=== PATIENT | female | born 1935 | race Caucasian/White ===

== ENCOUNTER 2018-11-02 15:38 | Emergency (ER) | payer OTHER, MEDICARE ==
[2018-11-02 17:19] LABS: Urine Blood 1+ (NEG); Urine Glucose NEGATIVE (NEG); Urine Protein NEGATIVE (NEG); Urine Specific Gravity 1.015 (1.005-1.030); Urine pH 5.5 (5.0-7.0)
[2018-11-02] MEDS ORDERED: FUROSEMIDE 40 MG/4 ML VIAL ONE (18:02)
[2018-11-02 18:14] LABS: Absolute Lymphocytes (CBC) 0.4 K/uL (0.7-4.9); Absolute Monocytes 0.5 K/uL (0.1-1.3); Absolute Neutrophil 5.4 K/uL (1.8-8.0); Basophils % 0.6 % (0-1.3); Eosinophils % 0.9 % (0-4.4); Hematocrit 35.5 % (36.0-45.0); Lymphocytes % 5.7 % (15.3-44.8); MPV 8.6 fL (7.6-11.3); Monocytes % 7.9 % (3.3-12.3); RBC Red Blood Cell Count 3.33 M/uL (3.86-4.86)
[2018-11-02 18:25] LABS: Potassium 4.5 mmol/L (3.5-5.1)
--- NOTE | 2018-11-02 18:39 | RAD REPORT ---
EXAM DESCRIPTION: USExtrem Venous W Compress Bil11/02/2018 6:28 pm CLINICAL HISTORY: Bilateral leg swelling COMPARISON: August 2018 FINDINGS: The common femoral, superficial femoral, popliteal and posterior tibial veins bilaterally are compressible and demonstrate augmentation. Doppler demonstrates good flow. IMPRESSION: No evidence of deep venous thrombosis involving either lower extremity.
--- NOTE | 2018-11-02 18:49 | EDPHYS ---
Physician Documentation [facility] Name: Debby Gaitan Age: 83 yrs Sex: Female : 1935 Arrival Date: 11/02/2018 Time: 15:41 Bed 30 Private MD: Zack Giles ED Physician Chris Bruce HPI: 11/02 22:26 This 83 yrs old Female presents to ER via Wheelchair with complaints of Leg kdr Swelling. 22:26 The patient presents with swelling, tenderness, R > left leg. The complaints affect the kdr lateral aspect of left calf, left lateral ankle, left calf, left Achilles, medial aspect of left calf, left medial ankle, left pretty and anterior aspect of left ankle, lateral aspect of right calf, right ankle, right calf, right Achilles, medial aspect of right calf, right pretty and anterior aspect of right ankle. Context: The problem was sustained at home, resulted from an unknown cause, the patient can fully bear weight, the patient is able to ambulate, without difficulty. Onset: The symptoms/episode began/occurred gradually, 2 week(s) ago. Modifying factors: The symptoms are alleviated by elevating leg, the symptoms are aggravated by movement, weight bearing. Associated signs and symptoms: The patient has no apparent associated signs or symptoms. Treatment prior to arrival includes: prescription medications, Increased lasix from 20 mg to 40 mg/day. Severity of symptoms: At their worst the symptoms were mild, just prior to arrival, in the emergency department the symptoms are unchanged. The patient has experienced similar episodes in the past, a few times. The patient has not recently seen a physician. Historical: - Allergies: 15:51 Aspirin; hb 15:51 blood thinners; hb 15:51 Codeine; hb 15:51 PENICILLINS; hb 15:51 Sulfa (Sulfonamide Antibiotics); hb 15:51 Tape (All Except Paper); hb 15:51 Xarelto; hb - Home Meds: 15:51 Amiodarone Oral [Active]; amlodipine oral [Active]; atorvastatin Oral [Active]; Digoxin hb Oral [Active]; Furosemide Oral [Active]; gabapentin Oral [Active]; levothyroxine 88 mcg tab 1 tab once daily [Active]; Metformin Oral [Active]; Metoprolol Tartrate Oral [Active]; lisinopril Oral [Active]; pantoprazole Oral [Active]; Simvastatin Oral [Active]; Spironolacton-Hydrochlorothiaz Oral [Active]; - PMHx: 15:51 Anemia; High Cholesterol; Atrial Fib; CHF; hb - PSHx: 15:51 Heart Valve Replacement; Mitral Valve Clip; Appendectomy; Cholecystectomy; Carpal hb Tunnel Repair; - Immunization history:: Adult Immunizations up to date. - Social history:: Smoking status: Patient/guardian denies using tobacco. - Ebola Screening: : No symptoms or risks identified at this time. ROS: 22:26 Constitutional: Negative for fever, chills, and weight loss, Eyes: Negative for injury, kdr pain, redness, and discharge, ENT: Negative for injury, pain, and discharge, Neck: Negative for injury, pain, and swelling, Cardiovascular: Negative for chest pain, palpitations, and edema, Respiratory: Negative for shortness of breath, cough, wheezing, and pleuritic chest pain, Abdomen/GI: Negative for abdominal pain, nausea, vomiting, diarrhea, and constipation, Back: Negative for injury and pain, : Negative for injury, bleeding, discharge, and swelling, Skin: Negative for injury, rash, and discoloration, Neuro: Negative for headache, weakness, numbness, tingling, and seizure activity. Psych: Negative for depression, anxiety, suicide ideation, homicidal ideation, and hallucinations, Allergy/Immunology: Negative for hives, rash, and allergies, Endocrine: Negative for neck swelling, polydipsia, polyuria, polyphagia, and marked weight changes, Hematologic/Lymphatic: Negative for swollen nodes, abnormal bleeding, and unusual bruising. 22:26 MS/extremity: Positive for swelling, tenderness, weeping from legs. Exam: 22:26 Constitutional: This is a well developed, well nourished patient who is awake, alert, kdr and in no acute distress. Head/Face: Normocephalic, atraumatic. Eyes: Pupils equal round and reactive to light, extra-ocular motions intact. Lids and lashes normal. Conjunctiva and sclera are non-icteric and not injected. Cornea within normal limits. Periorbital areas with no swelling, redness, or edema. Neck: Trachea midline, no thyromegaly or masses palpated, and no cervical lymphadenopathy. Supple, full range of motion without nuchal rigidity, or vertebral point tenderness. No Meningismus. Chest/axilla: Normal chest wall appearance and motion. Nontender with no deformity. No lesions are appreciated. Cardiovascular: Regular rate and rhythm with a normal S1 and S2. No gallops, murmurs, or rubs. Normal PMI, no JVD. No pulse deficits. Respiratory: Lungs have equal breath sounds bilaterally, clear to auscultation and percussion. No rales, rhonchi or wheezes noted. No increased work of breathing, no retractions or nasal flaring. Abdomen/GI: Soft, non-tender, with normal bowel sounds. No distension or tympany. No guarding or rebound. No evidence of tenderness throughout. Back: No spinal tenderness. No costovertebral tenderness. Full range of motion. Neuro: Awake and alert, GCS 15, oriented to person, place, time, and situation. Cranial nerves II-XII grossly intact. Motor strength 5/5 in all extremities. Sensory grossly intact. Cerebellar exam normal. Normal gait. Psych: Awake, alert, with orientation to person, place and time. Behavior, mood, and affect are within normal limits. 22:26 Skin: Appearance: Moisture: Occasional small areas of weeping in distal extremities, swelling. Vital Signs: 15:49 BP 116 / 56; Pulse 64; Resp 16; Temp 98.2; Pulse Ox 100% on R/A; Pain 0/10; hb 16:30 BP 141 / 57; Pulse 65; Resp 17 S; Pulse Ox 100% on R/A; rv 17:00 BP 124 / 50; Pulse 64; Resp 17 S; Pulse Ox 100% on R/A; rv 17:20 BP 125 / 51; Pulse 65; Resp 17; Pulse Ox 98% ; rv 17:40 BP 134 / 52; Pulse 65; Resp 15 S; Pulse Ox 99% on R/A; rv 18:52 BP 130 / 52; Pulse 67 MON; Resp 16 S; Pulse Ox 100% on R/A; rv MDM: 18:48 Patient medically screened. kdr 22:26 Data reviewed: vital signs, nurses notes. Counseling: I had a detailed discussion with kdr the patient and/or guardian regarding: the historical points, exam findings, and any diagnostic results supporting the discharge/admit diagnosis, lab results, radiology results, the need for outpatient follow up. ED course: The patient had minor improvement. 11/02 17:01 Order name: Urine Dipstick--Ancillary (enter results); Complete Time: 17:52 eb 11/02 17:50 Order name: CBC with Diff kdr 11/02 17:50 Order name: Chem 7; Complete Time: 18:32 kdr 11/02 17:50 Order name: US Extremity Venous W Compression Eugene kdr Administered Medications: 18:05 Drug: Lasix 80 mg Route: IVP; Site: right antecubital; rv 18:47 Follow up: Response: No adverse reaction rv Disposition: 11/02/18 18:48 Discharged to Home. Impression: Peripheral edema. - Condition is Fair. - Discharge Instructions: Edema, [id number], Peripheral Edema. - Prescriptions for Lasix 40 mg Oral Tablet - take 1 tablet by ORAL route every 12 hours for 5 days; 10 tablet. - Medication Reconciliation Form, Thank You Letter form. - Follow up: Sang Lopez DO; When: 2 - 3 days; Reason: If symptoms return, Further diagnostic work-up, Recheck today's complaints, Continuance of care, Re-evaluation by your physician. - Notes: As discussed, take 40 mg of the Lasix twice a day for the next three to five days or until your legs are feeling less tight. Signatures: Dispatcher [employer] EDMS Chris Bruce MD MD [facility] Eri Joseph RN RN César Martinez RN RN rv Corrections: (The following items were deleted from the chart) 19:05 18:48 11/02/2018 18:48 Discharged to Home. Impression: Peripheral edema. Condition is rv Fair. Forms are Medication Reconciliation Form, Thank You Letter, Antibiotic Education, Prescription Opioid Use. Follow up: Sang Lopez; When: 2 - 3 days; Reason: If symptoms return, Further diagnostic work-up, Recheck today's complaints, Continuance of care, Re-evaluation by your physician. kdr
--- NOTE | 2018-11-02 18:49 | ER ---
Nurse's Notes [facility] Name: Debby Gaitan Age: 83 yrs Sex: Female : 1935 Arrival Date: 11/02/2018 Time: 15:41 Bed 30 Private MD: Zack Giles Diagnosis: Peripheral edema Presentation: 11/02 15:48 Presenting complaint: Patient states: Lower leg swelling x 2 weeks, worse over last few hb days. Transition of care: patient was not received from another setting of care. Onset of symptoms is unknown. Risk Assessment: Do you want to hurt yourself or someone else? Patient reports no desire to harm self or others. Care prior to arrival: None. 15:48 Method Of Arrival: Wheelchair hb 15:48 Acuity: ALEJANDRO 3 hb 18:11 Initial Sepsis Screen: Does the patient meet any 2 criteria? No. Patient's initial rv sepsis screen is negative. Does the patient have a suspected source of infection? No. Patient's initial sepsis screen is negative. Historical: - Allergies: 15:51 Aspirin; hb 15:51 blood thinners; hb 15:51 Codeine; hb 15:51 PENICILLINS; hb 15:51 Sulfa (Sulfonamide Antibiotics); hb 15:51 Tape (All Except Paper); hb 15:51 Xarelto; hb - Home Meds: 15:51 Amiodarone Oral [Active]; amlodipine oral [Active]; atorvastatin Oral [Active]; Digoxin hb Oral [Active]; Furosemide Oral [Active]; gabapentin Oral [Active]; levothyroxine 88 mcg tab 1 tab once daily [Active]; Metformin Oral [Active]; Metoprolol Tartrate Oral [Active]; lisinopril Oral [Active]; pantoprazole Oral [Active]; Simvastatin Oral [Active]; Spironolacton-Hydrochlorothiaz Oral [Active]; - PMHx: 15:51 Anemia; High Cholesterol; Atrial Fib; CHF; hb - PSHx: 15:51 Heart Valve Replacement; Mitral Valve Clip; Appendectomy; Cholecystectomy; Carpal hb Tunnel Repair; - Immunization history:: Adult Immunizations up to date. - Social history:: Smoking status: Patient/guardian denies using tobacco. - Ebola Screening: : No symptoms or risks identified at this time. Screenin:44 Abuse screen: Denies threats or abuse. Denies injuries from another. Nutritional rv screening: No deficits noted. Tuberculosis screening: No symptoms or risk factors identified. Fall Risk None identified. Assessment: 16:42 General: Appears in no apparent distress. distressed, Behavior is calm, cooperative. rv Pain: Denies pain. Neuro: Level of Consciousness is awake, alert, obeys commands, Oriented to person, place, time, situation. Cardiovascular: Capillary refill < 3 seconds. Respiratory: Airway is patent. GI: No signs and/or symptoms were reported involving the gastrointestinal system. : No signs and/or symptoms were reported regarding the genitourinary system. EENT: No signs and/or symptoms were reported regarding the EENT system. Derm: Skin with poor turgor. Musculoskeletal: Swelling present in right leg and left leg. Vital Signs: 15:49 BP 116 / 56; Pulse 64; Resp 16; Temp 98.2; Pulse Ox 100% on R/A; Pain 0/10; hb 16:30 BP 141 / 57; Pulse 65; Resp 17 S; Pulse Ox 100% on R/A; rv 17:00 BP 124 / 50; Pulse 64; Resp 17 S; Pulse Ox 100% on R/A; rv 17:20 BP 125 / 51; Pulse 65; Resp 17; Pulse Ox 98% ; rv 17:40 BP 134 / 52; Pulse 65; Resp 15 S; Pulse Ox 99% on R/A; rv 18:52 BP 130 / 52; Pulse 67 MON; Resp 16 S; Pulse Ox 100% on R/A; rv ED Course: 15:41 Patient arrived in ED. as 15:42 Zack Giles MD is Private Physician. as 15:49 Triage completed. hb 15:51 Arm band placed on right wrist. hb 16:30 Chris Bruce MD is Attending Physician. kdr 16:44 Patient has correct armband on for positive identification. Bed in low position. Call rv light in reach. Side rails up X 1. Adult w/ patient. Pulse ox on. NIBP on. 18:00 Radiology exam delayed due to line being placed. cy 18:00 Initial lab(s) drawn, by me, sent to lab. Inserted saline lock: 22 gauge in right rv antecubital area, using aseptic technique. Blood collected. 18:10 US Extremity Venous W Compression Eugene Sent. rv 18:10 CBC with Diff Sent. rv 18:28 US Extremity Venous W Compression Eugene In Process Unspecified. EDMS 18:47 Sang Lopez DO is Referral Physician. kdr 18:47 No provider procedures requiring assistance completed. IV discontinued, bleeding rv controlled, No redness/swelling at site. Pressure dressing applied. Administered Medications: 18:05 Drug: Lasix 80 mg Route: IVP; Site: right antecubital; rv 18:47 Follow up: Response: No adverse reaction rv Outcome: 18:47 Discharged to home ambulatory. rv 18:47 Condition: good 18:48 Discharge ordered by . kdr 19:05 Discharge instructions given to patient, family, Instructed on discharge instructions, rv follow up and referral plans. medication usage, Demonstrated understanding of instructions, follow-up care, medications, Prescriptions given X 1. 19:05 Patient left the ED. rv Signatures: Dispatcher [employer] EDMS Chris Bruce MD MD kdr Martinez, Amelia as Baxter, Heather, DONALD RN Omi Vargas César Martinez, DONALD RN rv
[2018-11-02 19:20] VITALS: TEMP 98.2
[2018-11-02 19:30] VITALS: BP 130/52; O2SAT 100
[2018-11-02 20:14] LABS: Blood Morphology Comment NOT SEEN (NOT SEEN); Platelet Estimate ADEQ; Urine White Blood Cell Casts OK
--- OUTSIDE RECORDS SUMMARY | 2018-11-03 17:36 | XMS REPORT | Clinical Summary ---
:1935 Author Organization [facility] Address [address] [place] [address] Care Team Providers Name Role Phone Zack Giles MD Primary Care Provider Allergies Active Allergy Reactions Severity Noted Date Comments Aspirin 08/16/2016 Codeine 08/16/2016 Hydrocodone-Acetaminophen 08/16/2016 Latex, Natural Rubber 10/24/2016 Nsaids (Non-Steroidal Anti-Inflammatory Drug) 08/16/2016 Penicillins 08/16/2016 Sulfa (Sulfonamide Antibiotics) 10/24/2016 Medications Medication Sig Dispensed Refills Start Date End Date Status levothyroxine Take 0.88 mcg 0 2017 Active (SYNTHROID, LEVOXYL) by mouth 100 mcg tablet daily. liothyronine 0 12/13/2017 Active (CYTOMEL) 5 MCG tablet pantoprazole Take 1 tablet 90 tablet 3 01/24/2018 Active (PROTONIX) 40 MG EC (40 mg total) tablet by mouth daily. furosemide (LASIX) Take 1 tablet 90 tablet 3 01/24/2018 Active 40 mg tablet (40 mg total) by mouth daily. spironolactone TAKE 1 TABLET 180 tablet 1 07/04/2018 Active (ALDACTONE) 50 MG BY MOUTH tablet TWICE A DAY amIODarone TAKE 1 TABLET 90 tablet 1 07/04/2018 Active (PACERONE) 200 MG BY MOUTH tablet DAILY atorvastatin TAKE 1 TABLET 90 tablet 1 07/04/2018 Active (LIPITOR) 20 MG BY MOUTH tablet EVERY DAY levofloxacin Take 250 mg 0 Discontinued (LEVAQUIN) 250 MG by mouth 8 tablet daily. X 4 days. Started on 08-22-2016 atorvastatin Take 1 tablet 90 tablet 3 02/28/2017 Discontinued (LIPITOR) 20 MG (20 mg total) 8 tablet by mouth daily. pantoprazole Take 1 tablet 90 tablet 3 02/28/2017 Discontinued (PROTONIX) 40 MG EC by mouth 8 tablet every day in the morning simvastatin (ZOCOR) Take 20 mg by 0 Discontinued 10 MG tablet mouth 8 nightly. spironolactone TAKE 1 TABLET 180 tablet 1 08/24/2017 Discontinued (ALDACTONE) 50 MG BY MOUTH 8 tablet TWICE A DAY amIODarone TAKE 1 TABLET 90 tablet 1 08/24/2017 Discontinued (PACERONE) 200 MG BY MOUTH 8 tablet DAILY pantoprazole TAKE 1 TABLET 15 tablet 0 01/05/2018 Discontinued (PROTONIX) 40 MG EC BY MOUTH 8 tablet EVERY DAY IN THE MORNING atorvastatin TAKE 1 TABLET 90 tablet 0 01/05/2018 Discontinued (LIPITOR) 20 MG BY MOUTH 8 tablet EVERY DAY furosemide (LASIX) Take 40 mg by 0 Discontinued 40 mg tablet mouth daily. 8 atorvastatin TAKE 1 TABLET 90 tablet 0 03/16/2018 Discontinued (LIPITOR) 20 MG BY MOUTH 8 tablet EVERY DAY spironolactone TAKE 1 TABLET 180 tablet 0 03/16/2018 Discontinued (ALDACTONE) 50 MG BY MOUTH 8 tablet TWICE A DAY amIODarone TAKE 1 TABLET 90 tablet 0 03/16/2018 Discontinued (PACERONE) 200 MG BY MOUTH 8 tablet DAILY spironolactone Take 1 tablet 180 tablet 0 03/17/2018 Discontinued (ALDACTONE) 50 MG (50 mg total) 8 tablet by mouth 2 (two) times a day. amIODarone Take 1 tablet 90 tablet 0 03/17/2018 Discontinued (PACERONE) 200 MG (200 mg 8 tablet total) by mouth daily. atorvastatin Take 1 tablet 90 tablet 0 03/17/2018 Discontinued (LIPITOR) 20 MG (20 mg total) 8 tablet by mouth daily. Default OP ins Active Problems Problem Noted Date Acute on chronic congestive heart failure 06/10/2017 Anemia 02/03/2017 Atrial fibrillation 02/03/2017 Congestive heart failure 02/03/2017 Chronic kidney disease 02/03/2017 S/P mitral valve repair with Mitraclip 02/03/2017 Overview: with a single MitraClip device. Hypotension 08/23/2016 Hematuria 08/16/2016 S/P AVR (aortic valve replacement) 11/14/2013 Overview: 19 mm Trifecta valve Encounters Date Type Specialty Care Team Description 10/19/2018 Orders Only Cardiology Linda Blevins MA S/P TAVR (transcatheter aortic valve replacement) (Primary Dx) 06/30/2018 Refill Cardiology Kevin Matta MD 03/21/2018 Orders Only Cardiology Kyara Duarte S/P TAVR (transcatheter aortic valve replacement) (Primary Dx); RN S/P mitral valve clip implantation 03/17/2018 Refill Cardiology Kevin Matta MD 03/14/2018 Refill Kevin Matta MD 01/19/2018 Multidisciplinary Visit Cardiology Kevin Matta S/P MVR ( mitral valve repair) (Primary Dx); MD Faustino S/P mitral valve repair with Mitraclip; Chronic kidney disease, unspecified CKD stage; Chronic atrial fibrillation; S/P AVR (aortic valve replacement); Congestive heart failure, unspecified congestive heart failure chronicity, unspecified congestive heart failure type 01/19/2018 Orders Only Cardiology Kevin Matta Aortic valve disorder MD Faustino (Primary Dx) 01/19/2018 Orders Only Cardiology Guido, Aortic valve disorder DONALD Harrington (Primary Dx) 01/19/2018 Orders Only Cardiology Kevin Matta Aortic valve disorder MD Faustino (Primary Dx) 01/05/2018 Refill Cardiology Kevin Matta MD 11/17/2017 Refill Cardiology Kevin Matta MD after 11/01/2017 Family History Medical History Relation Name Comments Cardiomyopathy Daughter GERD Daughter Thyroid disease Daughter Diabetes Mother Hypertension Mother Thyroid disease Son Relation Name Status Comments Daughter Mother Son Social History Tobacco Use Types Packs/Day Years Used Date Never Smoker Smokeless Tobacco: Never Used Alcohol Use Drinks/Week oz/Week Comments No Sex Assigned at Date Recorded Not on file Job Start Date Occupation Industry Not on file Not on file Not on file Travel History Travel Start Travel End No recent travel history available. Last Filed Vital Signs Vital Sign Reading Time Taken Blood Pressure 146/65 01/19/2018 3:07 PM HOG WORKER Pulse 60 01/19/2018 3:07 PM HOG WORKER Temperature 36.4 C (97.5 F) 01/19/2018 3:07 PM HOG WORKER Respiratory Rate 18 01/19/2018 3:07 PM HOG WORKER Oxygen Saturation - - Inhaled Oxygen Concentration - - Weight 63.5 kg (140 lb) 01/19/2018 3:07 PM HOG WORKER Height 157.5 cm (5' 2") 01/19/2018 3:07 PM HOG WORKER Body Mass Index 25.61 01/19/2018 3:07 PM HOG WORKER Plan of Treatment Date Type Specialty Care Team Description 01/18/2019 Appointment Procedural Cardiology Kevin Matta MD [address] [facility] [address] [place] [address] [phone] 01/18/2019 Multidisciplinary Visit Cardiology Kevin Matta MD [address] [facility] [address] [place] [address] [phone] Health Maintenance Due Date Last Done Comments SHINGLES VACCINES (1 of 2) 1986 PNEUMOCOCCAL POLYSACCHARIDE VACCINE AGE 65 AND OVER 2001 PNEUMOCOCCAL-13 2001 INFLUENZA VACCINE 06/14/2018 Procedures Procedure Name Priority Date/Time Associated Comments Diagnosis TRANSFUSE RED BLOOD Routine 07/19/2018 5:26 CELLS PM CDT ECG 12-LEAD Routine 01/19/2018 3:04 S/P MVR (mitral Results for this PM HOG WORKER valve repair) procedure are in the results section. ECHOCARDIOGRAM 2D Routine 01/19/2018 1:37 S/P TAVR Results for this COMPLETE W MMODE PM HOG WORKER (transcatheter procedure are in SPECTRAL COLOR DOPPLER aortic valve the results (00081) replacement) section. Aortic valve disorder after 11/01/2017 Results Transfuse RBC (07/19/2018 5:26 PM CDT)ECG 12 lead (01/19/2018 3:04 PM HOG WORKER) Ventricular rate 60 [facility] Atrial rate 60 [facility] MO interval 180 [facility] QRSD interval 104 [facility] QT interval 464 [facility] QTC interval 464 [facility] P axis 1 94 [facility] QRS axis 1 -22 [facility] T wave axis 42 [facility] EKG impression Normal sinus rhythm-Normal ECG-In automated [facility] comparison with ECG of 09-AUG-2017 12:44,-(RBBB and left anterior fascicular block) is no longer present- Performing Organization Address City/State/Zipcode Phone Number [facility] M[facility] [address] [place] [address] Echocardiogram complete w contrast and 3D if needed (01/19/2018 1:37 PM HOG WORKER) Narrative Performed At [facility] Echocardiography Report Pat.Name:DANNY ANDERS Pat.ID:[id number] St.Date: 01/19/2018Refer.MD:KEVIN MATTA MD Exam Time: 1:07:00 PMStudy Type:Routine Echo Height:62inWeight: 140lb BSA: 1.64 m2 DOBAge:1935,82Y Sex: FEMALEBP:139/62 HR:57 bpm Sonogrphr: Oumou Peck, RCS, RCCS, CCT Pat. Stat.:OutpatientRoom:[facility] TapeVol: MDCA, ICD - 9: Z95.2 Study Status:Final Echo Event ID:[id number] Order ID:[id number] Reason for Study:Valvular lvvowrk-mh-lels without evidence, no status change History / Clinical:Aortic Stenosis, Aortic Valve Disorder, Atrial Fibrillation, Cancer, Coronary Artery Disease, Diabetes, Hyperlipidemia, Hypertension, Valvular Heart Disease; Mitral Regurgitaiton, Valvular Heart Disease; Tricuspid Regurgitation Procedures:2D Echo, Colorflow Doppler Race: SUMMARY: RESEARCH STUDY:DoloresVI Trial Echocardiogram. -LV systolic function is hyperdynamic. Estimated EF is >70%. -Moderate to severe mitral regurgitation with a central jet (MITRAL clips noted). FINDINGS: LV: LV size is normal. LV systolic function is hyperdynamic. Overallwall motion is hyperdynamic. Estimated EF is >70%. RV: RV size is normal. RV systolic function is normal. LA: LA volume is severely enlarged. RA: RA volume is severely enlarged. AO: Aortic root diameter is normal. FRANCESCO: No pericardial effusion. AV: Bioprosthetic aortic valve. Aortic Valve is normal. MV: Severe thickening and calcification of mitral leaflets. Moderateto severe mitral regurgitation with a central jet. ModerateLYELEVATEDgradient across the MV (combination of mildto moderate stenosis and significant regurgitation). PV: No structural PV abnormalities noted. TV: No structural TV abnormalities noted. Moderate tricuspid regurgitation Other:Estimated PA systolic pressure is 70 mmHg, assuming a mean RAPof 10 mmHg. MEASUREMENTS: 2D Parasternal Long [place] LVOT 1.9 cmLA Ds6.3 cm LVIDd6.1 cmIndex3.7 cm/m Ao An2.1 cm LVIDs4.4 cmAo Rtd 2.9 cm Index1.8 cm/m LV%fs 27.9 % LV Gtec591.6 g(87-129) IVSd 0.9 cmLVM Zslgx031.6 g/m2 LVPWd0.9 cmRWT0.3 LA Volume LA Vol 242.6 phOfcfw721.9 ml/m DOPPLER AV For Flow/TING AV pkVel 245.4 cm/s (100-170) AV AC/ET 0.2 AV mnVel 159 cm/Agnes TVI54.3 cm AV pkPG 24.1 mmHgAVpkAcRt 84455.2 cm/s2 AV Mean G 12.5 mmHgAV VpMb241.8 cm/s2 AV AC 78 msec (83-118) AV Area1.5 cm2(3-5) AV ET341 msec LVOT For Flow LVOT Area2.8 cm2 LVOTmnPG 3.5 mmHg XJLEjdYuy529.7 cm/sLVOT TVI28.7 cm LVOTpkPG 6.3 mmHgLVOT SV 81.4 ml MV For Flow/Valve Assess MV pkVel 276.5 cm/sMV Mean G6.1 mmHg MV pkPG 30.6 mmHgMV TVI74.4 cm Signed 01/21/2018 01:13 AM Ann Banks M.D. Procedure Note Interface, Radiology Results In - 01/21/2018 1:14 AM HOG WORKER [facility] Echocardiography Report Pat.Name: DANNY ANDERS Pat.ID: [id number] .Date: 01/19/2018 Refer.MD: KEVIN MATTA MD Exam Time: 1:07:00 PM Study Type:Routine Echo Height: 62in Weight: 140lb BSA: 1.64 m2 Age: 9 1935,82Y Sex: FEMALE BP: 139/62 HR: 57 bpm Sonogrphr: Oumou Peck, RCS, RCCS, CCT Pat. Stat.:Outpatient Room: [address] Vol: [facility], ICD - 9: Z95.2 Study Status:Final Echo Event ID:[id number] Order ID: [id number] Reason for Study:Valvular zepoedd-fw-sjna without evidence, no status change History / Clinical:Aortic Stenosis, Aortic Valve Disorder, Atrial Fibrillation, Cancer, Coronary Artery Disease, Diabetes, Hyperlipidemia, Hypertension, Valvular Heart Disease; Mitral Regurgitaiton, Valvular Heart Disease; Tricuspid Regurgitation Procedures:2D Echo, Colorflow Doppler Race: SUMMARY: RESEARCH STUDY: SurTAVI Trial Echocardiogram. -LV systolic function is hyperdynamic. Estimated EF is >70%. -Moderate to severe mitral regurgitation with a central jet (MITRAL clips noted). FINDINGS: LV: LV size is normal. LV systolic function is hyperdynamic. Overall wall motion is hyperdynamic. Estimated EF is >70%. RV: RV size is normal. RV systolic function is normal. LA: LA volume is severely enlarged. RA: RA volume is severely enlarged. AO: Aortic root diameter is normal. FRANCESCO: No pericardial effusion. AV: Bioprosthetic aortic valve. Aortic Valve is normal. MV: Severe thickening and calcification of mitral leaflets. Moderate to severe mitral regurgitation with a central jet. ModerateLY ELEVATED gradient across the MV (combination of mild to moderate stenosis and significant regurgitation). PV: No structural PV abnormalities noted. TV: No structural TV abnormalities noted. Moderate tricuspid regurgitation Other: Estimated PA systolic pressure is 70 mmHg, assuming a mean RAP of 10 mmHg. MEASUREMENTS: 2D Parasternal Long [place] LVOT 1.9 cm LA Ds 6.3 cm LVIDd 6.1 cm Index 3.7 cm/m Ao An 2.1 cm LVIDs 4.4 cm Ao Rtd 2.9 cm Index 1.8 cm/m LV%fs 27.9 % LV Mass 230.6 g (87-129) IVSd 0.9 cm LVM Index 140.6 g/m2 LVPWd 0.9 cm RWT 0.3 LA Volume LA Vol 242.6 ml Index 147.9 ml/m DOPPLER AV For Flow/TING AV pkVel 245.4 cm/s (100-170) AV AC/ET 0.2 AV mnVel 159 cm/s AV TVI 54.3 cm AV pkPG 24.1 mmHg AVpkAcRt 81718.2 cm/s2 AV Mean G 12.5 mmHg AV DeRt 718.8 cm/s2 AV AC 78 msec (83-118) AV Area 1.5 cm2 (3-5) AV ET 341 msec LVOT For Flow LVOT Area 2.8 cm2 LVOTmnPG 3.5 mmHg LVOTpkVel 125.7 cm/s LVOT TVI 28.7 cm LVOTpkPG 6.3 mmHg LVOT SV 81.4 ml MV For Flow/Valve Assess MV pkVel 276.5 cm/s MV Mean G 6.1 mmHg MV pkPG 30.6 mmHg MV TVI 74.4 cm Signed 01/21/2018 01:13 AM Ann Banks M.D. Performing Organization Address City/State/Zipcode Phone Number [facility] [address] [place] [address] after 11/01/2017 Insurance Payer Benefit Plan / Group Subscriber ID Type Phone Address MEDICARE MEDICARE PART A AND B xxxxxxxxxx Medicare [place], [place] AARP AARP SUPPLEMENT xxxxxxxxxxx Commercial Advance Directives Patient has advance care planning documents on file. For more information, please contact:Red Brannon[address] [place] [address]
== END 2018-11-02 19:05 | disposition home or self-care (01) ==
LOC: ER 15:38
DX: R60.9 Edema, unspecified (principal); I48.91 Unspecified atrial fibrillation; E78.00 Pure hypercholesterolemia, unspecified; I50.9 Heart failure, unspecified; Z95.2 Presence of prosthetic heart valve; Z88.0 Allergy status to penicillin; Z88.2 Allergy status to sulfonamides; Z88.5 Allergy status to narcotic agent; Z88.6 Allergy status to analgesic agent; Z88.8 Allergy status to other drugs, medicaments and biological substances
CPT/HCPCS: 36415; 80048; 81003; 85025; 93970; 96374; 99284; J1940

== ENCOUNTER 2018-12-03 12:23 | Observation (INO) | payer OTHER, MEDICARE ==
--- OUTSIDE RECORDS SUMMARY | 2018-12-03 12:26 | XMS REPORT | Clinical Summary ---
:1935 Author Organization [facility] Address [address] [place] [address] Care Team Providers Name Role Phone Zack [...] tablet (40 mg total) by mouth daily. amIODarone TAKE 1 TABLET 90 tablet 1 11/15/2018 Active (PACERONE) 200 MG BY MOUTH tablet DAILY atorvastatin TAKE 1 TABLET 90 tablet 1 11/15/2018 Active (LIPITOR) 20 MG BY MOUTH tablet EVERY DAY spironolactone TAKE 1 TABLET 180 tablet 1 11/15/2018 Active (ALDACTONE) 50 MG BY MOUTH tablet TWICE A DAY levofloxacin Take 250 mg 0 Discontinued [...] tablet by mouth daily. Default OP ins spironolactone TAKE 1 TABLET 180 tablet 1 07/04/2018 Discontinued (ALDACTONE) 50 MG BY MOUTH 9 tablet TWICE A DAY amIODarone TAKE 1 TABLET 90 tablet 1 07/04/2018 Discontinued (PACERONE) 200 MG BY MOUTH 9 tablet DAILY atorvastatin TAKE 1 TABLET 90 tablet 1 07/04/2018 Discontinued (LIPITOR) 20 MG BY MOUTH 9 tablet EVERY DAY Active Problems Problem Noted Date Acute on chronic congestive heart failure 06/10/2017 Anemia 02/03/2017 Atrial fibrillation 02/03/2017 Congestive heart failure 02/03/2017 Chronic kidney disease 02/03/2017 S/P mitral valve repair with Mitraclip 02/03/2017 Overview: with a single MitraClip device. Hypotension 08/23/2016 Hematuria 08/16/2016 S/P AVR (aortic valve replacement) 11/14/2013 Overview: 19 mm Trifecta valve Encounters Date Type Specialty Care Team Description 11/14/2018 Refill Cardiology Kevin Matta MD 10/19/2018 Orders Only Cardiology Linda Blevins MA [...] Dx) 01/05/2018 Refill Cardiology Kevin Matta MD after 12/02/2017 Family History Medical History Relation Name Comments [...] Taken Blood Pressure 146/65 01/19/2018 3:07 PM GLUING MACHINE OPERATOR ELECTRONIC Pulse 60 01/19/2018 3:07 PM GLUING MACHINE OPERATOR ELECTRONIC Temperature 36.4 C (97.5 F) 01/19/2018 3:07 PM GLUING MACHINE OPERATOR ELECTRONIC Respiratory Rate 18 01/19/2018 3:07 PM GLUING MACHINE OPERATOR ELECTRONIC Oxygen Saturation - - Inhaled Oxygen Concentration - - Weight 63.5 kg (140 lb) 01/19/2018 3:07 PM GLUING MACHINE OPERATOR ELECTRONIC Height 157.5 cm (5' 2") 01/19/2018 3:07 PM GLUING MACHINE OPERATOR ELECTRONIC Body Mass Index 25.61 01/19/2018 3:07 PM GLUING MACHINE OPERATOR ELECTRONIC Plan of Treatment Date Type Specialty Care Team Description 01/18/2019 Appointment Procedural Cardiology Kevin Matta MD [address] [facility] [address] [place] [address] [phone] 01/18/2019 Multidisciplinary Visit Cardiology Kevin Matta MD [address] [facility] [address] [place] [address] [phone] Health Maintenance Due Date Last Done Comments SHINGLES VACCINES (1 of 2) 1986 PNEUMOCOCCAL POLYSACCHARIDE VACCINE AGE 65 AND OVER 2001 PNEUMOCOCCAL-13 2001 INFLUENZA VACCINE 06/14/2018 Procedures Procedure Name Priority Date/Time Associated Comments Diagnosis TRANSFUSE RED BLOOD Routine 07/19/2018 5:26 CELLS PM CDT ECG 12-LEAD Routine 01/19/2018 3:04 S/P MVR (mitral Results for this PM GLUING MACHINE OPERATOR ELECTRONIC valve repair) procedure are in the results section. ECHOCARDIOGRAM 2D Routine 01/19/2018 1:37 S/P TAVR Results for this COMPLETE W MMODE PM GLUING MACHINE OPERATOR ELECTRONIC (transcatheter procedure are in SPECTRAL COLOR DOPPLER aortic valve the results (82761) replacement) section. Aortic valve disorder after 12/02/2017 Results Transfuse RBC (07/19/2018 5:26 PM CDT)ECG 12 lead (01/19/2018 3:04 PM GLUING MACHINE OPERATOR ELECTRONIC) Ventricular rate 60 [facility] Atrial rate 60 [facility] MT interval 180 [facility] QRSD interval 104 [facility] QT interval 464 [facility] QTC interval 464 [facility] P axis 1 94 [facility] QRS axis 1 -22 [facility] T wave axis 42 [facility] EKG impression Normal sinus rhythm-Normal ECG-In automated [facility] M[facility] comparison with ECG of 09-AUG-2017 12:44,-(RBBB and left anterior fascicular block) is no longer present- Performing Organization Address City/State/Zipcode Phone Number [facility] [address] [place] [address] Echocardiogram complete w contrast and 3D if needed (01/19/2018 1:37 PM GLUING MACHINE OPERATOR ELECTRONIC) Narrative Performed At [facility] Ech[facility] Report Pat.Name:DANNY ANDERS Pat.ID:[id number] .Date: 01/19/2018Refer.MD:KEVIN MATTA MD Exam Time: 1:07:00 PMStudy Type:Routine Echo Height:62inWeight: 140lb BSA: 1.64 m2 DOBAge:1935,82Y Sex: FEMALEBP:139/62 HR:57 bpm Sonogrphr: Oumou Peck, RCS, RCCS, CCT Pat. Stat.:OutpatientRoom:[facility] TapeVol: MDCA, ICD - 9: Z95.2 Study Status:Final Echo Event ID:[id number] Order ID:[id number] Reason for Study:Valvular thouohj-gd-epiy without evidence, no status change History / Clinical:Aortic Stenosis, Aortic Valve Disorder, Atrial Fibrillation, Cancer, Coronary Artery Disease, Diabetes, Hyperlipidemia, Hypertension, Valvular Heart Disease; Mitral Regurgitaiton, Valvular Heart Disease; Tricuspid Regurgitation Procedures:2D Echo, Colorflow Doppler Race: SUMMARY: RESEARCH STUDY:SurTAVI Trial Echocardiogram. -LV systolic function is hyperdynamic. [...] RAPof 10 mmHg. MEASUREMENTS: 2D Parasternal Long [place] LVOT 1.9 cmLA Ds6.3 cm LVIDd6.1 cmIndex3.7 cm/m Ao An2.1 cm LVIDs4.4 cmAo Rtd 2.9 cm Index1.8 cm/m LV%fs 27.9 % LV Itfj242.6 g(87-129) IVSd 0.9 cmLVM Szcqe108.6 g/m2 LVPWd0.9 cmRWT0.3 LA Volume LA Vol 242.6 ypWldsm798.9 ml/m DOPPLER AV For Flow/TING AV pkVel 245.4 cm/s (100-170) AV AC/ET 0.2 AV mnVel 159 cm/Agnes TVI54.3 cm AV pkPG 24.1 mmHgAVpkAcRt 02636.2 cm/s2 AV Mean G 12.5 mmHgAV QhVg128.8 cm/s2 AV AC 78 msec (83-118) AV Area1.5 cm2(3-5) AV ET341 msec LVOT For Flow LVOT Area2.8 cm2 LVOTmnPG 3.5 mmHg QUFLczPig709.7 cm/sLVOT TVI28.7 cm LVOTpkPG 6.3 mmHgLVOT SV 81.4 ml MV For Flow/Valve Assess MV pkVel 276.5 cm/sMV Mean G6.1 mmHg MV pkPG 30.6 mmHgMV TVI74.4 cm Signed 01/21/2018 01:13 AM Ann Banks M.D. Procedure Note Interface, Radiology Results In - 01/21/2018 1:14 AM GLUING MACHINE OPERATOR ELECTRONIC [facility] Echocardi[facility] Report Pat.Name: DANNY ANDERS Pat.ID: [id number] St.Date: 01/19/2018 Refer.MD: KEVIN MATTA MD Exam Time: 1:07:00 PM Study Type:Routine Echo Height: 62in Weight: 140lb BSA: 1.64 m2 Age: 9 1935,82Y Sex: FEMALE BP: 139/62 HR: 57 bpm Sonogrphr: Oumou Peck, RCS, RCCS, CCT Pat. Stat.:Outpatient Room: [facility] Tape Vol: MDCA, ICD - 9: Z95.2 Study Status:Final Echo Event ID:[id number] Order ID: [id number] Reason for Study:Valvular uchvjfh-fe-kktc without evidence, no status change History / [...] of 10 mmHg. MEASUREMENTS: 2D Parasternal Long [place] LVOT 1.9 cm LA Ds 6.3 cm [...] 54.3 cm AV pkPG 24.1 mmHg AVpkAcRt 67716.2 cm/s2 AV Mean G 12.5 mmHg AV [...] Performing Organization Address City/State/Zipcode Phone Number [facility] [address] [place] [address] after 12/02/2017 Insurance Payer Benefit Plan / Group Subscriber ID Type Phone Address MEDICARE MEDICARE PART A AND B xxxxxxxxxx Medicare [place], [place] AARP AARP SUPPLEMENT xxxxxxxxxxx Commercial Advance Directives Patient has advance care planning documents on file. For more information, please contact:[facility] [address] [place] [address]
[2018-12-03 13:44] LABS: Absolute Lymphocytes (CBC) 0.3 K/uL (0.7-4.9); Absolute Monocytes 0.4 K/uL (0.1-1.3); Absolute Neutrophil 5.3 K/uL (1.8-8.0); Basophils % 0.5 % (0-1.3); Eosinophils % 0.5 % (0-4.4); Hematocrit 34.8 % (36.0-45.0); Lymphocytes % 4.2 % (15.3-44.8); MPV 8.8 fL (7.6-11.3); Monocytes % 6.2 % (3.3-12.3); RBC Red Blood Cell Count 3.33 M/uL (3.86-4.86)
[2018-12-03 13:45] LABS: Protime INR 1.33
[2018-12-03 13:54] LABS: ALT/SGPT 26 U/L (12-78); AST/SGOT 30 U/L (15-37); Albumin 2.9 g/dL (3.4-5.0); Alkaline Phosphatase 154 U/L (45-117); BUN Blood Urea Nitrogen 25 mg/dL (7-18); Bicarbonate 25 mmol/L (21-32); Bilirubin Direct 0.7 mg/dL (0-0.2); Bilirubin Total 1.5 mg/dL (0.2-1.0); Glucose Level 111 mg/dL (74-106); NT PRO-BNP 9704 pg/mL (<450); Potassium 4.1 mmol/L (3.5-5.1); Protein, Total 6.1 g/dL (6.4-8.2); Sodium Level 136 mmol/L (136-145); Troponin (Emerg Dept Use Only) < 0.02 ng/mL (0.0-0.045)
--- NOTE | 2018-12-03 14:41 | RAD REPORT ---
EXAM DESCRIPTION: RAD - Chest Single View - 12/03/2018 2:18 pm CLINICAL HISTORY: Progressive shortness of breath COMPARISON: November 23 TECHNIQUE: AP portable chest image was obtained 1406 hours . FINDINGS: Interstitial prominence noted similar to the comparison. Cardiomegaly is present with prom inent vasculature. Bilateral pleural effusions are present similar to comparison. No acute bony abnor mality seen. No acute aortic findings suspected. IMPRESSION: CHF/volume overload findings appearing fractionally worse than the November 23 study.
[2018-12-03 14:46] LABS: Anisocytosis SLIGHT; Blood Morphology Comment NOTED (NOT SEEN); Elliptocytes 1+; Platelet Estimate ADEQ; Platelets, Giant FEW; Poikilocytosis 1+; Urine White Blood Cell Casts OK
--- NOTE | 2018-12-03 15:12 | ER ---
Nurse's Notes [facility] Name: Debby Gaitan Age: 83 yrs Sex: Female : 1935 Arrival Date: 12/03/2018 Time: 12:25 Bed 16 Private MD: Zack Giles Diagnosis: Unspecified combined systolic (congestive) and diastolic (congestive) heart failure;Orthopnea Presentation: 12/03 12:29 Presenting complaint: Patient states: Reports SOB worse with exertion for 10 days and aj heaviness in right leg for 1 year. Seen by PCP multiple times for t SOB and DX with bronchitis and given IM ABX. Transition of care: patient was not received from another setting of care. Onset of symptoms was November 23, 2018. Risk Assessment: Do you want to hurt yourself or someone else? Patient reports no desire to harm self or others. Initial Sepsis Screen: Does the patient meet any 2 criteria? No. Patient's initial sepsis screen is negative. Does the patient have a suspected source of infection? No. Patient's initial sepsis screen is negative. Care prior to arrival: None. 12:29 Method Of Arrival: Wheelchair aj 12:29 Acuity: ALEJANDRO 3 aj Triage Assessment: 12:32 General: Appears in no apparent distress. comfortable, Behavior is calm, cooperative, aj appropriate for age. Pain: Denies pain. Neuro: Level of Consciousness is awake, alert, obeys commands, Oriented to person, place, time, situation, Appropriate for age. Respiratory: Reports shortness of breath at rest on exertion Airway is patent Respiratory effort is even, unlabored, Respiratory pattern is regular, symmetrical, Onset: The symptoms/episode began/occurred gradually, the patient has mild shortness of breath. Derm: Skin is intact, is healthy with good turgor, Skin is pink, warm \T\ dry. normal. Historical: - Allergies: 12:32 Aspirin; aj 12:32 blood thinners; aj 12:32 Codeine; aj 12:32 PENICILLINS; aj 12:32 Sulfa (Sulfonamide Antibiotics); aj 12:32 Tape (All Except Paper); aj 12:32 Xarelto; aj - Home Meds: 12:32 Amiodarone Oral [Active]; amlodipine oral [Active]; atorvastatin Oral [Active]; Digoxin aj Oral [Active]; Furosemide Oral [Active]; gabapentin Oral [Active]; levothyroxine 88 mcg tab 1 tab once daily [Active]; Metformin Oral [Active]; lisinopril Oral [Active]; Metoprolol Tartrate Oral [Active]; pantoprazole Oral [Active]; Simvastatin Oral [Active]; Spironolacton-Hydrochlorothiaz Oral [Active]; - PMHx: 12:32 Anemia; Atrial Fib; CHF; High Cholesterol; Cancer, Cervical 1990; aj - PSHx: 12:32 Heart Valve Replacement; Mitral Valve Clip; Appendectomy; Cholecystectomy; Carpal aj Tunnel Repair; - Immunization history:: Adult Immunizations up to date. - Social history:: Smoking status: Patient/guardian denies using tobacco. - Ebola Screening: : Patient negative for fever greater than or equal to 101.5 degrees Fahrenheit, and additional compatible Ebola Virus Disease symptoms Patient denies exposure to infectious person Patient denies travel to an Ebola-affected area in the 21 days before illness onset No symptoms or risks identified at this time. Screenin:00 Abuse screen: Denies threats or abuse. Nutritional screening: No deficits noted. em Tuberculosis screening: No symptoms or risk factors identified. Fall Risk None identified. Assessment: 13:00 General: Appears in no apparent distress. comfortable, Behavior is calm, cooperative, em Denies fever. Pain: Denies pain. Neuro: Level of Consciousness is awake, alert, obeys commands, Oriented to person, place, time, situation. Cardiovascular: Reports fatigue, shortness of breath, Denies chest pain, Heart tones S1 S2 present Patient's skin is warm and dry. Rhythm is sinus rhythm. Respiratory: Airway is patent Respiratory effort is even, unlabored, Respiratory pattern is regular, symmetrical, Breath sounds are clear bilaterally. GI: Abdomen is flat, Patient currently denies nausea, vomiting. : No signs and/or symptoms were reported regarding the genitourinary system. Derm: Skin is intact, is fragile, Skin is pink, warm \T\ dry. Musculoskeletal: Range of motion: intact in all extremities. 13:00 Reassessment: I agree with assessment completed by Prince Shabazz LVN . aa5 14:17 Reassessment: Patient appears in no apparent distress at this time. Patient and/or em family updated on plan of care and expected duration. Pain level reassessed. Patient is alert, oriented x 3, equal unlabored respirations, skin warm/dry/pink. 14:53 Reassessment: Patient appears in no apparent distress at this time. Patient and/or em family updated on plan of care and expected duration. Pain level reassessed. Patient is alert, oriented x 3, equal unlabored respirations, skin warm/dry/pink. 15:49 Reassessment: Patient appears in no apparent distress at this time. Patient and/or em family updated on plan of care and expected duration. Pain level reassessed. Patient is alert/active/playful, equal unlabored respirations, skin warm/dry/pink. Patient denies pain at this time. Patient states feeling better. 15:55 Reassessment: report given to DONALD Ku on 2nd floor. em 16:10 Reassessment: pt does not want to be admitted under observation status, provider em notified, will talk to pt and family. 16:45 Reassessment: Patient appears in no apparent distress at this time. pt and family upset em with admission status, provider at bedside discussing options, housekeeping/laundry at bedside discussing admission options with family, registration staff at bedside explaining Medicare admission regulations, family will be admitted under observation status and acknowledge the admission status, will be transported via wheelchair. Vital Signs: 12:32 BP 136 / 64; Pulse 68; Resp 20; Temp 97.2; Pulse Ox 100% on R/A; Weight 68.04 kg; aj Height 5 ft. 2 in. (157.48 cm); 13:16 BP 136 / 64; Pulse 67; Resp 20; Pulse Ox 97% on R/A; Pain 0/10; em 14:00 BP 136 / 69; Pulse 66; Resp 16; Pulse Ox 99% on R/A; em 14:55 BP 125 / 62; Pulse 68; Resp 22; Pulse Ox 100% on R/A; Pain 0/10; em 15:49 BP 135 / 60; Pulse 69; Resp 24; Pulse Ox 100% on R/A; Pain 0/10; em 12:32 Body Mass Index 27.44 (68.04 kg, 157.48 cm) ED Course: 12:25 Patient arrived in ED. rg4 12:25 Zack Giles MD is Private Physician. rg4 12:30 Triage completed. aj 12:32 Arm band placed on left wrist. Patient placed in an exam room. aj 12:37 Andrea Becker PA is PHCP. cp 12:37 Isac Tellez MD is Attending Physician. cp 12:41 Prince Shabazz LVN is Primary Nurse. em 13:00 Patient has correct armband on for positive identification. Placed in gown. Bed in low em position. Call light in reach. Side rails up X2. Adult w/ patient. electrician wiring on. Pulse ox on. NIBP on. 13:30 Inserted saline lock: 22 gauge in left forearm, using aseptic technique. Blood em collected. 14:38 Warm blanket given. Pillow given. jp3 15:10 Jasper Gregg MD is Hospitalizing Provider. cp 15:49 No provider procedures requiring assistance completed. Patient admitted, IV remains in em place. Administered Medications: 15:08 CANCELLED (Physician Discretion): Lasix 20 mg IVP once cp 15:20 Drug: Lasix 40 mg Route: IVP; Site: left forearm; aa5 15:47 Follow up: Response: No adverse reaction em Output: 15:00 Urine: 100ml (Voided); Total: 100ml. em 16:54 Urine: 300ml (Voided); Total: 400ml. em Outcome: 15:11 Decision to Hospitalize by Provider. cp 17:12 Admitted to Med/surg accompanied by tech, family with patient, via wheelchair, room em 214, with chart, Report called to DONALD Ku 17:12 Condition: good 17:12 Instructed on the need for admit, Demonstrated understanding of instructions. 17:27 Patient left the ED. em Signatures: Ashleigh Posada, RN DONALD Prince Shabazz LVN LVN em Selin Luevano RN RN aa5 Andrea Becker PA PA cp Garcia, Rubi rg4 Wil Moore jp3
--- NOTE | 2018-12-03 15:12 | EDPHYS ---
Physician Documentation [facility] Name: Debby Gaitan Age: 83 yrs Sex: Female : 1935 Arrival Date: 12/03/2018 Time: 12:25 Bed 16 Private MD: Zack Giles ED Physician Isac Tellez HPI: 12/03 13:10 This 83 yrs old Female presents to ER via Wheelchair with complaints of cp Shortness Of Breath, Weakness. 13:10 The patient has shortness of breath when lying flat. Onset: The symptoms/episode cp began/occurred gradually, 10 day(s) ago. Duration: The symptoms are continuous, and are steadily getting worse. Historical: - Allergies: 12:32 Aspirin; aj 12:32 blood thinners; aj 12:32 Codeine; aj 12:32 PENICILLINS; aj 12:32 Sulfa (Sulfonamide Antibiotics); aj 12:32 Tape (All Except Paper); aj 12:32 Xarelto; aj - Home Meds: 12:32 Amiodarone Oral [Active]; amlodipine oral [Active]; atorvastatin Oral [Active]; Digoxin aj Oral [Active]; Furosemide Oral [Active]; gabapentin Oral [Active]; levothyroxine 88 mcg tab 1 tab once daily [Active]; Metformin Oral [Active]; lisinopril Oral [Active]; Metoprolol Tartrate Oral [Active]; pantoprazole Oral [Active]; Simvastatin Oral [Active]; Spironolacton-Hydrochlorothiaz Oral [Active]; - PMHx: 12:32 Anemia; Atrial Fib; CHF; High Cholesterol; Cancer, Cervical 1990; aj - PSHx: 12:32 Heart Valve Replacement; Mitral Valve Clip; Appendectomy; Cholecystectomy; Carpal aj Tunnel Repair; - Immunization history:: Adult Immunizations up to date. - Social history:: Smoking status: Patient/guardian denies using tobacco. - Ebola Screening: : Patient negative for fever greater than or equal to 101.5 degrees Fahrenheit, and additional compatible Ebola Virus Disease symptoms Patient denies exposure to infectious person Patient denies travel to an Ebola-affected area in the 21 days before illness onset No symptoms or risks identified at this time. ROS: 13:15 Constitutional: Negative for body aches, chills, fever, poor PO intake. cp 13:15 Eyes: Negative for injury, pain, redness, and discharge. cp 13:15 ENT: Negative for drainage from ear(s), ear pain, sore throat, difficulty swallowing, difficulty handling secretions. 13:15 Cardiovascular: Negative for chest pain, palpitations. 13:15 Respiratory: Positive for shortness of breath, at rest. Negative for cough, wheezing. 13:15 Abdomen/GI: Negative for abdominal pain, nausea, vomiting, and diarrhea, black/tarry stool, rectal bleeding. 13:15 Back: Negative for pain at rest, pain with movement, radiated pain. 13:15 : Negative for urinary symptoms. 13:15 Skin: Negative for cellulitis, rash. 13:15 Neuro: Positive for general weakness, Negative for altered mental status, dizziness, headache. 13:15 All other systems are negative. Exam: 13:30 Constitutional: The patient appears in no acute distress, alert, awake, cp non-diaphoretic, non-toxic, well developed, well nourished. 13:30 Head/Face: Normocephalic, atraumatic. cp 13:30 Eyes: Periorbital structures: appear normal, Pupils: equal, round, and reactive to light and accomodation, Extraocular movements: intact throughout, Conjunctiva: normal, no exudate, no injection, Sclera: no appreciated abnormality, Lids and lashes: appear normal, bilaterally. 13:30 ENT: External ear(s): are unremarkable, Ear canal(s): are normal, clear, TM's: bulging, is not appreciated, bilaterally, dullness, bilaterally, erythema, is not appreciated, bilaterally, Nose: is normal, Mouth: Lips: moist, Oral mucosa: pink and intact, moist, Posterior pharynx: Airway: no evidence of obstruction, patent, Tonsils: are normal in appearance, Uvula: midline, swelling, is not appreciated, erythema, is not appreciated, exudate, is not appreciated, Voice: is normal. 13:30 Neck: ROM/movement: is normal, is supple, without pain, no range of motions limitations, no nuchal rigidity. 13:30 Chest/axilla: Inspection: normal, Palpation: is normal, no crepitus, no tenderness. 13:30 Cardiovascular: Rate: normal, Rhythm: regular, Heart sounds: murmur, systolic, JVD: is not appreciated. 13:30 Respiratory: the patient does not display signs of respiratory distress, Respirations: labored breathing, is not present, intercostal retractions, are absent, shallow respirations, that is mild, Breath sounds: decreased breath sounds, that are mild, throughout, stridor, is not appreciated, wheezing: is not appreciated. 13:30 Abdomen/GI: Inspection: abdomen appears normal, Bowel sounds: active, all quadrants, Palpation: abdomen is soft and non-tender, in all quadrants, rebound tenderness, is not appreciated, voluntary guarding, is not appreciated, involuntary guarding, is not appreciated. 13:30 Back: pain, is absent, ROM is normal. 13:30 Skin: cellulitis, is not appreciated, no rash present. 13:30 Neuro: Orientation: to person, place \T\ time. Mentation: is normal, Cerebellar function: is grossly normal, Motor: moves all fours, strength is normal, Sensation: is normal. 13:53 ECG was reviewed by the Attending Physician. Vital Signs: 12:32 BP 136 / 64; Pulse 68; Resp 20; Temp 97.2; Pulse Ox 100% on R/A; Weight 68.04 kg; aj Height 5 ft. 2 in. (157.48 cm); 13:16 BP 136 / 64; Pulse 67; Resp 20; Pulse Ox 97% on R/A; Pain 0/10; em 14:00 BP 136 / 69; Pulse 66; Resp 16; Pulse Ox 99% on R/A; em 14:55 BP 125 / 62; Pulse 68; Resp 22; Pulse Ox 100% on R/A; Pain 0/10; em 15:49 BP 135 / 60; Pulse 69; Resp 24; Pulse Ox 100% on R/A; Pain 0/10; em 12:32 Body Mass Index 27.44 (68.04 kg, 157.48 cm) aj MDM: 12:37 Patient medically screened. cp 13:00 Differential diagnosis: asthma, Bronchitis CHF exacerbation, Chronic Obstructive cp Pulmonary Disease pneumonia, pulmonary edema, Pulmonary Embolism reactive airway disease, Unstable Angina. 15:00 Data reviewed: vital signs, nurses notes, lab test result(s), EKG, radiologic studies, cp plain films. 15:00 Physician consultation: Jasper Gregg MD was called at 15:00, was contacted at 15:00, cp regarding admission, to the telemetry unit. patient's condition. 12/03 12:56 Order name: Basic Metabolic Panel 12/03 12:56 Order name: CBC with Diff 12/03 12:56 Order name: LFT's 12/03 12:56 Order name: Magnesium 12/03 12:56 Order name: NT PRO-BNP 12/03 12:56 Order name: PT-INR 12/03 12:56 Order name: Troponin (emerg Dept Use Only) 12/03 12:56 Order name: Urine Microscopic Only 12/03 13:50 Order name: CBC with Automated Diff; Complete Time: 15:01 EDMS 12/03 13:50 Order name: Protime (+INR); Complete Time: 14:29 EDMS 12/03 14:29 Interpretation: Abnormal. 12/03 13:55 Order name: Basic Metabolic Panel; Complete Time: 14:29 EDMS 12/03 13:55 Order name: Liver (Hepatic) Function; Complete Time: 14:29 EDMS 12/03 14:30 Interpretation: Normal except: ALK 154; BILIT 1.5; BILID 0.7; TP 6.1; ALB 2.9; A/G 0.9. 12/03 13:55 Order name: Troponin (Emerg Dept Use Only); Complete Time: 14:29 EDMS 12/03 13:55 Order name: NT PRO-BNP; Complete Time: 14:29 EDMS 12/03 14:30 Interpretation: Abnormal: NT PRO-BNP 9704. 12/03 12:56 Order name: XRAY Chest (1 view) 12/03 12:56 Order name: EKG; Complete Time: 12:59 12/03 12:56 Order name: Cardiac monitoring; Complete Time: 13:35 12/03 12:56 Order name: EKG - Nurse/Tech; Complete Time: 13:35 12/03 12:56 Order name: IV Saline Lock; Complete Time: 13:36 12/03 12:56 Order name: Labs collected and sent; Complete Time: 13:36 12/03 12:56 Order name: O2 Per Protocol; Complete Time: 13:36 12/03 12:56 Order name: O2 Sat Monitoring; Complete Time: 13:36 12/03 13:55 Order name: Magnesium; Complete Time: 14:29 EDMS 12/03 14:42 Order name: RAD; Complete Time: 15:01 EDMS 12/03 14:47 Order name: CBC Smear Scan; Complete Time: 15:01 EDMS 12/03 16:17 Order name: Urine Dipstick--Ancillary (enter results) eb 12/03 16:45 Order name: Urine Dipstick-Ancillary EDMS EC:53 Rate is 65 beats/min. Rhythm is regular. RI interval is normal. QRS interval is cp prolonged at 102 msec. T waves are Flattened in lead aVL. Interpreted by me. Reviewed by me. Administered Medications: 15:08 CANCELLED (Physician Discretion): Lasix 20 mg IVP once cp 15:20 Drug: Lasix 40 mg Route: IVP; Site: left forearm; aa5 15:47 Follow up: Response: No adverse reaction em Disposition: 12/03/18 15:11 Hospitalization ordered by Jasper Gregg for Observation. Preliminary diagnosis are Unspecified combined systolic (congestive) and diastolic (congestive) heart failure, Orthopnea. - Bed requested for Telemetry/MedSurg (observation). - Status is Observation. em - Condition is Stable. - Problem is an acute exacerbation. - Symptoms are unchanged. UTI on Admission? No Addendum: 12/05/2018 03:37 Co-signature as Attending Physician, Isac Tellez MD I agree with the assessment and t w4 plan of care. PA/CRM DEVELOPER's history reviewed, patient interviewed, and examined. Signatures: Dispatcher [employer] [facility] Ashleigh Posada RN RN Prince Cabrera, FACILITATOR FACILITATOR em Selin Luevano RN RN aa5 Andrea Becker PA PA Isac Greene MD MD tw4 Coby Dudley Corrections: (The following items were deleted from the chart) 12/03 15:08 15:01 Lasix 20 mg IVP once ordered. cp cp 15:43 15:11 Hospitalization Ordered by Jasper Gregg MD for Observation. Preliminary diagnosis eb is Unspecified combined systolic (congestive) and diastolic (congestive) heart failure; Orthopnea. Bed requested for Telemetry/MedSurg (observation). Status is Observation. Condition is Stable. Problem is an acute exacerbation. Symptoms are unchanged. UTI on Admission? No. cp 17:27 15:43 12/03/2018 15:11 Hospitalization Ordered by Jasper Gregg MD for Observation. em Preliminary diagnosis is Unspecified combined systolic (congestive) and diastolic (congestive) heart failure; Orthopnea. Bed requested for Telemetry/MedSurg (observation). Status is Observation. Condition is Stable. Problem is an acute exacerbation. Symptoms are unchanged. UTI on Admission? No. eb
[2018-12-03] MEDS ORDERED: FUROSEMIDE 20 MG/ 2ML VIAL ONE ×2 (15:14→15:16)
[2018-12-03] MEDS ORDERED: ACETAMINOPHEN 500 MG TAB PO PRN (15:55)
[2018-12-03 16:45] LABS: Urine Blood NEGATIVE (NEG); Urine Glucose NEGATIVE (NEG); Urine Protein NEGATIVE (NEG); Urine Specific Gravity 1.015 (1.005-1.030); Urine pH 6.5 (5.0-7.0)
[2018-12-03 17:37] VITALS: BMI 27.4
[2018-12-03] MEDS ORDERED: ENOXAPARIN 40 MG/0.4 ML SQ SCH (18:00)
[2018-12-04 06:06] LABS: Absolute Lymphocytes (CBC) 0.3 K/uL (0.7-4.9); Absolute Monocytes 0.5 K/uL (0.1-1.3); Absolute Neutrophil 5.5 K/uL (1.8-8.0); Basophils % 0.6 % (0-1.3); Eosinophils % 0.7 % (0-4.4); Hematocrit 33.3 % (36.0-45.0); Lymphocytes % 4.1 % (15.3-44.8); MPV 8.4 fL (7.6-11.3); Monocytes % 7.7 % (3.3-12.3); RBC Red Blood Cell Count 3.21 M/uL (3.86-4.86)
[2018-12-04 06:11] LABS: Albumin 2.7 g/dL (3.4-5.0); Bilirubin Total 1.9 mg/dL (0.2-1.0); Protein, Total 5.9 g/dL (6.4-8.2); Troponin I 0.02 ng/mL (0.0-0.045)
[2018-12-04 06:41] LABS: Blood Morphology Comment NOT SEEN (NOT SEEN); Platelet Estimate ADEQ; Urine White Blood Cell Casts OK
[2018-12-04] MEDS: FUROSEMIDE 40 MG/4 ML VIAL IV SCH (10:33)
--- NOTE | 2018-12-04 11:47 | EKG ---
Test Date: 2018-12-03 Test Time: 13:45:03 White Lead Grinder: DAMEON MEASUREMENT RESULTS: Intervals: Rate: 65 DE: 152 QRSD: 102 QT: 466 QTc: 484 [place]: P: 82 DE: 152 QRS: -54 T: 41 INTERPRETIVE STATEMENTS: Normal sinus rhythm Left axis deviation Incomplete right bundle branch block Nonspecific ST abnormality Abnormal ECG Compared to ECG 11/27/2017 16:13:14 Incomplete right bundle-branch block now present ST (T wave) deviation now present Sinus bradycardia no longer present Left ventricular hypertrophy no longer present Electronically Signed On 12-04-18 11:43:09 ELEMENTARY READING TUTOR by Elias Robertson
--- NOTE | 2018-12-04 18:59 | P.HP ---
Certification for Inpatient Patient admitted to: Observation Practitioner: I am a practitioner with admitting privileges, knowledge of patient current condition, hospital course, and medical plan of care. Services: Services provided to patient in accordance with Admission requirements found in Title 42 Section 412.3 of the Code of Federal Regulations Patient History Date of Service: 12/03/18 Primary Care Provider: Dr. Giles Reason for admission: Shortness of breath History of Present Illness: This is a 82-year-old female with a past medical history of a heart valve replacement-bovine, CHF, mitral valve clip, chronic renal disease, iron deficiency anemia, atrial fibrillation and hypothyroidism who came into the emergency room with complaints of shortness of breath, dyspnea on exertion or orthopnea. Patient reports progressively worsening shortness of breath for the past week, especially with exertion. She also states that She was not able to function, unable to walk, unable to breathe." Per daughter, patient has had laryngeal bronchitis since around [place] time in she has had 3 rounds of antibiotics IV Rocephin shots outpatient. She still complains of intermittent cough. In the ER, she was given IV Lasix 40 mg. Her BNP was elevated, otherwise labs were unremarkable. Chest x-ray did show some evidence of volume overload that worsened from November 23, 2017. At time of my exam, patient was alert oriented x3, in no acute respiratory distress. She just stated that she felt weak overall. Allergies aspirin Allergy (Severe, Verified 09/03/17 20:24) Severe Bleeding codeine Allergy (Verified 09/03/17 20:24) Nausea/Vomiting Penicillins Allergy (Verified 09/03/17 20:24) Hives/Rash Sulfa (Sulfonamide Antibiotics) Allergy (Verified 09/03/17 20:24) Hives/Rash adhesive tape Adverse Reaction (Verified 09/03/17 20:24) skin irritation rivaroxaban [From Xarelto] Adverse Reaction (Verified 09/03/17 20:24) Bleeding blood th Allergy (Uncoded 11/28/17 00:05) Unknown Home Medications: Furosemide [Lasix*] 40 mg PO BID 06/07/16 Spironolactone [Aldactone] 50 mg PO BID 06/07/16 Pantoprazole [Protonix Tab*] 1 tab PO DAILY 08/08/17 Levothyroxine [Synthroid*] 100 mcg PO [id number] 09/03/17 Atorvastatin Calcium [Lipitor*] 10 mg PO BEDTIME #30 tab 09/04/17 Levothyroxine Sodium [Levoxyl] 100 mcg PO DAILY 09/04/17 - Past Medical/Surgical History Has patient received pneumonia vaccine in the past: Yes Diabetic: No -: Cervical cancer - radiation treatment -: HTN -: Aortic valve replacement-bovine -: Mitral valve Clip -: Hypothyroidism -: cervic Cancer in 1989 (Hx of Chemo/Radiation Tx) -: 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 -: Iron def Anemia -: Chronic renal disease -: Cholecystectomy -: Appendectomy Psychosocial/ Personal History: She is . Children-5. - Family History Mother -: Hypertension, Diabetes - Social History Smoking Status: Never smoker Alcohol use: No CD- Drugs: No Caffeine use: Yes Place of Residence: Home Review of Systems 10-point ROS is otherwise unremarkable Physical Examination - Vital Signs Temperature: 97 F Blood Pressure: 149/63 Pulse: 77 Respirations: 20 Pulse Ox (%): 100 - Physical Exam General: Alert, In no apparent distress, Oriented x3 HEENT: Atraumatic, PERRLA, Mucous membr. moist/pink, EOMI, Sclerae nonicteric Neck: Supple, 2+ carotid pulse no bruit, No LAD, Without JVD or thyroid abnormality Respiratory: Crackles/rales, Expiratory wheezes Cardiovascular: No edema, Regular rate/rhythm, Normal S1 S2 Gastrointestinal: Normal bowel sounds, No tenderness Musculoskeletal: No tenderness Integumentary: No rashes Neurological: Normal gait, Normal speech, Normal strength at 5/5 x4 extr, Normal tone, Normal affect Lymphatics: No axilla or inguinal lymphadenopathy Assessment and Plan - Problems (Diagnosis) (1) Acute on chronic combined systolic (congestive) and diastolic (congestive) heart failure Onset Date: 03/04/17 Current Visit: Yes Status: Acute (2) Dyspnea Current Visit: Yes Status: Acute Qualifiers: (3) Anemia Current Visit: Yes Status: Chronic Qualifiers: (4) CHF (congestive heart failure) Current Visit: Yes Status: Chronic Qualifiers: (5) Chronic atrial fibrillation Onset Date: 03/04/17 Current Visit: Yes Status: Chronic (6) Chronic renal disease Current Visit: Yes Status: Chronic Qualifiers: (7) Hypothyroidism Onset Date: 03/04/17 Current Visit: Yes Status: Chronic Qualifiers: (8) S/P mitral valve clip implantation Current Visit: No Status: Chronic - Plan This is an 81-year-old female with: Acute on chronic combined systolic (congestive) and diastolic (congestive) heart failure (Acute 03/04/17) I50.43 Dyspnea (Acute) R06.00 CHF (congestive heart failure) (Chronic) I50.9 Continue gentle diuresis with IV Lasix. Oxygen per protocol. Continue breathing treatments as needed Will restart home medications Anemia (Chronic) D64.9 H&H stable, will continue to monitor Chronic atrial fibrillation (Chronic 03/04/17) I48.2 Rate controlled, continue home medications. Chronic renal disease (Chronic) N18.9 Creatinine seems to be stable Hypothyroidism (Chronic 03/04/17) E03.9 Continue home medications S/P mitral valve clip implantation (Chronic) Z98.890, Z95.818 Stable Generalized weakness Physical therapy consulted DVT prophylaxis: And SCDs, encouraged ambulation. Per patient, she cannot take any blood thinners as it causes her to bleed. risks explained. GI prophylaxis: Protonix Diet: Heart healthy Disposition: Admit to the floor with tele. Physical therapy consult. Will restart home medications once reconciled. Patient would like to take her own home medications as she states it is cheaper for her. Discharge Plan: Home (With home health possibly) - Advance Directives Does patient have a Living Will: No Does patient have a Durable POA for Healthcare: No
--- NOTE | 2018-12-04 19:03 | P.PN ---
Subjective Date of Service: 12/04/18 Primary Care Provider: Dr. Giles Chief Complaint: Shortness of breath Subjective: No new changes, Improving Patient seen and examined at bedside. No family at bedside. Chart reviewed and case discussed with nursing staff. Reports feeling a little bit better, though still complains of generalized weakness. Physical therapy has not seen patient yet. Review of Systems 10-point ROS is otherwise unremarkable Physical Examination - Vital Signs Temperature: 97 F Blood Pressure: 149/63 Pulse: 77 Respirations: 20 Pulse Ox (%): 100 - Physical Exam General: Alert, In no apparent distress, Oriented x3 HEENT: Atraumatic, PERRLA, EOMI Neck: Supple, JVD not distended Respiratory: Clear to auscultation bilaterally, Normal air movement Cardiovascular: Regular rate/rhythm, Normal S1 S2 Gastrointestinal: Normal bowel sounds, No tenderness Musculoskeletal: No tenderness Integumentary: No rashes Neurological: Normal speech, Normal tone, Normal affect Lymphatics: No axilla or inguinal lymphadenopathy Assessment And Plan - Current Problems (Diagnosis) (1) Acute on chronic combined systolic (congestive) and diastolic (congestive) heart failure Onset Date: 03/04/17 Current Visit: Yes Status: Acute (2) Dyspnea Current Visit: Yes Status: Acute Qualifiers: (3) Anemia Current Visit: Yes Status: Chronic Qualifiers: (4) CHF (congestive heart failure) Current Visit: Yes Status: Chronic Qualifiers: (5) Chronic atrial fibrillation Onset Date: 03/04/17 Current Visit: Yes Status: Chronic (6) Chronic renal disease Current Visit: Yes Status: Chronic Qualifiers: (7) Hypothyroidism Onset Date: 03/04/17 Current Visit: Yes Status: Chronic Qualifiers: (8) S/P mitral valve clip implantation Current Visit: No Status: Chronic - Plan This is an 81-year-old female with: Acute on chronic combined systolic (congestive) and diastolic (congestive) heart failure (Acute 03/04/17) I50.43 Dyspnea (Acute) R06.00 CHF (congestive heart failure) (Chronic) I50.9 Continue gentle diuresis with IV Lasix. Breathing much improved Oxygen per protocol. Continue breathing treatments as needed Will restart home medications Anemia (Chronic) D64.9 H&H stable, will continue to monitor Chronic atrial fibrillation (Chronic 03/04/17) I48.2 Rate controlled, continue home medications. Chronic renal disease (Chronic) N18.9 Creatinine seems to be stable Hypothyroidism (Chronic 03/04/17) E03.9 Continue home medications S/P mitral valve clip implantation (Chronic) Z98.890, Z95.818 Stable Generalized weakness, debility Physical therapy consulted DVT prophylaxis: And SCDs, encouraged ambulation. Per patient, she cannot take any blood thinners as it causes her to bleed. risks explained. GI prophylaxis: Protonix Diet: Heart healthy Disposition: Physical therapy consult. Restart home medications once reconciled. Patient would like to take her own home medications as she states it is cheaper for her. Pending physical therapy consult. Social work on board Discharge Plan: Home (With home health possibly) Time Spent Managing PTS Care (In Minutes): 35
[2018-12-04] MEDS ORDERED: HOME MED 1 EA UNK (Spironolactone [Aldactone] 50 MG) PO SCH (21:00)
[2018-12-04] MEDS ORDERED: ATORVASTATIN CALCIUM 10 MG PO SCH (21:00)
[2018-12-05] MEDS ORDERED: LEVOTHYROXINE 100 MCG PO SCH (06:00)
[2018-12-05 06:04] LABS: Albumin 2.6 g/dL (3.4-5.0); Bilirubin Total 1.3 mg/dL (0.2-1.0); Phosphorus 2.5 mg/dL (2.5-4.9); Potassium 4.6 mmol/L (3.5-5.1); Protein, Total 5.6 g/dL (6.4-8.2)
[2018-12-05 06:10] LABS: Absolute Lymphocytes (CBC) 0.2 K/uL (0.7-4.9); Absolute Monocytes 0.5 K/uL (0.1-1.3); Absolute Neutrophil 4.9 K/uL (1.8-8.0); Basophils % 0.5 % (0-1.3); Eosinophils % 1.2 % (0-4.4); Hematocrit 31.7 % (36.0-45.0); Lymphocytes % 4.1 % (15.3-44.8); MPV 8.7 fL (7.6-11.3); Monocytes % 8.9 % (3.3-12.3); RBC Red Blood Cell Count 3.04 M/uL (3.86-4.86)
[2018-12-05 06:42] LABS: Blood Morphology Comment NOT SEEN (NOT SEEN); Platelet Estimate ADEQ; Urine White Blood Cell Casts OK
[2018-12-05] MEDS ORDERED: LEVOTHYROXINE SODIUM 100 MCG PO SCH (09:00)
[2018-12-05] MEDS ORDERED: HOME MED 1 EA UNK (Pantoprazole [Protonix Tab*] 1 TAB) PO SCH (09:00)
[2018-12-05] MEDS: FUROSEMIDE 40 MG/4 ML VIAL IV SCH (09:38)
[2018-12-05 10:59] VITALS: O2SAT 98
[2018-12-05 17:48] VITALS: BP 135/61; TEMP 98.2
--- NOTE | 2018-12-05 22:02 | PN ---
Date of Progress Note: 12/05/2018 Subjective: The patient is seen and examined. Chart reviewed and case discussed with RN. The patie nt does complain of some shortness of breath and seems to be somewhat tearful on history taking, martinez zulma, otherwise doing well. No other complaints. No acute events overnight. Spoke with daughter on the phone. Medications: List reviewed. Code Status: Full. Physical Examination: Vital Signs: Temperature 97.8, heart rate 78, blood pressure 151/68, respirations 17, O2 98% on room air. General: Awake, alert, oriented x3. Some mild distress. Elderly female. CV: S1, S2. Peripheral pulses present. Regular rate and rhythm. Respiratory: Moving air well bilaterally. No wheezing. Gastrointestinal: Abdomen is soft, nontender, nondistended. Positive bowel sounds. Extremities: No clubbing, cyanosis. Trace pedal edema. Neurologic: Nonfocal. Laboratory Data: Sodium 136, potassium 4.6, chloride 102, CO2 29, BUN 26, creatinine 1.62, glucose 1 06, calcium 8.1, phosphorus 2.5, albumin 2.6. WBC 5.7, hemoglobin and hematocrit of 10.4 and 31.7, p latelets 216, neutrophils 85%. Assessment And Plan: An 83-year-old female with: 1.Buser-nh-arzcnul combined systolic and diastolic heart failure. Continue with diuretics. The pat ient is now off oxygen, improving. Cardiology has been consulted. We will obtain echocardiogram fro herminia Brannon. 2.Anemia. We will monitor hemoglobin and hematocrit, transfuse as needed. 3.Chronic atrial fibrillation, rate controlled. 4.Chronic kidney disease stage 3, creatinine is stable. 5.Hypothyroidism, continue levothyroxine. 6.Status post mitral valve clip implantation. 7.Generalized weakness, debility. Home health with PT has been set up. 8.Gastrointestinal, deep venous thrombosis prophylaxis addressed. SCDs. No chemical anticoagulatio n as, per patient, it causes her to bleed. SA/MODL Voice ID: [id number] Report ID: [id number]
--- NOTE | 2018-12-06 06:10 | CON ---
Date of Consultation: 12/05/2018 Reason For Consultation: Congestive heart failure. History Of Present Illness: Ms. Gaitan is an 83-year-old woman. She is known to me from previous office visits and admissions to the hospital. 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 She has chronic anemia, chronic atrial fibrillation, dyslipidemia. She has had a history of cervical can cer that has been cured approximately 30 years ago. She came in with weakness, shortness of breath a nd was found to have congestive heart failure by x-ray and was admitted. By the time I saw her, she has already lost approximately 12 pounds and is already improved. Her oxygenation level was within n ormal limit. She now denied any chest pain, nausea, vomiting, diaphoresis, PND, orthopnea, pedal brianne ma, palpitation, or syncope. Her symptoms were going on for about 2 days prior to admission. She duran s seen Dr. Giles as an outpatient, had double her Lasix and Aldactone and continued to swell. Had a venous Doppler for the right lower extremity, which was negative as well. Allergies: NONE. Review of Systems: Negative. Social History: Negative. Family History: Noncontributory. Medications: At home include Lipitor, losartan, Synthroid, Aldactone, Protonix, and Lasix 40 mg b.i. d. Physical Examination: General: She is very pleasant, in no acute distress. Vital Signs: Stable. She is in atrial fibrillation at a rate of about 80. HEENT: Negative. Neck: Supple without any bruit, lymphadenopathy, JVD, or thyromegaly. Chest: Clear to auscultation and percussion. Cardiac: Revealed atrial fibrillation. No murmurs, gallops, or rubs. Abdomen: Benign. Extremities: Revealed no clubbing, cyanosis, or edema now. Diagnostic Data: Of significance at this point include a creatinine 1.6, her hemoglobin is 10.4. Impression And Plan: 1.Acute exacerbation of chronic diastolic congestive heart failure that has resolved. I will contin ue her present regimen right now. I would watch her creatinine as an outpatient. It was 1.3 when nolberto coe came in, is 1.6 now. I will go back to her old dosages as far as Aldactone and Lasix once she goes home. 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 Her last echocardiogram was in January of 2018. She is not due for 1 now. I did not hear any significant murmurs by examinati on. 3.Anemia. 4.Atrial fibrillation. She is allergic to Xarelto, aspirin, codeine, sulfa, and penicillin and is n ot taking any anticoagulants now. 5.Dyslipidemia, gastroesophageal reflux disease, and hypothyroidism. All of those are stable at thi s point. From my standpoint, Ms. Gaitan can be discharged whenever it is okay with Dr. Vásquez. BINU/SARINA Voice ID: [id number] Report ID: [id number]
--- NOTE | 2018-12-07 03:35 | DS ---
Date of Discharge: 12/06/2018 Hydroelectric Station Operator: Dr. Robertson, Cardiology. Discharge Diagnoses: 1. Sfaje-kx-qjuqewg combined systolic and diastolic heart failure. 2. Dyspnea. 3. Anemia. 4. Chronic atrial fibrillation. 5. Chronic kidney disease stage 3. 6. Hypothyroidism. 7. Status post mitral valve clip implantation. 8. Status post aortic valve replacement with bovine valve. Hospital Course: The patient is an 83-year-old female who was admitted to the hospital for shortness of breath. She was found to have CHF exacerbation. BNP was elevated. Chest x-ray showed volume overload, worse than previous. The patient was started on IV Lasix and CHF guidelines. Overall, her condition remained stable. She improved. She was seen by Cardiology. Her fluid balance remained negative. Her kidney function remained stable. The patient has a stage-3 chronic kidney disease. Echocardiogram report from Dr. Plummer's office was obtained and reviewed. The patient's last echocardiogram was in January. The patient's symptoms improved. She was no longer short of breath. Her edema improved significantly. She was counseled regarding 1500 mL fluid restriction and sodium-restricted diet. The patient was understanding. She does have home health, which was set up by Case Management. The patient was doing well. She was then cleared for discharge from Cardiology standpoint and was sent home in a stable condition. Activity: Fall precautions. Medications: As per medication reconciliation list. Followup: Follow up with primary care physician in 2 to 3 days. Follow up with tree expert, Dr. Plummer, in 2 weeks at [facility]. Return to ER for worsening condition. Diet: Low-sodium, fluid-restricted diet. Physical Examination: For physical examination findings, please see progress note dictated on the day of discharge. /SARINA Voice ID: [id number] Report ID: [id number] RUBEN
== END 2018-12-05 20:16 | disposition home health service (06) ==
LOC: ER 12:23 → ERHOLD 15:18 → 2ND 15:59
PROVIDERS: ADMIT Family Medicine; ATTEND Family Medicine
DX: I13.0 Hypertensive heart and chronic kidney disease with heart failure and stage 1 through stage 4 chronic kidney disease, or unspecified chronic kidney disease (principal); I50.43 Acute on chronic combined systolic (congestive) and diastolic (congestive) heart failure; N18.3 Chronic kidney disease, stage 3 (moderate); I48.2 Chronic atrial fibrillation; D64.9 Anemia, unspecified; E03.9 Hypothyroidism, unspecified; Z95.2 Presence of prosthetic heart valve; Z85.41 Personal history of malignant neoplasm of cervix uteri
CPT/HCPCS: 36415 ×2; 71045; 80048; 80053 ×2; 80076; 81003; 83735; 83880; 84100; 84484 ×3; 85025 ×3; 85610; 93005; 94760 ×4; 97116 ×2; 97163; 97530 ×2; G0378 ×2; J1940 ×4; J1650

== ENCOUNTER 2019-01-09 14:42 | Observation (INO) | payer OTHER, MEDICARE ==
--- OUTSIDE RECORDS SUMMARY | 2019-01-09 14:44 | XMS REPORT | Clinical Summary ---
:1935 Author Organization [employer] [facility] Address [address] [place] [address] Care Team Providers Name Role Phone Zack [...] daily. X 4 days. Started on 08-22-2016 simvastatin (ZOCOR) Take 20 mg by 0 [...] Aortic valve disorder MD Faustino (Primary Dx) after 01/08/2018 Family History Medical History Relation Name Comments [...] Taken Blood Pressure 146/65 01/19/2018 3:07 PM TITLE ASSISTANT Pulse 60 01/19/2018 3:07 PM TITLE ASSISTANT Temperature 36.4 C (97.5 F) 01/19/2018 3:07 PM TITLE ASSISTANT Respiratory Rate 18 01/19/2018 3:07 PM TITLE ASSISTANT Oxygen Saturation - - Inhaled Oxygen Concentration - - Weight 63.5 kg (140 lb) 01/19/2018 3:07 PM TITLE ASSISTANT Height 157.5 cm (5' 2") 01/19/2018 3:07 PM TITLE ASSISTANT Body Mass Index 25.61 01/19/2018 3:07 PM TITLE ASSISTANT Plan of Treatment Date Type Specialty Care Team Description 01/18/2019 Appointment Procedural Cardiology Kevin Matta MD [address] [facility] [address] [place] [address] [phone] 01/18/2019 Multidisciplinary Visit Cardiology Kevin Matta MD [address] [facility] [address] [place] [address] [phone] Health Maintenance Due Date Last Done Comments SHINGLES VACCINES (#1) 1986 65+ PNEUMOCOCCAL VACCINE (1 of 2 - PCV13) 2001 PNEUMOCOCCAL POLYSACCHARIDE VACCINE AGE 65 AND OVER 2001 INFLUENZA VACCINE 06/14/2018 Procedures Procedure Name Priority Date/Time Associated Comments Diagnosis TRANSFUSE RED BLOOD Routine 07/19/2018 5:26 CELLS PM CDT ECG 12-LEAD Routine 01/19/2018 3:04 S/P MVR (mitral Results for this PM TITLE ASSISTANT valve repair) procedure are in the results section. ECHOCARDIOGRAM 2D Routine 01/19/2018 1:37 S/P TAVR Results for this COMPLETE W MMODE PM TITLE ASSISTANT (transcatheter procedure are in SPECTRAL COLOR DOPPLER aortic valve the results (01862) replacement) section. Aortic valve disorder after 01/08/2018 Results Transfuse RBC (07/19/2018 5:26 PM CDT)ECG 12 lead (01/19/2018 3:04 PM TITLE ASSISTANT) Ventricular rate 60 [facility] Atrial rate 60 [facility] MA interval 180 [facility] QRSD interval 104 [facility] QT interval 464 [facility] QTC interval 464 [facility] P axis 1 94 [facility] QRS axis 1 -22 [facility] T wave axis 42 [facility] EKG impression Normal sinus rhythm-Normal ECG-In automated [facility] comparison with ECG of 09-AUG-2017 12:44,-(RBBB and left anterior fascicular block) is no longer present- Performing Organization Address City/State/Zipcode Phone Number [facility] [address] [place] [address] Echocardiogram complete w contrast and 3D if needed (01/19/2018 1:37 PM TITLE ASSISTANT) Narrative Performed At [facility] Echocardiography Report Pat.Name:DANNY ANDERS Pat.ID:[id number] .Date: 01/19/2018Refer.MD:KEVIN MATTA MD Exam Time: 1:07:00 PMStudy Type:Routine Echo Height:62inWeight: 140lb BSA: 1.64 m2 DOBAge:1935,82Y Sex: FEMALEBP:139/62 HR:57 bpm Sonogrphr: Oumou Peck, RCS, RCCS, CCT Pat. Stat.:OutpatientRoom[facility] TapeVol: MDCA, ICD - 9: Z95.2 Study Status:Final Echo Event ID:[id number] Order ID:[id number] Reason for Study:Valvular hpvedro-lu-vavr without evidence, no status change History / [...] RAPof 10 mmHg. MEASUREMENTS: 2D Parasternal [place] LVOT 1.9 cmLA Ds6.3 cm LVIDd6.1 cmIndex3.7 cm/m Ao An2.1 cm LVIDs4.4 cmAo Rtd 2.9 cm Index1.8 cm/m LV%fs 27.9 % LV Hbfb284.6 g(87-129) IVSd 0.9 cmLVM Bukuz255.6 g/m2 LVPWd0.9 cmRWT0.3 LA Volume LA Vol 242.6 aoEatnm942.9 ml/m DOPPLER AV For Flow/TING AV pkVel 245.4 cm/s (100-170) AV AC/ET 0.2 AV mnVel 159 cm/Agnes TVI54.3 cm AV pkPG 24.1 mmHgAVpkAcRt 69936.2 cm/s2 AV Mean G 12.5 mmHgAV XyZd565.8 cm/s2 AV AC 78 msec (83-118) AV Area1.5 cm2(3-5) AV ET341 msec LVOT For Flow LVOT Area2.8 cm2 LVOTmnPG 3.5 mmHg AFKJojPyf900.7 cm/sLVOT TVI28.7 cm LVOTpkPG 6.3 mmHgLVOT SV 81.4 ml MV For Flow/Valve Assess MV pkVel 276.5 cm/sMV Mean G6.1 mmHg MV pkPG 30.6 mmHgMV TVI74.4 cm Signed 01/21/2018 01:13 AM Ann Banks M.D. Procedure Note Interface, Radiology Results In - 01/21/2018 1:14 AM TITLE ASSISTANT [facility] Echocardiography Report Pat.Name: DANNY ANDERS Pat.ID: [id number] .Date: 01/19/2018 Refer.MD: KEVIN MATTA MD Exam Time: 1:07:00 PM Study Type:Routine Echo Height: 62in Weight: 140lb BSA: 1.64 m2 Age: 9 1935,82Y Sex: FEMALE BP: 139/62 HR: 57 bpm Sonogrphr: Oumou Peck, RCS, RCCS, CCT Pat. Stat.:Outpatient Room: [facility] Tape Vol: MDCA, ICD - 9: Z95.2 Study Status:Final Echo Event ID:[id number] Order ID: [id number] Reason for Study:Valvular iesohcb-jx-tcfo without evidence, no status change History / [...] of 10 mmHg. MEASUREMENTS: 2D Parasternal [place] LVOT 1.9 cm LA Ds 6.3 cm [...] 54.3 cm AV pkPG 24.1 mmHg AVpkAcRt 94580.2 cm/s2 AV Mean G 12.5 mmHg AV [...] Performing Organization Address City/State/Zipcode Phone Number [facility] [address] [place] [address] after 01/08/2018 Insurance Payer Benefit Plan / Group Subscriber ID Type Phone Address MEDICARE MEDICARE PART A AND B xxxxxxxxxx Medicare [place], [place] AARP AARP SUPPLEMENT xxxxxxxxxxx Commercial Advance Directives Patient has advance care planning documents on file. For more information, please contact:Red Brannon[address] [place] [address]
[2019-01-09 15:33] LABS: Absolute Lymphocytes (CBC) 0.3 K/uL (0.7-4.9); Absolute Monocytes 0.6 K/uL (0.1-1.3); Absolute Neutrophil 4.4 K/uL (1.8-8.0); Basophils % 0.7 % (0-1.3); Eosinophils % 0.6 % (0-4.4); Hematocrit 30.3 % (36.0-45.0); Lymphocytes % 6.3 % (15.3-44.8); MPV 8.8 fL (7.6-11.3); Monocytes % 10.3 % (3.3-12.3); RBC Red Blood Cell Count 2.94 M/uL (3.86-4.86)
[2019-01-09 15:55] LABS: Magnesium 2.5 mg/dL (1.8-2.4); Troponin (Emerg Dept Use Only) 0.02 ng/mL (0.0-0.045)
[2019-01-09 15:57] LABS: Potassium 5.6 mmol/L (3.5-5.1)
--- NOTE | 2019-01-09 17:01 | RAD REPORT ---
EXAM DESCRIPTION: RAD - Chest Single View - 01/09/2019 4:46 pm CLINICAL HISTORY: Dyspnea COMPARISON: November 2018 TECHNIQUE: AP portable chest image was obtained 1635 hours . FINDINGS: No peripheral mass or consolidation. Interstitial markings are prominent but not grossly d ifferent from the comparison study. Significant cardiomegaly present. Vasculature is mildly prominent . A mild failure or volume overload is not excluded. No measurable pleural effusion and no pneumothor ax. No acute bony abnormality seen. No acute aortic findings suspected. IMPRESSION: No focal lung parenchymal process. Patient has chronic interstitial lung disease. Significant cardiomegaly not substantially different. Mild acute or chronic failure or volume overloa d are not excluded.
--- NOTE | 2019-01-09 17:01 | ER ---
Nurse's Notes [facility] Name: Debby Gaitan Age: 83 yrs Sex: Female : 1935 Arrival Date: 01/09/2019 Time: 14:44 Bed 8 Private MD: Zack Giles Diagnosis: Dehydration;Weakness;Unspecified combined systolic (congestive) and diastolic (congestive) heart failure;Acute kidney failure, unspecified Presentation: 01/09 14:50 Presenting complaint: Pt's family states "she's been weak since Tuesday". Pt reports aa5 "I was nauseated Tuesday and Tuesday but not anymore". Pt denies vomiting. Pt states "I was constipated and I took milk of magnesia so I had a little bit of diarrhea after". 14:50 Transition of care: patient was not received from another setting of care. Onset of aa5 symptoms was December 2018. Risk Assessment: Do you want to hurt yourself or someone else? Patient reports no desire to harm self or others. Care prior to arrival: None. 14:50 Method Of Arrival: Wheelchair aa5 14:50 Acuity: ALEJANDRO 3 aa5 Historical: - Allergies: 14:50 Aspirin; aa5 14:50 blood thinners; aa5 14:50 Codeine; aa5 14:50 PENICILLINS; aa5 14:50 Sulfa (Sulfonamide Antibiotics); aa5 14:50 Tape (All Except Paper); aa5 14:50 Xarelto; aa5 - PMHx: 14:50 Anemia; Atrial Fib; Cancer, Cervical 1990; CHF; High Cholesterol; aa5 - PSHx: 14:50 Heart Valve Replacement; Mitral Valve Clip; Appendectomy; Cholecystectomy; Carpal aa5 Tunnel Repair; - Immunization history:: Adult Immunizations up to date. - Ebola Screening: : No symptoms or risks identified at this time. - Social history:: Smoking status: Patient/guardian denies using tobacco. - Family history:: not pertinent. - Hospitalizations: : No recent hospitalization is reported. Screenin:05 Abuse screen: Denies threats or abuse. Denies injuries from another. Nutritional ss screening: No deficits noted. Tuberculosis screening: No symptoms or risk factors identified. Fall Risk No fall in past 12 months (0 pts). Secondary diagnosis (15 points) impaired mobility, IV access (20 points). Ambulatory Aid- None/Bed Rest/Nurse Assist (0 pts). Gait- Normal/Bed Rest/Wheelchair (0 pts) Mental Status- Oriented to own ability (0 pts). Assessment: 15:05 General: Appears uncomfortable, Behavior is calm, cooperative, Reports fatigue for 1-2 ss days, Denies fever, feeling ill, chills. Pain: Denies pain. Neuro: Level of Consciousness is awake, alert, obeys commands, Oriented to person, place, time, situation, Speech is normal, Facial symmetry appears normal, Pupils are PERRLA. Cardiovascular: Capillary refill < 3 seconds is brisk in bilateral fingers Patient's skin is warm and dry. Cardiovascular: Rhythm is sinus bradycardia Chest pain is denied. Respiratory: Reports shortness of breath this morning. Denies shortness of breath at this time Airway is patent Respiratory effort is even, unlabored, Respiratory pattern is regular, symmetrical, Breath sounds are clear bilaterally. GI: Patient currently denies abdominal pain, diarrhea, nausea, vomiting. : Denies burning with urination, urinary frequency. EENT: Nares are clear Oral mucosa is moist. Throat is clear. Derm: Skin is intact, is healthy with good turgor, Skin is dry, Skin is pink, warm \\T\\ dry. normal. Musculoskeletal: Circulation, motion, and sensation intact. Range of motion: intact in all extremities, Swelling absent. 16:00 Reassessment: PT reports discomfort/ burning at IV insertion site. No redness or rash ss noted. Dr. Flores notified. Will take IV out per patient request. Respiratory: Respiratory effort is even, unlabored, Respiratory pattern is regular, symmetrical. 16:46 Reassessment: Patient appears in no apparent distress at this time. Dr. Flores at bedside discussing plan of care with patient. 17:10 Reassessment: Pt assisted up to the BSC. sv 17:46 Reassessment: Pt assisted up to the BSC. sv 18:05 Reassessment: Patient appears in no apparent distress at this time. Patient and/or ss family updated on plan of care and expected duration. Pain level reassessed. patient and family notified of room assignment that has been given at this time. Attempted to call report, was told that the nurse is unavailable at this time to receive patient and will have to call back later. Patient denies pain at this time. Vital Signs: 15:20 BP 134 / 54; Pulse 56; Resp 18; Temp 97.9(TE); Pulse Ox 100% on R/A; Pain 0/10; ss 16:30 BP 130 / 85; Pulse 57; Resp 19; Pulse Ox 99% ; sv 17:16 BP 136 / 56; Pulse 60; Resp 22; Pulse Ox 100% ; sv 19:35 BP 134 / 49; Pulse 61; Resp 18; Temp 97.9(O); Pulse Ox 100% on R/A; Pain 0/10; ed1 ED Course: 14:44 Patient arrived in ED. dl4 14:45 Zack Giles MD is Private Physician. dl4 14:50 Arm band placed on. aa5 14:53 Thiago Floers MD is Attending Physician. rn 14:57 Triage completed. aa5 15:04 Rosa Lafleur, DONALD is Primary Nurse. ss 15:05 Patient has correct armband on for positive identification. Bed in low position. Call ss light in reach. Side rails up X2. Adult w/ patient. phototypesetting equipment monitor on. Pulse ox on. NIBP on. 15:11 EKG done, by rv technician. reviewed by Thiago Flores MD. sm3 15:15 Inserted saline lock: 22 gauge in right antecubital area, using aseptic technique. ss Blood collected. 15:57 Notified ED physician of a critical lab result(s). potassium-5.6. sv 16:37 XRAY Chest (1 view) In Process Unspecified. EDMS 16:40 IV discontinued, intact, bleeding controlled, No redness/swelling at site. Pressure ss dressing applied, IV dc'd by Dora Ruvalcaba RN per patient request. Pt reports discomfort from IV insertion. Patient maintains SpO2 saturation greater than 95% on room air. 16:50 Inserted saline lock: 20 gauge in right forearm, using aseptic technique. Flushed right sv forearm with 5 ml normal saline. 16:59 Jasper Gregg MD is Hospitalizing Provider. rn 17:47 Warm blanket given. sv 19:36 Primary Nurse role handed off by Rosa Lafleur, DONALD ed1 19:36 Sejal Hodges, DONALD is Primary Nurse. ed1 19:44 No provider procedures requiring assistance completed. Patient admitted, IV remains in ed1 place. intact, No redness/swelling at site. Administered Medications: 17:16 Drug: NS 0.9% 250 ml Route: IV; Rate: 1 bolus; Site: right forearm; ss 17:17 Follow up: IV Status: Infusion continued upon admission ss Output: 17:10 Urine: 100ml (Voided); Total: 100ml. sv 17:47 Urine: 100ml (Voided); Total: 200ml. sv Outcome: 16:59 Decision to Hospitalize by Provider. rn 19:44 Admitted to Med/surg accompanied by tech, via wheelchair, room 217, with chart, Report ed1 called to DONALD Sands 19:44 Condition: stable 19:44 Discharge instructions given to patient, Instructed on the need for admit, Demonstrated understanding of instructions. 19:50 Patient left the ED. ed1 Signatures: Dispatcher [employer] Jessica Valdez RN RN sv Nieto, Roman, MD MD rn Calderon, Audri, RN RN aa5 Rosa Lafleur RN RN ss Riggs, Erika, RN RN ed1 Natasha Laguna sm3 Ashutosh Turcios dl4 Corrections: (The following items were deleted from the chart) 19:36 19:35 Pulse 61bpm; Resp 18bpm; Pulse Ox 100% RA; Pain 0/10; ed1 ed1 19:37 19:35 Pulse 61bpm; Resp 18bpm; Pulse Ox 100% RA; Temp 97.9F Oral; Pain 0/10; ed1 ed1
--- NOTE | 2019-01-09 17:01 | EDPHYS ---
Physician Documentation [facility] Name: Debby Gaitan Age: 83 yrs Sex: Female : 1935 Arrival Date: 01/09/2019 Time: 14:44 Bed 8 Private MD: Zack Giles ED Physician Thiago Flores HPI: 01/09 16:06 This 83 yrs old Female presents to ER via Wheelchair with complaints of High rn Blood Pressure, Breathing Difficulty. 16:06 Reports generalized weakness, feels like is going to pass out, began yesterday, worse rn today, also reports mild SOB when walking. Has CHF and mitral valve problem, takes diuretics, also with mild CKD.. Onset: The symptoms/episode began/occurred yesterday. Severity of symptoms: At their worst the symptoms were moderate in the emergency department the symptoms are unchanged. The patient has experienced similar episodes in the past. The patient has not recently seen a physician. Historical: - Allergies: 14:50 Aspirin; aa5 14:50 blood thinners; aa5 14:50 Codeine; aa5 14:50 PENICILLINS; aa5 14:50 Sulfa (Sulfonamide Antibiotics); aa5 14:50 Tape (All Except Paper); aa5 14:50 Xarelto; aa5 - PMHx: 14:50 Anemia; Atrial Fib; Cancer, Cervical 1990; CHF; High Cholesterol; aa5 - PSHx: 14:50 Heart Valve Replacement; Mitral Valve Clip; Appendectomy; Cholecystectomy; Carpal aa5 Tunnel Repair; - Immunization history:: Adult Immunizations up to date. - Ebola Screening: : No symptoms or risks identified at this time. - Social history:: Smoking status: Patient/guardian denies using tobacco. - Family history:: not pertinent. - Hospitalizations: : No recent hospitalization is reported. ROS: 16:06 Constitutional: Negative for fever, chills, and weight loss, Eyes: Negative for injury, rn pain, redness, and discharge, ENT: Negative for injury, pain, and discharge, Neck: Negative for injury, pain, and swelling, Cardiovascular: Negative for chest pain, palpitations, and edema, Respiratory: + sob, neg for cough Abdomen/GI: Negative for abdominal pain, nausea, vomiting, diarrhea, and constipation, Back: Negative for injury and pain, MS/Extremity: Negative for injury and deformity, Skin: Negative for injury, rash, and discoloration, Neuro: + generalized weakness, no focal neurological problems Exam: 16:06 Constitutional: This is a well developed, well nourished patient who is awake, alert, rn and in no acute distress. Head/Face: Normocephalic, atraumatic. Eyes: Pupils equal round and reactive to light, extra-ocular motions intact. Lids and lashes normal. Conjunctiva and sclera are non-icteric and not injected. Cornea within normal limits. Periorbital areas with no swelling, redness, or edema. ENT: dry MM Cardiovascular: Irregular rhythm, + click Respiratory: mild tachypnea, no retractions, diminshed at bases Abdomen/GI: soft, non-tender MS/ Extremity: Pulses equal, no cyanosis. Neurovascular intact. Equal circumference. Neuro: Awake and alert, GCS 15, oriented to person, place, time, and situation. Cranial nerves II-XII grossly intact. Motor strength 4/5 in all extremities. Sensory grossly intact. Vital Signs: 15:20 BP 134 / 54; Pulse 56; Resp 18; Temp 97.9(TE); Pulse Ox 100% on R/A; Pain 0/10; ss 16:30 BP 130 / 85; Pulse 57; Resp 19; Pulse Ox 99% ; sv 17:16 BP 136 / 56; Pulse 60; Resp 22; Pulse Ox 100% ; sv 19:35 BP 134 / 49; Pulse 61; Resp 18; Temp 97.9(O); Pulse Ox 100% on R/A; Pain 0/10; ed1 MDM: 14:53 Patient medically screened. rn 16:57 Differential Diagnosis Overdiuresis, hypertension, dehydration, CKD. Data reviewed: rn vital signs, nurses notes, lab test result(s), EKG, radiologic studies, plain films, and as a result, I will admit patient. Counseling: I had a detailed discussion with the patient and/or guardian regarding: the historical points, exam findings, and any diagnostic results supporting the discharge/admit diagnosis, lab results, radiology results, the need for further work-up and treatment in the hospital. Response to treatment: the patient's symptoms have mildly improved after treatment, and as a result, I will admit patient. Admission orders: after a detailed discussion of the patient's condition and case, the admit orders are written by me. ED course: Admitted to Dr. Gregg for dehydration, worsened kidney function, weakness. . 01/09 15:06 Order name: CBC with Diff; Complete Time: 15:52 rn 01/09 15:06 Order name: Basic Metabolic Panel; Complete Time: 16:02 rn 01/09 15:06 Order name: BNP; Complete Time: 16:02 rn 01/09 15:06 Order name: Troponin (emerg Dept Use Only); Complete Time: 16:02 rn 01/09 15:06 Order name: Magnesium; Complete Time: 16:02 rn 01/09 16:17 Order name: Urine Dipstick--Ancillary (enter results) bd 01/09 15:06 Order name: IV Start; Complete Time: 15:19 rn 01/09 15:06 Order name: EKG; Complete Time: 15:07 rn 01/09 15:06 Order name: EKG - Nurse/Tech; Complete Time: 15:19 rn 01/09 15:06 Order name: XRAY Chest (1 view); Complete Time: 17:15 rn 01/09 15:06 Order name: Urine Dipstick-Ancillary (obtain specimen); Complete Time: 16:40 rn Administered Medications: 17:16 Drug: NS 0.9% 250 ml Route: IV; Rate: 1 bolus; Site: right forearm; ss 17:17 Follow up: IV Status: Infusion continued upon admission ss Disposition: 01/09/19 16:59 Hospitalization ordered by Jasper Gregg for Observation. Preliminary diagnosis are Dehydration, Weakness, Unspecified combined systolic (congestive) and diastolic (congestive) heart failure, Acute kidney failure, unspecified. - Bed requested for Telemetry/MedSurg (observation). - Status is Observation. ed1 - Condition is Stable. - Problem is new. - Symptoms have improved. UTI on Admission? No Signatures: Dispatcher [employer] EDMS Machelle Neff Roman, MD MD rn Calderon, Audri RN DONALD aa5 Rosa Lafleur RN RN ss Sejal Hodges RN RN ed1 Corrections: (The following items were deleted from the chart) 18:00 16:59 Hospitalization Ordered by Jasper Gregg MD for Observation. Preliminary diagnosis bd is Dehydration; Weakness; Unspecified combined systolic (congestive) and diastolic (congestive) heart failure; Acute kidney failure, unspecified. Bed requested for Telemetry/MedSurg (observation). Status is Observation. Condition is Stable. Problem is new. Symptoms have improved. UTI on Admission? No. rn 19:50 18:00 01/09/2019 16:59 Hospitalization Ordered by Jasper Gregg MD for Observation. ed1 Preliminary diagnosis is Dehydration; Weakness; Unspecified combined systolic (congestive) and diastolic (congestive) heart failure; Acute kidney failure, unspecified. Bed requested for Telemetry/MedSurg (observation). Status is Observation. Condition is Stable. Problem is new. Symptoms have improved. UTI on Admission? No. bd
[2019-01-09] MEDS ORDERED: NA CHLORIDE 0.9% 250 ML ONE (17:22)
[2019-01-09 18:20] LABS: Urine Blood NEGATIVE (NEG); Urine Glucose NEGATIVE (NEG); Urine Protein NEGATIVE (NEG); Urine pH 6.5 (5.0-7.0)
[2019-01-10] MEDS ORDERED: SOD POLYSTYREN SUL 15 GM/60 ML UCUP PO ONE
[2019-01-10 06:30] LABS: Albumin 3.1 g/dL (3.4-5.0); Bilirubin Total 1.5 mg/dL (0.2-1.0); Protein, Total 6.2 g/dL (6.4-8.2)
--- NOTE | 2019-01-10 06:58 | EKG ---
Test Date: 2019-01-09 Test Time: 15:05:24 Email Production Specialist: [facility] MEASUREMENT RESULTS: Intervals: Rate: 56 OH: 200 QRSD: 174 QT: 500 QTc: 482 Higbee: P: OH: 200 QRS: -61 T: 22 INTERPRETIVE STATEMENTS: Sinus bradycardia Right bundle branch block Left anterior fascicular block Bifascicular block Abnormal ECG Compared to ECG 12/03/2018 13:45:03 Right bundle-branch block now present Left anterior fascicular block now present Bifascicular block now present Sinus rhythm no longer present Left-axis deviation no longer present Incomplete right bundle-branch block no longer present ST (T wave) deviation no longer present Electronically Signed On 01-10-19 06:56:16 WAITER/WAITRESS CAFETERIA by Elias Robertson
[2019-01-10] MEDS: PANTOPRAZOLE 40MG TABLET PO SCH (09:00)
--- NOTE | 2019-01-10 09:31 | P.HP ---
Certification for Inpatient Patient admitted to: Inpatient With expected LOS: >2 Midnights Patient will require the following post-hospital care: None Practitioner: I am a practitioner with admitting privileges, knowledge of patient current condition, hospital course, and medical plan of care. Services: Services provided to patient in accordance with Admission requirements found in Title 42 Section 412.3 of the Code of Federal Regulations Patient History Date of Service: 01/09/19 Reason for admission: Acute kidney injury; hyperkalemia History of Present Illness: Patient is an 83yo who admitted to the acute kidney injury. Patient also had hyperkalemia. Patient is on diuretics-Furosemide and Aldactone. Patient has not been eating or drinking well. She feels weak and cachectic. She was admitted to the hospital for further evaluation. Patient also has a macrocytic anemia. Will need to check B12 a Folate level in the morning. Allergies aspirin Allergy (Severe, Verified 01/09/19 22:04) Severe Bleeding codeine Allergy (Verified 01/09/19 22:04) Nausea/Vomiting Penicillins Allergy (Verified 01/09/19 22:04) Hives/Rash Sulfa (Sulfonamide Antibiotics) Allergy (Verified 01/09/19 22:04) Hives/Rash adhesive tape Adverse Reaction (Verified 01/09/19 22:04) skin irritation rivaroxaban [From Xarelto] Adverse Reaction (Verified 01/09/19 22:04) Bleeding Home Medications: Furosemide [Lasix*] 40 mg PO DAILY 06/07/16 Spironolactone [Aldactone] 50 mg PO BID 06/07/16 Pantoprazole [Protonix Tab*] 1 tab PO DAILY 08/08/17 Levothyroxine [Synthroid*] 100 mcg PO [id number] 09/03/17 Atorvastatin Calcium [Lipitor*] 10 mg PO BEDTIME #30 tab 09/04/17 Levothyroxine Sodium [Levoxyl] 100 mcg PO DAILY 09/04/17 - Past Medical/Surgical History Has patient received pneumonia vaccine in the past: Yes Diabetic: No -: Cervical cancer - radiation treatment -: HTN -: Aortic valve replacement-bovine -: Mitral valve Clip -: Hypothyroidism -: cervic Cancer in 1989 (Hx of Chemo/Radiation Tx) -: 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 -: Iron def Anemia -: Chronic renal disease -: Cholecystectomy -: Appendectomy Psychosocial/ Personal History: She is . Children-5. - Family History Mother Medical History: Hypertension, Diabetes - Social History Smoking Status: Never smoker Alcohol use: No CD- Drugs: No Caffeine use: Yes Place of Residence: Home Review of Systems 10-point ROS is otherwise unremarkable Physical Examination - Vital Signs Temperature: 97.4 F Blood Pressure: 158/69 Pulse: 59 Respirations: 16 Pulse Ox (%): 95 - Physical Exam General: Alert, In no apparent distress, Oriented x3 HEENT: Atraumatic, PERRLA, Mucous membr. moist/pink, EOMI, Sclerae nonicteric Neck: Supple, 2+ carotid pulse no bruit, No LAD, Without JVD or thyroid abnormality Respiratory: Clear to auscultation bilaterally, Normal air movement Cardiovascular: Regular rate/rhythm, Normal S1 S2, No murmurs Gastrointestinal: Normal bowel sounds, Soft and benign, Non-distended, No tenderness Musculoskeletal: No clubbing, No swelling, No tenderness Integumentary: No rashes Neurological: Normal speech, Normal tone, Sensation intact, Cranial nerves 3-12 intact, Normal affect, Abnormal gait, Abnormal strength Lymphatics: No axilla or inguinal lymphadenopathy - Studies Laboratory Data (last 24 hrs) 01/09/19 15:15: Sodium 135 L, Potassium 5.6 H*, BUN 48 H, Creatinine 2.14 H, Glucose 121 H, Magnesium 2.5 H D 01/09/19 15:15: WBC 5.4, Hgb 9.9 L, Hct 30.3 L, Plt Count 229 Assessment & Plan - Problems (Diagnosis) (1) Acute renal insufficiency Current Visit: Yes Status: Acute (2) Status post aortic valve repair Current Visit: Yes Status: Acute (3) Hyperkalemia Current Visit: Yes Status: Acute (4) Acute prerenal azotemia Current Visit: Yes Status: Acute (5) Acute on chronic combined systolic (congestive) and diastolic (congestive) heart failure Onset Date: 03/04/17 Current Visit: No Status: Acute (6) Dyspnea Current Visit: No Status: Acute Qualifiers: (7) Angiodysplasia Current Visit: No Status: Chronic (8) Chronic atrial fibrillation Onset Date: 03/04/17 Current Visit: No Status: Chronic (9) Hypothyroidism Onset Date: 03/04/17 Current Visit: No Status: Chronic Qualifiers: (10) S/P mitral valve clip implantation Current Visit: No Status: Chronic - Plan Plan: 1. IV hydration gently 2. Hold Aldactone 3. Physical therapy evaluation 4. Monitor H&H closely 5. B12 & folate level 6. GI and DVT prophylaxis Discharge Plan: Home Plan to discharge in: Greater than 2 days - Advance Directives Does patient have a Living Will: No Does patient have a Durable POA for Healthcare: No - Code Status/Comfort Care Code Status Assessed: Yes Code Status: Full Code Critical Care: No Time Spent Managing PTS Care (In Minutes): 50
[2019-01-10 12:05] LABS: Folic Acid, (Folate) 16.9 ng/mL (3.1-17.5)
[2019-01-10] MEDS: FUROSEMIDE 40 MG TABLET PO SCH (16:31)
--- NOTE | 2019-01-10 17:06 | P.PN ---
Subjective Date of Service: 01/10/19 Chief Complaint: Acute kidney injury; hyperkalemia Patient seen and examined at bedside. No family at bedside. Chart reviewed and case discussed with nursing staff. Review of Systems 10-point ROS is otherwise unremarkable Physical Examination - Vital Signs Temperature: 97.3 F Blood Pressure: 139/63 Pulse: 62 Respirations: 16 Pulse Ox (%): 100 - Physical Exam General: Alert, In no apparent distress, Oriented x3 HEENT: Atraumatic, PERRLA, EOMI Neck: Supple, JVD not distended Respiratory: Clear to auscultation bilaterally, Normal air movement Cardiovascular: Regular rate/rhythm, Normal S1 S2 Gastrointestinal: Normal bowel sounds, No tenderness Musculoskeletal: No tenderness Integumentary: No rashes Neurological: Normal speech, Normal tone, Normal affect Lymphatics: No axilla or inguinal lymphadenopathy Assessment And Plan - Plan Acute renal insufficiency Acute prerenal azotemia. IV hydration gently Hold Aldactone Status post aortic valve repair Hyperkalemia Resolved Acute on chronic combined systolic (congestive) and diastolic (congestive) heart failure Dyspnea Angiodysplasia Chronic atrial fibrillation Hypothyroidism S/P mitral valve clip implantation DVT prophylaxis: Lovenox GI prophylaxis: None Diet: Renal Disposition: Pending symptomatic improvement. Physical therapy consulted.
--- NOTE | 2019-01-10 18:52 | CON ---
Date of Consultation: 01/10/2019 History Of Present Illness: Ms. Gaitan is an 83-year-old female, with past medical history signifi cant for chronic combined systolic and diastolic heart failure, who presented to [facility] Emergency Room complaining of weakness and lethargy associated with dizziness. She was found to have xoprg-di-ryvgish renal insufficiency and hyperkalemia. Her spironolactone has been held and she sta corey that she feels better today and she is able to keep some food down as well. Past Medical History: Significant for history of cervical cancer status post radiation treatment, hy pertension, aortic valve replacement, history of mitral valve clip, hypothyroidism, weakened bladder status post radiation treatment, iron-deficiency anemia, chronic renal insufficiency with cardiorenal syndrome, cholecystectomy and appendectomy. Social History: She is a , lives with her family. No history of smoking or alcohol use reporte d. Family History: Noncontributory. Review of Systems: Positive for weakness and lethargy associated with dizziness. Denies any chest pain. Denies any marion rtness of breath. Denies any abdominal pain, dysuria, headache, or visual changes. All other review of systems are negative. Laboratory Data: At this time is showing sodium of 138, potassium of 5, chloride of 103, BUN of 44 a nd creatinine of 2.05, which is improving from previous creatinine of 2.1. The patient's baseline cr eatinine is possibly around 1.5 to 2. Potassium was elevated to 5.6 and has improved down to 5. Eugene irubin was slightly high at 1.5 and alkaline phosphatase is also slightly elevated. ProBNP was 4557. CBC showing chronic anemia with a hemoglobin of 9.9 and hematocrit of 30.3. Current Medications: Include Lasix 40 mg a day, levothyroxine, Kayexalate x1 time dose and atorvasta tin once a day. Impression: 1.Bqobe-td-lrhtnqq renal insufficiency, currently secondary to over-diuresis with some mild decrease in kidney function, but overall improving at this time. 2.Hyperkalemia secondary to spironolactone, improving. 3.Hyperlipidemia. 4.Chronic congestive heart failure. Plan: The patient's renal function is improving at this time and potassium is also up since spironol actone is being held. I will increase the Lasix to 40 mg b.i.d. and monitor her volume status closel y. The patient is aware of fluid restriction and is aware of monitoring of daily weights and will ke ep us posted and will follow up with Dr. Lopez as outpatient to monitor her renal function closely. Continue all other medications and plan of care. Thank you very much for this consultation. Please do not hesitate to call us with any questions or c oncerns. GOKUL/CRISTOPHERL Voice ID: [id number] Report ID: [id number]
[2019-01-10] MEDS: ATORVASTATIN 10 MG TAB PO SCH (21:00)
[2019-01-11 00:02] LABS: Urine Appearance CLEAR; Urine Bilirubin NEGATIVE (NEG); Urine Blood NEGATIVE (NEG); Urine Color YELLOW; Urine Glucose NEGATIVE (NEG); Urine Protein TRACE (NEG)
[2019-01-11 00:17] LABS: Urine Microscopic Reflex NO UMIC
[2019-01-11] MEDS: LEVOTHYROXINE SOD 0.1 MG TAB PO SCH (06:00)
[2019-01-11] MEDS: PANTOPRAZOLE 40MG TABLET PO SCH (09:00)
[2019-01-11] MEDS ORDERED: FUROSEMIDE 40 MG TABLET PO SCH (09:00)
[2019-01-11] MEDS: FUROSEMIDE 40 MG TABLET PO SCH ×2 (09:00→16:55)
[2019-01-11 09:26] LABS: Absolute Lymphocytes (CBC) 0.5 K/uL (0.7-4.9); Absolute Monocytes 0.6 K/uL (0.1-1.3); Basophils % 0.6 % (0-1.3); Eosinophils % 1.3 % (0-4.4); Hematocrit 29.8 % (36.0-45.0); Lymphocytes % 7.5 % (15.3-44.8); MPV 8.2 fL (7.6-11.3); Monocytes % 10.4 % (3.3-12.3); RBC Red Blood Cell Count 2.89 M/uL (3.86-4.86)
[2019-01-11 09:39] LABS: Potassium 4.2 mmol/L (3.5-5.1)
--- NOTE | 2019-01-11 10:43 | RAD REPORT ---
EXAM DESCRIPTION: Dina Okeefe (2 Views)01/11/2019 10:20 am CLINICAL HISTORY: Chest pain COMPARISON: January 09, 2019 FINDINGS: The lungs appear clear of acute infiltrate. The heart is mildly to moderately enlarged. Postsurgical changes involve the chest. IMPRESSION: No acute abnormalities displayed
--- NOTE | 2019-01-11 11:40 | P.PN ---
Subjective Date of Service: 01/11/19 Chief Complaint: Acute kidney injury; hyperkalemia Patient seen and examined at bedside. Daughter at bedside. Chart reviewed and case discussed with nursing staff. Patient complaining of worsening shortness of breath after 2 rounds of walking around the hallway. Also complaining of bilateral lower extremity swelling, mild Review of Systems 10-point ROS is otherwise unremarkable Physical Examination - Vital Signs Temperature: 97.4 F Blood Pressure: 142/63 Pulse: 67 Respirations: 18 Pulse Ox (%): 100 - Physical Exam General: Alert, In no apparent distress, Oriented x3 HEENT: Atraumatic, PERRLA, EOMI Neck: Supple, JVD not distended Respiratory: Clear to auscultation bilaterally, Normal air movement Cardiovascular: Regular rate/rhythm, Normal S1 S2, Edema (1+ bilaterally) Gastrointestinal: Normal bowel sounds, No tenderness Musculoskeletal: No tenderness Integumentary: No rashes Neurological: Normal speech, Normal tone, Normal affect Lymphatics: No axilla or inguinal lymphadenopathy Assessment And Plan - Plan Acute renal insufficiency Acute prerenal azotemia. Creatinine improved Continue IV hydration Hold Aldactone Nephrology consulted, recommendations appreciated. Status post aortic valve repair Hyperkalemia Resolved Acute on chronic combined systolic (congestive) and diastolic (congestive) heart failure Dyspnea Lasix increased to 40 b.i.d. Chest x-ray ordered, no acute abnormalities. Chronic atrial fibrillation Hypothyroidism S/P mitral valve clip implantation DVT prophylaxis: Lovenox GI prophylaxis: None Diet: Renal Disposition: Pending symptomatic improvement. Likely discharge home in the next 24-48 hr
[2019-01-11 15:46] VITALS: BMI 26.6
[2019-01-11] MEDS: ATORVASTATIN 10 MG TAB PO SCH (21:00)
--- NOTE | 2019-01-11 22:55 | P.PN ---
Date of Service: 01/11/19 Vital Signs Temp Pulse Resp BP Pulse Ox 97.7 F 69 20 127/69 98 01/11/19 20:00 01/11/19 20:00 01/11/19 20:00 01/11/19 20:00 01/11/19 20:00 Medications Atorvastatin Calcium (Lipitor) 10 mg PO BEDTIME KIETH Stop: 02/09/19 21:01 Last Admin: 01/11/19 21:00 Dose: Not Given Furosemide (Lasix) 40 mg PO BIDL KEITH Stop: 02/09/19 17:01 Last Admin: 01/11/19 16:55 Dose: Not Given Levothyroxine Sodium (Synthroid) 0.1 mg PO [id number] [facility] Stop: 02/10/19 06:01 Last Admin: 01/11/19 06:00 Dose: Not Given Pantoprazole Sodium (Protonix Tab) 40 mg PO DAILY KEITH Stop: 02/09/19 09:01 Last Admin: 01/11/19 09:00 Dose: Not Given Sodium Chloride (Normal Saline Flush) 10 ml IV BID KEITH Stop: 02/08/19 21:01 Last Admin: 01/11/19 21:50 Dose: 10 ml Assessment/ Plan: Nephrology. Feeling better today with improved edema. CPS improved with CP or SOB. +VILLALOBOS No acute events overnight. Vitals, medications, blood work and imaging reviewed in the chart. NAD. NCAT. MMM. Neck supple. CTA. RRR. Soft Abd. No C/C. LE Edema 1+. No rash. AAO. Normal speech. A/ ANA likely CRS. ATN. Hyperkalemia. CKD. Diastolic CHF, A/C. HTN with CKD/ CHF. DM II with CKD. P/ Continue current POC and Medications. Agree with diuresis. Hold spironolactone due to hyperkalemia. Low sodium diet. OOB as tolerated. No NSAIDs. AM labs. Daily weight.
[2019-01-12] MEDS: LEVOTHYROXINE SOD 0.1 MG TAB PO SCH (05:31)
[2019-01-12 05:36] LABS: Absolute Lymphocytes (CBC) 0.4 K/uL (0.7-4.9); Absolute Monocytes 0.5 K/uL (0.1-1.3); Absolute Neutrophil 4.4 K/uL (1.8-8.0); Basophils % 0.9 % (0-1.3); Eosinophils % 1.8 % (0-4.4); Hematocrit 29.7 % (36.0-45.0); Lymphocytes % 7.8 % (15.3-44.8); MPV 8.4 fL (7.6-11.3); RBC Red Blood Cell Count 2.91 M/uL (3.86-4.86)
[2019-01-12 05:42] LABS: Urine Appearance CLEAR; Urine Bilirubin NEGATIVE (NEG); Urine Blood NEGATIVE (NEG); Urine Color YELLOW; Urine Glucose NEGATIVE (NEG); Urine Protein 2+ (NEG); Urine Specific Gravity 1.015 (1.005-1.030); Urine pH 6.5 (5.0-7.0)
[2019-01-12 06:00] LABS: Albumin 3.3 g/dL (3.4-5.0); Bilirubin Total 1.6 mg/dL (0.2-1.0); Phosphorus 3.9 mg/dL (2.5-4.9); Potassium 4.3 mmol/L (3.5-5.1); Protein, Total 6.5 g/dL (6.4-8.2); Uric Acid 7.4 mg/dL (2.6-6.0)
[2019-01-12 06:05] LABS: Urine Bacteria <20 /HPF (<20); Urine Culture Reflex Order NOT NEEDED; Urine RBC NONE SEEN /HPF (NONE SEEN)
[2019-01-12] MEDS: PANTOPRAZOLE 40MG TABLET PO SCH (08:25)
[2019-01-12] MEDS: FUROSEMIDE 40 MG TABLET PO SCH ×2 (08:25→16:33)
[2019-01-12 12:11] VITALS: BP 129/60; TEMP 97.2
[2019-01-12 13:29] VITALS: O2SAT 100
--- NOTE | 2019-01-12 15:04 | P.SSS ---
Patient History Date of Service: 01/12/19 Reason for admission: Acute kidney injury; hyperkalemia History of Present Illness: Patient is an 83yo who admitted to the acute kidney injury. Patient also had hyperkalemia. Patient is on diuretics-Furosemide and Aldactone. Patient has not been eating or drinking well. She feels weak and cachectic. She was admitted to the hospital for further evaluation. Patient also has a macrocytic anemia. Allergies aspirin Allergy (Severe, Verified 01/09/19 22:04) Severe Bleeding codeine Allergy (Verified 01/09/19 22:04) Nausea/Vomiting Penicillins Allergy (Verified 01/09/19 22:04) Hives/Rash Sulfa (Sulfonamide Antibiotics) Allergy (Verified 01/09/19 22:04) Hives/Rash adhesive tape Adverse Reaction (Verified 01/09/19 22:04) skin irritation rivaroxaban [From Xarelto] Adverse Reaction (Verified 01/09/19 22:04) Bleeding Home Medications: Pantoprazole [Protonix Tab*] 1 tab PO DAILY 08/08/17 Levothyroxine [Synthroid*] 100 mcg PO [id number] 09/03/17 Atorvastatin Calcium [Lipitor*] 10 mg PO BEDTIME #30 tab 09/04/17 Levothyroxine Sodium [Levoxyl] 100 mcg PO DAILY 09/04/17 Furosemide [Lasix*] 40 mg PO BID #30 tab 01/12/19 - Past Medical/Surgical History Has patient received pneumonia vaccine in the past: Yes Diabetic: No -: Cervical cancer - radiation treatment -: HTN -: Aortic valve replacement-bovine -: Mitral valve Clip -: Hypothyroidism -: cervic Cancer in 1989 (Hx of Chemo/Radiation Tx) -: 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 -: Iron def Anemia -: Chronic renal disease -: Cholecystectomy -: Appendectomy Psychosocial/ Personal History: She is . Children-5. - Family History Mother -: Hypertension, Diabetes - Social History Smoking Status: Never smoker Alcohol use: No CD- Drugs: No Caffeine use: Yes Place of Residence: Home Review of Systems 10-point ROS is otherwise unremarkable Physical Examination - Vital Signs Temperature: 97.2 F Blood Pressure: 129/60 Pulse: 69 Respirations: 17 Pulse Ox (%): 100 - Physical Exam General: Alert, In no apparent distress, Oriented x3 HEENT: Atraumatic, PERRLA, Mucous membr. moist/pink, EOMI, Sclerae nonicteric Neck: Supple, 2+ carotid pulse no bruit, No LAD, Without JVD or thyroid abnormality Respiratory: Clear to auscultation bilaterally, Normal air movement Cardiovascular: Regular rate/rhythm, Normal S1 S2 Gastrointestinal: Normal bowel sounds, No tenderness Musculoskeletal: No tenderness Integumentary: No rashes Neurological: Normal gait, Normal speech, Normal strength at 5/5 x4 extr, Normal tone, Normal affect Lymphatics: No axilla or inguinal lymphadenopathy Treatment Summary: Patient was admitted for Generalized weakness. She was found to have ANA on CKD. She may have been overdiuresed at home. IVF were stated. Nephrology was consulted. Her Aldactone was held. Her lasix was increased to 40 mg BID. Creatinine was improved Her stay was complicated by bilateral lower extremity swelling, which improved after increasing lasix and elevating feet. She was counseled on fluid intake/ output. Her chest x-ray remained without any acute abnormalities. Physical therapy was also consulted and she did well with physical therapy. Patient already has home health with PT. Order was placed to continue PT after discharge. She otherwise remained stable throughout the stay. - Disposition Discharge Date: 01/12/19 Disposition: ROUTINE DISCHARGE Condition: GOOD Consultations: Nephrology, Dr. Lopez Patient Discharge Instructions: Please follow up with your transport driver in 1 week as scheduled. Please follow up with nephrology, Dr. Lopez in 2 weeks. Stop aldactone and increase lasix to 40 mg twice a day. A new prescription sent to the pharmacy for you. Please return to the Emergency room for worsening symptoms. Diet: Renal Activity: Ad chana Time Spent Managing Pts Care (In Minutes): 55
--- NOTE | 2019-01-12 20:57 | P.PN ---
Date of Service: 01/12/19 Vital Signs Temp Pulse Resp BP Pulse Ox 97.2 F 69 17 129/60 100 01/12/19 15:05 01/12/19 15:05 01/12/19 15:05 01/12/19 15:05 01/12/19 15:05 Assessment/ Plan: Nephrology. Feeling better today. Edema improving. CPS improved with CP or SOB. +VILLALOBOS No acute events overnight. Vitals, medications, blood work and imaging reviewed in the chart. NAD. NCAT. MMM. Neck supple. CTA. RRR. Soft Abd. No C/C. LE Edema 1+. No rash. AAO. Normal speech. A/ ANA likely CRS. ATN. Hyperkalemia. CKD. Diastolic CHF, A/C. HTN with CKD/ CHF. DM II with CKD. P/ Continue current POC and Medications. Recommend furosemide 40mg BID. Hold spironolactone due to hyperkalemia. Low sodium diet. OOB as tolerated. Aggressive PT. No NSAIDs. AM labs. Daily weight. Case discussed at length with the patient and daughter. Case discussed with Dr. Gregg. Will arrange a follow up in two weeks with blood work.
== END 2019-01-12 17:00 | disposition home health service (06) ==
LOC: ER 14:42 → INTOOBSV 17:16 → ERHOLD 17:16 → 2ND 19:46
PROVIDERS: ADMIT Family Medicine; ATTEND Family Medicine
DX: I13.0 Hypertensive heart and chronic kidney disease with heart failure and stage 1 through stage 4 chronic kidney disease, or unspecified chronic kidney disease (principal); N18.9 Chronic kidney disease, unspecified; I50.43 Acute on chronic combined systolic (congestive) and diastolic (congestive) heart failure; N17.9 Acute kidney failure, unspecified; E87.5 Hyperkalemia; E03.9 Hypothyroidism, unspecified; I48.2 Chronic atrial fibrillation; R79.89 Other specified abnormal findings of blood chemistry; Z88.6 Allergy status to analgesic agent; Z88.0 Allergy status to penicillin; Z88.2 Allergy status to sulfonamides; Z85.41 Personal history of malignant neoplasm of cervix uteri; Z95.2 Presence of prosthetic heart valve
CPT/HCPCS: 93005; 85025 ×3; 81001; 80048 ×2; 36415 ×3; 83735 ×2; 84100; 84300; 84550; 81003 ×2; 82570; 84484; 82746; 82607; 80053 ×2; 83880 ×2; 71045; 71046; 97116 ×2; 97162; 97530 ×2; 94760 ×6; 96374; 99285; G0378 ×2

== ENCOUNTER 2019-01-20 09:38 | Observation (INO) | payer OTHER, MEDICARE ==
--- OUTSIDE RECORDS SUMMARY | 2019-01-20 09:40 | XMS REPORT | Clinical Summary ---
:1935 Author Organization [facility] Address [address] [place] [address] Care Team Providers Name Role Phone Zack [...] Encounters Date Type Specialty Care Team Description 01/17/2019 Orders Only Cardiology Lynne Aortic valve disorder (Primary Dx); ERMELINDA Oleary S/P TAVR (transcatheter aortic valve replacement) 11/14/2018 Refill Cardiology Kevin Matta MD 10/19/2018 [...] valve disorder MD Faustino (Primary Dx) after 01/19/2018 Family History Medical History Relation Name Comments [...] Taken Blood Pressure 146/65 01/19/2018 3:07 PM [employer] EXCHANGE ADMINISTRATOR Pulse 60 01/19/2018 3:07 PM [employer] EXCHANGE ADMINISTRATOR Temperature 36.4 C (97.5 F) 01/19/2018 3:07 PM [employer]OSOFT EXCHANGE ADMINISTRATOR Respiratory Rate 18 01/19/2018 3:07 PM [employer] EXCHANGE ADMINISTRATOR Oxygen Saturation - - Inhaled Oxygen Concentration - - Weight 63.5 kg (140 lb) 01/19/2018 3:07 PM [employer] EXCHANGE ADMINISTRATOR Height 157.5 cm (5' 2") 01/19/2018 3:07 PM [employer] EXCHANGE ADMINISTRATOR Body Mass Index 25.61 01/19/2018 3:07 PM [employer]OS[employer] EXCHANGE ADMINISTRATOR Plan of Treatment Date Type Specialty Care Team Description 02/01/2019 Appointment Procedural Cardiology Kevin Matta MD [address] [facility] [address] [place] [address] [id number] 02/01/2019 Multidisciplinary Visit Cardiology Kevin Matta MD [address] [facility] [address] [place] [address] [id number] Health Maintenance Due Date Last Done Comments SHINGLES VACCINES (#1) 1986 65+ PNEUMOCOCCAL VACCINE (1 of 2 - PCV13) 2001 PNEUMOCOCCAL POLYSACCHARIDE VACCINE AGE 65 AND OVER 2001 INFLUENZA VACCINE 06/14/2018 Procedures Procedure Name Priority Date/Time Associated Comments Diagnosis TRANSFUSE RED BLOOD Routine 07/19/2018 5:26 CELLS PM CDT ECG 12-LEAD Routine 01/19/2018 3:04 S/P MVR (mitral Results for this PM [employer] EXCHANGE ADMINISTRATOR valve repair) procedure are in the results section. ECHOCARDIOGRAM 2D Routine 01/19/2018 1:37 S/P TAVR Results for this COMPLETE W MMODE PM [employer] EXCHANGE ADMINISTRATOR (transcatheter procedure are in SPECTRAL COLOR DOPPLER aortic valve the results (00077) replacement) section. Aortic valve disorder after 01/19/2018 Results Transfuse RBC (07/19/2018 5:26 PM CDT)ECG 12 lead (01/19/2018 3:04 PM [employer] EXCHANGE ADMINISTRATOR) Ventricular rate 60 [facility] Atrial rate 60 [facility] ME interval 180 [facility] QRSD interval 104 [facility] QT interval 464 [facility] QTC interval 464 [facility] P axis 1 94 [facility] QRS axis 1 -22 [facility] T wave axis 42 [facility] EKG impression Normal sinus rhythm-Normal ECG-In automated [facility] comparison with ECG of 09-AUG-2017 12:44,-(RBBB and left anterior fascicular block) is no longer present- Performing Organization Address City/State/Zipcode Phone Number [facility] [address] [place] [address] Echocardiogram complete w contrast and 3D if needed (01/19/2018 1:37 PM [employer]OS[employer] EXCHANGE ADMINISTRATOR) Narrative Performed At [facility] Echocardiography Report Pat.Name:DANNY ANDERS Pat.ID:[id number] .Date: 01/19/2018Refer.MD:KEVIN MATTA MD Exam Time: 1:07:00 PMStudy Type:Routine Echo Height:62inWeight: 140lb BSA: 1.64 m2 DOBAge:1935,82Y Sex: FEMALEBP:139/62 HR:57 bpm Sonogrphr: Oumou Peck, RCS, RCCS, CCT Pat. Stat.:OutpatientRoom:[facility] TapeVol: [facility], ICD - 9: Z95.2 Study Status:Final Echo Event ID:[id number] Order ID:[id number] Reason for Study:Valvular wdhchze-mg-hgqc without evidence, no status change History / [...] RAPof 10 mmHg. MEASUREMENTS: 2D Parasternal [place] LVOT 1.9 cmLA Ds6.3 cm LVIDd6.1 cmIndex3.7 cm/m Ao An2.1 cm LVIDs4.4 cmAo Rtd 2.9 cm Index1.8 cm/m LV%fs 27.9 % LV Vjoo475.6 g(87-129) IVSd 0.9 cmLVM Akvlt281.6 g/m2 LVPWd0.9 cmRWT0.3 LA Volume LA Vol 242.6 edEppob727.9 ml/m DOPPLER AV For Flow/TING AV pkVel 245.4 cm/s (100-170) AV AC/ET 0.2 AV mnVel 159 cm/Agnes TVI54.3 cm AV pkPG 24.1 mmHgAVpkAcRt 49972.2 cm/s2 AV Mean G 12.5 mmHgAV QmNe295.8 cm/s2 AV AC 78 msec (83-118) AV Area1.5 cm2(3-5) AV ET341 msec LVOT For Flow LVOT Area2.8 cm2 LVOTmnPG 3.5 mmHg CXGHbhNmk421.7 cm/sLVOT TVI28.7 cm LVOTpkPG 6.3 mmHgLVOT SV 81.4 ml MV For Flow/Valve Assess MV pkVel 276.5 cm/sMV Mean G6.1 mmHg MV pkPG 30.6 mmHgMV TVI74.4 cm Signed 01/21/2018 01:13 AM Ann Banks M.D. Procedure Note Interface, Radiology Results In - 01/21/2018 1:14 AM [employer] EXCHANGE ADMINISTRATOR [facility] Echocardiography Report Pat.Name: DANNY ANDERS Pat.ID: [id number] St.Date: 01/19/2018 Refer.MD: KEVIN MATTA MD Exam Time: 1:07:00 PM Study Type:Routine Echo Height: 62in Weight: 140lb BSA: 1.64 m2 Age: 9 1935,82Y Sex: FEMALE BP: 139/62 HR: 57 bpm Sonogrphr: Oumou Peck, RCS, RCCS, CCT Pat. Stat.:Outpatient Room: [address] Vol: [facility], ICD - 9: Z95.2 Study Status:Final Echo Event ID:[id number] Order ID: [id number] Reason for Study:Valvular mkoqpng-tr-qqak without evidence, no status change History / Clinical:Aortic Stenosis, Aortic Valve Disorder, Atrial Fibrillation, Cancer, Coronary Artery Disease, Diabetes, Hyperlipidemia, Hypertension, Valvular Heart Disease; Mitral Regurgitaiton, Valvular Heart Disease; Tricuspid Regurgitation Procedures:2D Echo, Colorflow Doppler Race: SUMMARY: RESEARCH STUDY: Otoniel Trial Echocardiogram. -LV systolic function is hyperdynamic. [...] of 10 mmHg. MEASUREMENTS: 2D Parasternal [place] LVOT 1.9 cm LA Ds 6.3 cm [...] 54.3 cm AV pkPG 24.1 mmHg AVpkAcRt 69293.2 cm/s2 AV Mean G 12.5 mmHg AV [...] Organization Address City/State/Zipcode Phone Number [facility] [address] [place] [address] after 01/19/2018 Insurance Payer Benefit Plan / Group Subscriber ID Type Phone Address MEDICARE MEDICARE PART A AND B xxxxxxxxxx Medicare [place], [place] AARP AARP SUPPLEMENT xxxxxxxxxxx Commercial Advance Directives Patient has advance care planning documents on file. For more information, please contact:Red Brannon[address] [place] [address]
[2019-01-20 10:23] LABS: Protime INR 1.26
[2019-01-20 10:29] LABS: Absolute Lymphocytes (CBC) 0.4 K/uL (0.7-4.9); Absolute Monocytes 0.5 K/uL (0.1-1.3); Absolute Neutrophil 4.3 K/uL (1.8-8.0); Basophils % 0.9 % (0-1.3); Eosinophils % 1.3 % (0-4.4); Hematocrit 28.4 % (36.0-45.0); Lymphocytes % 7.2 % (15.3-44.8); MPV 8.4 fL (7.6-11.3); Monocytes % 9.7 % (3.3-12.3); RBC Red Blood Cell Count 2.78 M/uL (3.86-4.86)
[2019-01-20 10:38] LABS: Albumin 3.4 g/dL (3.4-5.0); Bilirubin Direct 0.6 mg/dL (0-0.2); Bilirubin Total 1.5 mg/dL (0.2-1.0); Magnesium 2.1 mg/dL (1.8-2.4); Potassium 3.9 mmol/L (3.5-5.1); Protein, Total 6.4 g/dL (6.4-8.2); Troponin (Emerg Dept Use Only) 0.02 ng/mL (0.0-0.045)
--- NOTE | 2019-01-20 11:04 | EDPHYS ---
Physician Documentation [facility] Name: Debby Gaitan Age: 83 yrs Sex: Female : 1935 Arrival Date: 01/20/2019 Time: 09:41 Bed 14 Private MD: ED Physician Andrea Cornelius HPI: 01/20 10:58 This 83 yrs old Female presents to ER via Wheelchair with complaints of kb Swelling. 10:58 The patient has shortness of breath at rest, and the patient has a history of CHF. kb Onset: The symptoms/episode began/occurred ongoing problem. Duration: The symptoms are continuous. The patient's shortness of breath is aggravated by exertion, is alleviated by rest. Associated signs and symptoms: Pertinent positives: edema. Severity of symptoms: At their worst the symptoms were moderate in the emergency department the symptoms are unchanged. The patient has experienced similar episodes in the past. The patient has been recently been admitted at [facility], was discharged last week. Pt has history of CHF, was discharged on 01/12/19 from this facility after a CHF exacerbation and hyperkalemia. Pt taken off of spirinolactone due to hyperkalemia and told to take lasix 40mg PO BID. Pt returns today for weight gain of 11 pounds since discharge on 01/12/19. Reports shortness of breath that is worse with exertion. . Historical: - Allergies: 09:43 Aspirin; rb1 09:43 blood thinners; rb1 09:43 Codeine; rb1 09:43 PENICILLINS; rb1 09:43 Sulfa (Sulfonamide Antibiotics); rb1 09:43 Tape (All Except Paper); rb1 09:43 Xarelto; rb1 - Home Meds: 09:43 Amiodarone Oral [Active]; amlodipine oral [Active]; atorvastatin Oral [Active]; Digoxin rb1 Oral [Active]; Furosemide Oral [Active]; gabapentin Oral [Active]; levothyroxine 88 mcg tab 1 tab once daily [Active]; lisinopril Oral [Active]; Metformin Oral [Active]; Metoprolol Tartrate Oral [Active]; pantoprazole Oral [Active]; Simvastatin Oral [Active]; - PMHx: 09:43 Anemia; Atrial Fib; Cancer, Cervical 1990; CHF; High Cholesterol; rb1 09:43 Diabetes - NIDDM; rb1 - PSHx: 09:43 Heart Valve Replacement; Mitral Valve Clip; Appendectomy; Cholecystectomy; Carpal rb1 Tunnel Repair; - Immunization history:: Adult Immunizations up to date. - Social history:: Smoking status: Patient/guardian denies using tobacco. - Ebola Screening: : Patient negative for fever greater than or equal to 101.5 degrees Fahrenheit, and additional compatible Ebola Virus Disease symptoms. ROS: 10:55 Constitutional: Negative for fever, chills, and weight loss, ENT: Negative for injury, kb pain, and discharge, Abdomen/GI: Negative for abdominal pain, nausea, vomiting, diarrhea, and constipation, Back: Negative for injury and pain, MS/Extremity: Negative for injury and deformity, Skin: Negative for injury, rash, and discoloration, Neuro: Negative for headache, weakness, numbness, tingling, and seizure. 10:55 Cardiovascular: Positive for edema, Negative for chest pain, orthopnea, palpitations, paroxysmal nocturnal dyspnea. 10:55 Respiratory: Positive for dyspnea on exertion, shortness of breath. Exam: 10:56 Constitutional: This is a well developed, well nourished patient who is awake, alert, kb and in no acute distress. Head/Face: Normocephalic, atraumatic. Chest/axilla: Normal chest wall appearance and motion. Nontender with no deformity. No lesions are appreciated. Cardiovascular: Regular rate and rhythm with a normal S1 and S2. No gallops, murmurs, or rubs. Normal PMI, no JVD. No pulse deficits. Respiratory: Lungs have equal breath sounds bilaterally, clear to auscultation and percussion. No rales, rhonchi or wheezes noted. No increased work of breathing, no retractions or nasal flaring. Abdomen/GI: Soft, non-tender, with normal bowel sounds. No distension or tympany. No guarding or rebound. No evidence of tenderness throughout. Skin: Warm, dry with normal turgor. Normal color with no rashes, no lesions, and no evidence of cellulitis. MS/ Extremity: Pulses equal, no cyanosis. Neurovascular intact. Full, normal range of motion. Neuro: Awake and alert, GCS 15, oriented to person, place, time, and situation. Cranial nerves II-XII grossly intact. Motor strength 5/5 in all extremities. Sensory grossly intact. Cerebellar exam normal. Normal gait. 10:56 Cardiovascular: Edema: 3+ edema to level of left leg and right leg. Vital Signs: 09:43 BP 131 / 57; Pulse 70; Resp 18; Temp 97.9(TE); Pulse Ox 98% on R/A; Weight 73.44 kg rb1 (R); Height 5 ft. 2 in. (157.48 cm) (R); Pain 4/10; 11:00 BP 122 / 46; Pulse 65; Resp 17; Pulse Ox 99% on R/A; rb1 12:51 BP 129 / 52; Pulse 68; Resp 16; Pulse Ox 100% on R/A; Pain 4/10; rb1 13:00 BP 173 / 105; Pulse 91; Resp 17; Pulse Ox 96% ; Pain 4/10; rb1 09:43 Body Mass Index 29.61 (73.44 kg, 157.48 cm) rb1 MDM: 09:44 Patient medically screened. lance 10:46 Data reviewed: vital signs, nurses notes. Data interpreted: Pulse oximetry: on room air kb is 98 %. Interpretation: normal. ED course: Per nurse, pt and daughter are upset that they are not seeing a [facility] doctor. Dr Cornelius notified that they would like to be seen by a MD. . 10:55 Counseling: I had a detailed discussion with the patient and/or guardian regarding: the kb historical points, exam findings, and any diagnostic results supporting the discharge/admit diagnosis, lab results, radiology results, the need for further work-up and treatment in the hospital. Physician consultation: Hayes Childers DO was contacted at 10:55, regarding admission, to the telemetry unit. in the emergency department to see patient at 10:55. 10:57 ED course: After discussing plan of care and diagnostic results with pt and daughter, kb they seem happy with care. No complaints or questions verbalized to me. . 01/20 09:47 Order name: Basic Metabolic Panel kb 01/20 09:47 Order name: CBC with Diff; Complete Time: 10:34 kb 01/20 09:47 Order name: LFT's; Complete Time: 10:39 kb 01/20 09:47 Order name: Magnesium; Complete Time: 10:39 kb 01/20 09:47 Order name: NT PRO-BNP; Complete Time: 10:39 kb 01/20 09:47 Order name: PT-INR; Complete Time: 10:34 kb 01/20 09:47 Order name: Troponin (emerg Dept Use Only); Complete Time: 10:39 kb 01/20 09:47 Order name: XRAY Chest (1 view); Complete Time: 11:18 kb 01/20 09:47 Order name: EKG; Complete Time: 09:48 kb 01/20 09:48 Order name: Basic Metabolic Panel; Complete Time: 10:39 EDMS 01/20 11:03 Order name: US Extremity Venous W Compression [place] kb 01/20 12:26 Order name: Diet 2 Gm Sodium; Complete Time: 12:27 rb1 01/20 09:47 Order name: Cardiac monitoring; Complete Time: 10:12 kb 01/20 09:47 Order name: EKG - Nurse/Tech; Complete Time: 10:12 kb 01/20 09:47 Order name: IV Saline Lock; Complete Time: 10:12 kb 01/20 09:47 Order name: Labs collected and sent; Complete Time: 10:12 kb 01/20 09:47 Order name: O2 Per Protocol; Complete Time: 10:12 kb 01/20 09:47 Order name: O2 Sat Monitoring; Complete Time: 10:12 kb Administered Medications: 10:55 CANCELLED (Duplicate Order): Lasix 40 mg IVP once kb Disposition: 01/20/19 11:02 Hospitalization ordered by Hayes Childers for Observation. Preliminary diagnosis is Acute on chronic diastolic (congestive) heart failure. - Bed requested for Telemetry/MedSurg (observation). - Status is Observation. ms - Condition is Stable. - Problem is an acute exacerbation. - Symptoms are unchanged. UTI on Admission? No Addendum: 01/22/2019 09:20 Co-signature as Attending Physician, Andrea Cornelius MD I agree with the assessment and c duran plan of care. Signatures: Dispatcher [employer] Vicky Garduno, RICE FARMWORKER-C RICE FARMWORKER-Andrea Sow MD MD cha Solis, Maria ms Smirch, Shelby, RN RN ss Alicia Pacheco, RN RN rb1 Corrections: (The following items were deleted from the chart) 01/20 10:55 10:55 Lasix 40 mg IVP once ordered. kb kb 10:58 10:46 ED course: Pt and daughter are upset that they are not seeing a medial doctor. Dr inessa Cornelius notified that they would like to be seen by a MD. . kb 11:45 11:02 Hospitalization Ordered by Hayes Childers DO for Observation. Preliminary ss diagnosis is Acute on chronic diastolic (congestive) heart failure. Bed requested for Telemetry/MedSurg (observation). Status is Observation. Condition is Stable. Problem is an acute exacerbation. Symptoms are unchanged. UTI on Admission? No. kb 13:57 11:45 01/20/2019 11:02 Hospitalization Ordered by Hayes Childers DO for Observation. ms Preliminary diagnosis is Acute on chronic diastolic (congestive) heart failure. Bed requested for Telemetry/MedSurg (observation). Status is Observation. Condition is Stable. Problem is an acute exacerbation. Symptoms are unchanged. UTI on Admission? No. ss
--- NOTE | 2019-01-20 11:04 | ER ---
Nurse's Notes [facility] Emergency Department Name: Debby Gaitan Age: 83 yrs Sex: Female : 1935 Arrival Date: 01/20/2019 Time: 09:41 Bed 14 Private MD: Diagnosis: Acute on chronic diastolic (congestive) heart failure Presentation: 01/20 09:43 Presenting complaint: Patient states: Pt. reports SOB on exertion and a 11pound weight rb1 gain since last week when she was here. Fluid retention in bilateral legs, right has more swelling with pain 4/10. Transition of care: patient was not received from another setting of care. Onset of symptoms is unknown. Risk Assessment: Do you want to hurt yourself or someone else? Patient reports no desire to harm self or others. Initial Sepsis Screen: Does the patient meet any 2 criteria? No. Patient's initial sepsis screen is negative. Does the patient have a suspected source of infection? No. Patient's initial sepsis screen is negative. Care prior to arrival: None. 09:43 Method Of Arrival: Wheelchair rb1 09:43 Acuity: ALEJANDRO 3 rb1 Triage Assessment: 09:43 General: Appears in no apparent distress. comfortable, Behavior is calm, cooperative, rb1 Denies fever. Pain: Complains of pain in right leg Pain currently is 4 out of 10 on a pain scale. Neuro: Level of Consciousness is awake, alert, obeys commands, Oriented to person, place, time, situation. Cardiovascular: Capillary refill < 3 seconds is brisk in bilateral fingers. Respiratory: Reports shortness of breath on exertion Airway is patent Respiratory effort is even, unlabored, Respiratory pattern is regular, symmetrical. GI: No signs and/or symptoms were reported involving the gastrointestinal system. : No signs and/or symptoms were reported regarding the genitourinary system. Derm: Skin is pink, warm \T\ dry. Musculoskeletal: Swelling present in right leg and left leg Reports pain in right leg. Historical: - Allergies: 09:43 Aspirin; rb1 09:43 blood thinners; rb1 09:43 Codeine; rb1 09:43 PENICILLINS; rb1 09:43 Sulfa (Sulfonamide Antibiotics); rb1 09:43 Tape (All Except Paper); rb1 09:43 Xarelto; rb1 - Home Meds: 09:43 Amiodarone Oral [Active]; amlodipine oral [Active]; atorvastatin Oral [Active]; Digoxin rb1 Oral [Active]; Furosemide Oral [Active]; gabapentin Oral [Active]; levothyroxine 88 mcg tab 1 tab once daily [Active]; lisinopril Oral [Active]; Metformin Oral [Active]; Metoprolol Tartrate Oral [Active]; pantoprazole Oral [Active]; Simvastatin Oral [Active]; - PMHx: 09:43 Anemia; Atrial Fib; Cancer, Cervical 1990; CHF; High Cholesterol; rb1 09:43 Diabetes - NIDDM; rb1 - PSHx: 09:43 Heart Valve Replacement; Mitral Valve Clip; Appendectomy; Cholecystectomy; Carpal rb1 Tunnel Repair; - Immunization history:: Adult Immunizations up to date. - Social history:: Smoking status: Patient/guardian denies using tobacco. - Ebola Screening: : Patient negative for fever greater than or equal to 101.5 degrees Fahrenheit, and additional compatible Ebola Virus Disease symptoms. Screenin:43 Abuse screen: Denies threats or abuse. Nutritional screening: No deficits noted. rb1 Tuberculosis screening: No symptoms or risk factors identified. Fall Risk None identified. Assessment: 10:52 Reassessment: Vicky Sorenson NP at bedside discussing results and update patient and ss family on plan of care. 10:56 Reassessment: Dr. Childers at bedside discussing plan of care. ss 11:50 Reassessment: Patient appears in no apparent distress at this time. Patient and/or rb1 family updated on plan of care and expected duration. Pain level reassessed. Patient is alert, oriented x 3, equal unlabored respirations, skin warm/dry/pink. Family at bedside. 12:45 Reassessment: Gave report to DONALD Stewart. Information from the SBAR was given. All rb1 questions asked and answered. Informed DONALD Stewart that the Lasix 60 mg IVP would be administered before the pt. was brought to the floor. 12:50 Reassessment: Patient appears in no apparent distress at this time. No changes from rb1 previously documented assessment. Vital Signs: 09:43 BP 131 / 57; Pulse 70; Resp 18; Temp 97.9(TE); Pulse Ox 98% on R/A; Weight 73.44 kg rb1 (R); Height 5 ft. 2 in. (157.48 cm) (R); Pain 4/10; 11:00 BP 122 / 46; Pulse 65; Resp 17; Pulse Ox 99% on R/A; rb1 12:51 BP 129 / 52; Pulse 68; Resp 16; Pulse Ox 100% on R/A; Pain 4/10; rb1 13:00 BP 173 / 105; Pulse 91; Resp 17; Pulse Ox 96% ; Pain 4/10; rb1 09:43 Body Mass Index 29.61 (73.44 kg, 157.48 cm) rb1 ED Course: 09:41 Patient arrived in ED. as 09:43 Arm band placed on right wrist. rb1 09:43 Patient has correct armband on for positive identification. Bed in low position. Call rb1 light in reach. Side rails up X 1. telemetry monitor on. Pulse ox on. NIBP on. Warm blanket given. Pillow given. 09:44 Vicky Sorenson FNP-C is [facility]. kb 09:44 Andrea Cornelius MD is Attending Physician. kb 09:47 Alicia Pacheco, DONALD is Primary Nurse. rb1 10:04 Triage completed. rb1 10:07 Initial lab(s) drawn, by mo, sent to lab. Inserted saline lock: 22 gauge in right dh3 forearm, using aseptic technique. Blood collected. 10:16 X-ray completed. Portable x-ray completed in exam room. Patient tolerated procedure sg4 well. 10:17 XRAY Chest (1 view) In Process Unspecified. EDMS 10:23 EKG done, by ED staff, reviewed by Vicky KENNEDY. dh3 11:02 Hayes Childers DO is Hospitalizing Provider. kb 12:16 Ultrasound completed. Patient tolerated well. sg3 13:11 No provider procedures requiring assistance completed. Patient admitted, IV remains in rb1 place. Administered Medications: 10:55 CANCELLED (Duplicate Order): Lasix 40 mg IVP once kb Outcome: 11:02 Decision to Hospitalize by Provider. kb 13:11 Patient left the ED. rb1 13:11 Admitted to Med/surg accompanied by tech, family with patient, via wheelchair, room rb1 221, with chart, Report called to DONALD Stewart 13:11 Condition: stable 13:11 Instructed on the need for admit. Signatures: Dispatcher [employer] EDMS Vicky Sorenson FNP-C FNP-Kanika Jacobsen Maria ms Smirch, Rosa, RN RN ss Alicia Pacheco RN RN rb1 Maryse Sanders 3 Kimberly Dinh3 Maira Reynolds sg4 Corrections: (The following items were deleted from the chart) 20:08 13:57 Patient left the ED. ms rb1
--- NOTE | 2019-01-20 11:17 | RAD REPORT ---
EXAM DESCRIPTION: RAD - Chest Single View - 01/20/2019 10:17 am CLINICAL HISTORY: Shortness of breath, chest pain COMPARISON: January 11 TECHNIQUE: AP portable chest image was obtained 1011 hours . FINDINGS: No peripheral mass or consolidation. Granulomas are present. Lung markings are not substan tially different from comparison. Cardiomegaly is present with prominent vasculature. Costophrenic an gle blunting is present suspected to be portable technique artifact rather than pleural effusion. No acute bony abnormality seen. No acute aortic findings suspected. IMPRESSION: No focal mass or consolidation. Heart, vasculature and central lung markings are prominent. Pattern is not substantially different from comparison ; however, mild failure or volume overload wou ld still be possible.
[2019-01-20] MEDS ORDERED: FUROSEMIDE 100 MG/10 ML VIAL IV ONE (12:50)
--- NOTE | 2019-01-20 13:42 | P.HP ---
Certification for Inpatient Patient admitted to: Observation With expected LOS: <2 Midnights Patient will require the following post-hospital care: None Practitioner: I am a practitioner with admitting privileges, knowledge of patient current condition, hospital course, and medical plan of care. Services: Services provided to patient in accordance with Admission requirements found in Title 42 Section 412.3 of the Code of Federal Regulations Patient History Date of Service: 01/20/19 Primary Care Provider: Dr. Giles; Nephrology-Dr. Lopez; Cardiology-Dr. Robertson Reason for admission: Increasing edema, shortness of breath History of Present Illness: 83-year-old female presented to the emergency room with shortness of breath and edema to the lower extremity. Patient recently hospitalized for acute renal injury. Patient with history of chronic renal disease. On her last visit Aldactone was discontinued. Patient remains on Lasix. She is not on a fluid restriction at home. Today patient reported increasing weight gain, edema to the lower extremity and shortness of breath. She came to the ER for further evaluation. Patient denies any significant chest pain. No evidence of nausea, vomiting. In the ER patient evaluated. White count 5.4, hemoglobin 9.3. Sodium 137, potassium 3.9, BUN of 47, creatinine 1.9 with a GF 24. Glucose 117. Troponin 0.02. BNP elevated at 5030. Chest x-ray showed possible pulmonary edema. Patient admitted for further evaluation and treatment. When I saw the patient the ER, she appeared comfortable. She is off oxygen. Allergies aspirin Allergy (Severe, Verified 01/09/19 22:04) Severe Bleeding codeine Allergy (Verified 01/09/19 22:04) Nausea/Vomiting Penicillins Allergy (Verified 01/09/19 22:04) Hives/Rash Sulfa (Sulfonamide Antibiotics) Allergy (Verified 01/09/19 22:04) Hives/Rash adhesive tape Adverse Reaction (Verified 01/09/19 22:04) skin irritation rivaroxaban [From Xarelto] Adverse Reaction (Verified 01/09/19 22:04) Bleeding Home medications list reviewed: Yes Home Medications: Pantoprazole [Protonix Tab*] 1 tab PO DAILY 08/08/17 Levothyroxine [Synthroid*] 100 mcg PO [id number] 09/03/17 Atorvastatin Calcium [Lipitor*] 10 mg PO BEDTIME #30 tab 09/04/17 Levothyroxine Sodium [Levoxyl] 100 mcg PO DAILY 09/04/17 Furosemide [Lasix*] 40 mg PO BID #30 tab 01/12/19 - Past Medical/Surgical History Diabetic: No -: Cervical cancer - radiation treatment -: HTN -: Aortic valve replacement-bovine -: Mitral valve Clip -: Hypothyroidism -: cervic Cancer in 1989 (Hx of Chemo/Radiation Tx) -: 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 -: Iron def Anemia -: Chronic renal disease, stage IV -: Chronic diastolic CHF -: Cholecystectomy -: Appendectomy Psychosocial/ Personal History: She is . Children-5. - Family History Mother -: Hypertension, Diabetes - Social History Smoking Status: Never smoker Alcohol use: No CD- Drugs: No Caffeine use: Yes Place of Residence: Home Review of Systems General: Weakness Eyes: Unremarkable ENT: Unremarkable Respiratory: Shortness of Breath Cardiovascular: Edema, As per HPI Genitourinary: Unremarkable Musculoskeletal: Pedal edema, As per HPI Integumentary: Unremarkable Neurological: Unremarkable Lymphatics: Unremarkable Physical Examination - Physical Exam General: Alert, In no apparent distress, Oriented x3, Cooperative HEENT: Atraumatic, Normocephalic, Mucous membr. moist/pink Neck: Supple Respiratory: Crackles/rales (Mild crackles to the bases bilateral) Cardiovascular: Normal pulses, Regular rate/rhythm Gastrointestinal: Normal bowel sounds, Soft and benign, Non-distended, No tenderness, No masses, No rebound, No guarding Musculoskeletal: No tenderness, No warmth Integumentary: Tenderness/swelling (1+ edema to the lower extremities bilateral) Neurological: Normal speech, Normal strength at 5/5 x4 extr, Normal tone, Normal affect - Studies Laboratory Data (last 24 hrs) 01/20/19 10:06: PT 14.7 H, INR 1.26 01/20/19 10:06: WBC 5.4, Hgb 9.3 L, Hct 28.4 L, Plt Count 211 01/20/19 10:06: Sodium 137, Potassium 3.9, BUN 47 H, Creatinine 1.97 H, Glucose 117 H, Magnesium 2.1, Total Bilirubin 1.5 H, AST 29, ALT 24, Alkaline Phosphatase 132 H Assessment and Plan - Plan Impression: Edema to the lower extremities which shortness of breath likely acute on chronic diastolic CHF Chronic renal disease, stage IV Hypothyroidism Chronic atrial fib not on chronic anti coagulation therapy Hyperlipidemia GERD Plan: Edema to the lower extremities which shortness of breath likely acute on chronic diastolic CHF: Patient will be admitted for observation. Will diurese patient. Will continue with Lasix 40 mg IV twice daily. Will educate on 1500 cc per day fluid restriction. Aldactone recently discontinued due to hyperkalemia. Will discuss with nephrology. Anticipate discharge in the next 24 hr. Will maintain sats above 90%. Will monitor closely. Reassess tomorrow. Chronic renal disease, stage IV: Renal function stable. This is likely her new baseline. Will discuss with nephrology. Hypothyroidism: Continue home medication. Chronic atrial fib not on chronic anti coagulation therapy: Continue home medication. Hyperlipidemia: Continue home medication. GERD: Continue home medication Discharge Plan: Home Plan to discharge in: 24 Hours - Advance Directives Does patient have a Living Will: No Does patient have a Durable POA for Healthcare: No - Code Status/Comfort Care Code Status Assessed: Yes (Patient full code.) Time Spent Managing Pts Care (In Minutes): 55
[2019-01-20] MEDS ORDERED: ACETAMINOPHEN 500 MG TAB PO PRN (13:48)
--- NOTE | 2019-01-20 15:14 | RAD REPORT ---
EXAM DESCRIPTION: US - Extrem Venous W Compress [place] - 01/20/2019 2:58 pm CLINICAL HISTORY: Leg pain and swelling COMPARISON: None. TECHNIQUE: Real-time sonographic evaluation of the bilateral lower extremity common femoral, superfi cial femoral, popliteal and posterior tibial veins was performed. FINDINGS: Normal compressibility, flow augmentation, phasic flow and spontaneous flow are identified in the left and right lower extremity common femoral, superficial femoral, popliteal and posterior t ibial veins. No intraluminal filling defects seen. IMPRESSION: No DVT in either lower extremity.
[2019-01-20] MEDS: TRAMADOL HCL 50 MG TAB PO PRN ×2 (16:16→22:25)
[2019-01-20] MEDS: FUROSEMIDE 40 MG/4 ML VIAL IV SCH (16:16)
[2019-01-20] MEDS: LACTOBACILLUS/ACIDOPHILUS TAB PO SCH (20:11)
[2019-01-20] MEDS ORDERED: ATORVASTATIN 20 MG TAB PO SCH (21:00)
[2019-01-20] MEDS ORDERED: ENOXAPARIN 30 MG/0.3 ML SQ SCH (21:00)
--- NOTE | 2019-01-20 21:12 | EKG ---
Test Date: 2019-01-20 Test Time: 10:18:26 Saas Architect: KIARRA MEASUREMENT RESULTS: Intervals: Rate: 66 NJ: 152 QRSD: 182 QT: 510 QTc: 534 Stuart: P: 91 NJ: 152 QRS: -51 T: 74 INTERPRETIVE STATEMENTS: Normal sinus rhythm Right bundle branch block Left axis Abnormal ECG Compared to ECG 01/09/2019 15:05:24 Sinus bradycardia no longer present Electronically Signed On 01-20-19 21:11:17 HEARING CARE PRACTITIONER by Delbert Bolanos
[2019-01-21 05:10] LABS: Absolute Lymphocytes (CBC) 0.4 K/uL (0.7-4.9); Absolute Monocytes 0.5 K/uL (0.1-1.3); Basophils % 0.5 % (0-1.3); Eosinophils % 0.8 % (0-4.4); Hematocrit 27.9 % (36.0-45.0); Lymphocytes % 5.9 % (15.3-44.8); MPV 8.1 fL (7.6-11.3); RBC Red Blood Cell Count 2.77 M/uL (3.86-4.86)
[2019-01-21 05:15] VITALS: BMI 28.5
[2019-01-21 05:27] LABS: Magnesium 2.1 mg/dL (1.8-2.4); Potassium 3.6 mmol/L (3.5-5.1)
[2019-01-21] MEDS: ONDANSETRON 4 MG/2 ML VIAL IV PRN ×2 (05:41→12:32)
[2019-01-21] MEDS ORDERED: POTASSIUM CL SA 10 MEQ TAB PO ONE (06:00)
[2019-01-21] MEDS ORDERED: PANTOPRAZOLE 40MG TABLET PO SCH (06:30)
[2019-01-21] MEDS ORDERED: LIOTHYRONINE SOD 5 MCG TAB PO SCH (06:30)
[2019-01-21] MEDS ORDERED: LEVOTHYROXINE SOD 0.088 MG TAB PO SCH (06:30)
[2019-01-21] MEDS: FUROSEMIDE 40 MG/4 ML VIAL IV SCH (07:57)
[2019-01-21] MEDS: LACTOBACILLUS/ACIDOPHILUS TAB PO SCH (07:59)
[2019-01-21] MEDS ORDERED: AMIODARONE HCL 200 MG TAB PO SCH (09:00)
--- NOTE | 2019-01-21 09:42 | P.DS ---
Admission Date: 01/20/19 Discharge Date: 01/21/19 Primary Care Provider: Dr. Giles; Nephrology-Dr. Lopez; Cardiology-Dr. Robertson Disposition: DC HOME/HOME HEALTH CARE Discharge Condition: GOOD Reason for Admission: Increasing edema, shortness of breath Consultations: Nephrology-Dr. Lopez Procedures: Medical problem list: Edema to the lower extremities with shortness of breath secondary to acute on chronic diastolic CHF Chronic renal disease, stage IV Hypothyroidism History of aortic valve replacement Chronic atrial fibrillation not on chronic anti coagulation therapy Hyperlipidemia GERD Anemia of chronic disease with iron and B12 deficiency Brief History of Present Illness: 83-year-old female presented to the emergency room with shortness of breath and edema to the lower extremity. Patient recently hospitalized for acute renal injury. Patient with history of chronic renal disease. On her last visit Aldactone was discontinued. Patient remains on Lasix. She is not on a fluid restriction at home. Today patient reported increasing weight gain, edema to the lower extremity and shortness of breath. She came to the ER for further evaluation. Patient denies any significant chest pain. No evidence of nausea, vomiting. In the ER patient evaluated. White count 5.4, hemoglobin 9.3. Sodium 137, potassium 3.9, BUN of 47, creatinine 1.9 with a GF 24. Glucose 117. Troponin 0.02. BNP elevated at 5030. Chest x-ray showed possible pulmonary edema. Patient admitted for further evaluation and treatment. When I saw the patient the ER, she appeared comfortable. She is off oxygen. Hospital Course: Patient presented with edema to the lower extremities and shortness of breath. This was related to acute on chronic diastolic CHF. Patient recently hospitalized for hyperkalemia. At that time Aldactone was discontinued. Patient continued with Lasix without a strict fluid restriction. Patient was evaluated in the emergency room. She was admitted and started on IV diuretic therapy. Patient did well overnight. Edema to the lower extremities much improved. Venous Doppler negative. Patient without respiratory distress. Patient does not require oxygen at discharge. At discharge will recommend to increase Lasix to 80 mg 1 pill twice daily along with potassium supplementation Klor-Con 20 mEq daily. Patient educated on a 1500 cc per day fluid restriction and low-salt diet. She is to monitor her weight daily. If her weight increases by more than 5 lb she is to contact her PCP or nephrology to further address her medications. Further adjustment in medication can be done if with improved symptoms. Patient has an appointment to see Cardiology tomorrow. Recommend to follow up with nephrology within 1 week. Recommend to recheck lab- BMP in 1 week to monitor her progress and potassium. Patient will continue with home health and physical therapy at discharge. Home health to continue with CHF education and monitoring. Fall precaution in place. Patient with chronic renal disease, stage IV. This remained stable. Patient seen and evaluated by nephrology. Recommend no further use of nonsteroidal anti -inflammatories. Future medications will need to be renally dose. Recommend to recheck lab-BMP in 1 week. Recommend to follow up with nephrology within 1 week to further monitor. Patient with hypothyroidism. Patient will continue with her medication- levothyroxine 88 mcg daily and Cytomel 5 mcg daily. Patient with prior heart valve repair and chronic atrial fibrillation not on chronic anti coagulation therapy. Patient will continue with her medication- amiodarone 200 mg daily. Patient has follow up with Cardiology tomorrow. Patient with hyperlipidemia. Patient will continue with medication-Lipitor 10 mg daily. Patient with GERD. Patient continue with her medication-Protonix 40 mg daily. Patient with anemia of chronic disease along with iron and B12 deficiency. Patient may continue with multi vitamin and B12 supplement daily. Vital Signs/Physical Exam: Temp Pulse Resp BP Pulse Ox 96.8 F 68 16 145/64 H 98 01/21/19 04:00 01/21/19 07:57 01/21/19 04:00 01/21/19 07:57 01/21/19 04:00 General: Alert, In no apparent distress, Oriented x3, Cooperative HEENT: Atraumatic Neck: Supple Respiratory: Clear to auscultation bilaterally, Normal air movement Cardiovascular: Normal pulses, Regular rate/rhythm Gastrointestinal: Normal bowel sounds, Soft and benign, Non-distended, No tenderness, No masses, No rebound, No guarding Musculoskeletal: No erythema, No tenderness, No warmth Integumentary: Tenderness/swelling (Swelling to the lower extremity significantly improved. Especially to the right lower extremity) Neurological: Normal speech, Normal strength at 5/5 x4 extr, Normal tone, Normal affect Laboratory Data at Discharge: WBC 6.0 K/uL (4.3-10.9) 01/21/19 04:12 Hgb 9.2 g/dL (12.0-15.0) L 01/21/19 04:12 Hct 27.9 % (36.0-45.0) L 01/21/19 04:12 Plt Count 236 K/uL (152-406) 01/21/19 04:12 PT 14.7 SECONDS (9.5-12.5) H 01/20/19 10:06 INR 1.26 01/20/19 10:06 Sodium 135 mmol/L (136-145) L 01/21/19 04:12 Potassium 3.6 mmol/L (3.5-5.1) 01/21/19 04:12 BUN 50 mg/dL (7-18) H 01/21/19 04:12 Creatinine 1.99 mg/dL (0.55-1.3) H 01/21/19 04:12 Glucose 176 mg/dL (74-106) H 01/21/19 04:12 Magnesium 2.1 mg/dL (1.8-2.4) 01/21/19 04:12 Total Bilirubin 1.5 mg/dL (0.2-1.0) H 01/20/19 10:06 AST 29 U/L (15-37) 01/20/19 10:06 ALT 24 U/L (12-78) 01/20/19 10:06 Alkaline Phosphatase 132 U/L (45-117) H 01/20/19 10:06 Home Medications: Atorvastatin Calcium 10 mg PO BEDTIME 01/20/19 Levothyroxine Sodium 88 mcg PO [id number] 01/20/19 Liothyronine Sodium [Cytomel] 5 mcg PO DAILY 01/20/19 Pantoprazole [Protonix Tab*] 40 mg PO DAILY 01/20/19 Cyanocobalamin (Vitamin B-12) [Vitamin B-12] 1,000 mcg PO DAILY #90 tablet 01/21 Furosemide [Lasix*] 80 mg PO BID #120 tab 01/21/19 Multivit with Iron,Minerals [Spectravite Senior] 1 each PO DAILY #90 tablet 09/01 Potassium Oral Tab [Klor-Con 10 mEq Tab] 20 meq PO DAILY #30 tab 01/21/19 New Medications: Cyanocobalamin (Vitamin B-12) [Vitamin B-12] 1,000 mcg PO DAILY #90 tablet Furosemide [Lasix*] 80 mg PO BID #120 tab Multivit with Iron,Minerals [Spectravite Senior] 1 each PO DAILY #90 tablet Potassium Oral Tab [Klor-Con 10 mEq Tab] 20 meq PO DAILY #30 tab Patient Discharge Instructions: 1. Patient will follow up with her PCP within 1 week. 2. Patient presented with edema to the lower extremities and shortness of breath. This was related to acute on chronic diastolic CHF. Patient recently hospitalized for hyperkalemia. At that time Aldactone was discontinued. Patient continued with Lasix without a strict fluid restriction. Patient was evaluated in the emergency room. She was admitted and started on IV diuretic therapy. Patient did well overnight. Edema to the lower extremities much improved. Venous Doppler negative. Patient without respiratory distress. Patient does not require oxygen at discharge. At discharge will recommend to increase Lasix to 80 mg 1 pill twice daily along with potassium supplementation Klor-Con 20 mEq daily. Patient educated on a 1500 cc per day fluid restriction and low-salt diet. She is to monitor her weight daily. If her weight increases by more than 5 lb she is to contact her PCP or nephrology to further address her medications. Further adjustment in medication can be done if with improved symptoms. Patient has an appointment to see Cardiology tomorrow. Recommend to follow up with nephrology within 1 week. Recommend to recheck lab-BMP in 1 week to monitor her progress and potassium. Patient will continue with home health and physical therapy at discharge. Home health to continue with CHF monitoring and education. 3. Patient with chronic renal disease, stage IV. This remained stable. Patient seen and evaluated by nephrology. Recommend no further use of nonsteroidal anti -inflammatories. Future medications will need to be renally dose. Recommend to recheck lab-BMP in 1 week. Recommend to follow up with nephrology within 1 week to further monitor. 4. Patient with hypothyroidism. Patient will continue with her medication-levothyroxine 88 mcg daily and Cytomel 5 mcg daily. 5. Patient with prior heart valve repair and chronic atrial fibrillation not on chronic anti coagulation therapy. Patient will continue with her medication-amiodarone 200 mg daily. Patient has follow up with Cardiology tomorrow. 6. Patient with hyperlipidemia. Patient will continue with medication-Lipitor 10 mg daily. 7. Patient with GERD. Patient continue with her medication-Protonix 40 mg daily. 8. Patient with anemia of chronic disease along with iron and B12 deficiency. Patient may continue with multi vitamin and B12 supplement daily. Diet: AHA Activity: Fall precautions Time spent managing pt's care (in minutes): 55
[2019-01-21 10:27] VITALS: TEMP 97.8
--- NOTE | 2019-01-21 11:34 | RAD REPORT ---
EXAM DESCRIPTION: RAD - Chest Pa And Lat (2 Views) - 01/21/2019 6:03 am CLINICAL HISTORY: follow up CHF Chest pain. COMPARISON: Chest Single View dated 01/20/2019; Chest Pa And Lat (2 Views) dated 01/11/2019; Chest Sing le View dated 01/09/2019; Chest Single View dated 12/03/2018 FINDINGS: The lungs demonstrate mild interstitial pulmonary edema. A calcified granuloma, benign, is present in the right lung base unchanged. The heart is mildly enlarged in size with sternotomy wires present. Trace pleural fluid is present bilaterally. IMPRESSION: Mild CHF versus volume overload pattern.
[2019-01-21 15:22] VITALS: BP 154/67
[2019-01-21] MEDS ORDERED: FUROSEMIDE 40 MG/4 ML VIAL IV ONE (16:00)
[2019-01-21] MEDS ORDERED: SPIRONOLACTONE 25 MG TABLET PO ONE (16:00)
[2019-01-21 16:07] VITALS: O2SAT 98
--- NOTE | 2019-01-21 20:50 | P.CNS ---
Date of Consult: 01/21/19 Reason for Consult: ANA/ CKD Requesting Physician: Hayes Childers Primary Care Provider: Dr. Giles; Nephrology-Dr. Lopez; Cardiology-Dr. Robertson Chief Complaint: Increasing edema, shortness of breath History of Present Illness: 83-year-old female presented to the emergency room with shortness of breath and edema to the lower extremity. Patient recently hospitalized for acute renal injury. Patient with history of chronic renal disease. On her last visit Aldactone was discontinued. Patient remains on Lasix. She is not on a fluid restriction at home. Today patient reported increasing weight gain, edema to the lower extremity and shortness of breath. She came to the ER for further evaluation. Patient denies any significant chest pain. No evidence of nausea, vomiting. 10:58 This 83 yrs old Female presents to ER via Wheelchair with complaints of kb Swelling. 10:58 The patient has shortness of breath at rest, and the patient has a history of CHF. kb Onset: The symptoms/episode began/occurred ongoing problem. Duration: The symptoms are continuous. The patient's shortness of breath is aggravated by exertion, is alleviated by rest. Associated signs and symptoms: Pertinent positives: edema. Severity of symptoms: At their worst the symptoms were moderate in the emergency department the symptoms are unchanged. The patient has experienced similar episodes in the past. The patient has been recently been admitted at [facility], was discharged last week. Pt has history of CHF, was discharged on 01/12/19 from this facility after a CHF exacerbation and hyperkalemia. Pt taken off of spirinolactone due to hyperkalemia and told to take lasix 40mg PO BID. Pt returns today for weight gain of 11 pounds since discharge on 01/12/19. Reports shortness of breath that is worse with exertion. Allergies aspirin Allergy (Severe, Verified 01/09/19 22:04) Severe Bleeding codeine Allergy (Verified 01/09/19 22:04) Nausea/Vomiting Penicillins Allergy (Verified 01/09/19 22:04) Hives/Rash Sulfa (Sulfonamide Antibiotics) Allergy (Verified 01/09/19 22:04) Hives/Rash adhesive tape Adverse Reaction (Verified 01/09/19 22:04) skin irritation rivaroxaban [From Xarelto] Adverse Reaction (Verified 01/09/19 22:04) Bleeding Home medications list reviewed: Yes Home Medications: Atorvastatin Calcium 10 mg PO BEDTIME 01/20/19 Levothyroxine Sodium 88 mcg PO [id number] 01/20/19 Liothyronine Sodium [Cytomel] 5 mcg PO DAILY 01/20/19 Pantoprazole [Protonix Tab*] 40 mg PO DAILY 01/20/19 Cyanocobalamin (Vitamin B-12) [Vitamin B-12] 1,000 mcg PO DAILY #90 tablet 01/21 Furosemide [Lasix] 40 mg PO BIDL #60 tab 01/21/19 Multivit with Iron,Minerals [Spectravite Senior] 1 each PO DAILY #90 tablet 09/01 Spironolactone [Aldactone] 25 mg PO DAILY #30 tab 01/21/19 - Past Medical/Surgical History Diabetic: No -: Cervical cancer - radiation treatment -: HTN -: Aortic valve replacement-bovine -: Mitral valve Clip -: Hypothyroidism -: cervic Cancer in 1989 (Hx of Chemo/Radiation Tx) -: 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 -: Iron def Anemia -: Chronic renal disease, stage IV -: Chronic diastolic CHF -: Cholecystectomy -: Appendectomy Psychosocial/ Personal History: She is . Children-5. - Family History Mother Medical History: Hypertension, Diabetes - Social History Smoking Status: Former smoker Alcohol use: No CD- Drugs: No Caffeine use: No Place of Residence: Home Review of Systems 10-point ROS is otherwise unremarkable General: Weakness, Malaise Respiratory: SOB with Excertion Cardiovascular: Edema Gastrointestinal: Nausea Neurological: Weakness Physical Examination Temp Pulse Resp BP Pulse Ox 97.8 F 64 18 154/67 H 98 01/21/19 12:00 01/21/19 16:36 01/21/19 12:00 01/21/19 16:36 01/21/19 12:00 General: In no apparent distress, Oriented x3, Cooperative HEENT: Atraumatic Neck: Supple, JVD distended Respiratory: Clear to auscultation bilaterally, Diminished Cardiovascular: Regular rate/rhythm, Edema Gastrointestinal: Soft and benign, Non-distended Musculoskeletal: No clubbing, No contractures Integumentary: No rashes, No cyanosis Neurological: Normal speech Blood work reviewed in the chart. Cr 1.96 Imagings Data: EXAM DESCRIPTION: RAD - Chest Single View - 01/20/2019 10:17 am CLINICAL HISTORY: Shortness of breath, chest pain COMPARISON: January 11 TECHNIQUE: AP portable chest image was obtained 1011 hours . FINDINGS: No peripheral mass or consolidation. Granulomas are present. Lung markings are not substantially different from comparison. Cardiomegaly is present with prominent vasculature. Costophrenic angle blunting is present suspected to be portable technique artifact rather than pleural effusion. No acute bony abnormality seen. No acute aortic findings suspected. IMPRESSION: No focal mass or consolidation. Heart, vasculature and central lung markings are prominent. Pattern is not substantially different from comparison ; however, mild failure or volume overload would still be possible. Conclusions/Impression: A/ ANA/ CKD III likely CRS. Diastolic CHF, A/C. HTN with CKD/ CHF. Hyponatremia. Hypocalcemia. Anemia in chronic illness. DM II with CKD. P/ Continue current POC and Medications. Counseled the patient regarding salt and fluid intake. Continue Lasix 40mg BID. Restart low dose spironolactone. Will titrate diuretic as needed. No NSAIDs. AM labs. Daily weight. Thank you kindly for the consultation. Case discussed with Dr. Childers.
== END 2019-01-21 17:45 | disposition home health service (06) ==
LOC: ER 09:38 → ERHOLD 11:12 → 2ND 12:56
PROVIDERS: ADMIT Family Medicine; ATTEND Family Medicine
DX: I13.0 Hypertensive heart and chronic kidney disease with heart failure and stage 1 through stage 4 chronic kidney disease, or unspecified chronic kidney disease (principal); I50.33 Acute on chronic diastolic (congestive) heart failure; N18.4 Chronic kidney disease, stage 4 (severe); E11.22 Type 2 diabetes mellitus with diabetic chronic kidney disease; E03.9 Hypothyroidism, unspecified; Z95.2 Presence of prosthetic heart valve; I48.2 Chronic atrial fibrillation; E78.5 Hyperlipidemia, unspecified; K21.9 Gastro-esophageal reflux disease without esophagitis; D63.1 Anemia in chronic kidney disease; D51.9 Vitamin B12 deficiency anemia, unspecified; Z88.0 Allergy status to penicillin; Z88.2 Allergy status to sulfonamides
CPT/HCPCS: 93005; 85025 ×2; 80048 ×2; 36415; 83735 ×2; 85610; 80076; 84484; 83880 ×2; 71045; 71046; 93970; 97162; 99285; J1940 ×3; J2405 ×2; G0378 ×2

== ENCOUNTER 2019-01-26 20:36 | Inpatient (IN) | payer OTHER, MEDICARE ==
--- OUTSIDE RECORDS SUMMARY | 2019-01-26 20:38 | XMS REPORT | Clinical Summary ---
:1935 Author Organization [facility] [employer] Address [address] [place] [address] Care Team Providers Name Role Phone Zack [...] 200 MG BY MOUTH 8 tablet DAILY atorvastatin TAKE 1 TABLET 90 tablet 0 01/05/2018 Discontinued (LIPITOR) 20 MG BY MOUTH 8 tablet EVERY DAY atorvastatin TAKE 1 TABLET 90 tablet 0 [...] Care Team Description 01/17/2019 Orders Only Cardiology Mamta Batista MA Aortic valve disorder (Primary Dx); S/P TAVR (transcatheter aortic valve replacement) 11/14/2018 Refill Cardiology Kevin Plummer MD Med Refill 10/19/2018 Orders Only Cardiology Linda Blevins MA S/P TAVR (transcatheter aortic valve replacement) (Primary Dx) 06/30/2018 Refill Cardiology Kevin Plummer MD Med Refill 03/21/2018 Orders Only Cardiology Kyara Duarte RN S/P TAVR ( transcatheter aortic valve replacement) (Primary Dx); S/P mitral valve clip implantation 03/17/2018 Refill Cardiology Kevin Plummer MD Med Refill 03/14/2018 Refill Kevin Plummer MD after 01/25/2018 Family History Medical History Relation Name Comments [...] travel history available. Last Filed Vital Signs Not on file Plan of Treatment Date Type Specialty Care Team Description 02/01/2019 Appointment Procedural Cardiology Kevin Plummer MD [address] [facility] [address] [place] [id number] [phone] 02/01/2019 Multidisciplinary Visit Cardiology Kevin Plummer MD [address] [facility] [address] [place] [id number] Health Maintenance Due Date Last Done Comments SHINGLES VACCINES (#1) 1986 65+ PNEUMOCOCCAL VACCINE (1 of 2 - PCV13) 2001 PNEUMOCOCCAL POLYSACCHARIDE VACCINE AGE 65 AND OVER 2001 INFLUENZA VACCINE 06/14/2018 Procedures Procedure Name Priority Date/Time Associated Diagnosis Comments TRANSFUSE RED BLOOD Routine 07/19/2018 5:26 PM CDT CELLS after 01/25/2018 Results Transfuse RBC (07/19/2018 5:26 PM CDT)after 01/25/2018 Insurance Payer Benefit Plan / Group Subscriber ID Type Phone Address MEDICARE MEDICARE PART A AND B xxxxxxxxxx Medicare [place], [place] AARP AARP SUPPLEMENT xxxxxxxxxxx Commercial Advance Directives Patient has advance care planning documents on file. For more information, please contact:[address] [place] [address]
[2019-01-26 21:53] LABS: Absolute Lymphocytes (CBC) 0.3 K/uL (0.7-4.9); Absolute Monocytes 0.5 K/uL (0.1-1.3); Absolute Neutrophil 5.2 K/uL (1.8-8.0); Basophils % 0.5 % (0-1.3); Eosinophils % 0.7 % (0-4.4); Hematocrit 29.2 % (36.0-45.0); Lymphocytes % 5.4 % (15.3-44.8); MPV 8.1 fL (7.6-11.3); RBC Red Blood Cell Count 2.89 M/uL (3.86-4.86)
[2019-01-26 22:08] LABS: Potassium 4.4 mmol/L (3.5-5.1); Protime INR 1.32
[2019-01-26 22:11] LABS: Albumin 3.2 g/dL (3.4-5.0); Bilirubin Direct 0.7 mg/dL (0-0.2); Bilirubin Total 1.4 mg/dL (0.2-1.0); Magnesium 2.5 mg/dL (1.8-2.4); Protein, Total 6.2 g/dL (6.4-8.2); Troponin (Emerg Dept Use Only) 0.02 ng/mL (0.0-0.045)
[2019-01-26] MEDS ORDERED: NA CHLORIDE 0.9% 1,000 ML ONE (22:22)
[2019-01-26 22:39] LABS: Blood Morphology Comment NOT SEEN (NOT SEEN); Platelet Estimate ADEQ; Urine White Blood Cell Casts OK
[2019-01-26] MEDS ORDERED: ONDANSETRON 4 MG/2 ML VIAL ONE (23:02)
--- NOTE | 2019-01-26 23:48 | EDPHYS ---
Physician Documentation [facility] Name: Debby Gaitan Age: 83 yrs Sex: Female : 1935 Arrival Date: 01/26/2019 Time: 20:40 Bed 5 Private MD: ED Physician Chris Bruce HPI: 01/26 23:47 This 83 yrs old Female presents to ER via EMS with complaints of Urinary kb Retention. 23:47 The patient presents with abdominal pain right lower quadrant. Onset: The kb symptoms/episode began/occurred 5 day(s) ago. The symptoms do not radiate. Associated signs and symptoms: Pertinent positives: constipation, nausea, weakness, decreased urination. The symptoms are described as constant. Modifying factors: The symptoms are alleviated by nothing, the symptoms are aggravated by nothing. Severity of pain: At its worst the pain was moderate in the emergency department the pain is unchanged. The patient has not experienced similar symptoms in the past. The patient has been recently seen by a physician: The patient has been recently seen at the [facility] Emergency Department, The patient has been recently been admitted at [facility]. Family reports that pt was discharged 5 days ago and hasn't urinated much since then. Decreased appetite and fluid intake. Constipation and weakness. shortness of breath and VILLALOBOS. Reports pt normally gets around well with walker, but has been unable to due to weakness. Pt has also had RLQ pain. Was seen by Dr Lopez yesterday and had KUB done to r/o obstruction. . Historical: - Allergies: 20:48 Aspirin; ak1 20:48 blood thinners; ak1 20:48 Codeine; ak1 20:48 PENICILLINS; ak1 20:48 Sulfa (Sulfonamide Antibiotics); ak1 20:48 Tape (All Except Paper); ak1 20:48 Xarelto; ak1 - Home Meds: 20:48 Amiodarone Oral [Active]; amlodipine oral [Active]; atorvastatin 10 mg oral tab ak1 [Active]; furosemide 40 mg oral tab [Active]; levothyroxine 88 mcg tab 1 tab once daily [Active]; pantoprazole 40 mg oral TbEC [Active]; spironolactone 25 mg Oral tab 1 tab once daily [Active]; Digoxin Oral [Active]; gabapentin Oral [Active]; lisinopril Oral [Active]; Metformin Oral [Active]; Simvastatin Oral [Active]; Metoprolol Tartrate Oral [Active]; - PMHx: 20:48 Anemia; Atrial Fib; Cancer, Cervical 1990; High Cholesterol; Diabetes - NIDDM; CHF; ak1 - PSHx: 20:48 Carpal Tunnel Repair; Cholecystectomy; Appendectomy; Mitral Valve Clip; Heart Valve ak1 Replacement; - Immunization history:: Adult Immunizations unknown. - Social history:: Smoking status: unknown. - Ebola Screening: : No symptoms or risks identified at this time. ROS: 23:44 Constitutional: Negative for fever, chills, and weight loss, ENT: Negative for injury, kb pain, and discharge, Neck: Negative for injury, pain, and swelling, Cardiovascular: Negative for chest pain, palpitations, and edema, Back: Negative for injury and pain, MS/Extremity: Negative for injury and deformity, Skin: Negative for injury, rash, and discoloration. 23:44 Respiratory: Positive for dyspnea on exertion, shortness of breath, Negative for cough, hemoptysis, orthopnea, pleurisy, sputum production, wheezing. 23:44 Abdomen/GI: Positive for abdominal pain, nausea, constipation. 23:44 : Positive for difficulty urinating. 23:44 Neuro: Positive for weakness. Exam: 23:45 Constitutional: This is a well developed, well nourished patient who is awake, alert, kb and in no acute distress. Head/Face: Normocephalic, atraumatic. ENT: Nares patent. No nasal discharge, no septal abnormalities noted. Tympanic membranes are normal and external auditory canals are clear. Oropharynx with no redness, swelling, or masses, exudates, or evidence of obstruction, uvula midline. Mucous membranes moist. Neck: Trachea midline, no thyromegaly or masses palpated, and no cervical lymphadenopathy. Supple, full range of motion without nuchal rigidity, or vertebral point tenderness. No Meningismus. Chest/axilla: Normal chest wall appearance and motion. Nontender with no deformity. No lesions are appreciated. Cardiovascular: Regular rate and rhythm with a normal S1 and S2. No gallops, murmurs, or rubs. Normal PMI, no JVD. No pulse deficits. Respiratory: Lungs have equal breath sounds bilaterally, clear to auscultation and percussion. No rales, rhonchi or wheezes noted. No increased work of breathing, no retractions or nasal flaring. Skin: Warm, dry with normal turgor. Normal color with no rashes, no lesions, and no evidence of cellulitis. MS/ Extremity: Pulses equal, no cyanosis. Neurovascular intact. Full, normal range of motion. Neuro: Awake and alert, GCS 15, oriented to person, place, time, and situation. Cranial nerves II-XII grossly intact. Motor strength 5/5 in all extremities. Sensory grossly intact. Cerebellar exam normal. Normal gait. 23:45 Abdomen/GI: Inspection: abdomen appears normal, Bowel sounds: normal, in all quadrants, Palpation: soft, in all quadrants, moderate abdominal tenderness, in the right lower quadrant. Vital Signs: 20:41 BP 130 / 56; Pulse 61; Resp 18; Temp 97.6(O); Pulse Ox 94% on R/A; Weight 72.57 kg (R); ak1 Height 5 ft. 2 in. (157.48 cm) (R); Pain 2/10; 21:36 BP 122 / 52; Pulse 60; Resp 16 S; Pulse Ox 97% on R/A; jd3 22:55 BP 112 / 48; Pulse 58; Resp 20 S; Pulse Ox 96% on R/A; jd3 23:45 BP 118 / 50; Pulse 57; Resp 20 S; Pulse Ox 97% on R/A; jd3 20:41 Body Mass Index 29.26 (72.57 kg, 157.48 cm) ak1 MDM: 20:43 Patient medically screened. kb 23:44 Data reviewed: vital signs, nurses notes. Data interpreted: Pulse oximetry: on room air kb is 96 %. Interpretation: normal. Counseling: I had a detailed discussion with the patient and/or guardian regarding: the historical points, exam findings, and any diagnostic results supporting the discharge/admit diagnosis, lab results, radiology results, the need for further work-up and treatment in the hospital. Physician consultation: Carolynn Souza MD was contacted at 23:44, regarding admission, to the telemetry unit. patient's condition, in the emergency department to see patient at 23:44. 01/26 20:53 Order name: CBC with Diff; Complete Time: 22:40 kb 01/26 20:53 Order name: Basic Metabolic Panel; Complete Time: 22:16 kb 01/26 21:02 Order name: LFT's; Complete Time: 22:16 kb 01/26 21:02 Order name: Magnesium; Complete Time: 22:16 kb 01/26 21:02 Order name: NT PRO-BNP; Complete Time: 22:16 kb 01/26 21:02 Order name: PT-INR; Complete Time: 22:16 kb 01/26 20:53 Order name: Bladder Scanner; Complete Time: 21:04 kb 01/26 21:02 Order name: Troponin (emerg Dept Use Only); Complete Time: 22:16 kb 01/26 21:02 Order name: XRAY Chest (1 view) kb 01/26 21:02 Order name: EKG; Complete Time: 21:02 kb 01/26 22:17 Order name: CT Abd/Pelvis - Without Cont kb 01/26 22:37 Order name: Chest Wo Con CT kb 01/26 22:39 Order name: CBC Smear Scan; Complete Time: 22:40 EDMS 01/26 20:53 Order name: IV Start; Complete Time: 21:35 kb 01/26 21:02 Order name: Cardiac monitoring; Complete Time: 21:37 kb 01/26 21:02 Order name: EKG - Nurse/Tech; Complete Time: 21:37 kb 01/26 21:02 Order name: Labs collected and sent; Complete Time: 21:35 kb 01/26 21:02 Order name: O2 Per Protocol; Complete Time: 21:04 kb 01/26 21:02 Order name: O2 Sat Monitoring; Complete Time: 21:04 kb Administered Medications: 22:13 Drug: NS 0.9% 500 ml Route: IV; Rate: bolus; Site: left wrist; ak1 01/27 00:13 Follow up: Response: No adverse reaction; IV Status: Completed infusion jd3 Disposition: 01/26/19 23:47 Hospitalization ordered by Carolynn Souza for Inpatient Admission. Preliminary diagnosis are Weakness, Dyspnea, Pleural effusion, not elsewhere classified, Acute kidney failure - acute on chronic. - Bed requested for Telemetry/MedSurg (Inpatient). - Status is Inpatient Admission. jd3 - Condition is Stable. - Problem is new. - Symptoms are unchanged. UTI on Admission? No Addendum: 01/29/2019 07:02 Co-signature as Attending Physician, Chris Bruce MD I agree with the assessment and k dr plan of care. Signatures: Dispatcher [employer] Vicky Garduno, MARCIA CHAIR TRIMMER-Quynh Grijalva RN RN Chris Giron MD MD [facility] Jess Patricio, RN RN ak1 Bishop Roman RN RN jd3 Corrections: (The following items were deleted from the chart) 01/27 00:10 01/26 23:47 Hospitalization Ordered by Carolynn Souza MD for Inpatient Admission. Preliminary diagnosis is Weakness; Dyspnea; Pleural effusion, not elsewhere classified; Acute kidney failure - acute on chronic. Bed requested for Telemetry/MedSurg (Inpatient). Status is Inpatient Admission. Condition is Stable. Problem is new. Symptoms are unchanged. UTI on Admission? No. kb 01/27 00:46 00:10 01/26/2019 23:47 Hospitalization Ordered by Carolynn Souza MD for Inpatient jd3 Admission. Preliminary diagnosis is Weakness; Dyspnea; Pleural effusion, not elsewhere classified; Acute kidney failure - acute on chronic. Bed requested for Telemetry/MedSurg (Inpatient). Status is Inpatient Admission. Condition is Stable. Problem is new. Symptoms are unchanged. UTI on Admission? No. mw
--- NOTE | 2019-01-26 23:48 | ER ---
Nurse's Notes [facility] Name: Debby Gaitan Age: 83 yrs Sex: Female : 1935 Arrival Date: 01/26/2019 Time: 20:40 Bed 5 Private MD: Diagnosis: Weakness;Dyspnea;Pleural effusion, not elsewhere classified;Acute kidney failure-acute on chronic Presentation: 01/26 20:42 Presenting complaint: EMS states: pt with decreased urine output, decreased fluid ak1 intake. pt c/o nausea. pt was seen, admitted to hospital and discharged on 01/21/19. pt sees Dr. Robertson and Dr. Lopez. Transition of care: patient was not received from another setting of care. Onset of symptoms was January 21, 2019. Care prior to arrival: None. 20:42 Acuity: ALEJANDRO 3 ak1 20:42 Method Of Arrival: EMS: [facility] ak1 20:46 Note pt reports taking 40 mg Lasix and X mg amiodarone. jd3 20:50 Risk Assessment: Do you want to hurt yourself or someone else? Patient reports no jd3 desire to harm self or others. Initial Sepsis Screen: Does the patient meet any 2 criteria? No. Patient's initial sepsis screen is negative. Does the patient have a suspected source of infection? No. Patient's initial sepsis screen is negative. Historical: - Allergies: 20:48 Aspirin; ak1 20:48 blood thinners; ak1 20:48 Codeine; ak1 20:48 PENICILLINS; ak1 20:48 Sulfa (Sulfonamide Antibiotics); ak1 20:48 Tape (All Except Paper); ak1 20:48 Xarelto; ak1 - Home Meds: 20:48 Amiodarone Oral [Active]; amlodipine oral [Active]; atorvastatin 10 mg oral tab ak1 [Active]; furosemide 40 mg oral tab [Active]; levothyroxine 88 mcg tab 1 tab once daily [Active]; pantoprazole 40 mg oral TbEC [Active]; spironolactone 25 mg Oral tab 1 tab once daily [Active]; Digoxin Oral [Active]; gabapentin Oral [Active]; lisinopril Oral [Active]; Metformin Oral [Active]; Simvastatin Oral [Active]; Metoprolol Tartrate Oral [Active]; - PMHx: 20:48 Anemia; Atrial Fib; Cancer, Cervical 1990; High Cholesterol; Diabetes - NIDDM; CHF; ak1 - PSHx: 20:48 Carpal Tunnel Repair; Cholecystectomy; Appendectomy; Mitral Valve Clip; Heart Valve ak1 Replacement; - Immunization history:: Adult Immunizations unknown. - Social history:: Smoking status: unknown. - Ebola Screening: : No symptoms or risks identified at this time. Screenin:49 Abuse screen: Denies threats or abuse. Nutritional screening: No deficits noted. jd3 Tuberculosis screening: No symptoms or risk factors identified. Fall Risk Ambulatory Aid- None/Bed Rest/Nurse Assist (0 pts). Gait- Weak (10 pts.). Mental Status- Oriented to own ability (0 pts). Total Coles Fall Scale indicates No Risk (0-24 pts). Assessment: 20:47 General: Appears in no apparent distress. uncomfortable, Behavior is calm, cooperative, jd3 appropriate for age. Pain: Denies pain. Neuro: Level of Consciousness is awake, alert, obeys commands, Oriented to person, place, time, situation, Appropriate for age. Cardiovascular: Heart tones S1 S2 present Capillary refill < 3 seconds Patient's skin is warm and dry. Respiratory: Airway is patent Respiratory effort is even, unlabored, Respiratory pattern is regular, symmetrical, Breath sounds are clear bilaterally. GI: Abdomen is round Bowel sounds present X 4 quads. Abd is soft and non tender X 4 quads. Reports diarrhea. : No signs and/or symptoms were reported regarding the genitourinary system. EENT: No signs and/or symptoms were reported regarding the EENT system. Derm: Skin is intact, Skin is dry, Skin is normal, Skin temperature is warm. Musculoskeletal: Circulation, motion, and sensation intact. Range of motion: intact in all extremities. 21:36 Reassessment: Patient appears in no apparent distress at this time. Patient and/or jd3 family updated on plan of care and expected duration. Pain level reassessed. Patient is alert, oriented x 3, equal unlabored respirations, skin warm/dry/pink. 22:55 Reassessment: Patient appears in no apparent distress at this time. Patient and/or jd3 family updated on plan of care and expected duration. Pain level reassessed. Patient is alert, oriented x 3, equal unlabored respirations, skin warm/dry/pink. 23:44 Reassessment: Patient appears in no apparent distress at this time. Patient and/or jd3 family updated on plan of care and expected duration. Pain level reassessed. Patient is alert, oriented x 3, equal unlabored respirations, skin warm/dry/pink. awaiting results of CT scan. Vital Signs: 20:41 BP 130 / 56; Pulse 61; Resp 18; Temp 97.6(O); Pulse Ox 94% on R/A; Weight 72.57 kg (R); ak1 Height 5 ft. 2 in. (157.48 cm) (R); Pain 2/10; 21:36 BP 122 / 52; Pulse 60; Resp 16 S; Pulse Ox 97% on R/A; jd3 22:55 BP 112 / 48; Pulse 58; Resp 20 S; Pulse Ox 96% on R/A; jd3 23:45 BP 118 / 50; Pulse 57; Resp 20 S; Pulse Ox 97% on R/A; jd3 20:41 Body Mass Index 29.26 (72.57 kg, 157.48 cm) ak1 ED Course: 20:40 Patient arrived in ED. ak1 20:41 Arm band placed on Patient placed in an exam room, on a stretcher, on pulse oximetry, ak1 Patient notified of wait time. 20:43 Vicky Sorenson FNP-C is [facility]. kb 20:43 Chris Bruce MD is Attending Physician. kb 20:44 Bishop Roman RN is Primary Nurse. jd3 20:45 Triage completed. ak1 20:50 Patient has correct armband on for positive identification. Bed in low position. Call jd3 light in reach. Side rails up X2. Adult w/ patient. 21:12 X-ray completed. Portable x-ray completed in exam room. Patient tolerated procedure ml well. 21:13 XRAY Chest (1 view) In Process Unspecified. EDMS 21:27 Missed attempt(s): 22 gauge in right forearm. Bleeding controlled, band aid applied, jd3 catheter tip intact. 21:30 Inserted saline lock: 22 gauge in left forearm, using aseptic technique. Blood jd3 collected. 21:47 EKG done, by animal husbandry technician. reviewed by Vicky KENNEDY. jd3 22:[address] via stretcher. jg6 22:27 CT completed. Patient tolerated procedure well. Patient moved back from CT. em2 22:49 CT Abd/Pelvis - Without Cont In Process Unspecified. EDMS 22:[address] In Process Unspecified. EDMS 23:47 Carolynn Souza MD is Hospitalizing Provider. kb 01/27 00:45 No provider procedures requiring assistance completed. Patient admitted, IV remains in jd3 place. Administered Medications: 01/26 22:13 Drug: NS 0.9% 500 ml Route: IV; Rate: bolus; Site: left wrist; ak1 01/27 00:13 Follow up: Response: No adverse reaction; IV Status: Completed infusion jd3 Outcome: 01/26 23:47 Decision to Hospitalize by Provider. kb 01/27 00:45 Admitted to Tele accompanied by nurse, via wheelchair, room 413, with chart, Report jd3 called to Gilberto BENNETT Condition: stable Instructed on the need for admit, Demonstrated understanding of instructions. 00:46 Patient left the ED. jd3 Signatures: Dispatcher [employer] EDMS Vicky Sorenson, STUDENT OUTREACH COORDINATOR-C STUDENT OUTREACH COORDINATOR-Karol Arredondo Enrique em2 Jess Patricio, RN RN ak1 Bishop Roman, RN RN Claudia Ivey
[2019-01-27] MEDS ORDERED: MORPHINE 2 MG/ML SYR IV PRN (00:04)
[2019-01-27] MEDS ORDERED: ONDANSETRON 4 MG/2 ML VIAL IV PRN (00:04)
[2019-01-27] MEDS ORDERED: ACETAMINOPHEN 500 MG TAB PO PRN (00:04)
[2019-01-27] MEDS ORDERED: ALBUTEROL 2.5 MG/3 ML NEB SOL NEB SCH (01:00)
[2019-01-27] MEDS ORDERED: NA CHLORIDE 0.9% 1,000 ML IV SCH (01:00)
[2019-01-27] MEDS: IPRATROPIUM BROM 0.5MG/2.5ML NEB SCH ×4 (01:48→19:36)
--- NOTE | 2019-01-27 09:22 | EKG ---
Test Date: 2019-01-26 Test Time: 21:39:59 Spouter: ERICH MEASUREMENT RESULTS: Intervals: Rate: 60 WY: 142 QRSD: 188 QT: 548 QTc: 548 [place]: P: 103 WY: 142 QRS: -61 T: 66 INTERPRETIVE STATEMENTS: Normal sinus rhythm Right bundle branch block Left anterior fascicular block Bifascicular block Abnormal ECG Compared to ECG 01/20/2019 10:18:26 Left anterior fascicular block now present Bifascicular block now present Electronically Signed On 01-27-19 09:21:12 CDT by Elias Robertson
--- NOTE | 2019-01-27 11:29 | RAD REPORT ---
EXAM DESCRIPTION: RAD - Chest Single View - 01/26/2019 9:20 pm CLINICAL HISTORY: DYSPNEA Chest pain. COMPARISON: Chest Pa And Lat (2 Views) dated 01/21/2019; Chest Single View dated 01/20/2019; Chest Pa A nd Lat (2 Views) dated 01/11/2019; Chest Single View dated 01/09/2019; Thorax Wo Con dated 01/26/2019 FINDINGS: Portable technique limits examination quality. Mild interstitial pulmonary edema seen. Small left and a moderate right pleural effusion is present. Heart is moderately enlarged in size with sternotomy wires present. No displaced fractures.
[2019-01-27] MEDS: PANTOPRAZOLE 40MG TABLET PO SCH ×2 (11:30→16:30)
--- NOTE | 2019-01-27 12:15 | RAD REPORT ---
EXAM DESCRIPTION: CT Chest Without Intravenous Contrast CLINICAL HISTORY: The patient is 83 years old and is Female; dyspnea TECHNIQUE: Axial computed tomography images of the chest without intravenous contrast. Sagittal an d coronal reformatted images were created and reviewed. This CT exam was performed using one or mor e of the following dose reduction techniques: automated exposure control, adjustment of the mA and/ or kV according to patient size, and/or use of iterative reconstruction technique. COMPARISON: No relevant prior studies available. FINDINGS: Lungs: A 4 mm right upper lobe pulmonary nodule is present. Dependent atelectasis within the lung bases is noted. Several calcified granuloma within the right lower lobe are present. Pleural space: Moderate right and small left pleural effusion are present. No pneumothorax. Heart: Heart is enlarged. Calcification of the mitral annulus is present. Bones/joints: Median sternotomy wires are present. Mild multilevel degenerative change of the spine is present. Soft tissues: The soft tissues are normal. Vasculature: Atherosclerosis of the vasculature is present. No thoracic aortic aneurysm. Lymph nodes: Unremarkable. No enlarged lymph nodes. IMPRESSION: 1. Moderate right and small left pleural effusion with associated areas of atelectasis . 2. Incidental right upper lobe pulmonary nodule. If patient is low risk for malignancy, no routine follow-up imaging is recommended; if patient is hig h risk for malignancy, a non-contrast Chest CT at 12 months is optional. If performed and the nodule is stable at 12 months, no further follow-up is recommended. These guidelines do not apply to patients younger than 35 years, immunocompromised patients, and lupe ents with cancer. Follow up in patients with significant comorbidities as clinically warranted. For l yadira cancer screening, adhere to Lung-RADS guidelines. Reference: Radiology. 2017; 284(1):228-43. Electronically signed by: Lyndsey Bhagat MD 01/26/2019 11:00 PM CDT Due to temporary technical issues with the PACS/Fluency reporting system, reports are being signed by the in house radiologist as a courtesy to ensure prompt reporting. The interpreting radiologist is f ully responsible for the content of the report.
--- NOTE | 2019-01-27 12:17 | RAD REPORT ---
EXAM DESCRIPTION: CT ABDOMEN PELVIS WITHOUT IV CONTRAST Exam date: 01/26/2019 10:17 PM CDT COMPARISON: None CLINICAL HISTORY: Abdominal pain, decreased urine output, decreased fluid intake, nausea TECHNIQUE: Multiple helical axial images were obtained through the abdomen and pelvis without intrav enous contrast. Sagittal and coronal reformatted images are reviewed as well. All CT scans at this facility use dose modulation, iterative reconstruction, and/or weight-based dosi ng when appropriate to reduce radiation dose to as low as reasonably achievable. FINDINGS: Lung bases: Mitral annulus calcifications are present. Coronary artery atherosclerosis is noted. Heart appears enlarged. Small left pleural effusion is present with mild adjacent atelectasis. There is a moderate-sized right pleural effusion with compressive atelectasis on the right lower lob e. Calcified granulomas within the atelectatic right lower lobe noted. Liver: Homogenous attenuation is demonstrated. Gallbladder/biliary: Cholecystectomy changes are present. Questionable mild intrahepatic biliary duct al dilatation. Pancreas: Unremarkable. Spleen: Unremarkable. Adrenals: Unremarkable. Kidneys and ureters: Mild prominence of the renal collecting systems is noted bilaterally without waldo dence of ureteral obstruction. No obvious renal or ureteral stones. Bladder: Unremarkable. Pelvic organs: Unremarkable. Bowel: Colonic diverticula are present. Mild rectal wall thickening is demonstrated. No evidence of b owel obstruction. Appendix is not well seen. Peritoneum: No free air. There is a small amount of ascites. Lymph nodes: Unremarkable. Vasculature: Aortoiliac atherosclerosis is present. Soft tissues: Body wall edema is present. Bones: Degenerative changes of the lumbar spine noted. There is mild anterior subluxation of L4 relat lizbet to L5. IMPRESSION: 1. Mild rectal wall thickening which may relate to proctitis versus contraction. 2. Small amount of ascites. 3. Moderate size right and small left pleural effusions. 4. Body wall edema. Electronically signed by: Valerio Chen MD 01/26/2019 11:13 PM CDT Due to temporary technical issues with the PACS/Fluency reporting system, reports are being signed by the in house radiologist as a courtesy to ensure prompt reporting. The interpreting radiologist is f ully responsible for the content of the report.
--- NOTE | 2019-01-27 15:36 | CON ---
Date of Consultation: 01/27/2019 Reason For Consultation: Acute on chronic renal insufficiency. History Of Present Illness: Ms. Gaitan is an 83-year-old female with past medical history signific ant for history of chronic congestive heart failure, who has had recent admissions to the hospital [facility], once in December and the another one was in January for volume overload. The patient alton ginally had hyperkalemia related to spironolactone and was discharged off the spironolactone, however , she developed shortness of breath and was readmitted for congestive heart failure and she was resta rted back on lower dose spironolactone and discharged home. However, since the last 1 week, she said that she has had poor appetite with abdominal distention and bloating. She was considered to have s ome constipation and was treated, however, not improved. KUB was done, which also did not show any e vidence of any constipation. However, yesterday the patient came to the hospital because she was jus t feeling bad. She could not eat or drink anything. Also reported poor urination and overall feelin g of not well. The patient has been admitted to the hospital and has been started on IV fluids at th e time and she states that she feels slightly better, although she is still complaining of decreased appetite and weight gain. 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 She has chronic atrial fibrillation, hyp erlipidemia, history of cervical cancer, which has been in remission. Past Surgical History: Significant for history of appendectomy and cholecystectomy as well as valve replacements. Social History: She is a , lives with her family. No history of smoking or alcohol use reporte d. Family History: Noncontributory. Review of Systems: Positive for weakness, lethargy, abdominal bloating and distention, lower extremity edema, decreased urination with urge to urinate. She is also complaining of shortness of breath on exertion. Denies any fevers or chills. She has had nausea, but has not vomited with decreased appetite. All other re view of systems are negative. Physical Examination: Vital Signs: Temperature of 97.4, pulse rate of 57, respiratory rate of 18, and blood pressure 161/6 8. General: She appears in no acute distress. HEENT: Atraumatic head. No JVD was noted. Lungs: Clear to auscultation. Abdomen: Soft with slight distention, nontender. No hepatosplenomegaly was noted. Extremities: 2+ edema was noted with chronic venous congestive changes. Laboratory Data: Sodium of 137, potassium of 4.4, chloride of 100, BUN of 62, and creatinine of 2.7, which is significantly worse from her baseline of around 2. Her bilirubin was slightly elevated to 1.4. LFTs are within normal limits. An alkaline phosphatase was 124. ProBNP was 5140. Albumin was low at 3.2. CBC showed stable chronic anemia with stable platelet count. Medications: Current medications have been reviewed. The patient is not receiving any spironolacton e at this time. Imaging Data: She has had a CT scan of her abdomen and pelvis as well as chest yesterday at the time of admission. CT scan of abdomen and pelvis is showing evidence of rectal wall thickening, which mi ght be related to proctitis; small amount of ascites with moderate right and small left pleural effus ion; and body wall edema was noted. CT scan of her chest showed chronic granulomas, a calcified gran ulomas, but otherwise no pulmonary edema. Impression: 1.Acute renal insufficiency on top of chronic kidney disease, likely related to volume overload. At this point, CT scan of her abdomen is pointing towards body wall edema with some anasarca, which cou ld be contributing to her abdominal bloating and distention. We will discontinue the IV fluids and s tart her on some IV diuretics and monitor her renal function closely. I have requested the patient t o get Rowley catheter placed, however, she is adamantly refusing at this time. 2.Chronic diastolic heart failure. The patient I think is volume overloaded at this time. Even tho ugh she does not have any pulmonary edema, the plan is for diuresis as discussed above. 3.Chronic anemia related to chronic disease, currently stable. Monitor. 4.Constipation. The patient is complaining of constipation, however, CT scan is not showing much. However, we will go ahead and order lactulose for her and monitor her bowel movements closely. 5.Hypertension, currently stable. Avoid hypotension and nephrotoxins. 6.Hypothyroidism, on levothyroxine as well as liothyronine. Plan: The patient is doing okay. Atrial fibrillation is rate controlled. The patient is volume ove rloaded in my opinion. We will go ahead and start her on Lasix and monitor renal function closely. Plan was discussed with the patient in detail with her family. VV/MODL Voice ID: [id number] Report ID: [id number]
--- NOTE | 2019-01-27 15:49 | P.HP ---
Certification for Inpatient Patient admitted to: Observation With expected LOS: <2 Midnights Patient will require the following post-hospital care: None Practitioner: I am a practitioner with admitting privileges, knowledge of patient current condition, hospital course, and medical plan of care. Services: Services provided to patient in accordance with Admission requirements found in Title 42 Section 412.3 of the Code of Federal Regulations Patient History Date of Service: 01/27/19 Reason for admission: weakness with dehydration; ANA History of Present Illness: PATIENT IS AN 83-YEAR-OLD FEMALE WHO CAME INTO THE HOSPITAL WITH GENERALIZED WEAKNESS. PATIENT HAS BEEN FEELING WEAK AND NOT BEEN MAKING A LOT OF URINE. SHE CAME INTO THE HOSPITAL FOR FURTHER EVALUATION. IN THE EMERGENCY ROOM SHE WAS FOUND TO HAVE ACUTE KIDNEY FAILURE. SHE WAS DEHYDRATED AND WILL NEED TO BE GENTLY REHYDRATED. WE WILL ADMIT HER TO THE HOSPITAL AND MONITOR HER CLOSELY. MONITOR HER RENAL FUNCTION WELL. WE WILL ADJUST HER DIURETICS DURING HER HOSPITALIZATION WELL. Allergies aspirin Allergy (Severe, Verified 01/09/19 22:04) Severe Bleeding codeine Allergy (Severe, Verified 01/27/19 03:09) Nausea/Vomiting Penicillins Allergy (Severe, Verified 01/27/19 03:09) Hives/Rash Sulfa (Sulfonamide Antibiotics) Allergy (Severe, Verified 01/27/19 03:09) Hives/Rash adhesive tape Adverse Reaction (Severe, Verified 01/27/19 03:09) skin irritation rivaroxaban [From Xarelto] Adverse Reaction (Severe, Verified 01/27/19 03:09) Bleeding Home Medications: Amiodarone HCl [Cordarone Tab] 200 mg PO DAILY 01/27/19 Atorvastatin Calcium [Lipitor] 10 mg PO BEDTIME 01/27/19 Furosemide [Lasix] 40 mg PO BIDL 01/27/19 Levothyroxine [Synthroid] 88 mcg PO [id number] 01/27/19 Liothyronine Sodium [Cytomel] 5 mcg PO DAILY 01/27/19 Ondansetron [Zofran (Odt)*] 1 tab PO Q6HR MDD 4 01/27/19 Pantoprazole [Protonix Tab*] 1 tab PO AC 01/27/19 Spironolactone [Aldactone*] 25 mg PO DAILY 01/27/19 - Past Medical/Surgical History Has patient received pneumonia vaccine in the past: Yes Diabetic: No -: Cervical cancer - radiation treatment -: HTN -: Aortic valve replacement-bovine -: Mitral valve Clip -: Hypothyroidism -: cervic Cancer in 1989 (Hx of Chemo/Radiation Tx) -: 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 -: Iron def Anemia -: Chronic renal disease, stage IV -: Chronic diastolic CHF -: Cholecystectomy -: Appendectomy Psychosocial/ Personal History: She is . Children-5. - Family History Mother Medical History: Hypertension, Diabetes - Social History Smoking Status: Former smoker Alcohol use: No CD- Drugs: No Caffeine use: No Place of Residence: Home Review of Systems 10-point ROS is otherwise unremarkable Physical Examination - Vital Signs Temperature: 97.4 F Blood Pressure: 161/68 Pulse: 57 Respirations: 18 Pulse Ox (%): 99 - Physical Exam General: Alert, In no apparent distress, Oriented x3, Cooperative HEENT: Atraumatic, PERRLA, Mucous membr. moist/pink, EOMI, Sclerae nonicteric Neck: Supple, 2+ carotid pulse no bruit, No LAD, Without JVD or thyroid abnormality Respiratory: Clear to auscultation bilaterally, Normal air movement Cardiovascular: Regular rate/rhythm, Normal S1 S2, Systolic murmur Gastrointestinal: Normal bowel sounds, Soft and benign, Non-distended, No tenderness Musculoskeletal: No clubbing, No swelling, No tenderness Integumentary: No rashes Neurological: Normal speech, Normal tone, Sensation intact, Cranial nerves 3-12 intact, Normal affect Lymphatics: No axilla or inguinal lymphadenopathy - Studies Laboratory Data (last 24 hrs) 01/26/19 21:30: PT 15.4 H, INR 1.32 01/26/19 21:30: Magnesium 2.5 H, Total Bilirubin 1.4 H, AST 25, ALT 20, Alkaline Phosphatase 124 H 01/26/19 21:30: Sodium 137, Potassium 4.4, BUN 62 H, Creatinine 2.70 H, Glucose 119 H 01/26/19 21:30: WBC 6.1, Hgb 9.7 L, Hct 29.2 L, Plt Count 247 Assessment & Plan - Problems (Diagnosis) (1) Acute on chronic combined systolic (congestive) and diastolic (congestive) heart failure Onset Date: 03/04/17 Current Visit: No Status: Acute (2) Acute prerenal azotemia Current Visit: No Status: Acute (3) Acute renal insufficiency Current Visit: No Status: Acute (4) Dyspnea Current Visit: No Status: Acute Qualifiers: (5) Status post aortic valve repair Current Visit: No Status: Acute (6) Chronic atrial fibrillation Onset Date: 03/04/17 Current Visit: No Status: Chronic (7) Chronic renal disease Current Visit: No Status: Chronic Qualifiers: (8) Hypothyroidism Onset Date: 03/04/17 Current Visit: No Status: Chronic Qualifiers: (9) S/P mitral valve clip implantation Current Visit: No Status: Chronic - Plan PLAN: 1. GENTLE HYDRATION 2. MONITOR RENAL FUNCTION 3. PHYSICAL THERAPY EVALUATION 4. OOB AND AMBULATE 5. MONITOR H&H 6. CONTINUE WITH CARDIAC MEDS 7. GI AND DVT PROPHYLAXIS Discharge Plan: Home Plan to discharge in: Greater than 2 days - Advance Directives Does patient have a Living Will: No Does patient have a Durable POA for Healthcare: No - Code Status/Comfort Care Code Status Assessed: Yes Code Status: Full Code Critical Care: No Time Spent Managing PTS Care (In Minutes): 45
[2019-01-27] MEDS: FUROSEMIDE 40 MG/4 ML VIAL IV SCH (16:47)
[2019-01-27] MEDS: LACTULOSE 20 GM/30 ML UCUP PO PRN (18:04)
[2019-01-27 20:04] LABS: Urine Appearance CLEAR; Urine Bilirubin NEGATIVE (NEG); Urine Blood NEGATIVE (NEG); Urine Color YELLOW; Urine Glucose NEGATIVE (NEG); Urine Protein TRACE (NEG); Urine Urobilinogen 0.2 mg/dL (0.2-1.0); Urine pH 6.5 (5.0-7.0)
[2019-01-27 20:11] LABS: Urine Microscopic Reflex ORDER UMIC
[2019-01-27 20:27] LABS: Urine Bacteria 20-50 /HPF (<20); Urine Culture Reflex Order REFLEXED; Urine RBC NONE SEEN /HPF (NONE SEEN)
[2019-01-27] MEDS ORDERED: ATORVASTATIN 10 MG TAB PO SCH (21:00)
[2019-01-27] MEDS: ATORVASTATIN 20 MG TABLET PO SCH (21:00)
--- NOTE | 2019-01-27 21:59 | RAD REPORT ---
EXAM DESCRIPTION: US - Extremity Venous Uni Ltd - 01/27/2019 9:17 pm CLINICAL HISTORY: Hematoma Arm swelling and edema. COMPARISON: Extrem Venous W Compress [place] dated 01/20/2019 FINDINGS: Left upper extremity venous system was interrogated with Doppler technique. Normal flow, c ompressibility and augmentation was noted. There is no DVT present. IMPRESSION: No evidence of left upper extremity deep venous thrombosis.
[2019-01-28] MEDS: TRAMADOL HCL 50 MG TAB PO PRN ×2 (00:12→16:05)
[2019-01-28] MEDS: IPRATROPIUM BROM 0.5MG/2.5ML NEB SCH ×4 (01:22→19:45)
[2019-01-28 05:53] LABS: Absolute Lymphocytes (CBC) 0.4 K/uL (0.7-4.9); Absolute Monocytes 0.7 K/uL (0.1-1.3); Absolute Neutrophil 5.7 K/uL (1.8-8.0); Basophils % 0.5 % (0-1.3); Eosinophils % 1.4 % (0-4.4); Hematocrit 30.7 % (36.0-45.0); Lymphocytes % 5.2 % (15.3-44.8); MPV 8.3 fL (7.6-11.3); Monocytes % 9.6 % (3.3-12.3); RBC Red Blood Cell Count 3.04 M/uL (3.86-4.86)
[2019-01-28] MEDS ORDERED: LEVOTHYROXINE SOD 0.088 MG TAB PO SCH (06:00)
[2019-01-28] MEDS: LEVOTHYROXINE SOD 0.088 MG TAB PO SCH (06:00)
[2019-01-28] MEDS: LIOTHYRONINE 5 MCG TABLET PO SCH (06:12)
[2019-01-28 06:16] LABS: Albumin 3.1 g/dL (3.4-5.0); Bilirubin Total 1.5 mg/dL (0.2-1.0); Potassium 4.2 mmol/L (3.5-5.1); Protein, Total 5.9 g/dL (6.4-8.2)
[2019-01-28] MEDS ORDERED: LIOTHYRONINE SOD 5 MCG TAB PO SCH (06:30)
[2019-01-28] MEDS ORDERED: AMIODARONE HCL 200 MG TAB PO SCH (09:00)
[2019-01-28] MEDS: FUROSEMIDE 40 MG/4 ML VIAL IV SCH ×2 (09:21→16:04)
[2019-01-28] MEDS: PANTOPRAZOLE 40MG TABLET PO SCH (09:22)
[2019-01-28] MEDS: AMIODARONE HCL 200 MG TAB PO SCH (09:22)
[2019-01-28] MEDS: LACTULOSE 20 GM/30 ML UCUP PO PRN (09:28)
--- NOTE | 2019-01-28 13:35 | PN ---
Date of Progress Note: 01/28/2019 Subjective: Interval History: The patient states that she feels better today. Swelling is slowly i mproving. Weight, however, still is up compared to her baseline weight. She states that her nausea and bloating have slightly improved and her appetite is also better. Overnight, she has remained hem odynamically stable. No acute events were noted. Objective: Vital Signs: Showing temperature of 97.3, pulse rate of 61, respiratory rate of 16, and blood pressure of 124/57. General: She appears in no acute distress. Lungs: Clear to auscultation with diminished breath sounds at bases. Abdomen: Soft, slightly distended. Extremities: Showed 1+ edema in bilateral lower extremities with some dependent edema. Laboratory Data: Showing sodium of 134, potassium of 4.2, chloride of 101, BUN of 57, and creatinine improving to 2.1. Total bilirubin was 1.5 and LFTs are within normal limits. Albumin was 3.1. CBC showing stable hemoglobin, hematocrit, and platelet count. Current Medications: Have been reviewed in detail. Impression: 1.Acute on chronic renal failure secondary to cardiorenal syndrome, currently with overall improving renal function at this time with diuresis. We will plan to increase the dose of Lasix to 40 mg ever y 8 hours and monitor her closely. 2.Volume overload with anasarca. The patient is on Lasix, which we will increase the dosage. We wi ll not give any metolazone because of mild hyponatremia noted on labs today. 3.History of atrial fibrillation, currently remains on amiodarone. 4.Hyperlipidemia, remains on atorvastatin. 5.Severe debility and weakness secondary to multiple hospitalizations. The patient will possibly ne ed SNF placement at the time of discharge for physical therapy and occupational therapy and to monito r her weights and volume status closely. Plan: Overall, the patient is slightly better today. Creatinine is trending down. We will follow u p on her labs and increase her dosage of Lasix and we will consider spironolactone if renal function continues to improve. Continue all other medications and plan of care. We will follow up on labs to maura and will need Physical Therapy and Occupational Therapy consult. Plan was discussed with the patient at bedside and also discussed with Dr. Gregg. GOKUL/SARINA Voice ID: [id number] Report ID: [id number]
[2019-01-28] MEDS ORDERED: MAGIC MOUTHWASH 180 ML BTL PO PRN (17:45)
--- NOTE | 2019-01-28 21:38 | P.PN ---
Subjective Date of Service: 01/28/19 Chief Complaint: weakness with dehydration; ANA Subjective: Improving Patient seen and examined at bedside. Daughter at bedside. Chart reviewed and case discussed with nursing staff and Dr. Razo Patient seen to be up and walking around room with a walker. Swelling has improved. States she is not urinating as much. Breathing improved. Review of Systems 10-point ROS is otherwise unremarkable Physical Examination - Vital Signs Temperature: 97.4 F Blood Pressure: 126/56 Pulse: 60 Respirations: 16 Pulse Ox (%): 99 - Physical Exam General: Alert, In no apparent distress, Oriented x3 HEENT: Atraumatic, PERRLA, EOMI Neck: Supple, JVD not distended Respiratory: Normal air movement, Expiratory wheezes Cardiovascular: Regular rate/rhythm, Normal S1 S2 Gastrointestinal: Normal bowel sounds, No tenderness Musculoskeletal: No tenderness Integumentary: No rashes Neurological: Normal speech, Normal tone, Normal affect Lymphatics: No axilla or inguinal lymphadenopathy Assessment And Plan - Plan (1) Acute on chronic combined systolic (congestive) and diastolic (congestive) heart failure Onset Date: 03/04/17 Current Visit: No Status: Acute (2) Acute prerenal azotemia Current Visit: No Status: Acute (3) Acute renal insufficiency Current Visit: No Status: Acute (4) Dyspnea Current Visit: No Status: Acute Qualifiers: (5) Status post aortic valve repair Current Visit: No Status: Acute (6) Chronic atrial fibrillation Onset Date: 03/04/17 Current Visit: No Status: Chronic (7) Chronic renal disease Current Visit: No Status: Chronic Qualifiers: (8) Hypothyroidism Onset Date: 03/04/17 Current Visit: No Status: Chronic Qualifiers: (9) S/P mitral valve clip implantation Current Visit: No Status: Chronic Continue Diuresis, Nepho consulted. Recommendations appreciated. Strict I&Os Daily weights Kidney function improving. Will get PT Continue home medications.
[2019-01-28] MEDS: ATORVASTATIN 20 MG TABLET PO SCH (22:19)
[2019-01-29] MEDS: FUROSEMIDE 40 MG/4 ML VIAL IV SCH ×3 (01:20→17:00)
[2019-01-29] MEDS: IPRATROPIUM BROM 0.5MG/2.5ML NEB SCH ×4 (01:50→20:00)
[2019-01-29] MEDS: LIOTHYRONINE 5 MCG TABLET PO SCH (06:07)
[2019-01-29] MEDS: LEVOTHYROXINE SOD 0.088 MG TAB PO SCH (06:07)
[2019-01-29] MEDS: PANTOPRAZOLE 40MG TABLET PO SCH (09:00)
[2019-01-29] MEDS: AMIODARONE HCL 200 MG TAB PO SCH (10:14)
[2019-01-29 11:38] LABS: Absolute Lymphocytes (CBC) 0.3 K/uL (0.7-4.9); Absolute Monocytes 0.5 K/uL (0.1-1.3); Basophils % 0.6 % (0-1.3); Eosinophils % 1.5 % (0-4.4); Hematocrit 30.6 % (36.0-45.0); Lymphocytes % 5.4 % (15.3-44.8); MPV 8.1 fL (7.6-11.3); RBC Red Blood Cell Count 3.04 M/uL (3.86-4.86)
[2019-01-29 12:06] LABS: Albumin 3.1 g/dL (3.4-5.0); Bilirubin Total 1.7 mg/dL (0.2-1.0); Potassium 4.6 mmol/L (3.5-5.1); Protein, Total 5.9 g/dL (6.4-8.2)
[2019-01-29 12:08] LABS: C-Reactive Protein 12.7 mg/L (<3.00); Uric Acid 10.1 mg/dL (2.6-6.0)
[2019-01-29] MEDS: CHLORHEXIDINE 0.12% 473ML BOT MM SCH ×2 (13:25→21:17)
[2019-01-29] MEDS ORDERED: Levofloxacin500mg IV 500 MG/100 ML BAG IV ONE (14:00)
[2019-01-29] MEDS: TRAMADOL HCL 50 MG TAB PO PRN (17:38)
--- NOTE | 2019-01-29 17:39 | P.PN ---
Subjective Date of Service: 01/29/19 Chief Complaint: weakness with dehydration; ANA Subjective: No new changes Patient seen and examined at bedside. Daughter at bedside. Chart reviewed and case discussed with nursing staff and Dr. Razo States she does not feel as good as she did yesterday. States she has not had a bowel movement since Tuesday. States she is not urinating as much. Breathing improved. Bladder scan yesterday revealed 112 mL Review of Systems 10-point ROS is otherwise unremarkable Physical Examination - Vital Signs Temperature: 97.5 F Blood Pressure: 102/40 Pulse: 61 Respirations: 22 Pulse Ox (%): 98 - Physical Exam General: Alert, In no apparent distress, Oriented x3 HEENT: Atraumatic, PERRLA, EOMI Neck: Supple, JVD not distended Respiratory: Clear to auscultation bilaterally, Normal air movement Cardiovascular: Regular rate/rhythm, Normal S1 S2, Edema Gastrointestinal: Normal bowel sounds, No tenderness Musculoskeletal: No tenderness Integumentary: No rashes Neurological: Normal speech, Normal tone, Normal affect Lymphatics: No axilla or inguinal lymphadenopathy Assessment And Plan - Plan (1) Acute on chronic combined systolic (congestive) and diastolic (congestive) heart failure Onset Date: 03/04/17 Current Visit: No Status: Acute (2) Acute prerenal azotemia Current Visit: No Status: Acute (3) Acute renal insufficiency Current Visit: No Status: Acute (4) Dyspnea Current Visit: No Status: Acute Qualifiers: (5) Status post aortic valve repair Current Visit: No Status: Acute (6) Chronic atrial fibrillation Onset Date: 03/04/17 Current Visit: No Status: Chronic (7) Chronic renal disease Current Visit: No Status: Chronic Qualifiers: (8) Hypothyroidism Onset Date: 03/04/17 Current Visit: No Status: Chronic Qualifiers: (9) S/P mitral valve clip implantation Current Visit: No Status: Chronic Continue Diuresis, Nepho consulted. Recommendations appreciated. Strict I&Os Daily weights Kidney function improving. Will get PT Continue home medications.
[2019-01-29] MEDS: LACTULOSE 20 GM/30 ML UCUP PO PRN (17:40)
[2019-01-29] MEDS: ATORVASTATIN 20 MG TABLET PO SCH (21:17)
--- NOTE | 2019-01-29 22:48 | P.PN ---
Date of Service: 01/29/19 Vital Signs Temp Pulse Resp BP Pulse Ox 97.5 F 61 22 H 102/40 L 98 01/29/19 17:38 01/29/19 17:38 01/29/19 17:38 01/29/19 17:38 01/29/19 17:38 Medications Acetaminophen (Tylenol -Extra Strength) 500 mg PO Q6H PRN PRN Reason: pain/fever Stop: 02/26/19 00:05 Albuterol Sulfate (Proventil 0.083% Neb Soln) 2.5 mg NEB Q6HP KEITH Stop: 02/26/19 01:01 Chlorhexidine Gluconate (Periogard) 15 ml MM BID KEITH Stop: 02/28/19 21:01 Last Admin: 01/29/19 21:17 Dose: 15 ml Diphenhydr/Magaldrate/Simeth/Lidoca (Magic Mouthwash) 15 ml PO QID PRN PRN Reason: SORE THROAT Stop: 02/27/19 17:46 Last Admin: 01/28/19 18:34 Dose: 15 ml Furosemide (Lasix) 40 mg IV Q8HR KEITH Stop: 02/27/19 17:01 Last Admin: 01/29/19 17:00 Dose: Not Given Home Med (Home Med) 0 ea PO DAILY KEITH Stop: 02/27/19 09:01 Last Admin: 01/29/19 10:14 Dose: 1 ea Home Med (Home Med) 0 ea PO DAILYAC KEITH Stop: 02/27/19 06:31 Last Admin: 01/29/19 06:07 Dose: 1 ea Home Med (Home Med) 0 ea PO BEDTIME KEITH Stop: 02/26/19 21:01 Last Admin: 01/29/19 21:17 Dose: 1 ea Home Med (Home Med) 0 ea PO [id number] KEITH Stop: 02/27/19 06:01 Last Admin: 01/29/19 06:07 Dose: 1 ea Home Med (Home Med) 0 ea PO DAILY KEITH Stop: 02/27/19 09:01 Last Admin: 01/29/19 09:00 Dose: Not Given Levofloxacin/Dextrose (Levaquin 250mg/50 Ml Ivpb) 250 mg in 50 mls @ 50 mls/hr IV Q24H KEITH Stop: 04/18/19 14:01 Ipratropium [place] (Atrovent Neb) 0.5 mg NEB [id number] KEITH Stop: 02/26/19 02:01 Last Admin: 01/29/19 20:00 Dose: 0.5 mg Lactulose (Cephulac) 10 gm PO BIDP PRN PRN Reason: CONSTIPATION Stop: 02/26/19 13:17 Last Admin: 01/29/19 17:40 Dose: 10 gm Morphine Sulfate (Morphine Sulfate) 2 mg IV Q4H PRN PRN Reason: Pain scale 5-7 (Moderate) Stop: 02/26/19 00:05 Ondansetron HCl (Zofran) 4 mg IV Q6H PRN PRN Reason: NAUSEA / VOMITING Stop: 02/26/19 00:05 Last Admin: 01/29/19 10:06 Dose: 4 mg Sodium Chloride (Normal Saline Flush) 10 ml IV BID KEITH Stop: 02/26/19 09:01 Last Admin: 01/29/19 21:15 Dose: 10 ml Tramadol HCl (Ultram) 50 mg PO Q6H PRN PRN Reason: Pain scale 5-7 (Moderate) Stop: 02/26/19 23:58 Last Admin: 01/29/19 17:38 Dose: 50 mg Assessment/ Plan: Nephrology. Persistent malaise with associated nausea and anorexia. CPS stable without CP or SOB. No acute events overnight. Requesting peridex oral rinse. Vitals, medications, blood work and imaging reviewed in the chart. NAD. NCAT. MMM. Neck supple. CTA. RRR. Tender Abd. No C/C. Hip Edema 1+ / LE Edema trace. AAO. Normal speech. No rash. A/ ANA likely CRS. CKD III. Hyponatremia. Hypocalcemia. Anemia in chronic illness. Diastolic CHF, A/C. Valvular disease sp repair. Paroxysmal Afib. Pulmonary HTN? N/V & Anorexia of unclear etiology? DDx: Mesenteric anasarca, Chronic mesenteric ischemia. P/ Continue current POC and Medications. Continue furosemide. Check echocardiogram. Review CT scan with radiology for mesenteric disease. Start Peridex oral rinse. No NSAIDs. AM labs. Daily weight. Case discussed with Dr. Gregg.
[2019-01-30] MEDS: FUROSEMIDE 40 MG/4 ML VIAL IV SCH ×3 (01:00→16:50)
[2019-01-30] MEDS: IPRATROPIUM BROM 0.5MG/2.5ML NEB SCH ×4 (02:00→19:25)
[2019-01-30] MEDS: LIOTHYRONINE 5 MCG TABLET PO SCH ×2 (05:36→05:37)
[2019-01-30] MEDS: LEVOTHYROXINE SOD 0.088 MG TAB PO SCH (05:37)
[2019-01-30] MEDS: LACTULOSE 20 GM/30 ML UCUP PO PRN (05:56)
[2019-01-30 06:47] VITALS: BMI 30.4
[2019-01-30 07:00] LABS: Absolute Lymphocytes (CBC) 0.4 K/uL (0.7-4.9); Absolute Monocytes 0.6 K/uL (0.1-1.3); Absolute Neutrophil 4.8 K/uL (1.8-8.0); Basophils % 0.5 % (0-1.3); Eosinophils % 2.1 % (0-4.4); Hematocrit 29.1 % (36.0-45.0); Lymphocytes % 6.1 % (15.3-44.8); MPV 8.2 fL (7.6-11.3); Monocytes % 10.8 % (3.3-12.3); RBC Red Blood Cell Count 2.91 M/uL (3.86-4.86)
[2019-01-30 07:02] LABS: Albumin 2.8 g/dL (3.4-5.0); Bilirubin Total 1.4 mg/dL (0.2-1.0); Magnesium 2.4 mg/dL (1.8-2.4); Potassium 4.8 mmol/L (3.5-5.1); Protein, Total 5.6 g/dL (6.4-8.2); Uric Acid 9.5 mg/dL (2.6-6.0)
[2019-01-30] MEDS: CHLORHEXIDINE 0.12% 473ML BOT MM SCH ×2 (09:21→21:00)
[2019-01-30] MEDS: AMIODARONE HCL 200 MG TAB PO SCH (09:22)
[2019-01-30] MEDS: PANTOPRAZOLE 40MG TABLET PO SCH (09:22)
[2019-01-30] MEDS ORDERED: POLYETHYL GLY 3350 17 GM/DOSE PO PRN (10:28)
[2019-01-30] MEDS ORDERED: BISACODYL E.C. 5 MG TAB PO PRN (10:28)
[2019-01-30] MEDS: Levofloxacin 250mg IV 250 MG/50 ML BAG IV SCH (13:58)
--- NOTE | 2019-01-30 15:59 | ECHO ---
HEIGHT: 5 ft 2 in WEIGHT: 166 lb 11.2 oz DATE OF STUDY: 01/30/[address]: Sang Lopez DO 2-DIMENSIONAL: YES M.MODE: YES DOPPLER: YES COLOR FLOW: YES TDS: NO PORTABLE: NO DEFINITY: NO BUBBLE STUDY: NO DIAGNOSIS: CONGESTIVE HEART FAILURE/PULMONARY HYPERTENSION. CARDIAC HISTORY: CATHERIZATION: YES SURGERY: YES PROSTHETIC VALVE: MITRACLIP & AORTIC VALVE REPLACEMENT- TAVR PACEMAKER: NO MEASUREMENTS (cm) DIASTOLIC (NORMALS) SYSTOLIC (NORMALS) IVSd 1.0 (0.6-1.2) LA Diam (1.9-4.0) LVEF 79% LVIDd 4.7 (3.5-5.7) LVIDs 2.4 (2.0-3.5) %FS 48% LVPWd 1.5 (0.6-1.2) Ao Diam 2.1 (2.0-3.7) 2 DIMENSIONAL ASSESSMENT: RIGHT ATRIUM: NORMAL LEFT ATRIUM: NORMAL RIGHT VENTRICLE: NORMAL LEFT VENTRICLE: LEFT VENTRICULAR HYPERTROPHY TRICUSPID VALVE: NORMAL MITRAL VALVE: STATUS POST MITRACLIP PULMONIC VALVE: NORAML AORTIC VALVE: STATUS POST AORTIC VALVE REPLACEMENT - TAVR PERICARDIAL EFFUSION: NONE AORTIC ROOT: NORMAL LEFT VENTRICULAR WALL MOTION: DIASTOLIC DYSFUNCTION. DOPPLER/COLOR FLOW: MODERATE TO SEVERE MITRAL REGURGITATION. MILD MITRAL STENOSIS 2.1 CENTIMETERS SQUARED. MODERATE AORTIC STENOSIS 1.2 CENTIMETERS SQUARED. MODERATE TRICUSPID REGURGITATION SEVERE PULMONARY HYPERTENSION. COMMENTS: MODERATE AORTIC STENOSIS. MILD MITRAL STENOSIS. MODERATE TO SEVERE MITRAL REGURGITATION. LEFT VENTRICULAR HYPERTROPHY. MODERATE TRICUSPID REGURGITATION- SEVERE PULMONARY HYPERTENSION. RIGHT VENTRICULAR SYSTOLIC PRESSURE 67mmHg. DIASTOLIC DYSFUNCTION. TECHNOLOGIST: TAYLER OLEARY
[2019-01-30] MEDS: ATORVASTATIN 20 MG TABLET PO SCH (21:01)
--- NOTE | 2019-01-30 21:47 | PN ---
Date of Progress Note: 01/30/2019 History: The patient seen and examined. Chart reviewed and case discussed with RN and Counter Clerk [employer]. Family at the bedside. The patient reporting constipation. Also reports that her breathing has wo rsened. Apparently, she has gained 2 pounds today on the scale. The patient continues to have a poo r appetite. Code Status: Full. Medications: List reviewed. Physical Examination: Vital Signs: Temperature 97, heart rate 61, blood pressure 114/56, respirations 18, O2 97% on room a ir. General: Awake, alert, oriented x3. Elderly female. Obese. BMI 30. Ill-appearing. CV: S1, S2. Regular rate and rhythm. The patient has a systolic murmur. Peripheral pulses present . Respiratory: Diminished breath sounds. Some crackles heard. No wheezing or stridor. Gastrointestinal: Abdomen is soft, nontender, nondistended. Positive bowel sounds. Extremities: No clubbing or cyanosis. The patient has diffuse edema of the lower extremities. Neuro: Cranial nerves 2-12 intact grossly. Nonfocal. Speech is normal. Laboratory Data: Sodium 136, potassium 4.8, chloride 102, CO2 27, BUN 48, creatinine 2.01, glucose 1 11, uric acid 9.5, calcium 8. BNP 2930. WBC 5.9, H and H 9.3 and 29.1, platelets 259. Urine cultur e growing out Proteus, resistant to nitrofurantoin. Assessment And Plan: An 83-year-old female with: 1.Acute on chronic combined systolic and diastolic heart failure. Reviewed echocardiogram from 2018. She has an EF of 79%. She has left ventricular hypertrophy, moderate aortic stenosis, tri cuspid regurgitation, severe pulmonary hypertension. The patient has required her diuretics to be ad justed multiple times. Her Aldactone dose was decreased due to hyperkalemia. The patient will need Cardiology consultation, possible repeat echocardiogram. She is not making progress, currently gaini ng weight instead of having a negative fluid balance. She is still short of breath, has significant dyspnea upon exertion. 2.Status post aortic valve repair. 3.Acute prerenal azotemia with acute kidney injury. Kidney function is about the same as yesterday. Has improved overall. Appreciate Nephrology input. 4.Chronic kidney disease, stage 3. 5.Dyspnea upon exertion secondary to congestive heart failure. 6.Chronic atrial fibrillation, currently in sinus rhythm, not on any anticoagulation due to allergy and comorbid conditions. 7.Hypothyroidism. Continue Synthroid. 8.Status post mitral valve clip implantation. 9.Deep vein thrombosis prophylaxis addressed. The patient will need to continue diuretics. We will need to monitor her electrolytes and kidney function closely to avoid hyperkalemia. Continue antibi otics for urinary tract infection. 10.Urinary tract infection, acute cystitis without hematuria secondary to Proteus. Continue Levaqui n. We will add Aldactone. We will consult Cardiology and discharge once more stable. PT evaluation . /SARINA Voice ID: [id number] Report ID: [id number]
[2019-01-30] MEDS: TRAMADOL HCL 50 MG TAB PO PRN (23:43)
[2019-01-31] MEDS: FUROSEMIDE 40 MG/4 ML VIAL IV SCH ×4 (01:15→18:47)
[2019-01-31] MEDS: IPRATROPIUM BROM 0.5MG/2.5ML NEB SCH ×4 (01:34→19:16)
[2019-01-31] MEDS: LEVOTHYROXINE SOD 0.088 MG TAB PO SCH (05:19)
[2019-01-31] MEDS: LIOTHYRONINE 5 MCG TABLET PO SCH (05:31)
[2019-01-31] MEDS: SPIRONOLACTONE 25 MG TABLET PO SCH (08:45)
[2019-01-31] MEDS: AMIODARONE HCL 200 MG TAB PO SCH (08:46)
[2019-01-31] MEDS: PANTOPRAZOLE 40MG TABLET PO SCH (08:46)
[2019-01-31] MEDS: CHLORHEXIDINE 0.12% 473ML BOT MM SCH ×2 (08:47→21:00)
[2019-01-31] MEDS ORDERED: FLEET ENEMA ADULT PR ONE (09:43)
--- NOTE | 2019-01-31 13:04 | CON ---
History Of Present Illness: Mrs. Gaitan was admitted at the hospital on January 27. This is January 13. She was admitted to the hospital with generalized weakness, short of breath, not making a lot o f urine, noticing her weight had gone up, she told me at once as much as 48 pounds. The patient has a history of severe valvular heart disease. She has had a transcutaneous aortic valve replacement an d later a MitraClip. She has severe pulmonary hypertension, moderate to severe mitral regurgitation, mild mitral stenosis, moderate aortic stenosis, severe pulmonary hypertension, estimated right ventr icular systolic pressure over 60 mmHg. She is maintained in sinus rhythm. [facility] she was very volume overloaded. She had quite a bit of diuresis. Daily weights suggest her weight is going up. She is getting Lasix 40 mg every 8 hours and I wonder if the weights are actuall y accurate. In addition to weight gain, she has marked anemia, hemoglobin as low as 9.7, but it is n ot falling and her renal function is poor. Her creatinine clearance is in the low 20s, but she has a t least stage 3 kidney disease, probably stage 4. Her outpatient medications have been amiodarone, s pironolactone, levothyroxine, atorvastatin, furosemide, Protonix, Zofran, and liothyronine. I believ e, she had atrial fib following her TAVR and MitraClip, but she is not in AFib now. She may have a s ignificant amount of pulmonary toxicity, pulmonary function tests with DLCO might tell us, as we look at serial x-rays of her chest, since she has been here in the hospital, we do think she has had impr ovement in pulmonary edema over the 4-day hospital course. The patient is not in distress right now. Physical Examination: Lungs: Do not reveal crackles. Heart: Exam reveals a systolic murmur. It is probably a combination of mitral regurg and moderate a ortic stenosis causing a systolic murmur. I do not appreciate a diastolic murmur. Extremities: Just a trace amount of edema. Impression: The patient has improving congestive heart failure. I am not sure she would be a good c andidate for a repeat valve surgery. I am not sure a third MitraClip would be able to both reduce th e amount of mitral regurgitation and improve or not harm the amount of mitral stenosis. So, probably the next mitral valve surgery would be an open-heart mitral valve repair. I think the mitral regurg itation is the main thing that is making her get congestive heart failure. She has preserved ejectio n fraction, so between diuresis and considering a very complicated heart surgery for her, those are t he only options we have. SIERRA Voice ID: [id number] Report ID: [id number]
[2019-01-31] MEDS: Levofloxacin 250mg IV 250 MG/50 ML BAG IV SCH (14:54)
--- NOTE | 2019-01-31 19:35 | PN ---
Date of Progress Note: 01/31/2019 Subjective: The patient is seen and examined. Chart reviewed and case discussed with RN and the ken clifford's family at the bedside. Daughter is requesting transfer to [facility] for continuity o f care. The patient's primary roll forger, Dr. Kevin Plummer is at [facility]. Medications: List reviewed. Objective: Vital Signs: Temperature 97, heart rate 62, blood pressure 116/56, respirations 18, O2 9 9% on room air. General: Awake, alert and oriented x3. Elderly female, ill-appearing, obese, BMI 30.9. CV: S1, S2. Peripheral pulses present. Regular rate and rhythm. RESPIRATORY: Diminished breath sounds. Some crackles heard. Gastrointestinal: Abdomen is soft, nontender, nondistended. Positive bowel sounds. Extremities: No clubbing, cyanosis. The patient has peripheral edema. Neuro: Cranial nerves 2-12 intact grossly. No focal neurological deficit. Speech is normal. Laboratory Data: Labs are pending. Urine culture growing Proteus. Assessment And Plan: An 83-year-old female with: 1.Acute on chronic combined systolic and diastolic heart failure. The patient has EF of 79%, howeve r, has left ventricular hypertrophy, moderate aortic stenosis, tricuspid regurg, severe pulmonary hyp ertension. The patient was seen by Dr. Falk. I appreciate his input. Aldactone was added yeste rday. We will continue diuretics. Her weight apparently has been going up; however, scales did not seem to be accurate as clinically she has improved either that or she is noncompliant with her sodium and fluid restriction. 2.Status post transcutaneous aortic valve repair. 3.Acute prerenal azotemia with acute kidney injury. Appreciate Nephrology input. Her creatinine fu nction is pending at this time. We will continue to monitor. 4.Chronic kidney disease stage 3. 5.Dyspnea upon exertion secondary to congestive heart failure. 6.Chronic atrial fibrillation, currently in sinus rhythm, not on anticoagulation due to allergy and bleeding. 7.Hypothyroidism. Continue Synthroid. 8.Status post mitral valve clip implantation. 9.Deep venous thrombosis prophylaxis, addressed. 10.Acute cystitis without hematuria secondary to Proteus. Continue antibiotics. Plan: Continue diuretics. Appreciate Cardiology and Nephrology input. The patient's daughter is re questing lateral transfer to [facility] due to continuity of care. The patient's primary car diologist, Dr. Kevin Plummer is int [facility]. We will attempt transfer. The family understands that due to seasonal variability hospitals throughout the [facility] are full. The patient may not h ave a bed available. The patient will also need to be accepted by hospitalist and have Cardiology co nsulting as well as have administrative approval. Once those approvals occur, then the patient will be able to be transferred. She understands that this is a lateral transfer, not a transfer for servi yoselin that cannot be provided at this facility and therefore may take some time and may not be entirely possible. /SARINA Voice ID: [id number] Report ID: [id number]
[2019-01-31] MEDS: ATORVASTATIN 20 MG TABLET PO SCH (21:00)
--- NOTE | 2019-01-31 21:54 | P.PN ---
Date of Service: 01/30/19 Vital Signs Temp Pulse Resp BP Pulse Ox 97.4 F 67 20 129/60 99 01/31/19 20:00 01/31/19 20:00 01/31/19 20:00 01/31/19 20:00 01/31/19 20:00 Medications Acetaminophen (Tylenol -Extra Strength) 500 mg PO Q6H PRN PRN Reason: pain/fever Stop: 02/26/19 00:05 Albuterol Sulfate (Proventil 0.083% Neb Soln) 2.5 mg NEB Q6HP KEITH Stop: 02/26/19 01:01 Last Admin: 01/31/19 07:51 Dose: 2.5 mg Bisacodyl (Dulcolax) 10 mg PO DAILY PRN PRN Reason: CONSTIPATION Stop: 03/01/19 10:29 Last Admin: 01/30/19 21:40 Dose: 10 mg Chlorhexidine Gluconate (Periogard) 15 ml MM BID KEITH Stop: 02/28/19 21:01 Last Admin: 01/31/19 21:00 Dose: 15 ml Diphenhydr/Magaldrate/Simeth/Lidoca (Magic Mouthwash) 15 ml PO QID PRN PRN Reason: SORE THROAT Stop: 02/27/19 17:46 Last Admin: 01/28/19 18:34 Dose: 15 ml Furosemide (Lasix) 40 mg IV Q8HR KEITH Stop: 02/27/19 17:01 Last Admin: 01/31/19 18:47 Dose: 40 mg Home Med (Home Med) 0 ea PO DAILY KEITH Stop: 02/27/19 09:01 Last Admin: 01/31/19 08:46 Dose: 1 ea Home Med (Home Med) 0 ea PO DAILYAC KEITH Stop: 02/27/19 06:31 Last Admin: 01/31/19 05:31 Dose: 1 ea Home Med (Home Med) 0 ea PO BEDTIME KEITH Stop: 02/26/19 21:01 Last Admin: 01/31/19 21:00 Dose: 20 ea Home Med (Home Med) 0 ea PO [id number] KEITH Stop: 02/27/19 06:01 Last Admin: 01/31/19 05:19 Dose: 1 ea Home Med (Home Med) 0 ea PO DAILY KEITH Stop: 02/27/19 09:01 Last Admin: 01/31/19 08:46 Dose: 1 ea Levofloxacin/Dextrose (Levaquin 250mg/50 Ml Ivpb) 250 mg in 50 mls @ 50 mls/hr IV Q24H KEITH Stop: 03/01/19 14:01 Last Admin: 01/31/19 14:54 Dose: 50 mls Ipratropium [place] (Atrovent Neb) 0.5 mg NEB [id number] KEITH Stop: 02/26/19 02:01 Last Admin: 01/31/19 19:16 Dose: 0.5 mg Lactulose (Cephulac) 10 gm PO BIDP PRN PRN Reason: CONSTIPATION Stop: 02/26/19 13:17 Last Admin: 01/30/19 05:56 Dose: 10 gm Ondansetron HCl (Zofran) 4 mg IV Q6H PRN PRN Reason: NAUSEA / VOMITING Stop: 02/26/19 00:05 Last Admin: 01/29/19 10:06 Dose: 4 mg Polyethylene Glycol (Glycolax) 17 gm PO DAILY PRN PRN Reason: CONSTIPATION Stop: 03/01/19 10:29 Last Admin: 01/30/19 11:10 Dose: 17 gm Sodium Chloride (Normal Saline Flush) 10 ml IV BID KEITH Stop: 02/26/19 09:01 Last Admin: 01/31/19 21:07 Dose: 10 ml Spironolactone (Aldactone) 25 mg PO DAILY KEITH Stop: 03/02/19 09:01 Last Admin: 01/31/19 08:45 Dose: 25 mg Tramadol HCl (Ultram) 50 mg PO Q6H PRN PRN Reason: Pain scale 5-7 (Moderate) Stop: 02/26/19 23:58 Last Admin: 01/30/19 23:43 Dose: 50 mg Microbiology Results 01/27/19 19:30 Clean Catch Urine [place] Count - Final >100,000 CFU/ML. 01/27/19 19:30 Clean Catch Urine - Final Proteus Mirabilis Assessment/ Plan: Nephrology. Persistent malaise with associated nausea and anorexia. CPS stable without CP or SOB. No acute events overnight. Vitals, medications, blood work and imaging reviewed in the chart. NAD. NCAT. MMM. Neck supple. CTA. RRR. Tender Abd. No C/C. Hip Edema 1+ / LE Edema trace. AAO. Normal speech. No rash. A/ ANA likely CRS. CKD III. Hyponatremia. Hypocalcemia. Anemia in chronic illness. Diastolic CHF, A/C. Valvular disease sp repair. Paroxysmal Afib. Pulmonary HTN? N/V & Anorexia of unclear etiology? DDx: Mesenteric anasarca, Chronic mesenteric ischemia. P/ Continue current POC and Medications. Continue furosemide. Echocardiogram reviewed with the patient. No NSAIDs. AM labs. Daily weight. Persistent symptoms may be due to poor cardiac function.
--- NOTE | 2019-01-31 22:36 | P.PN ---
Date of Service: 01/31/19 Vital Signs Temp Pulse Resp BP Pulse Ox 97.4 F 67 20 129/60 99 01/31/19 20:00 01/31/19 20:00 01/31/19 20:00 01/31/19 20:00 01/31/19 20:00 Medications Acetaminophen (Tylenol -Extra Strength) 500 mg PO Q6H PRN PRN Reason: pain/fever Stop: 02/26/19 00:05 Albuterol Sulfate (Proventil 0.083% Neb Soln) 2.5 mg NEB Q6HP KEITH Stop: 02/26/19 01:01 Last Admin: 01/31/19 07:51 Dose: 2.5 mg Bisacodyl (Dulcolax) 10 mg PO DAILY PRN PRN Reason: CONSTIPATION Stop: 03/01/19 10:29 Last Admin: 01/30/19 21:40 Dose: 10 mg Chlorhexidine Gluconate (Periogard) 15 ml MM BID KEITH Stop: 02/28/19 21:01 Last Admin: 01/31/19 21:00 Dose: 15 ml Diphenhydr/Magaldrate/Simeth/Lidoca (Magic Mouthwash) 15 ml PO QID PRN PRN Reason: SORE THROAT Stop: 02/27/19 17:46 Last Admin: 01/28/19 18:34 Dose: 15 ml Furosemide (Lasix) 40 mg IV Q8HR KEITH Stop: 02/27/19 17:01 Last Admin: 01/31/19 18:47 Dose: 40 mg Home Med (Home Med) 0 ea PO DAILY KEITH Stop: 02/27/19 09:01 Last Admin: 01/31/19 08:46 Dose: 1 ea Home Med (Home Med) 0 ea PO DAILYAC KEITH Stop: 02/27/19 06:31 Last Admin: 01/31/19 05:31 Dose: 1 ea Home Med (Home Med) 0 ea PO BEDTIME KEITH Stop: 02/26/19 21:01 Last Admin: 01/31/19 21:00 Dose: 20 ea Home Med (Home Med) 0 ea PO [id number] KEITH Stop: 02/27/19 06:01 Last Admin: 01/31/19 05:19 Dose: 1 ea Home Med (Home Med) 0 ea PO DAILY KEITH Stop: 02/27/19 09:01 Last Admin: 01/31/19 08:46 Dose: 1 ea Levofloxacin/Dextrose (Levaquin 250mg/50 Ml Ivpb) 250 mg in 50 mls @ 50 mls/hr IV Q24H KEITH Stop: 03/01/19 14:01 Last Admin: 01/31/19 14:54 Dose: 50 mls Ipratropium [place] (Atrovent Neb) 0.5 mg NEB [id number] KEITH Stop: 02/26/19 02:01 Last Admin: 01/31/19 19:16 Dose: 0.5 mg Lactulose (Cephulac) 10 gm PO BIDP PRN PRN Reason: CONSTIPATION Stop: 02/26/19 13:17 Last Admin: 01/30/19 05:56 Dose: 10 gm Ondansetron HCl (Zofran) 4 mg IV Q6H PRN PRN Reason: NAUSEA / VOMITING Stop: 02/26/19 00:05 Last Admin: 01/29/19 10:06 Dose: 4 mg Polyethylene Glycol (Glycolax) 17 gm PO DAILY PRN PRN Reason: CONSTIPATION Stop: 03/01/19 10:29 Last Admin: 01/30/19 11:10 Dose: 17 gm Sodium Chloride (Normal Saline Flush) 10 ml IV BID KEITH Stop: 02/26/19 09:01 Last Admin: 01/31/19 21:07 Dose: 10 ml Spironolactone (Aldactone) 25 mg PO DAILY KEITH Stop: 03/02/19 09:01 Last Admin: 01/31/19 08:45 Dose: 25 mg Tramadol HCl (Ultram) 50 mg PO Q6H PRN PRN Reason: Pain scale 5-7 (Moderate) Stop: 02/26/19 23:58 Last Admin: 01/30/19 23:43 Dose: 50 mg Microbiology Results 01/27/19 19:30 Clean Catch Urine [place] Count - Final >100,000 CFU/ML. 01/27/19 19:30 Clean Catch Urine - Final Proteus Mirabilis Assessment/ Plan: Nephrology. Persistent malaise with associated nausea and anorexia. CPS stable without CP or SOB. No acute events overnight. Vitals, medications, blood work and imaging reviewed in the chart. NAD. NCAT. MMM. Neck supple. CTA. RRR. Tender Abd. No C/C. Hip Edema 1+ / LE Edema trace. AAO. Normal speech. No rash. A/ ANA likely CRS. CKD III. Hyponatremia. Hypocalcemia. Anemia in chronic illness. Diastolic CHF, A/C. Valvular disease sp repair. Paroxysmal Afib. Pulmonary HTN? N/V & Anorexia of unclear etiology? DDx: Mesenteric anasarca, Chronic mesenteric ischemia. P/ Continue current POC and Medications. Continue furosemide. Echocardiogram reviewed with the patient and her family. No NSAIDs. AM labs. Daily weight. Persistent symptoms may be due to poor cardiac function. Case discussed with Dr. Vásquez. Possible transfer to her cardiac team at [facility].
[2019-02-01] MEDS: TRAMADOL HCL 50 MG TAB PO PRN ×2 (00:11→22:47)
[2019-02-01] MEDS: FUROSEMIDE 40 MG/4 ML VIAL IV SCH ×2 (00:12→08:56)
[2019-02-01] MEDS: IPRATROPIUM BROM 0.5MG/2.5ML NEB SCH ×4 (01:45→20:00)
[2019-02-01 04:49] LABS: Absolute Lymphocytes (CBC) 0.3 K/uL (0.7-4.9); Absolute Monocytes 0.7 K/uL (0.1-1.3); Absolute Neutrophil 5.7 K/uL (1.8-8.0); Basophils % 0.8 % (0-1.3); Eosinophils % 1.7 % (0-4.4); Hematocrit 28.4 % (36.0-45.0); Lymphocytes % 4.7 % (15.3-44.8); MPV 8.2 fL (7.6-11.3); Monocytes % 9.8 % (3.3-12.3); RBC Red Blood Cell Count 2.84 M/uL (3.86-4.86)
[2019-02-01 05:07] LABS: Albumin 2.7 g/dL (3.4-5.0); Bilirubin Total 1.4 mg/dL (0.2-1.0); Potassium 4.6 mmol/L (3.5-5.1); Protein, Total 5.5 g/dL (6.4-8.2)
[2019-02-01] MEDS: LEVOTHYROXINE SOD 0.088 MG TAB PO SCH (06:00)
[2019-02-01 06:01] LABS: Urine Appearance CLEAR; Urine Bilirubin NEGATIVE (NEG); Urine Blood NEGATIVE (NEG); Urine Color YELLOW; Urine Glucose NEGATIVE (NEG); Urine Protein NEGATIVE (NEG); Urine Urobilinogen 0.2 mg/dL (0.2-1.0); Urine pH 5.5 (5.0-7.0)
[2019-02-01 06:26] LABS: Urine Bacteria <20 /HPF (<20); Urine Culture Reflex Order NOT NEEDED; Urine RBC <5 /HPF (NONE SEEN)
[2019-02-01] MEDS: LIOTHYRONINE 5 MCG TABLET PO SCH (06:39)
[2019-02-01] MEDS: SPIRONOLACTONE 25 MG TABLET PO SCH (08:56)
[2019-02-01] MEDS: AMIODARONE HCL 200 MG TAB PO SCH (08:57)
[2019-02-01] MEDS: PANTOPRAZOLE 40MG TABLET PO SCH (08:57)
[2019-02-01] MEDS: CHLORHEXIDINE 0.12% 473ML BOT MM SCH ×2 (08:58→20:47)
[2019-02-01] MEDS: ALBUMIN HUMAN 25% 12.5 GM, FUROSEMIDE 100 MG in NA CHLORIDE 0.9% 40 ML IV SCH ×3 (13:11→22:47)
[2019-02-01] MEDS: Levofloxacin 250mg IV 250 MG/50 ML BAG IV SCH (13:12)
--- NOTE | 2019-02-01 15:12 | PN ---
Date of Progress Note: 02/01/2019 Subjective: Ms. Gaitan is very known to Dr. Bolanos and myself from previous hospital visits. She was admitted on 01/30 and seen on 01/[address] Bolanos for worsening congestive heart failure. She duran s had a history of TAVR, status post mitral valve clipping. Continues to have mitral regurgitation, atrial fibrillation. She had normal ejection fraction, has diuresed significantly, but her weight duran s not changed. She still have at least 2 to 3+ edema below the knee. I suggest we get more aggressi ve with her diuresis, otherwise continue present regimen. She usually follows up with Dr. Plummer in [place] from a cardiac standpoint. BINU/SARINA Voice ID: [id number] Report ID: [id number]
--- NOTE | 2019-02-01 20:30 | PN ---
Date of Progress Note: 02/01/2019 Subjective: The patient is seen and examined. Chart reviewed and case discussed with RN, Dr. Myke maxwell and Dr. Robertson. The patient's daughter at the bedside. I explained to them that the patient may be awaiting several days before a bed is available at [facility] and our goal will be to maximize her diuretics and diurese her. She does not seem to grasp the concept that her heart failure is caused b y valve abnormalities and her low ejection fraction and unfortunately short of a very major open hear t surgery with multiple valve replacements including her transaortic valve replacement repair and the mitral valve repair. She will continue to have symptoms and her new baseline may not be what she is used to. The patient still reports shortness of breath and edema. States that she has worsened yes terday. Medications: List reviewed. Physical Examination: Vital Signs: Temperature 98.5, heart rate 65, blood pressure 119/58, respirations 16, O2 98% on room air. General: Awake, alert and oriented x3. Elderly female, obese, BMI of 30. CV: S1, S2. Murmur is present, a mechanical murmur. Regular rate and rhythm. Respiratory: Diminished breath sounds. Crackles heard throughout. No wheezing. No stridor. No us e of accessory muscles. Gastrointestinal: Abdomen is soft, nontender, nondistended. Positive bowel sounds. No guarding or rigidity. Extremities: No clubbing or cyanosis. The patient has 2+ edema, bilateral lower extremities. Neurologic: Nonfocal. Laboratory Data: Sodium 137, potassium 4.6, chloride 101, CO2 29, BUN 42, creatinine 2, glucose 132, calcium 8. WBC 6.9, H and H 9.2 and 28.4, platelets 234. Urine culture showing Proteus. Assessment And Plan: An 83-year-old female with. 1.Acute on chronic combined systolic and diastolic heart failure, ejection fraction of 79%. However , the patient has multiple valvular abnormalities, severe pulmonary hypertension. We will adjust Las ix. We will start on drip with albumin. The patient's daily weight has stayed about the same. She is not able to participate in strict I's and O's as she is incontinent. 2.Status post transcutaneous aortic valve repair. 3.Acute prerenal azotemia with acute kidney injury. Appreciate Dr. Lopez's input. Kidney functio ns improving. We will continue to monitor chronic kidney disease stage 3. 4.Dyspnea upon exertion secondary to congestive heart failure. 5.Intermittent atrial fibrillation, currently in sinus rhythm, not on anticoagulation due to intoler ance and GI bleeding. 6.Hypothyroidism, continue Synthroid. 7.Status post mitral valve clip implantation. The patient now requires surgery. 8.Acute cystitis without hematuria secondary to Proteus. Continue antibiotics. 9.Deep venous thrombosis prophylaxis addressed. Plan: Adjust Lasix, we will start on drip and start on albumin infusion as well. Monitor I's and O' s, strict fluid restriction and sodium restriction. The patient is still awaiting transfer to [facility]. I have not been contacted by the transfer center, Dr. Plummer. Apparently, no beds are availabl e and we were updated earlier today by [facility]. Appreciate Nephrology and the Card iology input. SARAH Voice ID: [id number] Report ID: [id number]
[2019-02-01] MEDS: ATORVASTATIN 20 MG TABLET PO SCH (20:47)
[2019-02-01] MEDS ORDERED: EPOETIN ALFA 10,000 UNIT/ML SQ ONE (21:49)
--- NOTE | 2019-02-01 21:52 | P.PN ---
Date of Service: 02/01/19 Vital Signs Temp Pulse Resp BP Pulse Ox 98.9 F 67 16 116/58 L 97 02/01/19 16:00 02/01/19 18:51 02/01/19 16:00 02/01/19 18:51 02/01/19 16:00 Medications Acetaminophen (Tylenol -Extra Strength) 500 mg PO Q6H PRN PRN Reason: pain/fever Stop: 02/26/19 00:05 Albuterol Sulfate (Proventil 0.083% Neb Soln) 2.5 mg NEB Q6HP KEITH Stop: 02/26/19 01:01 Last Admin: 01/31/19 07:51 Dose: 2.5 mg Bisacodyl (Dulcolax) 10 mg PO DAILY PRN PRN Reason: CONSTIPATION Stop: 03/01/19 10:29 Last Admin: 01/30/19 21:40 Dose: 10 mg Chlorhexidine Gluconate (Periogard) 15 ml MM BID KEITH Stop: 02/28/19 21:01 Last Admin: 02/01/19 20:47 Dose: 15 ml Cholecalciferol (Vitamin D 5,000 Iu Cap) 5,000 unit PO DAILY KEITH Stop: 03/04/19 09:01 Diphenhydr/Magaldrate/Simeth/Lidoca (Magic Mouthwash) 15 ml PO QID PRN PRN Reason: SORE THROAT Stop: 02/27/19 17:46 Last Admin: 01/28/19 18:34 Dose: 15 ml Epoetin Thanh (Epogen) 10,000 unit SQ 1X ONE Stop: 02/01/19 21:50 Home Med (Home Med) 0 ea PO DAILY KEITH Stop: 02/27/19 09:01 Last Admin: 02/01/19 08:57 Dose: 1 ea Home Med (Home Med) 0 ea PO DAILYAC KEITH Stop: 02/27/19 06:31 Last Admin: 02/01/19 06:39 Dose: 1 ea Home Med (Home Med) 0 ea PO BEDTIME KEITH Stop: 02/26/19 21:01 Last Admin: 02/01/19 20:47 Dose: 1 ea Home Med (Home Med) 0 ea PO [id number] KEITH Stop: 02/27/19 06:01 Last Admin: 02/01/19 06:00 Dose: 1 ea Home Med (Home Med) 0 ea PO DAILY [facility] Stop: 02/27/19 09:01 Last Admin: 02/01/19 08:57 Dose: 1 ea Albumin Human 12.5 gm/Furosemide 100 mg/ Sodium Chloride 100 mls @ 20 mls/hr IV Q5H [facility] Stop: 03/03/19 13:01 Last Admin: 02/01/19 18:51 Dose: 100 mls Ipratropium [place] (Atrovent Neb) 0.5 mg NEB [id number] [facility] Stop: 02/26/19 02:01 Last Admin: 02/01/19 13:45 Dose: 0.5 mg Lactulose (Cephulac) 10 gm PO BIDP PRN PRN Reason: CONSTIPATION Stop: 02/26/19 13:17 Last Admin: 01/30/19 05:56 Dose: 10 gm Levofloxacin (Levaquin) 250 mg PO Q48H [facility]; Protocol Stop: 03/05/19 09:01 Ondansetron HCl (Zofran) 4 mg IV Q6H PRN PRN Reason: NAUSEA / VOMITING Stop: 02/26/19 00:05 Last Admin: 01/29/19 10:06 Dose: 4 mg Polyethylene Glycol (Glycolax) 17 gm PO DAILY PRN PRN Reason: CONSTIPATION Stop: 03/01/19 10:29 Last Admin: 01/30/19 11:10 Dose: 17 gm Sodium Chloride (Normal Saline Flush) 10 ml IV BID [facility] Stop: 02/26/19 09:01 Last Admin: 02/01/19 20:47 Dose: 10 ml Spironolactone (Aldactone) 25 mg PO DAILY [facility] Stop: 03/02/19 09:01 Last Admin: 02/01/19 08:56 Dose: 25 mg Tramadol HCl (Ultram) 50 mg PO Q6H PRN PRN Reason: Pain scale 5-7 (Moderate) Stop: 02/26/19 23:58 Last Admin: 02/01/19 00:11 Dose: 50 mg Microbiology Results 01/27/19 19:30 Clean Catch Urine [place] Count - Final >100,000 CFU/ML. 01/27/19 19:30 Clean Catch Urine - Final Proteus Mirabilis Assessment/ Plan: Nephrology. Persistent malaise with associated nausea and anorexia. Concerned about weight gain. CPS stable without CP or SOB. No acute events overnight. Vitals, medications, blood work and imaging reviewed in the chart. NAD. NCAT. MMM. Neck supple. CTA. RRR. Tender Abd. No C/C. LE Edema 2-3+ . AAO. Normal speech. No rash. A/ ANA likely CRS. CKD III. Hyponatremia. Hypocalcemia. Anemia in chronic illness. Diastolic CHF, A/C. Valvular disease sp repair. Paroxysmal Afib. Pulmonary HTN? N/V & Anorexia may be mesenteric anasarca due to P.HTN. P/ Continue current POC and Medications. Lasix gtt started today. No NSAIDs. AM labs. Daily weight. Persistent symptoms may be due to poor cardiac function. Case discussed with Dr. Vásquez. Possible transfer to her cardiac team at [facility].
[2019-02-02] MEDS: IPRATROPIUM BROM 0.5MG/2.5ML NEB SCH ×3 (02:00→13:59)
[2019-02-02] MEDS: ALBUMIN HUMAN 25% 12.5 GM, FUROSEMIDE 100 MG in NA CHLORIDE 0.9% 40 ML IV SCH ×2 (05:30→10:37)
[2019-02-02] MEDS: LIOTHYRONINE 5 MCG TABLET PO SCH (05:32)
[2019-02-02] MEDS: LEVOTHYROXINE SOD 0.088 MG TAB PO SCH (05:32)
[2019-02-02 06:40] LABS: Absolute Lymphocytes (CBC) 0.4 K/uL (0.7-4.9); Absolute Monocytes 0.9 K/uL (0.1-1.3); Absolute Neutrophil 6.8 K/uL (1.8-8.0); Basophils % 0.3 % (0-1.3); Eosinophils % 0.9 % (0-4.4); Hematocrit 29.2 % (36.0-45.0); Lymphocytes % 4.7 % (15.3-44.8); MPV 7.8 fL (7.6-11.3); RBC Red Blood Cell Count 2.95 M/uL (3.86-4.86)
[2019-02-02 06:54] LABS: Albumin 3.7 g/dL (3.4-5.0); Bilirubin Total 1.6 mg/dL (0.2-1.0); Protein, Total 6.6 g/dL (6.4-8.2)
[2019-02-02 08:46] VITALS: O2SAT 98
[2019-02-02] MEDS: CHLORHEXIDINE 0.12% 473ML BOT MM SCH (09:00)
[2019-02-02] MEDS: PANTOPRAZOLE 40MG TABLET PO SCH (09:00)
[2019-02-02] MEDS: SPIRONOLACTONE 25 MG TABLET PO SCH (09:00)
[2019-02-02] MEDS: AMIODARONE HCL 200 MG TAB PO SCH (09:00)
[2019-02-02] MEDS ORDERED: VITAMIN D 5,000 UNIT CAP PO SCH (09:00)
[2019-02-02 12:24] VITALS: BP 140/60; TEMP 96.9
--- NOTE | 2019-02-02 20:51 | P.PN ---
Date of Service: 02/02/19 Vital Signs Temp Pulse Resp BP Pulse Ox 96.9 F 64 18 140/60 97 02/02/19 12:00 02/02/19 12:00 02/02/19 12:00 02/02/19 12:00 02/02/19 12:00 Microbiology Results 01/27/19 19:30 Clean Catch Urine Pinson Count - Final >100,000 CFU/ML. 01/27/19 19:30 Clean Catch Urine - Final Proteus Mirabilis Assessment/ Plan: Nephrology. Persistent malaise with associated nausea and anorexia. Concerned about weight gain. CPS stable without CP or SOB. No acute events overnight. Vitals, medications, blood work and imaging reviewed in the chart. NAD. NCAT. MMM. Neck supple. CTA. RRR. Tender Abd. No C/C. LE Edema 2-3+ . AAO. Normal speech. No rash. A/ ANA likely CRS. CKD III. Hyponatremia. Hypocalcemia. Anemia in chronic illness. Diastolic CHF, A/C. Valvular disease sp repair. Paroxysmal Afib. Pulmonary HTN? N/V & Anorexia may be mesenteric anasarca due to P.HTN. P/ Continue current POC and Medications. Continue Lasix gtt. No NSAIDs. AM labs. Daily weight. Persistent symptoms may be due to poor cardiac function. Case discussed with Dr. Vásquez. Patient wants transfer to [facility].
[2019-02-02] MEDS ORDERED: SPIRONOLACTONE 25 MG TABLET PO SCH (21:00)
--- NOTE | 2019-02-03 01:16 | DS ---
Date of Discharge: 02/02/2019 Consultants: Dr. Quigleys, Cardiology; Dr. Lopez with Nephrology. Admitting Diagnoses: 1.Acute on chronic combined systolic and diastolic heart failure. 2.Severe aortic stenosis. 3.Mitral valve regurg. 4.Acute prerenal azotemia. 5.Renal insufficiency. 6.Dyspnea. 7.Chronic atrial fibrillation. 8.Chronic kidney disease stage 3. 9.Hypothyroidism. Discharge Diagnoses: 1.Acute on chronic combined systolic and diastolic heart failure, EF 79%. 2.Severe pulmonary hypertension. 3.Aortic valve stenosis. 4.Status post transcutaneous aortic valve repair. 5.Acute prerenal azotemia on chronic kidney disease stage 3. 6.Dyspnea upon exertion. 7.Intermittent atrial fibrillation, currently in sinus rhythm, intolerant to anticoagulants. 8.Hypothyroidism. 9.Status post mitral valve clip implantation, now with regurgitation. 10.Acute cystitis without hematuria secondary to Proteus, on Levaquin. Hospital Course: The patient is an 83-year-old female, admitted to the hospital with generalized wea kness, acute kidney injury. She was found to have severe fluid overload. Her kidney function was ab ove her baseline. This was thought to be secondary to her CHF. The patient does have severe aortic stenosis and mitral valve disease. She has had a previous transcutaneous aortic valve replacement, h owever, now needs total aortic valve replacement as well as mitral valve replacement. The patient's echocardiogram showed severe pulmonary hypertension. Her EF is 79%. The patient was seen by Cardiol ogy and Nephrology. The patient was continued on diuresis. She had some improvement; however, due t o her significant symptoms and disease heard, her baseline has now worsened. She was not requiring a ny oxygen. The patient was found to have incidental UTI secondary to Proteus, which was treated with Levaquin. 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 Plummer being at [facility]. The patient was accepted and was discharged in a fair condition. Physical Examination: General: Awake, alert, oriented x3. Obese female. CV: S1, S2. Peripheral pulses present. Respiratory: Diminished breath sounds. Crackles heard. Gastrointestinal: Abdomen is soft, nontender, nondistended. Positive bowel sounds. Extremities: No clubbing, cyanosis. Diffuse peripheral edema. Neurologic: Nonfocal. Total time spent transferring the patient was 45 minutes. /SARINA Voice ID: [id number] Report ID: [id number]
[2019-02-03] MEDS ORDERED: levoFLOXacin 250 MG TAB PO SCH (09:00)
== END 2019-02-02 14:53 | disposition short-term general hospital (02) | DRG 291 ==
LOC: ER 20:36 → ERHOLD 01-27 00:08 → 4TH 01-27 00:37 → OBSVTOIN 01-30 18:53
PROVIDERS: ADMIT Hospitalist; ATTEND Family Medicine
DX: I13.0 Hypertensive heart and chronic kidney disease with heart failure and stage 1 through stage 4 chronic kidney disease, or unspecified chronic kidney disease (principal); I50.43 Acute on chronic combined systolic (congestive) and diastolic (congestive) heart failure; N17.9 Acute kidney failure, unspecified; E87.1 Hypo-osmolality and hyponatremia; N30.00 Acute cystitis without hematuria; Z88.6 Allergy status to analgesic agent; Z88.5 Allergy status to narcotic agent; Z88.0 Allergy status to penicillin; Z88.2 Allergy status to sulfonamides; E86.0 Dehydration; Z85.41 Personal history of malignant neoplasm of cervix uteri; E03.9 Hypothyroidism, unspecified; Z87.891 Personal history of nicotine dependence; I48.2 Chronic atrial fibrillation; E87.70 Fluid overload, unspecified; R60.1 Generalized edema; E83.51 Hypocalcemia; N18.3 Chronic kidney disease, stage 3 (moderate); B96.4 Proteus (mirabilis) (morganii) as the cause of diseases classified elsewhere; Z16.39 Resistance to other specified antimicrobial drug; E87.5 Hyperkalemia; Z95.2 Presence of prosthetic heart valve; D63.8 Anemia in other chronic diseases classified elsewhere; I34.0 Nonrheumatic mitral (valve) insufficiency; R06.09 Other forms of dyspnea; I35.0 Nonrheumatic aortic (valve) stenosis
CPT/HCPCS: 36415; 71045; 71250; 74176; 80048; 80053; 80076; 81001; 81003; 81015; 82570; 83605; 83690; 83735; 83880; 84100; 84300; 84484; 84550; 85025; 85610; 85652; 86140; 87077; 87086; 87088; 87186; 93005; 93306; 93971; 94640; 96360; 96361; 97116; 97163; 99285; G0378; J0885; J1940; J2405; J7030; P9047

== ENCOUNTER 2019-08-22 16:05 | Inpatient (IN) | payer OTHER, MEDICARE ==
[2019-08-22] MEDS ORDERED: TRAMADOL HCL 50 MG TAB ONE (17:24)
[2019-08-22] MEDS ORDERED: VANCOMYCIN 1 GM/VIAL ONE (17:25)
[2019-08-22] MEDS ORDERED: NA CHLORIDE 0.9% 250 ML ONE (17:25)
[2019-08-22] MEDS ORDERED: CEFEPIME 1 GM/100 ML BAG IV ONE (17:25)
--- NOTE | 2019-08-22 17:29 | ER ---
Nurse's Notes [facility] Name: Debby Gaitan Age: 84 yrs Sex: Female : 1935 Arrival Date: 08/22/2019 Time: 16:09 Bed 30 Private MD: Diagnosis: Cellulitis and acute lymphangitis of other parts of limb-bilateral lower extremity;End stage renal disease;Type 2 diabetes mellitus;Atrial fibrillation and flutter Presentation: 08/22 16:09 Presenting complaint: Patient states: patient came from dialysis today. HD was done 4 rv hours and no complication. complaining of right leg pain for two days now. not on any blood thinner. Transition of care: patient was not received from another setting of care. Onset of symptoms was August 21, 2019 at 08:00. Risk Assessment: Do you want to hurt yourself or someone else? Patient reports no desire to harm self or others. Initial Sepsis Screen: Does the patient meet any 2 criteria? No. Patient's initial sepsis screen is negative. Does the patient have a suspected source of infection? No. Patient's initial sepsis screen is negative. Care prior to arrival: None. 16:09 Method Of Arrival: EMS: [facility] rv 16:09 Acuity: ALEJANDRO 3 rv Historical: - Allergies: 16:19 Aspirin; rv 16:19 blood thinners; rv 16:19 Codeine; rv 16:19 Hydrocodone-Acetaminophen; rv 16:19 PENICILLINS; rv 16:19 Sulfa (Sulfonamide Antibiotics); rv 16:19 Tape (All Except Paper); rv 16:19 Xarelto; rv - Home Meds: 16:19 amiodarone 200 mg oral tab 1 tab once daily [Active]; atorvastatin 20 mg oral tab 1 tab rv once daily [Active]; levothyroxine 88 mcg oral tab 1 tab once daily [Active]; tramadol 50 mg Oral tab 1 tab 8 hrs prn [Active]; Protonix 20 mg Oral TbEC 1 tab once daily [Active]; liothyronine 5 mcg oral tab 1 tab once daily [Active]; Colace 50 mg oral cap 1 cap as needed [Active]; Miralax 17 gram/dose Oral powd as needed [Active]; - PMHx: 16:19 Anemia; Atrial Fib; Cancer, Cervical 1990; CHF; Diabetes - NIDDM; High Cholesterol; rv - PSHx: 16:19 aortic valve replacement; Appendectomy; Cholecystectomy; CABG; mitral valve replacement;rv - Immunization history:: Adult Immunizations up to date. - Social history:: Smoking status: Patient/guardian denies using tobacco, never smoked. - Ebola Screening: : No symptoms or risks identified at this time. Screenin:21 Abuse screen: Denies threats or abuse. Denies injuries from another. Nutritional rv screening: No deficits noted. Tuberculosis screening: No symptoms or risk factors identified. Fall Risk None identified. Assessment: 16:19 General: Appears in no apparent distress. uncomfortable, Behavior is calm, cooperative. rv Pain: Complains of pain in right leg. Neuro: Level of Consciousness is awake, alert, obeys commands, Oriented to person, place, time, situation. Cardiovascular: Patient's skin is warm and dry. Respiratory: Airway is patent. GI: No signs and/or symptoms were reported involving the gastrointestinal system. : No signs and/or symptoms were reported regarding the genitourinary system. EENT: No signs and/or symptoms were reported regarding the EENT system. Derm: Skin with poor turgor. Musculoskeletal: Swelling present in right pretty and anterior aspect of right ankle Reports pain in right leg. Vital Signs: 16:11 BP 91 / 52; Pulse 91; Resp 16; Temp 98; Pulse Ox 97% on R/A; rv 17:45 BP 97 / 52; Pulse 91; Resp 16; Pulse Ox 98% on R/A; rv 18:30 BP 96 / 54; Pulse 94; Resp 16; Pulse Ox 98% on R/A; rv 19:15 BP 93 / 56; Pulse 90; Resp 16; Pulse Ox 98% on R/A; rv ED Course: 16:09 Patient arrived in ED. rv 16:11 Triage completed. rv 16:21 Patient has correct armband on for positive identification. Bed in low position. Call rv light in reach. Side rails up X 1. Pulse ox on. NIBP on. 16:21 Arm band placed on left wrist. Patient placed in the treatment room, on a stretcher, on rv pulse oximetry, Patient notified of wait time. 16:24 Andrea Cornelius MD is Attending Physician. [facility] 16:55 César Martinez RN is Primary Nurse. rv 16:55 Inserted saline lock: 22 gauge in right forearm, using aseptic technique. Blood rv collected. 17:27 Jasper Gregg MD is Hospitalizing Provider. lance 17:31 EKG done, by nuclear technologist. reviewed by Andrea Cornelius MD. sm3 18:14 US Extremity Venous W Compression [place] In Process Unspecified. EDMS 18:52 Chest Single View XRAY In Process Unspecified. EDMS 20:04 No provider procedures requiring assistance completed. Patient admitted, IV remains in rv place. 20:06 Primary Nurse role handed off by César Martinez, DONALD rv 20:22 César Martinez, DONALD is Primary Nurse. rv Administered Medications: 17:30 Drug: traMADol 50 mg Route: PO; rv 18:53 Follow up: Response: No adverse reaction rv 18:33 Drug: Cefepime 1 grams Route: IVPB; Rate: 200 ml/hr; Infused Over: 30 mins; Site: right rv forearm; 19:07 Follow up: IV Status: Completed infusion rv 19:07 Drug: vancoMYCIN 1 grams Route: IVPB; Infused Over: 2 hrs; Site: right forearm; rv 20:22 Follow up: IV Status: Infusion continued upon admission rv Outcome: 17:28 Decision to Hospitalize by Provider. lance 20:05 Admitted to Med/surg accompanied by tech, via stretcher, room 208, with chart, Report rv called to MOUNA BENNETT 20:05 Condition: good 20:05 Instructed on the need for admit. 20:05 Patient left the ED. rv 20:22 Patient left the ED. rv Signatures: Dispatcher [employer] Andrea Mar MD MD cha Montes, Shakira 3 César Martinez, RN RN rv
--- NOTE | 2019-08-22 17:29 | EDPHYS ---
Physician Documentation [facility] Name: Debby Gaitan Age: 84 yrs Sex: Female : 1935 Arrival Date: 08/22/2019 Time: 16:09 Bed 30 Private MD: ED Physician Andrea Cornelius HPI: 08/22 17:23 This 84 yrs old Female presents to ER via EMS with complaints of bilateral lance lower extremity pain and redness. 17:23 This 84 yrs old Female presents to ER via EMS with complaints of bilateral lance lower ext pain, redness. Historical: - Allergies: 16:19 Aspirin; rv 16:19 blood thinners; rv 16:19 Codeine; rv 16:19 Hydrocodone-Acetaminophen; rv 16:19 PENICILLINS; rv 16:19 Sulfa (Sulfonamide Antibiotics); rv 16:19 Tape (All Except Paper); rv 16:19 Xarelto; rv - Home Meds: 16:19 amiodarone 200 mg oral tab 1 tab once daily [Active]; atorvastatin 20 mg oral tab 1 tab rv once daily [Active]; levothyroxine 88 mcg oral tab 1 tab once daily [Active]; tramadol 50 mg Oral tab 1 tab 8 hrs prn [Active]; Protonix 20 mg Oral TbEC 1 tab once daily [Active]; liothyronine 5 mcg oral tab 1 tab once daily [Active]; Colace 50 mg oral cap 1 cap as needed [Active]; Miralax 17 gram/dose Oral powd as needed [Active]; - PMHx: 16:19 Anemia; Atrial Fib; Cancer, Cervical 1990; CHF; Diabetes - NIDDM; High Cholesterol; rv - PSHx: 16:19 aortic valve replacement; Appendectomy; Cholecystectomy; CABG; mitral valve replacement;rv - Immunization history:: Adult Immunizations up to date. - Social history:: Smoking status: Patient/guardian denies using tobacco, never smoked. - Ebola Screening: : No symptoms or risks identified at this time. ROS: 17:25 Constitutional: Negative for fever, chills, and weight loss, Eyes: Negative for injury, lance pain, redness, and discharge, ENT: Negative for injury, pain, and discharge, Neck: Negative for injury, pain, and swelling, Cardiovascular: Negative for chest pain, palpitations, and edema, Respiratory: Negative for shortness of breath, cough, wheezing, and pleuritic chest pain, Abdomen/GI: Negative for abdominal pain, nausea, vomiting, diarrhea, and constipation, Back: Negative for injury and pain, : Negative for injury, bleeding, discharge, and swelling, Neuro: Negative for headache, weakness, numbness, tingling, and seizure, Psych: Negative for depression, anxiety, suicide ideation, homicidal ideation, and hallucinations, Allergy/Immunology: Negative for hives, rash, and allergies, Endocrine: Negative for neck swelling, polydipsia, polyuria, polyphagia, and marked weight changes, Hematologic/Lymphatic: Negative for swollen nodes, abnormal bleeding, and unusual bruising. 17:25 MS/extremity: Positive for decreased range of motion, pain, swelling, tenderness, warmth, of the right leg and left leg. Exam: 17:25 Constitutional: This is a well developed, well nourished patient who is awake, alert, lance and in no acute distress. Head/Face: Normocephalic, atraumatic. Eyes: Pupils equal round and reactive to light, extra-ocular motions intact. Lids and lashes normal. Conjunctiva and sclera are non-icteric and not injected. Cornea within normal limits. Periorbital areas with no swelling, redness, or edema. ENT: Nares patent. No nasal discharge, no septal abnormalities noted. Tympanic membranes are normal and external auditory canals are clear. Oropharynx with no redness, swelling, or masses, exudates, or evidence of obstruction, uvula midline. Mucous membranes moist. Neck: Trachea midline, no thyromegaly or masses palpated, and no cervical lymphadenopathy. Supple, full range of motion without nuchal rigidity, or vertebral point tenderness. No Meningismus. Chest/axilla: Normal chest wall appearance and motion. Nontender with no deformity. No lesions are appreciated. Cardiovascular: Regular rate and rhythm with a normal S1 and S2. No gallops, murmurs, or rubs. Normal PMI, no JVD. No pulse deficits. Respiratory: Lungs have equal breath sounds bilaterally, clear to auscultation and percussion. No rales, rhonchi or wheezes noted. No increased work of breathing, no retractions or nasal flaring. Abdomen/GI: Soft, non-tender, with normal bowel sounds. No distension or tympany. No guarding or rebound. No evidence of tenderness throughout. Back: No spinal tenderness. No costovertebral tenderness. Full range of motion. Female : Normal external genitalia. Neuro: Awake and alert, GCS 15, oriented to person, place, time, and situation. Cranial nerves II-XII grossly intact. Motor strength 5/5 in all extremities. Sensory grossly intact. Cerebellar exam normal. Normal gait. Psych: Awake, alert, with orientation to person, place and time. Behavior, mood, and affect are within normal limits. 17:25 Skin: Appearance: Temperature: hot, Moisture: normal moisture, petechiae, not noted, ecchymosis, not noted, diaphoresis is not appreciated, swelling, that are mild, abscess, not appreciated, cellulitis, that is moderate. Vital Signs: 16:11 BP 91 / 52; Pulse 91; Resp 16; Temp 98; Pulse Ox 97% on R/A; rv 17:45 BP 97 / 52; Pulse 91; Resp 16; Pulse Ox 98% on R/A; rv 18:30 BP 96 / 54; Pulse 94; Resp 16; Pulse Ox 98% on R/A; rv 19:15 BP 93 / 56; Pulse 90; Resp 16; Pulse Ox 98% on R/A; rv MDM: 16:24 Patient medically screened. [facility] 17:26 Data reviewed: vital signs, nurses notes, lab test result(s), EKG, radiologic studies, lance doppler, plain films. 08/22 17:12 Order name: Basic Metabolic Panel; Complete Time: 18:31 08/22 17:12 Order name: CBC with Diff 08/22 17:12 Order name: LFT's; Complete Time: 18:31 rv 08/22 17:12 Order name: Magnesium; Complete Time: 18:31 rv 08/22 17:12 Order name: NT PRO-BNP; Complete Time: 18:31 08/22 17:12 Order name: PT-INR; Complete Time: 18:31 08/22 17:12 Order name: Troponin (emerg Dept Use Only); Complete Time: 18:31 08/22 17:12 Order name: Blood Culture Adult (2) 08/22 17:12 Order name: Lactate; Complete Time: 18:31 08/22 17:22 Order name: Procalcitonin [facility] 08/22 17:22 Order name: US Extremity Venous W Compression [place]; Complete Time: 19:08 [facility] 08/22 17:23 Order name: Urine Culture [facility] 08/22 18:33 Order name: Chest Single View XRAY [facility] 08/22 19:27 Order name: CBC Smear Scan [facility] 08/22 17:12 Order name: EKG; Complete Time: 17:13 08/22 17:12 Order name: Cardiac monitoring; Complete Time: 17:12 08/22 17:12 Order name: IV Saline Lock; Complete Time: 17:12 08/22 17:12 Order name: Labs collected and sent; Complete Time: 17:12 08/22 17:12 Order name: O2 Per Protocol; Complete Time: 17:13 08/22 17:12 Order name: O2 Sat Monitoring; Complete Time: 17:13 08/22 18:34 Order name: PO challenge: oj please; Complete Time: 18:49 [facility] Administered Medications: 17:30 Drug: traMADol 50 mg Route: PO; rv 18:53 Follow up: Response: No adverse reaction rv 18:33 Drug: Cefepime 1 grams Route: IVPB; Rate: 200 ml/hr; Infused Over: 30 mins; Site: right rv forearm; 19:07 Follow up: IV Status: Completed infusion rv 19:07 Drug: vancoMYCIN 1 grams Route: IVPB; Infused Over: 2 hrs; Site: right forearm; rv 20:22 Follow up: IV Status: Infusion continued upon admission rv Disposition: 08/22/19 17:28 Hospitalization ordered by Jasper Gregg for Inpatient Admission. Preliminary diagnosis are Cellulitis and acute lymphangitis of other parts of limb - bilateral lower extremity, End stage renal disease, Type 2 diabetes mellitus, Atrial fibrillation and flutter. - Bed requested for Telemetry/MedSurg (Inpatient). - Status is Inpatient Admission. rv - Condition is Fair. - Problem is new. - Symptoms have improved. UTI on Admission? No Signatures: Dispatcher [employer] [facility] Quynh Acosta RN RN mw Anderson, Corey, MD MD cha Vicente, Ronaldo, RN RN rv Corrections: (The following items were deleted from the chart) 17:30 17:28 Hospitalization Ordered by Jasper Gregg MD for Inpatient Admission. Preliminary [facility] diagnosis is Cellulitis and acute lymphangitis of other parts of limb - bilateral lower extremity; End stage renal disease; Type 2 diabetes mellitus. Bed requested for Telemetry/MedSurg (Inpatient). Status is Inpatient Admission. Condition is Fair. Problem is new. Symptoms have improved. UTI on Admission? No. lance 19:33 17:30 08/22/2019 17:28 Hospitalization Ordered by Jasper Gregg MD for Inpatient mw Admission. Preliminary diagnosis is Cellulitis and acute lymphangitis of other parts of limb - bilateral lower extremity; End stage renal disease; Type 2 diabetes mellitus; Atrial fibrillation and flutter. Bed requested for Telemetry/MedSurg (Inpatient). Status is Inpatient Admission. Condition is Fair. Problem is new. Symptoms have improved. UTI on Admission? No. lance 20:05 19:33 08/22/2019 17:28 Hospitalization Ordered by Jasper Gregg MD for Inpatient rv Admission. Preliminary diagnosis is Cellulitis and acute lymphangitis of other parts of limb - bilateral lower extremity; End stage renal disease; Type 2 diabetes mellitus; Atrial fibrillation and flutter. Bed requested for Telemetry/MedSurg (Inpatient). Status is Inpatient Admission. Condition is Fair. Problem is new. Symptoms have improved. UTI on Admission? No. mw 20:22 20:05 08/22/2019 17:28 Hospitalization Ordered by Jasper Gregg MD for Inpatient rv Admission. Preliminary diagnosis is Cellulitis and acute lymphangitis of other parts of limb - bilateral lower extremity; End stage renal disease; Type 2 diabetes mellitus; Atrial fibrillation and flutter. Bed requested for Telemetry/MedSurg (Inpatient). Status is Inpatient Admission. Condition is Fair. Problem is new. Symptoms have improved. UTI on Admission? No. rv
[2019-08-22 17:32] LABS: Absolute Lymphocytes (CBC) 0.2 K/uL (0.7-4.9); Basophils % 0.3 % (0-1.3); Hematocrit 33.1 % (36.0-45.0); MPV 8.2 fL (7.6-11.3); RBC Red Blood Cell Count 2.91 M/uL (3.86-4.86)
[2019-08-22 17:49] LABS: Protime INR 1.19
[2019-08-22 18:04] LABS: ALT/SGPT 23 U/L (12-78); AST/SGOT 32 U/L (15-37); Albumin 2.6 g/dL (3.4-5.0); Alkaline Phosphatase 132 U/L (45-117); BUN Blood Urea Nitrogen 5 mg/dL (7-18); Bicarbonate 27 mmol/L (21-32); Bilirubin Direct 0.4 mg/dL (0-0.2); Glucose Level 80 mg/dL (74-106); Magnesium 1.9 mg/dL (1.8-2.4); NT PRO-BNP 36183 pg/mL (<450); Potassium 3.1 mmol/L (3.5-5.1); Protein, Total 5.9 g/dL (6.4-8.2); Sodium Level 137 mmol/L (136-145); Troponin (Emerg Dept Use Only) < 0.02 ng/mL (0.0-0.045)
--- NOTE | 2019-08-22 18:24 | EKG ---
Test Date: 2019-08-22 Test Time: 17:23:56 Helicopter Dispatcher: KANCHAN MEASUREMENT RESULTS: Intervals: Rate: 91 MA: QRSD: 188 QT: 470 QTc: 578 [place]: P: MA: QRS: -61 T: 54 INTERPRETIVE STATEMENTS: Atrial fibrillation Right bundle branch block Left anterior fascicular block Bifascicular block Abnormal ECG Compared to ECG 01/26/2019 21:39:59 Sinus rhythm no longer present Bifascicular block still present Electronically Signed On 08-22-19 18:23:39 CDT by Delbert Bolanos
--- NOTE | 2019-08-22 18:41 | RAD REPORT ---
EXAM DESCRIPTION: USExtrem Venous W Compress Bil08/22/2019 6:13 pm CLINICAL HISTORY: Bilateral leg pain COMPARISON: none FINDINGS: The common femoral, superficial femoral, popliteal and posterior tibial veins bilaterally are compressible and demonstrate augmentation. Doppler demonstrates good flow. IMPRESSION: No evidence of deep venous thrombosis involving either lower extremity.
--- NOTE | 2019-08-22 18:50 | P.HP ---
Certification for Inpatient Patient admitted to: Observation With expected LOS: <2 Midnights Practitioner: I am a practitioner with admitting privileges, knowledge of patient current condition, hospital course, and medical plan of care. Services: Services provided to patient in accordance with Admission requirements found in Title 42 Section 412.3 of the Code of Federal Regulations Patient History Date of Service: 08/22/19 Primary Care Provider: Dr. Giles Reason for admission: Right ankle pain and swelling History of Present Illness: This is a year-old female with multiple medical comorbidities including ESRD on hemodialysis, atrial fibrillation and congestive heart failure, diastolic dysfunction presented to the emergency room with complaints of right ankle swelling and redness and pain. Per patient, she went to an extra dialysis session today, after which she started with sharp shooting pains that serve the right ankle and went up to her right knee. She also noted redness and swelling of the right lower extremity. She attempted to go to her primary care physician , but could not walk therefore called the EMS and was brought to the emergency room. She denies any fevers, chills, chest pain, headache, vision changes, speech changes, GI or complaints. She does endorse some shortness of breath for the past few days that has been progressive as well. In the ER, blood pressure was 91/52, heart rate of 91, respirations of 16, afebrile at 98 and satting 97% on room air. Labs were remarkable for a hemoglobin of 11.5, WBC with left shift, potassium decreased at 3.1, creatinine at 1.39 and BNP elevated at 36,183. Her lactic acid was normal and pro calcitonin was pending. Troponin was negative x1. Venous study was done, which was negative for DVT bilaterally. In the ER, she received vancomycin and cefepime. At the time of my exam, she was alert oriented x3, in mild distress secondary to ankle pain. Blood pressure continued to be on the lower side. Allergies aspirin Allergy (Severe, Verified 01/09/19 22:04) Severe Bleeding codeine Allergy (Severe, Verified 01/27/19 03:09) Nausea/Vomiting Penicillins Allergy (Severe, Verified 01/27/19 03:09) Hives/Rash Sulfa (Sulfonamide Antibiotics) Allergy (Severe, Verified 01/27/19 03:09) Hives/Rash adhesive tape Adverse Reaction (Severe, Verified 01/27/19 03:09) skin irritation rivaroxaban [From Xarelto] Adverse Reaction (Severe, Verified 01/27/19 03:09) Bleeding Home medications list reviewed: Yes Home Medications: Amiodarone HCl [Cordarone Tab] 200 mg PO DAILY 01/27/19 Atorvastatin Calcium [Lipitor] 10 mg PO BEDTIME 01/27/19 Furosemide [Lasix] 40 mg PO BIDL 01/27/19 Levothyroxine [Synthroid] 88 mcg PO [id number] 01/27/19 Liothyronine Sodium [Cytomel] 5 mcg PO DAILY 01/27/19 Ondansetron [Zofran (Odt)*] 1 tab PO Q6HR MDD 4 01/27/19 Pantoprazole [Protonix Tab*] 1 tab PO AC 01/27/19 Spironolactone [Aldactone*] 25 mg PO DAILY 01/27/19 - Past Medical/Surgical History Diabetic: No -: Cervical cancer - radiation treatment -: HTN -: Aortic valve replacement-bovine -: Mitral valve Clip -: Hypothyroidism -: cervic Cancer in 1989 (Hx of Chemo/Radiation Tx) -: 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 -: Iron def Anemia -: Chronic renal disease, stage IV -: Chronic diastolic CHF -: Cholecystectomy -: Appendectomy Psychosocial/ Personal History: She is . Children-5. - Family History Mother -: Hypertension, Diabetes - Social History Alcohol use: No CD- Drugs: No Caffeine use: No Review of Systems 10-point ROS is otherwise unremarkable Physical Examination - Physical Exam General: Alert, Oriented x3, Mild distress, Other (Elderly, frail) HEENT: Atraumatic, PERRLA, Mucous membr. moist/pink, EOMI, Sclerae nonicteric Neck: Supple, 2+ carotid pulse no bruit, No LAD, Without JVD or thyroid abnormality Respiratory: Clear to auscultation bilaterally, Normal air movement Cardiovascular: Regular rate/rhythm, Normal S1 S2 Gastrointestinal: Normal bowel sounds, No tenderness Musculoskeletal: Other (Patient with 1 to 2+ bilateral pitting edema in the lower extremity) Integumentary: Erythema, Warmth (Right lower extremity) Neurological: Normal speech, Normal strength at 5/5 x4 extr, Normal tone, Normal affect - Studies Laboratory Data (last 24 hrs) 10/09/19 17:36: PT 13.9 H, INR 1.19 08/22/19 17:00: WBC 9.3, Hgb 11.5 L, Hct 33.1 L, Plt Count 214 08/22/19 17:00: Sodium 137, Potassium 3.1 L, BUN 5 L, Creatinine 1.39 H, Glucose 80, Magnesium 1.9 D, Total Bilirubin 1.0, AST 32, ALT 23, Alkaline Phosphatase 132 H Assessment and Plan - Problems (Diagnosis) (1) Cellulitis Current Visit: Yes Status: Acute Plan: Patient with right lower extremity cellulitis and swelling -ultrasound negative for DVT bilaterally -continue IV antibiotics with vancomycin, pharmacy to dose -demarcated area, continue to monitor -no evidence of sepsis at this time. Will continue to monitor Qualifiers: Site of cellulitis: extremity Site of cellulitis of extremity: lower extremity Laterality: right Qualified Code(s): L03.115 - Cellulitis of right lower limb (2) Hypokalemia Current Visit: Yes Status: Acute Plan: Replace per protocol (3) Acute on chronic combined systolic (congestive) and diastolic (congestive) heart failure Onset Date: 03/04/17 Current Visit: No Status: Acute Plan: Echo from January 2019 reviewed, ejection fraction 79%, diastolic heart failure -will continue diuresis as tolerated due to her low blood pressures. -Will restart home medication -the need for a repeat echo at this time. If worsening volume overload, will repeat an echo -fluid restriction -daily weights (4) Anemia Current Visit: No Status: Chronic Plan: Patient with anemia , likely of chronic disease. Will monitor H&H. 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 -patient underwent extra dialysis session today due to fluid overload -will consult nephrology, Dr. Lopez Qualifiers: Chronic kidney disease stage: on chronic dialysis Qualified Code(s): N18.6 - End stage renal disease; Z99.2 - Dependence on renal dialysis (7) Hypothyroidism Onset Date: 03/04/17 Current Visit: No Status: Chronic Plan: Stable, continue home medications Qualifiers: Hypothyroidism type: unspecified - Plan DVT prophylaxis: Lovenox GI prophylaxis: None Diet: Renal Disposition: Admit to floor with tele. Pending symptomatic improvement. - Advance Directives Does patient have a Living Will: Yes Does patient have a Durable POA for Healthcare: No Time Spent Managing Pts Care (In Minutes): 55
[2019-08-22 19:26] LABS: Anisocytosis SLIGHT; Blood Morphology Comment NOTED (NOT SEEN); Macrocytosis 2+; Platelet Estimate ADEQ; Polychromasia SLIGHT; Urine White Blood Cell Casts OK
--- NOTE | 2019-08-22 19:51 | RAD REPORT ---
EXAM DESCRIPTION: [facility] Single View08/22/2019 6:53 pm CLINICAL HISTORY: Chest pain COMPARISON: January 2019 FINDINGS: Small bilateral pleural effusions The lungs appear clear of acute infiltrate. The heart is moderately enlarged. Postsurgical changes involve the chest. Central venous catheter has its tip in the superior vena cava IMPRESSION: Small bilateral pleural effusions
[2019-08-22 20:50] VITALS: BMI 25.9
[2019-08-22] MEDS ORDERED: VANCOMYCIN 1.25 GM in NA CHLORIDE 0.9% 250 ML IVPB SCH (21:00)
[2019-08-22] MEDS ORDERED: HYDROMORPHONE HCL 0.5 MG/0.5 ML INJ IV PRN (21:14)
[2019-08-22] MEDS: FENTANYL CITR 100 MCG/2 ML IV PRN (22:17)
[2019-08-23] MEDS: ONDANSETRON 4 MG/2 ML VIAL IV PRN ×2 (00:09→23:32)
[2019-08-23] MEDS ORDERED: POLYETHYL GLY 3350 17 GM/DOSE PO PRN ×2 (00:43→01:06)
[2019-08-23] MEDS ORDERED: AMIODARONE HCL 200 MG TAB PO ONE (04:00)
[2019-08-23] MEDS: PANTOPRAZOLE 40MG TABLET PO SCH (05:28)
[2019-08-23] MEDS: LEVOTHYROXINE SOD 0.088 MG TAB PO SCH (05:28)
[2019-08-23 06:11] LABS: Absolute Lymphocytes (CBC) 0.3 K/uL (0.7-4.9); Basophils % 0.6 % (0-1.3); Hematocrit 31.7 % (36.0-45.0); Lymphocytes % 3.2 % (15.3-44.8); MPV 8.2 fL (7.6-11.3); RBC Red Blood Cell Count 2.75 M/uL (3.86-4.86)
[2019-08-23 06:15] LABS: Albumin 2.3 g/dL (3.4-5.0); Phosphorus 2.9 mg/dL (2.5-4.9); Potassium 3.7 mmol/L (3.5-5.1); Protein, Total 5.4 g/dL (6.4-8.2)
[2019-08-23] MEDS: TRAMADOL HCL 50 MG TAB PO PRN ×2 (06:23→15:47)
[2019-08-23] MEDS: LIOTHYRONINE SOD 5 MCG TAB PO SCH (08:35)
[2019-08-23] MEDS: MIDODRINE HCL 5 MG TABLET PO SCH (08:35)
[2019-08-23] MEDS: AMIODARONE HCL 200 MG TAB PO SCH (15:48)
--- NOTE | 2019-08-23 18:46 | P.PN ---
Subjective Date of Service: 08/23/19 Primary Care Provider: Dr. Giles Chief Complaint: Right ankle pain and swelling Subjective: Improving Patient seen and examined at bedside. No family at bedside. Chart reviewed and case discussed with nursing staff. No acute events noted overnight Reports improved ankle pain and swelling Review of Systems 10-point ROS is otherwise unremarkable Physical Examination - Vital Signs Temperature: 97.7 F Blood Pressure: 107/60 Pulse: 94 Respirations: 20 Pulse Ox (%): 97 - Physical Exam General: Alert, In no apparent distress HEENT: Atraumatic, PERRLA, EOMI Neck: Supple, JVD not distended Respiratory: Clear to auscultation bilaterally, Normal air movement Cardiovascular: Regular rate/rhythm, Normal S1 S2 Gastrointestinal: Normal bowel sounds, No tenderness Musculoskeletal: No tenderness Integumentary: No rashes Neurological: Normal speech, Normal tone, Normal affect Lymphatics: No axilla or inguinal lymphadenopathy - Studies Laboratory Data (last 24 hrs) 08/23/19 05:20: Sodium 136, Potassium 3.7, BUN 10, Creatinine 2.19 H, Glucose 100, Phosphorus 2.9, Total Bilirubin 1.0, AST 26, ALT 20, Alkaline Phosphatase 103 08/23/19 05:20: WBC 8.5, Hgb 11.0 L, Hct 31.7 L, Plt Count 201 08/22/19 17:00: WBC 9.3, Hgb 11.5 L, Hct 33.1 L, Plt Count 214 Microbiology Data (last 24 hrs): 08/22/19 17:00 Blood - Blood Anaerobic Blood Culture - Final Assessment And Plan - Current Problems (Diagnosis) (1) Cellulitis Current Visit: Yes Status: Acute Plan: Patient with right lower extremity cellulitis and swelling -ultrasound negative for DVT bilaterally -continue IV antibiotics with vancomycin, pharmacy to dose -demarcated area, continue to monitor -no evidence of sepsis at this time. Will continue to monitor Qualifiers: Site of cellulitis: extremity Site of cellulitis of extremity: lower extremity Laterality: right Qualified Code(s): L03.115 - Cellulitis of right lower limb (2) Hypokalemia Current Visit: Yes Status: Acute Plan: Replace per protocol (3) Acute on chronic combined systolic (congestive) and diastolic (congestive) heart failure Onset Date: 03/04/17 Current Visit: No Status: Acute Plan: Echo from January 2019 reviewed, ejection fraction 79%, diastolic heart failure -will continue diuresis as tolerated due to her low blood pressures. -Will restart home medication -no need for a repeat echo at this time. If worsening volume overload, will repeat an echo -fluid restriction -daily weights (4) Anemia Current Visit: No Status: Chronic Plan: Patient with anemia , likely of chronic disease. Will monitor H&H. 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 -patient underwent extra dialysis session today due to fluid overload -will consult nephrology, Dr. Lopez Qualifiers: Chronic kidney disease stage: on chronic dialysis Qualified Code(s): N18.6 - End stage renal disease; Z99.2 - Dependence on renal dialysis (7) Hypothyroidism Onset Date: 03/04/17 Current Visit: No Status: Chronic Plan: Stable, continue home medications Qualifiers: Hypothyroidism type: unspecified Qualified Code(s): E03.9 - Hypothyroidism , unspecified - Plan DVT prophylaxis: Lovenox GI prophylaxis: None Diet: Renal Disposition: Pending symptomatic improvement.
--- NOTE | 2019-08-23 19:33 | P.CNS ---
Date of Consult: 08/23/19 Reason for Consult: ESRD Requesting Physician: Jasper Gregg Primary Care Provider: Dr. Giles Chief Complaint: Right ankle pain and swelling History of Present Illness: This is a year-old female with multiple medical comorbidities including ESRD on hemodialysis, atrial fibrillation and congestive heart failure, diastolic dysfunction presented to the emergency room with complaints of right ankle swelling and redness and pain. Per patient, she went to an extra dialysis session today, after which she started with sharp shooting pains that serve the right ankle and went up to her right knee. She also noted redness and swelling of the right lower extremity. She attempted to go to her primary care physician , but could not walk therefore called the EMS and was brought to the emergency room. She denies any fevers, chills, chest pain, headache, vision changes, speech changes, GI or complaints. She does endorse some shortness of breath for the past few days that has been progressive as well. In the ER, blood pressure was 91/52, heart rate of 91, respirations of 16, afebrile at 98 and satting 97% on room air. Labs were remarkable for a hemoglobin of 11.5, WBC with left shift, potassium decreased at 3.1, creatinine at 1.39 and BNP elevated at 36,183. Her lactic acid was normal and pro calcitonin was pending. Troponin was negative x1. Venous study was done, which was negative for DVT bilaterally. In the ER, she received vancomycin and cefepime. At the time of my exam, she was alert oriented x3, in mild distress secondary to ankle pain. Blood pressure continued to be on the lower side. 17:23 This 84 yrs old Female presents to ER via EMS with complaints of bilateral lance lower extremity pain and redness. 17:23 This 84 yrs old Female presents to ER via EMS with complaints of bilateral lance lower ext pain, redness. 16:09 Presenting complaint: Patient states: patient came from dialysis today. HD was done 4 rv hours and no complication. complaining of right leg pain for two days now. not on any blood thinner. Transition of care: patient was not received from another setting of care. Onset of symptoms was August 21, 2019 at 08:00. Risk Assessment: Do you want to hurt yourself or someone else? Patient reports no desire to harm self or others. Initial Sepsis Screen: Does the patient meet any 2 criteria? No. Patient' s initial sepsis screen is negative. Does the patient have a suspected source of infection? No. Patient's initial sepsis screen is negative. Care prior to arrival: None. 16:09 Method Of Arrival: EMS: [facility] Allergies aspirin Allergy (Severe, Verified 01/09/19 22:04) Severe Bleeding codeine Allergy (Severe, Verified 01/27/19 03:09) Nausea/Vomiting Penicillins Allergy (Severe, Verified 01/27/19 03:09) Hives/Rash Sulfa (Sulfonamide Antibiotics) Allergy (Severe, Verified 01/27/19 03:09) Hives/Rash adhesive tape Adverse Reaction (Severe, Verified 01/27/19 03:09) skin irritation rivaroxaban [From Xarelto] Adverse Reaction (Severe, Verified 01/27/19 03:09) Bleeding Home medications list reviewed: Yes Home Medications: Amiodarone HCl [Cordarone*] 200 mg PO 1600 08/22/19 Levothyroxine Sodium 1 tab PO 0900 08/22/19 Liothyronine Sodium [Cytomel] 5 mcg PO DAILY 08/22/19 Midodrine HCl [Proamatine*] 1 tab PO DAILY 08/22/19 Pantoprazole Sodium [Protonix] 1 tab PO 1600 08/22/19 Polyethylene Glycol 3350 [Miralax] 1 gm PO DAILY PRN 08/22/19 traMADol HCL [Ultram*] 50 mg PO Q8H PRN 08/22/19 - Past Medical/Surgical History Diabetic: No -: Cervical cancer - radiation treatment -: HTN -: Aortic valve replacement-bovine -: Mitral valve Clip -: Hypothyroidism -: cervic Cancer in 1989 (Hx of Chemo/Radiation Tx) -: 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 -: Iron def Anemia -: Chronic renal disease, stage IV -: Chronic diastolic CHF -: Cholecystectomy -: Appendectomy Psychosocial/ Personal History: She is . Children-5. - Family History Mother Medical History: Hypertension, Diabetes - Social History Smoking Status: Never smoker Alcohol use: No CD- Drugs: No Caffeine use: No Place of Residence: Home Review of Systems 10-point ROS is otherwise unremarkable General: Weakness, Malaise Respiratory: SOB with Excertion Cardiovascular: Edema Neurological: Weakness Physical Examination Temp Pulse Resp BP Pulse Ox 97.7 F 94 H 20 107/60 97 08/23/19 18:46 08/23/19 18:46 08/23/19 18:46 08/23/19 18:46 08/23/19 18:46 General: In no apparent distress, Oriented x3, Cooperative HEENT: Mucous membr. moist/pink Neck: Supple Respiratory: Clear to auscultation bilaterally Cardiovascular: Regular rate/rhythm, No rubs, Edema Gastrointestinal: Soft and benign, Non-distended, No guarding Musculoskeletal: No clubbing, No contractures Integumentary: No cyanosis, Rash(es), Erythema Neurological: Normal speech Laboratory Data (last 24 hrs) 08/23/19 05:20: Sodium 136, Potassium 3.7, BUN 10, Creatinine 2.19 H, Glucose 100, Phosphorus 2.9, Total Bilirubin 1.0, AST 26, ALT 20, Alkaline Phosphatase 103 08/23/19 05:20: WBC 8.5, Hgb 11.0 L, Hct 31.7 L, Plt Count 201 Imagings Data: [facility] CLINICAL HISTORY: Chest pain COMPARISON: January 2019 FINDINGS: Small bilateral pleural effusions The lungs appear clear of acute infiltrate. The heart is moderately enlarged. Postsurgical changes involve the chest. Central venous catheter has its tip in the superior vena cava IMPRESSION: Small bilateral pleural effusions Conclusions/Impression: A/ ESRD on HD. The main reason for dialysis is difficult to control CHF. Diastolic CHF, chronic. HTN with CKD/ CHF. Anemia in CKD. Iron deficiency. Slow transit constipation. Right foot cellulitis. P/ Continue current POC and Medications. Skip HD today due to hypotension and order for tomorrow. Give IV Albumin. Low sodium diet. Continue abx. No NSAIDs. AM labs. Daily weight. Thank you for the consultation.
[2019-08-23] MEDS ORDERED: NA CHLORIDE 0.9% 1,000 ML IV PRN (19:41)
[2019-08-23] MEDS ORDERED: MANNITOL 25% 12.5 GM/50 ML VIAL IV PRN (19:41)
[2019-08-23] MEDS: DOCUSATE NA 100 MG CAP PO SCH (20:55)
[2019-08-24] MEDS: LEVOTHYROXINE SOD 0.088 MG TAB PO SCH (05:54)
[2019-08-24] MEDS: PANTOPRAZOLE 40MG TABLET PO SCH (05:54)
[2019-08-24 06:12] LABS: Absolute Lymphocytes (CBC) 0.2 K/uL (0.7-4.9); Basophils % 0.3 % (0-1.3); Hematocrit 32.8 % (36.0-45.0); Lymphocytes % 2.6 % (15.3-44.8); MPV 8.2 fL (7.6-11.3); RBC Red Blood Cell Count 2.85 M/uL (3.86-4.86)
[2019-08-24 06:34] LABS: Albumin 2.3 g/dL (3.4-5.0); Potassium 3.9 mmol/L (3.5-5.1); Protein, Total 5.3 g/dL (6.4-8.2)
[2019-08-24] MEDS: DOCUSATE NA 100 MG CAP PO SCH ×3 (08:58→16:42)
[2019-08-24] MEDS: LIOTHYRONINE SOD 5 MCG TAB PO SCH (08:58)
[2019-08-24] MEDS: MIDODRINE HCL 5 MG TABLET PO SCH ×2 (09:00→15:08)
[2019-08-24] MEDS ORDERED: POTASSIUM CL SA 10 MEQ TAB PO ONE (09:00)
[2019-08-24] MEDS ORDERED: VANCOMYCIN 1.25 GM in NA CHLORIDE 0.9% 250 ML IVPB SCH (09:00)
[2019-08-24] MEDS ORDERED: LACTULOSE 20 GM/30 ML UCUP PO ONE (09:30)
[2019-08-24] MEDS: ONDANSETRON 4 MG/2 ML VIAL IV PRN ×3 (10:36→21:28)
[2019-08-24] MEDS: TRAMADOL HCL 50 MG TAB PO PRN (15:08)
[2019-08-24] MEDS: AMIODARONE HCL 200 MG TAB PO SCH (16:00)
[2019-08-24] MEDS: ALBUMIN HUMAN 25% 50 ML IV SCH (17:30)
--- NOTE | 2019-08-24 21:39 | P.PN ---
Date of Service: 08/24/19 Vital Signs Temp Pulse Resp BP Pulse Ox 96.7 F L 80 16 101/59 L 96 08/24/19 16:00 08/24/19 16:00 08/24/19 16:08 08/24/19 16:00 08/24/19 16:08 Medications Amiodarone HCl (Cordarone Tab) 200 mg PO 1600 [facility] Stop: 09/22/19 16:01 Last Admin: 08/24/19 16:00 Dose: Not Given Docusate Sodium (Colace Cap) 100 mg PO TIDWM KEITH Stop: 09/23/19 12:01 Last Admin: 08/24/19 16:42 Dose: Not Given Fentanyl Citrate (Sublimaze) 25 mcg IV Q4H PRN PRN Reason: Pain scale 8-10 (Severe) Stop: 09/21/19 21:27 Last Admin: 08/22/19 22:17 Dose: 25 mcg Heparin Sodium (Porcine) (Heparin 1,000 Units/Ml) 6,000 unit IV EVERY HD PRN PRN Reason: FLUSH AFTER EACH USE Stop: 09/22/19 19:42 Last Admin: 08/24/19 17:33 Dose: 6,000 unit Albumin Human (Albumin 25%) 50 mls @ 100 mls/hr IV EVERY HD KEITH Stop: 09/22/19 20:01 Last Admin: 08/24/19 17:30 Dose: 50 mls Vancomycin HCl 500 mg/ Sodium (Chloride) 100 mls @ 100 mls/hr IVPB AFTER EACH DIALYSIS [facility] Stop: 09/23/19 14:16 Levothyroxine Sodium (Synthroid) 0.088 mg PO DAILYAC KEITH Stop: 09/22/19 06:31 Last Admin: 08/24/19 05:54 Dose: 0.088 mg Liothyronine Sodium (Cytomel) 5 mcg PO DAILY [facility] Stop: 09/22/19 09:01 Last Admin: 08/24/19 08:58 Dose: 5 mcg Mannitol (Mannitol 12.5 Gm/50 Ml Vial) 12.5 gm IV EVERY HD PRN PRN Reason: Titrate to SBP (MUST DEFINE) Stop: 09/22/19 19:42 Midodrine (Proamatine) 5 mg PO DAILY KE[facility] Stop: 09/22/19 09:01 Last Admin: 08/24/19 15:08 Dose: 5 mg Ondansetron HCl (Zofran) 4 mg IV Q4H PRN PRN Reason: NAUSEA / VOMITING Stop: 09/23/19 13:51 Last Admin: 08/24/19 21:28 Dose: 4 mg Pantoprazole Sodium (Protonix Tab) 40 mg PO DAILYAC [facility] Stop: 09/22/19 06:31 Last Admin: 08/24/19 05:54 Dose: 40 mg Sodium Chloride (Normal Saline Flush) 10 ml IV BID [facility] Stop: 09/21/19 21:01 Last Admin: 08/24/19 21:28 Dose: 10 ml Tramadol HCl (Ultram) 50 mg PO Q8H PRN PRN Reason: Pain scale 2-4 (Mild) Stop: 09/22/19 00:44 Last Admin: 08/24/19 15:08 Dose: 50 mg Microbiology Results 08/22/19 17:36 Blood - Blood Aerobic Blood Culture - Preliminary No growth in 24 hours. 08/22/19 17:36 Blood - Blood Anaerobic Blood Culture - Preliminary No growth in 24 hours. 08/22/19 17:00 Blood - Blood Aerobic Blood Culture - Preliminary No growth in 24 hours. 08/22/19 17:00 Blood - Blood Anaerobic Blood Culture - Final Assessment/ Plan: Nephrology. Persistent right foot pain. CPS stable without CP or SOB. +VILLALOBOS Anorexia with nausea. +Constipation No acute events overnight. Vitals, medications, blood work and imaging reviewed in the chart. General: In no apparent distress, Oriented x3, Cooperative HEENT: Mucous membr. moist/pink Neck: Supple Respiratory: Clear to auscultation bilaterally Cardiovascular: Regular rate/rhythm, No rubs, Edema Gastrointestinal: Soft and benign, Non-distended, No guarding Musculoskeletal: No clubbing, No contractures Integumentary: No cyanosis, Rash(es), Erythema Neurological: Normal speech Laboratory Data (last 24 hrs) 08/23/19 05:20: Sodium 136, Potassium 3.7, BUN 10, Creatinine 2.19 H, Glucose 100, Phosphorus 2.9, Total Bilirubin 1.0, AST 26, ALT 20, Alkaline Phosphatase 103 08/23/19 05:20: WBC 8.5, Hgb 11.0 L, Hct 31.7 L, Plt Count 201 Imagings Data: EXAM DESCRIPTION: RADChest Single View08/22/2019 6:53 pm CLINICAL HISTORY: Chest pain COMPARISON: January 2019 FINDINGS: Small bilateral pleural effusions The lungs appear clear of acute infiltrate. The heart is moderately enlarged. Postsurgical changes involve the chest. Central venous catheter has its tip in the superior vena cava IMPRESSION: Small bilateral pleural effusions Conclusions/Impression: A/ ESRD on HD. The main reason for dialysis is difficult to control CHF. Diastolic CHF, chronic. HTN with CKD/ CHF. Anemia in CKD. Iron deficiency. Slow transit constipation. Right foot cellulitis. P/ Continue current POC and Medications. Next HD tomorrow. Give IV Albumin with HD. Low sodium diet. Continue abx. Pharmacy to renal dose. No NSAIDs. AM labs. Daily weight.
[2019-08-24] MEDS: VANCOMYCIN 500 MG in NA CHLORIDE 0.9% 100 ML IVPB SCH (23:18)
[2019-08-24] MEDS ORDERED: NA CHLORIDE 0.9% 100 ML ONE (23:19)
[2019-08-24] MEDS ORDERED: VANCOMYCIN 500 MG/VIAL ONE (23:39)
[2019-08-25] MEDS: LEVOTHYROXINE SOD 0.088 MG TAB PO SCH (05:33)
[2019-08-25] MEDS: PANTOPRAZOLE 40MG TABLET PO SCH (05:33)
[2019-08-25 06:10] LABS: Absolute Lymphocytes (CBC) 0.3 K/uL (0.7-4.9); Basophils % 0.8 % (0-1.3); Hematocrit 35.5 % (36.0-45.0); Lymphocytes % 3.2 % (15.3-44.8); MPV 7.9 fL (7.6-11.3); RBC Red Blood Cell Count 3.04 M/uL (3.86-4.86)
[2019-08-25 06:25] LABS: Albumin 2.8 g/dL (3.4-5.0); Bilirubin Total 1.1 mg/dL (0.2-1.0); Magnesium 2.1 mg/dL (1.8-2.4); Potassium 4.1 mmol/L (3.5-5.1); Protein, Total 5.7 g/dL (6.4-8.2)
[2019-08-25 08:31] LABS: Blood Morphology Comment NOTED (NOT SEEN); Platelet Estimate ADEQ
[2019-08-25 08:32] LABS: Anisocytosis 2+; Macrocytosis 3+; Ovalocytes 1+; Polychromasia 1+
[2019-08-25] MEDS: MIDODRINE HCL 5 MG TABLET PO SCH (08:46)
[2019-08-25] MEDS: DOCUSATE NA 100 MG CAP PO SCH ×3 (08:46→16:06)
[2019-08-25] MEDS: LIOTHYRONINE SOD 5 MCG TAB PO SCH (08:46)
[2019-08-25] MEDS: ALBUMIN HUMAN 25% 50 ML IV SCH ×4 (11:50→12:48)
--- NOTE | 2019-08-25 13:01 | P.PN ---
Subjective Date of Service: 08/25/19 Primary Care Provider: Dr. Giles Chief Complaint: Right ankle pain and swelling Patient seen and examined at bedside. No family at bedside. Chart reviewed and case discussed with nursing staff. No acute events noted overnight Reports improved ankle pain and swelling Currently in dialysis. Still reports that she is unable to eat. No witnessed vomiting at this time. Review of Systems 10-point ROS is otherwise unremarkable Physical Examination - Vital Signs Temperature: 97 F Blood Pressure: 104/59 Pulse: 92 Respirations: 20 Pulse Ox (%): 96 - Physical Exam General: Alert, In no apparent distress, Oriented x3 HEENT: Atraumatic, PERRLA, EOMI Neck: Supple, JVD not distended Respiratory: Clear to auscultation bilaterally, Normal air movement Cardiovascular: Regular rate/rhythm, Normal S1 S2 Gastrointestinal: Normal bowel sounds, No tenderness Musculoskeletal: No tenderness Integumentary: No rashes Neurological: Normal speech, Normal tone, Normal affect Lymphatics: No axilla or inguinal lymphadenopathy Assessment And Plan - Current Problems (Diagnosis) (1) Cellulitis Current Visit: Yes Status: Acute Plan: Patient with right lower extremity cellulitis and swelling -ultrasound negative for DVT bilaterally -continue IV antibiotics with vancomycin, pharmacy to dose -demarcated area, continue to monitor -no evidence of sepsis at this time. Will continue to monitor Qualifiers: Site of cellulitis: extremity Site of cellulitis of extremity: lower extremity Laterality: right Qualified Code(s): L03.115 - Cellulitis of right lower limb (2) Hypokalemia Current Visit: Yes Status: Acute Plan: Replace per protocol (3) Acute on chronic combined systolic (congestive) and diastolic (congestive) heart failure Onset Date: 03/04/17 Current Visit: No Status: Acute Plan: Echo from January 2019 reviewed, ejection fraction 79%, diastolic heart failure -will continue diuresis as tolerated due to her low blood pressures. -Will restart home medication -no need for a repeat echo at this time. If worsening volume overload, will repeat an echo -fluid restriction -daily weights (4) Anemia Current Visit: No Status: Chronic Plan: Patient with anemia , likely of chronic disease. Will monitor H&H. 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 -patient underwent extra dialysis session today due to fluid overload -will consult nephrology, Dr. Lopez Qualifiers: Chronic kidney disease stage: on chronic dialysis Qualified Code(s): N18.6 - End stage renal disease; Z99.2 - Dependence on renal dialysis (7) Hypothyroidism Onset Date: 03/04/17 Current Visit: No Status: Chronic Plan: Stable, continue home medications Qualifiers: Hypothyroidism type: unspecified Qualified Code(s): E03.9 - Hypothyroidism , unspecified - Plan DVT prophylaxis: Lovenox GI prophylaxis: None Diet: Renal Disposition: Pending symptomatic improvement.
[2019-08-25] MEDS: AMIODARONE HCL 200 MG TAB PO SCH (16:06)
[2019-08-26] MEDS: LEVOTHYROXINE SOD 0.088 MG TAB PO SCH (05:54)
[2019-08-26] MEDS: PANTOPRAZOLE 40MG TABLET PO SCH (05:54)
[2019-08-26] MEDS: LIOTHYRONINE SOD 5 MCG TAB PO SCH (05:54)
[2019-08-26 06:17] LABS: Magnesium 2.2 mg/dL (1.8-2.4); Phosphorus 2.4 mg/dL (2.5-4.9); Potassium 3.9 mmol/L (3.5-5.1)
[2019-08-26] MEDS: POTASSIUM CL SA 10 MEQ TAB PO ONE ×2 (09:00)
[2019-08-26] MEDS: POTASS/SODIUM PHOSPHATE 1 PKT POWD.PACK PO SCH ×4 (09:00→10:53)
[2019-08-26] MEDS: MIDODRINE HCL 5 MG TABLET PO SCH (09:13)
[2019-08-26] MEDS: TRAMADOL HCL 50 MG TAB PO PRN ×2 (09:14→21:41)
[2019-08-26] MEDS: DOCUSATE NA 100 MG CAP PO SCH ×3 (09:17→16:21)
--- NOTE | 2019-08-26 13:03 | RAD REPORT ---
EXAM DESCRIPTION: RAD - Ankle Right 2 View - 08/26/2019 12:57 pm CLINICAL HISTORY: Nontraumatic right ankle pain COMPARISON: None. FINDINGS: No fracture, dislocation or periosteal reaction. No joint effusion seen. Minimal tibiotala r joint space narrowing. Small plantar spur is present. Bones are osteopenic. Soft tissues are mildly prominent with the baseline the patient unknown. IMPRESSION: Mild soft tissue swelling. Osteopenic and degenerative bony changes. No fracture.
[2019-08-26] MEDS: AMIODARONE HCL 200 MG TAB PO SCH (16:21)
[2019-08-27 05:55] LABS: Phosphorus 3.3 mg/dL (2.5-4.9); Potassium 4.5 mmol/L (3.5-5.1)
[2019-08-27] MEDS: LEVOTHYROXINE SOD 0.088 MG TAB PO SCH (06:22)
[2019-08-27] MEDS: PANTOPRAZOLE 40MG TABLET PO SCH (06:22)
[2019-08-27] MEDS: LIOTHYRONINE SOD 5 MCG TAB PO SCH (06:22)
[2019-08-27] MEDS: MIDODRINE HCL 5 MG TABLET PO SCH (08:39)
[2019-08-27] MEDS: DOCUSATE NA 100 MG CAP PO SCH ×3 (08:39→16:47)
--- NOTE | 2019-08-27 11:08 | P.PN ---
Subjective Date of Service: 08/27/19 Primary Care Provider: Dr. Giles Chief Complaint: Right ankle pain and swelling Patient seen and examined at bedside. No family at bedside. Chart reviewed and case discussed with nursing staff. No acute events noted overnight Reports improved ankle pain and swelling Currently in dialysis. Still reports that she is unable to eat. No witnessed vomiting at this time. Complains of food getting stuck in her throat and mouth sores Review of Systems 10-point ROS is otherwise unremarkable Physical Examination - Vital Signs Temperature: 97 F Blood Pressure: 111/61 Pulse: 94 Respirations: 20 Pulse Ox (%): 97 - Physical Exam General: Alert, In no apparent distress, Other (weak) HEENT: Atraumatic, PERRLA, EOMI Neck: Supple, JVD not distended Respiratory: Clear to auscultation bilaterally, Normal air movement Cardiovascular: Regular rate/rhythm, Normal S1 S2 Gastrointestinal: Normal bowel sounds, No tenderness Musculoskeletal: No tenderness Integumentary: No rashes Neurological: Normal speech, Normal tone, Normal affect Lymphatics: No axilla or inguinal lymphadenopathy Assessment And Plan - Current Problems (Diagnosis) (1) Cellulitis Current Visit: Yes Status: Acute Plan: Patient with right lower extremity cellulitis and swelling -ultrasound negative for DVT bilaterally -continue IV antibiotics with vancomycin with dialysis, pharmacy to dose -demarcated area, continue to monitor. Erythema improved -no evidence of sepsis at this time. Will continue to monitor Qualifiers: Site of cellulitis: extremity Site of cellulitis of extremity: lower extremity Laterality: right Qualified Code(s): L03.115 - Cellulitis of right lower limb (2) Acute on chronic combined systolic (congestive) and diastolic (congestive) heart failure Onset Date: 03/04/17 Current Visit: No Status: Acute Plan: Echo from January 2019 reviewed, ejection fraction 79%, diastolic heart failure -will continue diuresis as tolerated due to her low blood pressures. -Will restart home medication -no need for a repeat echo at this time. If worsening volume overload, will repeat an echo -fluid restriction -daily weights (3) Anemia Current Visit: No Status: Chronic Plan: Patient with anemia , likely of chronic disease. Will monitor H&H. Transfuse to keep above 7 Qualifiers: Anemia type: due to chronic kidney disease Chronic kidney disease stage: on chronic dialysis Qualified Code(s): N18.6 - End stage renal disease; D63.1 - Anemia in chronic kidney disease; Z99.2 - Dependence on renal dialysis (4) Chronic atrial fibrillation Onset Date: 03/04/17 Current Visit: No Status: Chronic Plan: Stable, we will restart home medications (5) Chronic renal disease Current Visit: No Status: Chronic Plan: Patient with chronic renal disease, on dialysis Tuesday, and Tuesday. -Dialysis per nephrology, Dr. Lopez Qualifiers: Chronic kidney disease stage: on chronic dialysis Qualified Code(s): N18.6 - End stage renal disease; Z99.2 - Dependence on renal dialysis (6) Hypothyroidism Onset Date: 03/04/17 Current Visit: No Status: Chronic Plan: Stable, continue home medications Qualifiers: Hypothyroidism type: unspecified Qualified Code(s): E03.9 - Hypothyroidism , unspecified (7) Hypokalemia Current Visit: Yes Status: Resolved Plan: Resolved (8) Dysphagia Current Visit: Yes Status: Acute Plan: Patient complaining of food getting stuck in her throat, will go ahead and get MBS Qualifiers: Dysphagia type: unspecified Qualified Code(s): R13.10 - Dysphagia, unspecified (9) Debility Current Visit: Yes Status: Acute Plan: Patient will benefit from placement in SNF for further PT and rehabilitation - Plan DVT prophylaxis: Lovenox GI prophylaxis: None Diet: Renal Disposition: Pending symptomatic improvement. SW consulted for SNF placement
--- NOTE | 2019-08-27 11:54 | RAD REPORT ---
EXAM DESCRIPTION: RAD - Barium Swallow Modified - 08/27/2019 11:44 am CLINICAL HISTORY: Dysphagia COMPARISON: Abdomen Pelvis Wo Contrast dated 01/26/2019 TECHNIQUE: The patient was given liquid, semi-solid and solid forms of barium. Lateral view fluorosc opic imaging was performed in conjunction with speech pathology service. FINDINGS: PHARYNGEAL RESIDUE: VALLECULAR - MODERATE TO SEVERE WITH HONEY, MILD WITH ALL OTHER CONSIS TENCIES, PYRIFORM - MODERATE WITH HONEY, MILD WITH ALL OTHER CONSISTENCIES MILD REFLUX SEVERE CRICOPHARYNGEAL PROMINENCE OR OSTEOPHYTE AT C6- C7 Total fluoroscopy time: 4 minutes and 16 seconds
[2019-08-27] MEDS: ALBUMIN HUMAN 25% 50 ML IV SCH ×2 (12:13→13:00)
[2019-08-27] MEDS: AMIODARONE HCL 200 MG TAB PO SCH (16:47)
--- NOTE | 2019-08-27 16:51 | P.PN ---
Date of Service: 08/27/19 Vital Signs Temp Pulse Resp BP Pulse Ox 97 F 94 H 20 111/61 97 08/27/19 11:08 08/27/19 11:08 08/27/19 11:08 08/27/19 11:08 08/27/19 11:08 Medications Amiodarone HCl (Cordarone Tab) 200 mg PO 1600 [facility] Stop: 09/22/19 16:01 Last Admin: 08/27/19 16:47 Dose: 200 mg Diphenhydr/Magaldrate/Simeth/Lidoca (Magic Mouthwash) 15 ml PO QID PRN PRN Reason: SORE THROAT Stop: 09/26/19 10:04 Docusate Sodium (Colace Cap) 100 mg PO TIDWM [facility] Stop: 09/23/19 12:01 Last Admin: 08/27/19 16:47 Dose: 100 mg Fentanyl Citrate (Sublimaze) 25 mcg IV Q4H PRN PRN Reason: Pain scale 8-10 (Severe) Stop: 09/21/19 21:27 Last Admin: 08/22/19 22:17 Dose: 25 mcg Heparin Sodium (Porcine) (Heparin 1,000 Units/Ml) 6,000 unit IV EVERY HD PRN PRN Reason: FLUSH AFTER EACH USE Stop: 09/22/19 19:42 Last Admin: 08/27/19 12:14 Dose: 6,000 unit Albumin Human (Albumin 25%) 50 mls @ 100 mls/hr IV EVERY HD [facility] Stop: 09/22/19 20:01 Last Admin: 08/27/19 13:00 Dose: 50 mls Vancomycin HCl 500 mg/ Sodium (Chloride) 100 mls @ 100 mls/hr IVPB AFTER EACH DIALYSIS [facility] Stop: 09/23/19 14:16 Last Admin: 08/24/19 23:18 Dose: 100 mls Levothyroxine Sodium (Synthroid) 0.088 mg PO DAILYAC [facility] Stop: 09/22/19 06:31 Last Admin: 08/27/19 06:22 Dose: 0.088 mg Liothyronine Sodium (Cytomel) 5 mcg PO DAILYAC [facility] Stop: 09/25/19 06:31 Last Admin: 08/27/19 06:22 Dose: 5 mcg Mannitol (Mannitol 12.5 Gm/50 Ml Vial) 12.5 gm IV EVERY HD PRN PRN Reason: Titrate to SBP (MUST DEFINE) Stop: 09/22/19 19:42 Midodrine (Proamatine) 5 mg PO DAILY [facility] Stop: 09/22/19 09:01 Last Admin: 08/27/19 08:39 Dose: 5 mg Ondansetron HCl (Zofran) 4 mg IV Q4H PRN PRN Reason: NAUSEA / VOMITING Stop: 09/23/19 13:51 Last Admin: 08/24/19 21:28 Dose: 4 mg Pantoprazole Sodium (Protonix Tab) 40 mg PO DAILYAC [facility] Stop: 09/22/19 06:31 Last Admin: 08/27/19 06:22 Dose: 40 mg Sodium Chloride (Normal Saline Flush) 10 ml IV BID [facility] Stop: 09/21/19 21:01 Last Admin: 08/27/19 08:39 Dose: 10 ml Tramadol HCl (Ultram) 50 mg PO Q8H PRN PRN Reason: Pain scale 2-4 (Mild) Stop: 09/22/19 00:44 Last Admin: 08/26/19 21:41 Dose: 50 mg Microbiology Results 08/22/19 17:36 Blood - Blood Aerobic Blood Culture - Preliminary No growth in 24 hours. 08/22/19 17:36 Blood - Blood Anaerobic Blood Culture - Preliminary No growth in 24 hours. 08/22/19 17:00 Blood - Blood Aerobic Blood Culture - Preliminary No growth in 24 hours. 08/22/19 17:00 Blood - Blood Anaerobic Blood Culture - Final Assessment/ Plan: Nephrology. Persistent right foot pain. Tearful and upset she is unable to ambulate. CPS stable without CP or SOB. +VILLALOBOS Weakness and fatigue. No acute events overnight. Vitals, medications, blood work and imaging reviewed in the chart. General: In no apparent distress, Oriented x3, Cooperative HEENT: Mucous membr. moist/pink Neck: Supple Respiratory: Clear to auscultation bilaterally Cardiovascular: Regular rate/rhythm, No rubs, Edema Gastrointestinal: Soft and benign, Non-distended, No guarding Musculoskeletal: No clubbing, No contractures Integumentary: No cyanosis, Rash(es), Erythema Neurological: Normal speech Laboratory Data (last 24 hrs) 08/23/19 05:20: Sodium 136, Potassium 3.7, BUN 10, Creatinine 2.19 H, Glucose 100, Phosphorus 2.9, Total Bilirubin 1.0, AST 26, ALT 20, Alkaline Phosphatase 103 08/23/19 05:20: WBC 8.5, Hgb 11.0 L, Hct 31.7 L, Plt Count 201 Imagings Data: EXAM DESCRIPTION: [facility] Single View08/22/2019 6:53 pm CLINICAL HISTORY: Chest pain COMPARISON: January 2019 FINDINGS: Small bilateral pleural effusions The lungs appear clear of acute infiltrate. The heart is moderately enlarged. Postsurgical changes involve the chest. Central venous catheter has its tip in the superior vena cava IMPRESSION: Small bilateral pleural effusions Conclusions/Impression: A/ ESRD on HD. Diastolic CHF, chronic. HTN with CKD/ CHF. Anemia in CKD. Iron deficiency. Slow transit constipation. Right foot cellulitis. P/ Continue current POC and Medications. Next HD tomorrow. Low sodium diet. Continue abx. Pharmacy to renal dose. No NSAIDs. AM labs. Daily weight. Case discussed at length with the patient, her two daughters and the nurse. Greater than 35min patient care.
[2019-08-27] MEDS: TRAMADOL HCL 50 MG TAB PO PRN (23:18)
[2019-08-28] MEDS: MAGIC MOUTHWASH 180 ML BTL PO PRN ×3 (03:36→12:16)
[2019-08-28] MEDS: LIOTHYRONINE SOD 5 MCG TAB PO SCH (06:22)
[2019-08-28] MEDS: PANTOPRAZOLE 40MG TABLET PO SCH (06:22)
[2019-08-28] MEDS: LEVOTHYROXINE SOD 0.088 MG TAB PO SCH (06:22)
[2019-08-28] MEDS: MIDODRINE HCL 5 MG TABLET PO SCH (08:58)
[2019-08-28] MEDS: DOCUSATE NA 100 MG CAP PO SCH ×3 (08:58→17:00)
--- NOTE | 2019-08-28 12:14 | RAD REPORT ---
EXAM DESCRIPTION: RAD - Esophagram Only - 08/28/2019 12:07 pm CLINICAL HISTORY: Evaluate for esophageal motility and strictures COMPARISON: Barium Swallow Modified dated 08/27/2019 FINDINGS: An esophagram was performed and shows normal bolus formation and normal initiation of swal lowing. Some limitation in esophageal assessment due the patient's clinical status is present. Primar y peristalsis is normal with no intrinsic or extrinsic esophageal abnormalities. Total fluoroscopy time: 15 seconds Number of images acquired: 6 IMPRESSION: Unremarkable limited barium esophagram.
--- NOTE | 2019-08-28 12:35 | P.PN ---
Subjective Date of Service: 08/28/19 Primary Care Provider: Dr. Giles Chief Complaint: Right ankle pain and swelling Subjective: Other (Patient seen and evaluated with family present. Patient still reports some fatigue. Poor oral intake noted.) Physical Examination - Vital Signs Temperature: 97.6 F Blood Pressure: 112/55 Pulse: 88 Respirations: 17 Pulse Ox (%): 95 - Physical Exam General: Alert, In no apparent distress, Cooperative HEENT: Atraumatic Neck: Supple Respiratory: Clear to auscultation bilaterally, Normal air movement Cardiovascular: Normal pulses, Regular rate/rhythm Gastrointestinal: Normal bowel sounds, Soft and benign, Non-distended, No tenderness, No masses, No rebound, No guarding Musculoskeletal: Other (Erythema to the right lower extremity almost resolved. No significant edema to the lower extremity.) Neurological: Normal speech, Normal strength at 5/5 x4 extr, Normal tone, Normal affect - Studies Microbiology Data (last 24 hrs): 08/22/19 17:36 Blood - Blood Aerobic Blood Culture - Final No growth in 5 days. 08/22/19 17:36 Blood - Blood Anaerobic Blood Culture - Final No growth in 5 days. 08/22/19 17:00 Blood - Blood Aerobic Blood Culture - Final No growth in 5 days. 08/22/19 17:00 Blood - Blood Anaerobic Blood Culture - Final Medications List Reviewed: Yes Assessment & Plan Discharge Plan: Other (snf facility) Plan to discharge in: 24 Hours Physician Review Additional Text: Impression: Right lower extremity cellulitis Acute on chronic combined systolic/diastolic CHF Anemia of chronic disease Chronic atrial fibrillation not on chronic anti coagulation therapy End-stage renal disease on hemodialysis Hypothyroidism Dysphagia Debility Plan: Right lower extremity cellulitis: This continues to improve. Patient on IV antibiotic therapy at this time. Anticipate transition to oral medication likely tomorrow. Continue physical therapy and occupational therapy. Patient being assessed for skilled placement. Patient to have dysphagia evaluated. Advanced directives address in detail. Patient and medical power of real estate attorney have her do not intubate. Anticipate skilled placement in the next 1-2 days. Acute on chronic combined systolic/diastolic CHF: Currently stable this time. January 2019 echo shows ejection fraction 79%. Continue with current medication. Continue 1500 cc per day fluid restriction. Anemia of chronic disease: Overall stable. Will monitor closely. Chronic atrial fibrillation not on chronic anti coagulation therapy: Continue with home medication. Patient on DVT prophylaxis-heparin End-stage renal disease on hemodialysis: Continue with dialysis. Nephrology currently on the case. Patient gets dialysis every Tuesday, and Tuesday Hypothyroidism: Continue home medication. Dysphagia: Initial evaluation done yesterday. 2nd evaluation to be done today. Await recommendation. Debility: Continue physical therapy. Will monitor closely. Patient being evaluated for skilled placement. Time Spent Managing Pts Care (In Minutes): 55
[2019-08-28] MEDS: ALBUMIN HUMAN 25% 50 ML IV SCH (12:42)
[2019-08-28] MEDS: VANCOMYCIN 500 MG in NA CHLORIDE 0.9% 100 ML IVPB SCH (14:41)
[2019-08-28] MEDS: AMIODARONE HCL 200 MG TAB PO SCH (16:00)
--- NOTE | 2019-08-28 20:13 | P.PN ---
Date of Service: 08/28/19 Vital Signs Temp Pulse Resp BP Pulse Ox 97.6 F 90 18 88/49 L 96 08/28/19 16:00 08/28/19 16:00 08/28/19 16:00 08/28/19 16:00 08/28/19 16:00 Medications Amiodarone HCl (Cordarone Tab) 200 mg PO 1600 [facility] Stop: 09/22/19 16:01 Last Admin: 08/28/19 16:00 Dose: Not Given Diphenhydr/Magaldrate/Simeth/Lidoca (Magic Mouthwash) 15 ml PO QID PRN PRN Reason: SORE THROAT Stop: 09/26/19 10:04 Last Admin: 08/28/19 12:16 Dose: 15 ml Docusate Sodium (Colace Cap) 100 mg PO TIDWM [facility] Stop: 09/23/19 12:01 Last Admin: 08/28/19 17:00 Dose: Not Given Fentanyl Citrate (Sublimaze) 25 mcg IV Q4H PRN PRN Reason: Pain scale 8-10 (Severe) Stop: 09/21/19 21:27 Last Admin: 08/22/19 22:17 Dose: 25 mcg Heparin Sodium (Porcine) (Heparin 1,000 Units/Ml) 6,000 unit IV EVERY HD PRN PRN Reason: FLUSH AFTER EACH USE Stop: 09/22/19 19:42 Last Admin: 08/27/19 12:14 Dose: 6,000 unit Heparin Sodium (Porcine) (Heparin 1,000 Units/Ml) 2,000 unit IV EVERY HD [facility] Stop: 09/06/19 12:01 Last Admin: 08/28/19 12:40 Dose: 2,000 unit Albumin Human (Albumin 25%) 50 mls @ 100 mls/hr IV EVERY HD [facility] Stop: 09/22/19 20:01 Last Admin: 08/28/19 12:42 Dose: 50 mls Vancomycin HCl 500 mg/ Sodium (Chloride) 100 mls @ 100 mls/hr IVPB AFTER EACH DIALYSIS [facility] Stop: 09/23/19 14:16 Last Admin: 08/28/19 14:41 Dose: 100 mls Levothyroxine Sodium (Synthroid) 0.088 mg PO DAILYAC [facility] Stop: 09/22/19 06:31 Last Admin: 08/28/19 06:22 Dose: 0.088 mg Liothyronine Sodium (Cytomel) 5 mcg PO DAILYAC [facility] Stop: 09/25/19 06:31 Last Admin: 08/28/19 06:22 Dose: 5 mcg Mannitol (Mannitol 12.5 Gm/50 Ml Vial) 12.5 gm IV EVERY HD PRN PRN Reason: Titrate to SBP (MUST DEFINE) Stop: 09/22/19 19:42 Midodrine (Proamatine) 5 mg PO DAILY [facility] Stop: 09/22/19 09:01 Last Admin: 08/28/19 08:58 Dose: 5 mg Nutritional Formula (Promod Liquid Protein) 30 ml PO BID [facility] Stop: 09/27/19 21:01 Ondansetron HCl (Zofran) 4 mg IV Q4H PRN PRN Reason: NAUSEA / VOMITING Stop: 09/23/19 13:51 Last Admin: 08/24/19 21:28 Dose: 4 mg Pantoprazole Sodium (Protonix Tab) 40 mg PO DAILYAC [facility] Stop: 09/22/19 06:31 Last Admin: 08/28/19 06:22 Dose: 40 mg Sodium Chloride (Normal Saline Flush) 10 ml IV BID [facility] Stop: 09/21/19 21:01 Last Admin: 08/28/19 08:57 Dose: 10 ml Tramadol HCl (Ultram) 50 mg PO Q8H PRN PRN Reason: Pain scale 2-4 (Mild) Stop: 09/22/19 00:44 Last Admin: 08/27/19 23:18 Dose: 50 mg Microbiology Results 08/22/19 17:36 Blood - Blood Aerobic Blood Culture - Final No growth in 5 days. 08/22/19 17:36 Blood - Blood Anaerobic Blood Culture - Final No growth in 5 days. 08/22/19 17:00 Blood - Blood Aerobic Blood Culture - Final No growth in 5 days. 08/22/19 17:00 Blood - Blood Anaerobic Blood Culture - Final Assessment/ Plan: Nephrology. Improving right foot pain. CPS stable without CP or SOB. +VILLALOBOS Weakness and fatigue. Appetite improving. No acute events overnight. Hypotension with HD today. Vitals, medications, blood work and imaging reviewed in the chart. General: In no apparent distress, Oriented x3, Cooperative HEENT: Mucous membr. moist/pink Neck: Supple Respiratory: Clear to auscultation bilaterally Cardiovascular: Regular rate/rhythm, No rubs, Edema Gastrointestinal: Soft and benign, Non-distended, No guarding Musculoskeletal: No clubbing, No contractures Integumentary: No cyanosis, Rash(es), Erythema Neurological: Normal speech Laboratory Data (last 24 hrs) 08/23/19 05:20: Sodium 136, Potassium 3.7, BUN 10, Creatinine 2.19 H, Glucose 100, Phosphorus 2.9, Total Bilirubin 1.0, AST 26, ALT 20, Alkaline Phosphatase 103 08/23/19 05:20: WBC 8.5, Hgb 11.0 L, Hct 31.7 L, Plt Count 201 Imagings Data: [facility] pm CLINICAL HISTORY: Chest pain COMPARISON: January 2019 FINDINGS: Small bilateral pleural effusions The lungs appear clear of acute infiltrate. The heart is moderately enlarged. Postsurgical changes involve the chest. Central venous catheter has its tip in the superior vena cava IMPRESSION: Small bilateral pleural effusions Conclusions/Impression: A/ ESRD on HD. Systolic Diastolic CHF, chronic. HTN with CKD/ CHF. Anemia in CKD. Iron deficiency. Slow transit constipation. Right foot cellulitis. P/ Continue current POC and Medications. Next HD . Low sodium diet. Continue abx. No NSAIDs. AM labs. Daily weight.
[2019-08-28] MEDS: PROMOD 30 ML DOSE PO SCH (21:00)
[2019-08-29] MEDS: FENTANYL CITR 100 MCG/2 ML IV PRN (03:54)
[2019-08-29] MEDS: PANTOPRAZOLE 40MG TABLET PO SCH (06:45)
[2019-08-29] MEDS: TRAMADOL HCL 50 MG TAB PO PRN (06:45)
[2019-08-29] MEDS: LEVOTHYROXINE SOD 0.088 MG TAB PO SCH (06:45)
[2019-08-29] MEDS: LIOTHYRONINE SOD 5 MCG TAB PO SCH (06:45)
[2019-08-29] MEDS: DOCUSATE NA 100 MG CAP PO SCH ×2 (08:00→11:28)
[2019-08-29 08:56] VITALS: O2SAT 97
[2019-08-29] MEDS: PROMOD 30 ML DOSE PO SCH (09:00)
[2019-08-29] MEDS: MIDODRINE HCL 5 MG TABLET PO SCH (09:34)
--- NOTE | 2019-08-29 11:36 | P.DS ---
Admission Date: 08/23/19 Discharge Date: 08/29/19 Primary Care Provider: Dr. Giles Disposition: TRANSFER TO SNF - MEDICAL Discharge Condition: GOOD Reason for Admission: Right ankle pain and swelling Consultations: Nephrology-Dr. Lopez Procedures: CXR: FINDINGS: Small bilateral pleural effusions The lungs appear clear of acute infiltrate. The heart is moderately enlarged. Postsurgical changes involve the chest. Central venous catheter has its tip in the superior vena cava IMPRESSION: Small bilateral pleural effusions Venous doppler: FINDINGS: The common femoral, superficial femoral, popliteal and posterior tibial veins bilaterally are compressible and demonstrate augmentation. Doppler demonstrates good flow. IMPRESSION: No evidence of deep venous thrombosis involving either lower extremity. Speech recommendation: Modified Barium Swallow Study Moderate-severe oral dysphagia characterized by abnormal oral hold (9 sec with thin by tsp, 2 sec with thin by cup, 1 sec with thin by straw, 10 sec with nectar by cup, 10 sec with honey, 60+ sec with pudding, and 14 sec with chewable solid), delayed oral transit time (9 sec with thin by tsp, 3 sec with thin by cup, 1 sec with thin by straw, 6 sec with nectar, 10 sec with honey, 10 sec with pudding, and 8 sec with chewable solid). Mild pharyngeal dysphagia characterized by 1 sec swallow delay, mild residue in the valleculae and pyriform sinuses, and reduced hyolaryngeal protraction and elevation. Severe osteophyte/prominent cricopharyngeus muscle decreasing pharyngeal space. Mild esophageal dysphagia characterized by severe prominence of cricopharyngeus or severe osteophyte at c6-c7. Diet Recommendations: Mechanical soft solids, thin liquids, crushed medications NO PENETRATION OR ASPIRATION OCCURRED DURING THE STUDY. Swallow Strategies: Sit upright, small bites, small sips, alternate bites/sips, multiple swallows. Recommended Consults/Referrals: outpatient ENT/GI consult [facility] will see patient 2-3x/wk for dysphagia tx. Results/recommendations were given to patient, patient's daughter, and nurse; all verbalized comprehension. Medical problem list: Right lower extremity cellulitis Acute on chronic combined systolic/diastolic CHF Anemia of chronic disease Chronic atrial fibrillation not on chronic anti coagulation therapy End-stage renal disease on hemodialysis Hypothyroidism Dysphagia Debility Brief History of Present Illness: 84 yo CF presented to the ER with cellulitis to the right lower ext. She was admitted for treatment. She has multiple chronic diseases including: ESRD on dialysis, atrial fibrillation and CHF. Hospital Course: Patient presented with right lower extremity cellulitis. Patient was placed on IV antibiotic therapy. This improved. At discharge patient will continue with doxycycline 100 mg 1 pill twice daily for 7 days. Patient will be transferred to skilled facility to continue rehabilitation. Patient with underlying acute on chronic combined systolic/diastolic CHF. Chest x-ray showed small bilateral pleural effusions. This is likely chronic. Patient will continue with 1500 cc per day fluid restriction. Patient will continue with oxygen to maintain sats above 93%. Nephrology is to monitor fluid intake and output. Patient has end-stage renal disease on hemodialysis. Nephrology was consulted during her stay to continue dialysis. At discharge patient will continue with dialysis every Tuesday, and Tuesday. Patient with hypothyroidism. At discharge she will continue with medication. Patient was noted to have some dysphagia. Patient seen and evaluated by speech therapy. No aspiration identified. Patient will continue with current recommendations by speech. This includes mechanical soft solids, thin liquids and crushed medications. Swallow strategies include sit upright, small bites, small sips, alternate bites/sips, and multiple swallows. Recommendation is to follow up with ENT or GI as an outpatient to further monitor. Speech recommends to continue with dysphagia treatment and follow up with speech therapy. Vital Signs/Physical Exam: Temp Pulse Resp BP Pulse Ox 97.0 F 101 H 15 102/56 L 97 08/29/19 08:00 08/29/19 08:00 08/29/19 08:00 08/29/19 08:00 08/29/19 08:00 General: Alert, In no apparent distress, Oriented x3, Cooperative HEENT: Atraumatic Neck: Supple Respiratory: Clear to auscultation bilaterally, Normal air movement Cardiovascular: Irregular heart rate/rhythm (atrial fibrillation rate controlled. ) Gastrointestinal: Normal bowel sounds, Soft and benign, Non-distended Musculoskeletal: No erythema, No tenderness, No warmth Integumentary: No tenderness/swelling, No erythema, No warmth, No cyanosis Neurological: Normal speech, Normal strength at 5/5 x4 extr, Normal tone, Normal affect Laboratory Data at Discharge: WBC 8.3 K/uL (4.3-10.9) 08/25/19 05:50 Hgb 11.7 g/dL (12.0-15.0) L 08/25/19 05:50 Hct 35.5 % (36.0-45.0) L 08/25/19 05:50 Plt Count 237 K/uL (152-406) 08/25/19 05:50 PT 13.9 SECONDS (9.5-12.5) H 08/22/19 17:36 INR 1.19 08/22/19 17:36 Sodium 135 mmol/L (136-145) L 08/27/19 05:12 Potassium 4.5 mmol/L (3.5-5.1) 08/27/19 05:12 BUN 20 mg/dL (7-18) H 08/27/19 05:12 Creatinine 3.55 mg/dL (0.55-1.3) H D 08/27/19 05:12 Glucose 112 mg/dL (74-106) H 08/27/19 05:12 Phosphorus 3.3 mg/dL (2.5-4.9) 08/27/19 05:12 Magnesium 2.2 mg/dL (1.8-2.4) 08/26/19 05:35 Total Bilirubin 1.1 mg/dL (0.2-1.0) H 08/25/19 05:50 AST 20 U/L (15-37) 08/25/19 05:50 ALT 17 U/L (12-78) 08/25/19 05:50 Alkaline Phosphatase 99 U/L (45-117) 08/25/19 05:50 Home Medications: Amiodarone HCl [Cordarone*] 200 mg PO 1600 08/22/19 Levothyroxine Sodium 1 tab PO 0900 08/22/19 Liothyronine Sodium [Cytomel] 5 mcg PO DAILY 08/22/19 Midodrine HCl [Proamatine*] 1 tab PO DAILY 08/22/19 Pantoprazole Sodium [Protonix] 1 tab PO 1600 08/22/19 Polyethylene Glycol 3350 [Miralax] 1 gm PO DAILY PRN 08/22/19 traMADol HCL [Ultram*] 50 mg PO Q8H PRN 08/22/19 Docusate [Colace Cap*] 100 mg PO BID PRN #30 cap 08/29/19 New Medications: Docusate [Colace Cap*] 100 mg PO BID PRN #30 cap PRN Reason: Constipation Patient Discharge Instructions: 1. Transfer to SNF. 2. Patient presented with right lower extremity cellulitis. Patient was placed on IV antibiotic therapy. This improved. At discharge patient will continue with doxycycline 100 mg 1 pill twice daily for 7 days. Patient will be transferred to skilled facility to continue rehabilitation. 3. Patient with underlying acute on chronic combined systolic/diastolic CHF. Chest x-ray showed small bilateral pleural effusions. This is likely chronic. Patient will continue with 1500 cc per day fluid restriction. Patient will continue with oxygen to maintain sats above 93%. Nephrology is to monitor fluid intake and output. 4. Patient has end-stage renal disease on hemodialysis. Nephrology was consulted during her stay to continue dialysis. At discharge patient will continue with dialysis every Tuesday, and Tuesday. 5. Patient with hypothyroidism. At discharge she will continue with medication. 6. Patient was noted to have some dysphagia. Patient seen and evaluated by speech therapy. No aspiration identified. Patient will continue with current recommendations by speech. This includes mechanical soft solids, thin liquids and crushed medications. Swallow strategies include sit upright, small bites, small sips, alternate bites/sips, and multiple swallows. Recommendation is to follow up with ENT or GI as an outpatient to further monitor. Speech recommends to continue with dysphagia treatment and follow up with speech therapy. Diet: Renal Activity: Fall precautions Time spent managing pt's care (in minutes): 55
[2019-08-29 13:30] VITALS: BP 99/56; TEMP 97.2
[2019-08-29 20:41] LABS: HBsAG Nonreactive (Nonreactive)
[2019-08-29] MEDS ORDERED: DOXYCYCLINE 100 MG CAP PO SCH (21:00)
== END 2019-08-29 15:10 | DRG 602 ==
LOC: ER 16:05 → ERHOLD 18:50 → 2ND 20:05 → OBSVTOIN 08-23 08:35
PROVIDERS: ADMIT Family Medicine; ATTEND Family Medicine
DX: L03.115 Cellulitis of right lower limb (principal); I50.43 Acute on chronic combined systolic (congestive) and diastolic (congestive) heart failure; N18.6 End stage renal disease; I13.2 Hypertensive heart and chronic kidney disease with heart failure and with stage 5 chronic kidney disease, or end stage renal disease; I48.20 Chronic atrial fibrillation, unspecified; E87.6 Hypokalemia; D63.1 Anemia in chronic kidney disease; E03.9 Hypothyroidism, unspecified; K59.01 Slow transit constipation; R13.11 Dysphagia, oral phase; R53.81 Other malaise; Z99.2 Dependence on renal dialysis
CPT/HCPCS: 36415; 71045; 74220; 74230; 80048; 80053; 80076; 80202; 82962; 83605; 83735; 83880; 84100; 84145; 84484; 85025; 85610; 86317; 86704; 86706; 87040; 87340; 90935; 92611; 93005; 93970; 94760; 96365; 96367; 97116; 97161; 97530; 99285; G0378; J0692; J1644; J2405; J3010; J7030; P9047

== ENCOUNTER 2019-09-06 03:57 | Inpatient (IN) | payer OTHER, MEDICARE ==
[2019-09-06] MEDS ORDERED: NA CHLORIDE 0.9% 500 ML ONE (04:24)
[2019-09-06] MEDS ORDERED: IPRATROPIUM BROM 0.5MG/2.5ML NEB PRN (05:36)
[2019-09-06] MEDS ORDERED: ALBUTEROL 2.5 MG/3 ML NEB SOL NEB PRN ×2 (05:36→15:00)
[2019-09-06] MEDS ORDERED: ACETAMINOPHEN 500 MG TAB PO PRN (05:36)
[2019-09-06] MEDS ORDERED: ONDANSETRON 4 MG/2 ML VIAL IV PRN (05:36)
--- NOTE | 2019-09-06 05:36 | EDPHYS ---
Physician Documentation [facility] Name: Debby Gaitan Age: 84 yrs Sex: Female : 1935 Arrival Date: 09/06/2019 Time: 03:58 Bed 3 Private MD: ED Physician Armand Colby HPI: 09/06 05:28 This 84 yrs old Female presents to ER via EMS with complaints of Breathing gs Difficulty. 05:28 The patient has shortness of breath at rest. Onset: The symptoms/episode began/occurred gs yesterday. Duration: The symptoms are continuous. The patient's shortness of breath has no apparent modifying factors. Unable to obtain HPI due to baseline dementia. Historical: - Allergies: 04:00 Aspirin; cc3 04:00 blood thinners; cc3 04:00 Codeine; cc3 04:00 Hydrocodone-Acetaminophen; cc3 04:00 PENICILLINS; cc3 04:00 Sulfa (Sulfonamide Antibiotics); cc3 04:00 Tape (All Except Paper); cc3 04:00 Xarelto; cc3 - Home Meds: 04:00 amiodarone 200 mg Oral tab 1 tab once daily [Active]; atorvastatin 20 mg Oral tab 1 tab cc3 once daily [Active]; Colace 50 mg Oral cap 1 cap as needed [Active]; levothyroxine 88 mcg tab 1 tab once daily [Active]; liothyronine 5 mcg Oral tab 1 tab once daily [Active]; Miralax 17 gram/dose Oral powd as needed [Active]; Protonix 20 mg Oral TbEC 1 tab once daily [Active]; tramadol 50 mg Oral tab 1 tab 8 hrs prn [Active]; - PMHx: 04:00 Anemia; Atrial Fib; Cancer, Cervical 1990; CHF; Diabetes - NIDDM; High Cholesterol; cc3 - Immunization history:: Adult Immunizations up to date. - Social history:: Smoking status: Patient/guardian denies using tobacco, the patient reports quitting approximately 30 years ago. - Ebola Screening: : No symptoms or risks identified at this time. - Code Status:: DNAR. ROS: 05:28 Unable to obtain ROS due to baseline dementia. gs Exam: 05:28 Head/Face: Normocephalic, atraumatic. Eyes: Pupils equal round and reactive to light, gs extra-ocular motions intact. Lids and lashes normal. Conjunctiva and sclera are non-icteric and not injected. Cornea within normal limits. Periorbital areas with no swelling, redness, or edema. ENT: Nares patent. No nasal discharge, no septal abnormalities noted. Tympanic membranes are normal and external auditory canals are clear. Oropharynx with no redness, swelling, or masses, exudates, or evidence of obstruction, uvula midline. Mucous membranes moist. Neck: Trachea midline, no thyromegaly or masses palpated, and no cervical lymphadenopathy. Supple, full range of motion without nuchal rigidity, or vertebral point tenderness. No Meningismus. Chest/axilla: Normal chest wall appearance and motion. Nontender with no deformity. No lesions are appreciated. Abdomen/GI: Soft, non-tender, with normal bowel sounds. No distension or tympany. No guarding or rebound. No evidence of tenderness throughout. Back: No spinal tenderness. No costovertebral tenderness. Full range of motion. Skin: Warm, dry with normal turgor. Normal color with no rashes, no lesions, and no evidence of cellulitis. MS/ Extremity: Pulses equal, no cyanosis. Neurovascular intact. Full, normal range of motion. 05:28 Constitutional: The patient appears awake. 05:28 Cardiovascular: Rate: tachycardic, Rhythm: regular, Pulses: no pulse deficits are appreciated. 05:28 ECG was reviewed by the Attending Physician. 05:28 Neuro: Mentation: responsive to voice slow to respond, Motor: moves all fours. Vital Signs: 04:00 BP 125 / 69; Pulse 105; Resp 26 S; Temp 96.7(TE); Pulse Ox 92% on 3 lpm NC; Weight 63.5 cc3 kg (R); Height 5 ft. 2 in. (157.48 cm) (R); 05:15 BP 113 / 63; Pulse 90; Resp 17 S; Pulse Ox 83% on Non-rebreather mask; cc3 05:30 BP 107 / 64; Pulse 99; Resp 16 S; Pulse Ox 99% on 75% BiPAP; cc3 06:02 BP 101 / 69; Pulse 97; Resp 16 S; Pulse Ox 97% on 75% BiPAP; cc3 06:30 BP 100 / 60; Pulse 98; Resp 19 S; Pulse Ox 100% on 75% BiPAP; cc3 07:13 BP 97 / 61; Pulse 97; Resp 20; Temp 97.0; Pulse Ox 100% on 75% BiPAP; sg 07:59 BP 88 / 60; Pulse 95; Resp 19; Pulse Ox 100% on 75% BiPAP; sg 08:19 BP 108 / 59; Pulse 99; Resp 16; Pulse Ox 96% on 100% Non-rebreather mask; ph 08:50 BP 97 / 50; Pulse 94; Resp 14; Temp 97.0(TE); Pulse Ox 100% on 100% Non-rebreather mask;ph 04:00 Body Mass Index 25.61 (63.50 kg, 157.48 cm) cc3 06:30 on BiPAp 27/05 cc3 MDM: 04:17 Patient medically screened. gs 05:28 Differential diagnosis: CHF exacerbation, Chronic Obstructive Pulmonary Disease gs Myocardial Infarction pneumonia, pulmonary edema. Data reviewed: vital signs, nurses notes, old medical records. Counseling: I had a detailed discussion with the patient and/or guardian regarding: the historical points, exam findings, and any diagnostic results supporting the discharge/admit diagnosis, lab results, radiology results, the need for further work-up and treatment in the hospital. 09/06 04:18 Order name: Basic Metabolic Panel 09/06 04:18 Order name: Blood Culture Adult (2) 09/06 04:18 Order name: CBC with Diff; Complete Time: : gs 09/06 04:18 Order name: CPK; Complete Time: 09: gs 09/06 04:18 Order name: Lactate; Complete Time: 09: 09/06 04:18 Order name: LFT's; Complete Time: 09: 09/06 04:18 Order name: Lipase; Complete Time: 09: gs 09/06 04:18 Order name: Procalcitonin; Complete Time: 09: gs 09/06 04:18 Order name: Protime (+inr); Complete Time: 09: 09/06 04:18 Order name: Troponin (emerg Dept Use Only); Complete Time: 09:17 gs 09/06 04:18 Order name: Urine Microscopic Only 09/06 04:20 Order name: Basic Metabolic Panel; Complete Time: 09:17 EDMS 09/06 04:41 Order name: Glucose, Ancillary Testing; Complete Time: 05:37 EDMS 09/06 06:45 Order name: Manual Differential; Complete Time: 09:17 EDMS 09/06 04:18 Order name: Chest Single View XRAY; Complete Time: 09:17 09/06 04:18 Order name: Accucheck; Complete Time: 04:36 gs 09/06 04:18 Order name: Cardiac monitoring; Complete Time: 04:22 gs 09/06 04:18 Order name: EKG - Nurse/Tech; Complete Time: 04:22 gs 09/06 04:18 Order name: Labs collected and sent; Complete Time: 06:29 gs 09/06 04:18 Order name: O2 Per Protocol; Complete Time: 04:22 gs 09/06 04:18 Order name: O2 Sat Monitoring; Complete Time: 04:22 09/06 05:41 Order name: CONS Physician Consult EDNY 09/06 05:41 Order name: Heart Healthy EDMS 09/06 05:41 Order name: CONS Physician Consult EDMS 09/06 05:44 Order name: CONS Physician Consult EDMS EC:28 Rate is 104 beats/min. Rhythm is regular. QRS interval is prolonged. QT interval is gs prolonged. Clinical impression: Atrial Fibrillation. Interpreted by me. Administered Medications: 06:05 Not Given (Physician Discretion): NS 0.9% 500 ml IV at bolus once tl1 06:07 Drug: NS 0.9% 500 ml Route: IV; Rate: TKO; Site: Other; tl1 06:10 Drug: Cefepime 1 grams Route: IVPB; Rate: 200 ml/hr; Infused Over: 30 mins; Site: Other;cc3 07:12 Follow up: Response: No adverse reaction; IV Status: Completed infusion sg Disposition: 09/06/19 05:35 Hospitalization ordered by Carolynn Souza for Inpatient Admission. Preliminary diagnosis are Acute respiratory failure, Pulmonary edema, Lobar pneumonia, unspecified organism. - Bed requested for Intensive Care Unit. - Status is Inpatient Admission. sg - Condition is Stable. - Problem is new. - Symptoms have improved. UTI on Admission? No Signatures: Dispatcher [employer] EDNY Quynh Acosta RN RN mw Woody, Diana, RN RN dw Gay, Steven, RN RN Srinivasan Lizama PA PA [id number] Ethel Hernandez RN RN tl1 Armand Colby MD MD Lenora Tobar cc3 Corrections: (The following items were deleted from the chart) 05:52 05:35 Hospitalization Ordered by Carolynn Souza MD for Inpatient Admission. Preliminary mw diagnosis is Acute respiratory failure; Pulmonary edema; Lobar pneumonia, unspecified organism. Bed requested for Telemetry/MedSurg (Inpatient). Status is Inpatient Admission. Condition is Stable. Problem is new. Symptoms have improved. UTI on Admission? No. gs 08:49 05:52 09/06/2019 05:35 Hospitalization Ordered by Carolynn Souza MD for Inpatient dw Admission. Preliminary diagnosis is Acute respiratory failure; Pulmonary edema; Lobar pneumonia, unspecified organism. Bed requested for Telemetry/MedSurg (Inpatient). Status is Inpatient Admission. Condition is Stable. Problem is new. Symptoms have improved. UTI on Admission? No. mw 09:16 08:49 09/06/2019 05:35 Hospitalization Ordered by Carolynn Souza MD for Inpatient sg Admission. Preliminary diagnosis is Acute respiratory failure; Pulmonary edema; Lobar pneumonia, unspecified organism. Bed requested for Intensive Care Unit. Status is Inpatient Admission. Condition is Stable. Problem is new. Symptoms have improved. UTI on Admission? No. dw
--- NOTE | 2019-09-06 05:36 | ER ---
Nurse's Notes [facility] Name: Debby Gaitan Age: 84 yrs Sex: Female : 1935 Arrival Date: 09/06/2019 Time: 03:58 Bed 3 Private MD: Diagnosis: Acute respiratory failure;Pulmonary edema;Lobar pneumonia, unspecified organism Presentation: 09/06 04:00 Presenting complaint: EMS states: "We were toned for respiratory distress that the cc3 nurses from [facility] noticed since 0320H this morning" Patient's daughter said the patient was admitted here 2 weeks ago and was not eating well since she was discharged from here. Transition of care: [facility]. Onset of symptoms was September 06, 2019 at 03:20. Risk Assessment: Do you want to hurt yourself or someone else? Patient reports no desire to harm self or others. Initial Sepsis Screen: Does the patient meet any 2 criteria? RR > 20 per min. HR > 90 bpm. Yes Does the patient have a suspected source of infection? Yes: Skin breakdown/wound. Care prior to arrival: Medication(s) given: Albuterol Neb x 1, Atrovent Neb x 1. 04:00 Method Of Arrival: EMS: [facility] cc3 04:00 Acuity: ALEJANDRO 1 cc3 Triage Assessment: 04:00 General: Appears distressed, uncomfortable, Behavior is calm, cooperative, appropriate cc3 for age. Pain: Denies pain. EENT: No signs and/or symptoms were reported regarding the EENT system. Neuro: Level of Consciousness is awake, alert, obeys commands, Oriented to person, place, time, situation, Appropriate for age. Cardiovascular: Heart tones S1 S2 present Capillary refill < 3 seconds in bilateral fingers Patient's skin is warm and dry. Respiratory: Reports shortness of breath at rest on exertion since this morning Airway is patent Respiratory effort is even, labored, Respiratory pattern is tachypnea Onset: The symptoms/episode began/occurred this morning, the patient has severe shortness of breath. GI: Abdomen is round non-distended, Bowel sounds present X 4 quads. : No signs and/or symptoms were reported regarding the genitourinary system. Derm: Skin is fragile, is thin, Bruising that is dark purple, on on bilateral forearms, left lower leg Decubitus located on sacrum. Musculoskeletal: Range of motion: limited in lower limbs. Historical: - Allergies: 04:00 Aspirin; cc3 04:00 blood thinners; cc3 04:00 Codeine; cc3 04:00 Hydrocodone-Acetaminophen; cc3 04:00 PENICILLINS; cc3 04:00 Sulfa (Sulfonamide Antibiotics); cc3 04:00 Tape (All Except Paper); cc3 04:00 Xarelto; cc3 - Home Meds: 04:00 amiodarone 200 mg Oral tab 1 tab once daily [Active]; atorvastatin 20 mg Oral tab 1 tab cc3 once daily [Active]; Colace 50 mg Oral cap 1 cap as needed [Active]; levothyroxine 88 mcg tab 1 tab once daily [Active]; liothyronine 5 mcg Oral tab 1 tab once daily [Active]; Miralax 17 gram/dose Oral powd as needed [Active]; Protonix 20 mg Oral TbEC 1 tab once daily [Active]; tramadol 50 mg Oral tab 1 tab 8 hrs prn [Active]; - PMHx: 04:00 Anemia; Atrial Fib; Cancer, Cervical 1990; CHF; Diabetes - NIDDM; High Cholesterol; cc3 - Immunization history:: Adult Immunizations up to date. - Social history:: Smoking status: Patient/guardian denies using tobacco, the patient reports quitting approximately 30 years ago. - Ebola Screening: : No symptoms or risks identified at this time. - Code Status:: DNAR. Screenin:00 Abuse screen: Denies threats or abuse. Denies injuries from another. Nutritional cc3 screening: No deficits noted. Tuberculosis screening: No symptoms or risk factors identified. Fall Risk Ambulatory Aid- None/Bed Rest/Nurse Assist (0 pts). Gait- Impaired (20 pts.). Mental Status- Oriented to own ability (0 pts). Assessment: 04:00 Reassessment: see triage note assessment. cc3 04:00 Cardiovascular: Rhythm is atrial fibrillation. cc3 04:00 Respiratory: Airway is patent Respiratory effort is even, labored, Respiratory pattern cc3 is tachypnea. 05:15 Reassessment: No changes from previously documented assessment. Patient and/or family cc3 updated on plan of care and expected duration. Pain level reassessed. Patient's oxygen saturation is 83% on NRB, informed Dr. Colby and he ordered for BiPap, respiratory therapist informed. 05:30 Reassessment: RT came and put the patient on 14/7 BiPAp with FiO2 75%, now patient cc3 saturating 99%. 05:40 Reassessment: Patient's daughters said the patient no longer pass normal urine and it cc3 dribbles, asked them if they agree for a straight catheter or a clark's cath to be put in place for urine collection but they refused, Dr. Colby informed. 05:45 Reassessment:. tl1 05:46 Reassessment: Dr Lopez contacted to receive permission to us dialysis port to draw tl1 labs. Dr Larsen sanitation supervisor and gave permission to use to dialysis port to draw labs. 06:35 Reassessment: Patient appears in no apparent distress at this time. Patient and/or cc3 family updated on plan of care and expected duration. Pain level reassessed. Patient for admission, Dr. Souza assessing the patient at bedside. 07:00 Reassessment: pt family updated that pt to be admitted after shift report upstairs, sg stated understanding. 07:10 General: Appears in no apparent distress. Behavior is cooperative. Neuro: Level of sg Consciousness is awake, obeys commands, confused, Oriented to person, situation, Speech is normal, Facial symmetry appears normal. Cardiovascular: Capillary refill is sluggish in bilateral fingers. Respiratory: Airway is patent Respiratory effort is even, labored, Respiratory pattern is tachypnea pt continues to be on BiPap at this time, reports "dont like this mask.", family encouraged to speak with about removing BiPap, notified of pt request to remove the BiPap. GI: Abdomen is flat, non-distended. : No signs and/or symptoms were reported regarding the genitourinary system. Derm: Skin is pink, warm \\T\\ dry. red blanchable areas to sacral area noted Decubitus located on bilateral heel(s) approximately 1.5 cm to 2.5 cm is stage I is draining none noted. Musculoskeletal: Circulation, motion, and sensation intact. 07:29 Reassessment: speaking with pt family at this time in regards to the swallow sg study and patient pocketing food, discussing future plans for POC at this time. 07:55 Reassessment: Patient appears in no apparent distress at this time. report called to marty Esparza RN. 07:59 Reassessment: pt to go to ICU per pt family. awaiting new orders for admit to ICU. sg 08:08 Reassessment: Patient appears in no apparent distress at this time. at bedside, sg pt to be a DNAR at this time per and pt family. 08:11 Reassessment: Patient appears in no apparent distress at this time. Patient and/or ph family updated on plan of care and expected duration. Pain level reassessed. Pt c/o pain w/ bi-pap mask, mask removed per request of pt and family, placed on NRB mask, Dr Souza aware, goal to maintain saturation above 90%. 08:56 Reassessment: Srinivasan WEAVER hospitalist notified to change pt DNR status, notified sg status is still Full Code, pt to be DNAR, Srinivasan reports he will change the order in [employer]. Vital Signs: 04:00 BP 125 / 69; Pulse 105; Resp 26 S; Temp 96.7(TE); Pulse Ox 92% on 3 lpm NC; Weight 63.5 cc3 kg (R); Height 5 ft. 2 in. (157.48 cm) (R); 05:15 BP 113 / 63; Pulse 90; Resp 17 S; Pulse Ox 83% on Non-rebreather mask; cc3 05:30 BP 107 / 64; Pulse 99; Resp 16 S; Pulse Ox 99% on 75% BiPAP; cc3 06:02 BP 101 / 69; Pulse 97; Resp 16 S; Pulse Ox 97% on 75% BiPAP; cc3 06:30 BP 100 / 60; Pulse 98; Resp 19 S; Pulse Ox 100% on 75% BiPAP; cc3 07:13 BP 97 / 61; Pulse 97; Resp 20; Temp 97.0; Pulse Ox 100% on 75% BiPAP; sg 07:59 BP 88 / 60; Pulse 95; Resp 19; Pulse Ox 100% on 75% BiPAP; sg 08:19 BP 108 / 59; Pulse 99; Resp 16; Pulse Ox 96% on 100% Non-rebreather mask; ph 08:50 BP 97 / 50; Pulse 94; Resp 14; Temp 97.0(TE); Pulse Ox 100% on 100% Non-rebreather mask;ph 04:00 Body Mass Index 25.61 (63.50 kg, 157.48 cm) cc3 06:30 on BiPAp 27/05 cc3 ED Course: 03:58 Patient arrived in ED. ds1 04:00 Arm band placed on right wrist. EKG completed in triage. Results shown to MD. cc3 04:00 Patient has correct armband on for positive identification. Placed in gown. Bed in low cc3 position. Call light in reach. Side rails up X2. cardiac monitor on. Pulse ox on. NIBP on. 04:02 Armand Colby MD is Attending Physician. gs 04:19 Triage completed. cc3 04:30 Missed attempt(s): 22 gauge in left forearm. Bleeding controlled, band aid applied, cc3 catheter tip intact. 04:42 Lenora Tobar is Primary Nurse. cc3 04:50 Missed attempt(s): 22 gauge in right forearm. by DONALD Morgan. Bleeding controlled, band aid cc3 applied, catheter tip intact. 05:01 Chest Single View XRAY In Process Unspecified. EDMS 05:05 Missed attempt(s): 22 gauge in left hand. by RN Ethel. Bleeding controlled, band aid cc3 applied, catheter tip intact. 05:30 Missed attempt(s): 22 gauge in left forearm. by maid housekeeper Quynh. Bleeding cc3 controlled, band aid applied, catheter tip intact. 05:34 Carolynn Souza MD is Hospitalizing Provider. gs 06:26 Notified ED physician of a critical lab result(s). troponin 0.74. tl1 07:00 Report given to DONALD Foreman RN PJ. cc3 07:00 per night DONALD Cooley blood obtained from dialysis catheter after several IV attempts, sg pt family requesting no more needle sticks to get blood per DONALD Cooley. pt to be admitted with IV access via Hemodialysis catheter. 07:00 Patient admitted, IV remains in place. IV access via Hemodialysis catheter. sg 07:06 Report received from DONALD Cooley. sg 07:10 No provider procedures requiring assistance completed. sg 07:11 Ahsan Nunes RN is Primary Nurse. sg 07:29 Admitting physician to see patient. sg 08:36 Consulted physician to see patient. . sg Administered Medications: 06:05 Not Given (Physician Discretion): NS 0.9% 500 ml IV at bolus once tl1 06:07 Drug: NS 0.9% 500 ml Route: IV; Rate: TKO; Site: Other; tl1 06:10 Drug: Cefepime 1 grams Route: IVPB; Rate: 200 ml/hr; Infused Over: 30 mins; Site: Other;cc3 07:12 Follow up: Response: No adverse reaction; IV Status: Completed infusion Outcome: 05:35 Decision to Hospitalize by Provider. 08:57 Admitted to ICU accompanied by nurse, accompanied by tech, via stretcher, room 7, with sg oxygen, on monitor, with chart, Report called to Dionne BENNETT 09:16 Patient left the ED. Signatures: Dispatcher [employer] EDMS Ahsan Nunes RN RN Nicolette Jean-Baptiste ds1 Ethel Hernandez RN RN tl1 Mamta Swan RN RN Armand Colby MD MD Lenora Tobar cc3 Corrections: (The following items were deleted from the chart) 06:40 06:30 BP 100 / 60; Pulse 98bpm; Resp 19bpm; Spontaneous; Pulse Ox 100% 02 75% BiPAP; on cc3 BiPAp; cc3
[2019-09-06] MEDS: NA CHLORIDE 0.9% 1,000 ML IV SCH (06:00)
[2019-09-06 06:01] LABS: Absolute Lymphocytes (CBC) 0.1 K/uL (0.7-4.9); Basophils % 0.2 % (0-1.3); Hematocrit 37.8 % (36.0-45.0); Lymphocytes % 0.9 % (15.3-44.8); MPV 9.3 fL (7.6-11.3); RBC Red Blood Cell Count 3.27 M/uL (3.86-4.86)
[2019-09-06 06:02] LABS: Protime INR 1.38
[2019-09-06] MEDS ORDERED: CEFEPIME 1 GM/100 ML BAG IV ONE (06:06)
[2019-09-06 06:23] LABS: Albumin 2.6 g/dL (3.4-5.0); Bilirubin Direct 0.5 mg/dL (0-0.2); Bilirubin Total 1.1 mg/dL (0.2-1.0); Potassium 3.6 mmol/L (3.5-5.1); Protein, Total 5.4 g/dL (6.4-8.2)
[2019-09-06 06:24] LABS: Troponin (Emerg Dept Use Only) 0.74 ng/mL (0.0-0.045)
[2019-09-06 06:45] LABS: Blood Morphology Comment NOTED (NOT SEEN); Macrocytosis 3+; Platelet Estimate ADEQ
--- NOTE | 2019-09-06 07:36 | RAD REPORT ---
EXAM DESCRIPTION: RAD - Chest Single View - 09/06/2019 5:00 am CLINICAL HISTORY: Respiratory distress COMPARISON: August 22 TECHNIQUE: AP portable chest image was obtained 0442 hours . FINDINGS: Double-lumen dialysis or vascular access catheter is in place on the right. Moderate-size right pleural effusion is present. Interstitial opacities are present throughout both lung [place] wit h right-sided mid and lower lung field airspace opacification as well. Left pleural effusion is minim al. Cardiomegaly is still present. Vascular engorgement still present. No pneumothorax. No acute bony abnormality seen. No acute aortic findings suspected. IMPRESSION: Moderate severity failure/ volume overload findings are present. There is asymmetric right-sided lung parenchymal opacification that could indicate a concurrent right -side pneumonia.
[2019-09-06] MEDS ORDERED: Levofloxacin500mg IV 500 MG/100 ML BAG IV ONE (08:00)
--- NOTE | 2019-09-06 08:28 | EKG ---
Test Date: 2019-09-06 Test Time: 04:07:12 Arborist Climber: ORQUIDEA MEASUREMENT RESULTS: Intervals: Rate: 104 TX: QRSD: 138 QT: 418 QTc: 549 [place]: P: TX: QRS: -38 T: 17 INTERPRETIVE STATEMENTS: Atrial fibrillation with rapid ventricular response with premature ventricular or aberrantly conducted complexes Left axis deviation Nonspecific intraventricular block Cannot rule out Anterior infarct, age undetermined Abnormal ECG Compared to ECG 08/22/2019 17:23:56 Ventricular premature complex(es) now present Left-axis deviation now present Myocardial infarct finding now present Right bundle-branch block no longer present Left anterior fascicular block no longer present Bifascicular block no longer present Electronically Signed On 09-06-19 08:27:23 CDT by Elias Robertson
[2019-09-06] MEDS: ENOXAPARIN 30 MG/0.3 ML SQ SCH (09:00)
[2019-09-06] MEDS ORDERED: AZITHROMYCIN IV 500 MG in NA CHLORIDE 0.9% 250 ML IVPB SCH (09:00)
[2019-09-06] MEDS ORDERED: CEFTRIAXONE 1 GM/NS 50 ML 1 GM/50 ML BAG IV SCH (09:00)
--- NOTE | 2019-09-06 09:31 | P.PN ---
Subjective Date of Service: 09/06/19 Primary Care Provider: Intermediate Provider Chief Complaint: Respiratory Distress Subjective: No new changes, Demented This is a 84 y/o F patient that was admitted early this morning for respiratory distress. Was discharged from hospital last week. Came back today for worsening of symptoms. Family notes that patient is no longer wanting to eat. Patient currently on BIPAP and antibiotics for pneumonia and CHF. Stable at this time but admitted to ICU. Family agreed to make patient DNR at this time due to severity of condition on top of longstanding comorbid conditions <Ari Lizama - Last Filed: 09/06/19 09:25> Date of Service: 09/06/19 <Hayes Childers - Last Filed: 09/06/19 16:59> Review of Systems is unable to be obtained (Demented) <Ari Lizama - Last Filed: 09/06/19 09:25> Physical Examination - Vital Signs Temperature: 96.7 F Blood Pressure: 107/64 Pulse: 99 Respirations: 16 - Physical Exam General: Demented HEENT: PERRLA, Mucous membr. moist/pink Neck: Supple, JVD not distended, No Thyromegaly, No LAD Respiratory: Crackles/rales (Bilaterally diffuse ) Cardiovascular: Normal pulses, Regular rate/rhythm, Normal S1 S2, Systolic murmur Capillary refill: <2 Seconds Gastrointestinal: Normal bowel sounds, Soft and benign, Non-distended, No ascites, No tenderness, No masses, No rebound, No guarding Musculoskeletal: No erythema, No tenderness, No warmth, Swelling Integumentary: No rashes, No breakdown, No significant lesion, No tenderness/ swelling, No erythema, No warmth Neurological: Dementia - Studies Laboratory Data (last 24 hrs) 09/06/19 05:40: PT 16.1 H, INR 1.38 09/06/19 05:40: WBC 15.8 H D, Hgb 12.3, Hct 37.8 D, Plt Count 157 D 09/06/19 05:40: Sodium 138, Potassium 3.6, BUN 31 H, Creatinine 3.34 H D, Glucose 88, Total Bilirubin 1.1 H, AST 26, ALT 17, Alkaline Phosphatase 94, Lipase 56 L Medications List Reviewed: Yes <Ari Lizama - Last Filed: 09/06/19 09:25> - Studies Laboratory Data (last 24 hrs) 09/06/19 05:40: PT 16.1 H, INR 1.38 09/06/19 05:40: WBC 15.8 H D, Hgb 12.3, Hct 37.8 D, Plt Count 157 D 09/06/19 05:40: Sodium 138, Potassium 3.6, BUN 31 H, Creatinine 3.34 H D, Glucose 88, Total Bilirubin 1.1 H, AST 26, ALT 17, Alkaline Phosphatase 94, Lipase 56 L <Hayes Childers - Last Filed: 09/06/19 16:59> Assessment And Plan - Current Problems (Diagnosis) (1) Diabetes mellitus type 2 with complications Current Visit: Yes Status: Chronic (2) Dementia Current Visit: Yes Status: Chronic Qualifiers: Dementia type: Alzheimer's disease Alzheimer's disease onset: late-onset Dementia behavioral disturbance: without behavioral disturbance Qualified Code (s): G30.1 - Alzheimer's disease with late onset; F02.80 - Dementia in other diseases classified elsewhere without behavioral disturbance (3) Pneumonia Current Visit: Yes Status: Acute Qualifiers: Pneumonia type: due to unspecified organism Laterality: right Lung location: lower lobe of lung Qualified Code(s): J18.1 - Lobar pneumonia, unspecified organism (4) Acute on chronic combined systolic (congestive) and diastolic (congestive) heart failure Onset Date: 03/04/17 Current Visit: No Status: Acute (5) Dyspnea Current Visit: No Status: Acute Qualifiers: Dyspnea type: acute respiratory distress Qualified Code(s): R06.03 - Acute respiratory distress (6) Anemia Current Visit: No Status: Chronic Qualifiers: Anemia type: due to chronic kidney disease (7) Chronic atrial fibrillation Onset Date: 03/04/17 Current Visit: No Status: Chronic (8) Hypothyroidism Onset Date: 03/04/17 Current Visit: No Status: Chronic Qualifiers: Hypothyroidism type: unspecified (9) Acute prerenal azotemia Current Visit: No Status: Acute - Plan Patient will be monitored in ICU. BIPAP with diuresis will continue. Nephrology consulted. Continue Abx for pneumonia. Monitor electrolytes and renal function Discharge Plan: Intermediate Plan to discharge in: Unknown - Code Status/Comfort Care Code Status Assessed: Yes Code Status: Do Not Attempt Resuscitat Critical Care: No Time Spent Managing PTS Care (In Minutes): 30 <Ari Lizama - Last Filed: 09/06/19 09:25> Discharge Plan: Intermediate Plan to discharge in: Greater than 2 days - Code Status/Comfort Care Code Status Assessed: Yes (Patient is do not resuscitate. Discuss with patient family) Physician Review Additional Text: Impression: Acute on chronic respiratory failure secondary to acute on chronic diastolic CHF with possible right lower lobe pneumonia Atrial fibrillation not on chronic anti coagulation therapy End-stage renal disease on dialysis Diabetes mellitus type 2 Hypothyroidism Anemia of chronic disease Moderate malnutrition Plan: Acute on chronic respiratory failure secondary to acute on chronic diastolic CHF with possible right lower lobe pneumonia: Continue IV antibiotic therapy. Blood and sputum cultures will be obtained. Will monitor chest x-ray. Patient will require dialysis. Case discussed with cardiology. Nephrology consulted along with pulmonology. Await further recommendation. Case discussed at length with family. Advanced directives address in detail. Patient is do not resuscitate and [id number]. Patient with recent malnutrition and dysphagia. Patient recently hospitalized and discharged to the custodial. Prior to discharge at that time, patient had evidence of dysphagia. Recommendations by speech and diet were addressed in detail. At this time we will keep the patient NPO for now. Will have speech re-evaluate with modifying barium swallow. If abnormal will need to discuss options of care. Continue monitor the patient closely. Medications adjusted. Repeat lab in the morning. Atrial fibrillation not on chronic anti coagulation therapy: Patient normally takes amiodarone. Will check with cardiology on whether to continue this orally or IV. End-stage renal disease on dialysis: Patient will require dialysis. Nephrology consulted. Hypothyroidism: Continue with medication. Anemia of chronic disease: Will monitor closely. Moderate malnutrition: Continue as above. Time Spent Managing PTS Care (In Minutes): 60 <Hayes Childers - Last Filed: 09/06/19 16:59>
[2019-09-06] MEDS: CLINDAMYCIN INJ 600 MG in NA CHLORIDE 0.9% 50 ML IV SCH ×2 (10:32→17:26)
[2019-09-06] MEDS ORDERED: D5 0.9 NS 1,000 ML IV SCH (15:00)
--- NOTE | 2019-09-06 15:56 | CON ---
Date of Consultation: 09/06/2019 Reason For Consultation: Congestive heart failure. History Of Present Illness: Ms. Gaitan is an 84-year-old white women. She was just made do not re suscitate today. Has a history of end-stage renal disease, atrial fibrillation, dyslipidemia, hypoth yroidism, and gastroesophageal reflux disease. She also has known severe mitral regurgitation, moder ate mitral stenosis, moderate aortic stenosis. Ejection fraction 79% with severe pulmonary hypertens ion. She came in with CHF, pneumonia on the right side along with CHF by x-ray, elevated troponin. She also has diabetes, dyslipidemia, and anemia. The patient has no chest pain, no palpitation, no s yncope. No fever, no chills, no cough, just shortness of breath. Past Medical History: As stated earlier. Allergies: SHE IS ALLERGIC TO ASPIRIN, SULFA, XARELTO, CODEINE, PENICILLIN. Medications: At home include amiodarone, Lipitor, Synthroid, and Protonix. Review of Systems: Negative. Social History: Negative. Family History: Noncontributory. Physical Examination: General: The patient appeared older than her stated age. She was very somnolent, but her heart rate and blood pressure and saturations were adequate. She was in no acute distress. She was in sinus r hythm. HEENT: Negative. Neck: Supple with no bruit. Chest: Reveals bilateral crackles. Cardiac: Revealed regular rhythm and rate with S4 gallops, aortic stenosis murmur, mitral stenosis m urmur, mitral regurgitation murmur, tricuspid regurgitation murmur. Abdomen: Benign. Extremities: Revealed no clubbing, cyanosis, or edema. Skin: Dry and intact. Pulses were present distally. Diagnostic Data: In general, as stated above. Her creatinine is 3.34. White count is 15,000. Impression And Plan: 1.Acute on chronic diastolic congestive heart failure. 2.Pneumonia. 3.Atrial fibrillation, on amiodarone. 4.Dyslipidemia, on Lipitor. 5.Hypothyroidism, on Synthroid. 6.Gastroesophageal reflux disease, on Protonix. 7.Anemia. 8.Diabetes, well controlled. 9.Elevated troponin secondary to congestive heart failure. 10.Renal insufficiency stage IV. 11.Elevated white count secondary to pneumonia. 12.Do not resuscitate status. 13.Severe pulmonary hypertension. 14.Severe mitral regurgitation. 15.Moderate aortic stenosis. 16.Moderate mitral stenosis. The patient is obviously very ill, has multiple comorbidities. She is on IV antibiotic she is on [place]. She is on oxygen. She was made a do not resuscitate. I suggest renal consultation with her cre maría. The patient and family are very hesitant about dialysis, but they need to make that decisio n. From a cardiac standpoint, I agree with her present regimen. I will continue her IV amiodarone f or rate control. We will continue to follow the patient along with Dr. Souza and Dr. Childers. BINU/SARINA Voice ID: [id number] Report ID: [id number]
[2019-09-06] MEDS ORDERED: DEXTROSE 10%-WATER 500 ML IV SCH (16:00)
[2019-09-06] MEDS: MIDODRINE HCL 5 MG TABLET PO SCH (16:03)
[2019-09-06 16:41] LABS: Urine Appearance TURBID; Urine Blood 3+ (NEG); Urine Color RED; Urine Glucose NEGATIVE (NEG); Urine Protein 3+ (NEG); Urine Specific Gravity 1.015 (1.005-1.030); Urine Urobilinogen 0.2 mg/dL (0.2-1.0); Urine pH 5.5 (5.0-7.0)
[2019-09-06] MEDS ORDERED: SODIUM CHLORIDE 0.9% 10ML INJ IV PRN (16:49)
[2019-09-06] MEDS: ALBUMIN HUMAN 25% 50 ML IV SCH ×2 (16:55→17:25)
[2019-09-06] MEDS ORDERED: AA 5%/D20W/ELECTROLYTES-TPN 2,000 ML, Lipids 20% 250 ML with MULTIVITAMINS INJ 10 ML IV SCH ×3 (17:00)
[2019-09-06 17:10] LABS: Urine Bacteria >50 /HPF (<20); Urine Bilirubin NEGATIVE (NEG); Urine Culture Reflex Order REFLEXED; Urine RBC >50 /HPF (NONE SEEN)
--- NOTE | 2019-09-06 18:21 | P.HP ---
Certification for Inpatient Patient admitted to: Inpatient With expected LOS: >2 Midnights Patient will require the following post-hospital care: None Practitioner: I am a practitioner with admitting privileges, knowledge of patient current condition, hospital course, and medical plan of care. Services: Services provided to patient in accordance with Admission requirements found in Title 42 Section 412.3 of the Code of Federal Regulations Patient History Date of Service: 09/06/19 Reason for admission: Respiratory Distress History of Present Illness: Patient is an 84-year-old female who was recently in the hospital a week ago with right lower extremity cellulitis. Patient has cellulitis had improved; however, she had been having difficulty with her swallowing. A swallow study revealed that she had significant dysphagia. Honey thick liquids and pureed diet was recommended. According to the family, patient was not eating well during her hospital stay. According to the family members, she has started declining from a nutritional standpoint. They were sent to a half-way facility to strengthen her. Over the last week she has had only a bite of footing when they come to give her her her medications. She has continued to decline so they brought her into the emergency room. In the emergency room she was found to have a large right lower lobe and pneumonia. This could also be a pleural effusion. She has significant coronary artery disease and valvular heart disease. She has severe mitral regurgitation and severe tricuspid regurgitation which has resulted in severe pulmonary hypertension. 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 She is also end-stage renal disease. I met with the family for over an hour and after talking to the numerous family members the medical power of set up mechanic heading machines has decided to the make her a do not attempt resuscitation. We will still be able to manage her in the ICU. I did get to speak with Dr. Razo Nephrology and hopefully will be able to dialyze her as necessary at our facility. She will be admitted to the ICU. Allergies aspirin Allergy (Severe, Verified 01/09/19 22:04) Severe Bleeding codeine Allergy (Severe, Verified 01/27/19 03:09) Nausea/Vomiting Penicillins Allergy (Severe, Verified 01/27/19 03:09) Hives/Rash Sulfa (Sulfonamide Antibiotics) Allergy (Severe, Verified 01/27/19 03:09) Hives/Rash adhesive tape Adverse Reaction (Severe, Verified 01/27/19 03:09) skin irritation rivaroxaban [From Xarelto] Adverse Reaction (Severe, Verified 01/27/19 03:09) Bleeding Home Medications: Amiodarone HCl [Cordarone*] 200 mg PO DAILY 09/06/19 Docusate Sodium 100 mg PO Q12HP PRN 09/06/19 Doxycycline Hyclate 100 mg PO BID 09/06/19 Levothyroxine Sodium [Tirosint] 50 mcg PO DAILY 09/06/19 Liothyronine Sodium [Cytomel] 5 mcg PO DAILY 09/06/19 Midodrine HCl 5 mg PO DAILY 09/06/19 Mirtazapine [Remeron*] 15 mg PO BEDTIME 09/06/19 Nystatin Powder [Mycostatin (Powder)*] 1 mame TOP DAILY 09/06/19 Omeprazole [Prilosec] 40 mg PO DAILY 09/06/19 Polyethylene Glycol 3350 [Miralax] 1 g PO DAILYPRN PRN 09/06/19 traMADol HCL [Ultram*] 50 mg PO Q8HP 09/06/19 - Past Medical/Surgical History Has patient received pneumonia vaccine in the past: Yes Diabetic: No -: Cervical cancer - radiation treatment -: HTN -: Aortic valve replacement-bovine -: Mitral valve Clip -: Hypothyroidism -: cervic Cancer in 1989 (Hx of Chemo/Radiation Tx) -: 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 -: Iron def Anemia -: Chronic renal disease, stage IV -: Chronic diastolic CHF -: Cholecystectomy -: Appendectomy Psychosocial/ Personal History: She is . Children-5. - Family History Mother Medical History: Hypertension, Diabetes - Social History Smoking Status: Never smoker Place of Residence: Home Review of Systems 10-point ROS is otherwise unremarkable Physical Examination - Vital Signs Temperature: 96.7 F Blood Pressure: 99/59 Pulse: 94 Respirations: 14 Pulse Ox (%): 100 - Physical Exam General: Alert, In no apparent distress, Oriented x1, Severe distress HEENT: Atraumatic, PERRLA, Mucous membr. moist/pink, EOMI, Sclerae nonicteric Neck: Supple, 2+ carotid pulse no bruit, No LAD, Without JVD or thyroid abnormality Respiratory: Diminished, Crackles/rales, Rhonchi/gurgles Cardiovascular: Regular rate/rhythm, Normal S1 S2, No murmurs Gastrointestinal: Normal bowel sounds, Soft and benign, Non-distended, No tenderness Musculoskeletal: No clubbing, No tenderness, Swelling Integumentary: No rashes Neurological: Sensation intact, Cranial nerves 3-12 intact, Abnormal gait, Abnormal speech, Abnormal strength Lymphatics: No axilla or inguinal lymphadenopathy - Studies Laboratory Data (last 24 hrs) 09/06/19 05:40: PT 16.1 H, INR 1.38 09/06/19 05:40: WBC 15.8 H D, Hgb 12.3, Hct 37.8 D, Plt Count 157 D 09/06/19 05:40: Sodium 138, Potassium 3.6, BUN 31 H, Creatinine 3.34 H D, Glucose 88, Total Bilirubin 1.1 H, AST 26, ALT 17, Alkaline Phosphatase 94, Lipase 56 L Assessment & Plan - Problems (Diagnosis) (1) Right lower lobe pneumonia Current Visit: Yes Status: Acute Qualifiers: Pneumonia type: aspiration pneumonia (2) Pleural effusion Current Visit: Yes Status: Acute (3) ESRD (end stage renal disease) Current Visit: Yes Status: Acute (4) Pulmonary hypertension Current Visit: Yes Status: Acute (5) Severe tricuspid regurgitation Current Visit: Yes Status: Acute (6) Severe mitral regurgitation Current Visit: Yes Status: Acute (7) Diabetes mellitus type 2 with complications Current Visit: Yes Status: Chronic (8) CHF (congestive heart failure) Current Visit: No Status: Chronic Qualifiers: (9) Chronic atrial fibrillation Onset Date: 03/04/17 Current Visit: No Status: Chronic (10) S/P mitral valve clip implantation Current Visit: No Status: Chronic - Plan Plan: 1. Continue with IV antibiotics 2. Awaiting blood culture; procalcitonin level 3. Repeat chest x-ray in AM 4. Will order CT scan of the chest 5. Cardiology and nephrology consultation along with pulmonary consultation 6. Continue with nebs as needed 7. O2 per protocol/ BiPAP support. We will wean off BiPAP 8. Hep-Lock IV; 9. Repeat labs including CBC and renal function in a.m. 10. family is wanting to proceed with do not attempt resuscitation 11. GI and DVT prophylaxis Discharge Plan: Home Plan to discharge in: Greater than 2 days - Advance Directives Does patient have a Living Will: Yes Does patient have a Durable POA for Healthcare: Yes - Code Status/Comfort Care Code Status Assessed: Yes Code Status: Full Code Critical Care: Yes Time Spent Managing PTS Care (In Minutes): 60
--- NOTE | 2019-09-06 20:41 | CON ---
Date of Consultation: 09/06/2019 Reason For Consult: Respiratory distress. History Of Present Illness: Ms. Gaitan is an 84-year-old female with multiple medical problems, wh o was recently discharged from [facility] after being treated for lower extremity cellulitis , presented to [facility] with worsening shortness of breath and respiratory distress. She was on Bi PAP initially and antibiotics have been started for pneumonia. Chest x-ray showing right lower lobe infiltrate. Concerned that the patient might be aspirating. Family is reporting that the patient duran s not had anything to eat or drink since August 23. She has been made a DNR at this time and cons ideration was given to transferring the patient, however, given her multiple medical problems and car diac issues, it has been deemed in the past that the patient is not a very good candidate for any act lizbet cardiac intervention. At this time, she was seen and examined in the ICU. She remains on a non- rebreather mask and her oxygen saturation is maintaining in the 90s. However, she is unable to melissa ate BiPAP. Past Medical History: Significant for history of type 2 diabetes, dementia, history of chronic systo lic and diastolic heart failure, anemia, chronic AFib, hypothyroidism, history of ESRD, and also with history of mitral regurgitation which has been severe. Home Medications: Have been reviewed. Family History: Significant for history of mother with history of hypertension and diabetes. Social History: Patient [place] prior to this hospitalization, but prior to that was a t home. Past Surgical History: Significant for history of cervical cancer, status post radiation treatment, hypertension, aortic valve replacement with bovine valve, mitral valve clip, hypothyroidism, weakened bladder status post radiation treatment, cholecystectomy and appendectomy. Physical Examination: Vital Signs: At this time are showing temperature of 96.7, pulse rate of 90, respiratory rate of 22, blood pressure of 95/65. She is saturating 100% on non-rebreather mask. General: She appears cachectic, malnourished, and lethargic. HEENT/Neck: She has atraumatic head. No JVD was noted. Lungs: Auscultation of the lungs revealed diminished breath sounds in bilateral bases. Heart: Auscultation of the heart revealed irregular rate and rhythm. Abdomen: Soft and nontender. Extremities: Showed no evidence of edema. Laboratory Data: At this time is showing sodium of 138, potassium of 3.6, chloride of 103, BUN of 31 , and creatinine of 3.3. LFTs were normal. Troponin was slightly elevated to 0.7. Albumin was very low at 2.6. CBC showing leukocytosis with stable hemoglobin, hematocrit, and platelet count. Current Medications: Reviewed in detail. She has been started on Levaquin 500 mg 1 time dose. Afte r that 250 mg has been added every 48 hours. She is on midodrine 5 mg a day. She is also on clindam ycin 600 mg every 8 hours. Nebulizer treatments have also been ordered. Impression: 1.End-stage renal disease, on dialysis. 2.History of chronic severe congestive heart failure. 3.Respiratory distress, likely secondary to aspiration pneumonia. Plan: Patient was noted to have a right lower lobe infiltrate noted on her chest x-ray. CT scan has been ordered, however, has not been done yet. I agree with continuing antibiotics with clindamycin and Levaquin. At this time, to improve her respiratory status, we will plan for dialysis with 3K 2.5 calcium bath and ultrafiltration of about 1 to 2 L cautiously with albumin support as needed. Yasmany snider has had a central line placed and will use pressor support also if need to. I have discussed with the family at length. Patient has a very poor prognosis. Because of her multiple medical problems and worsening clinical status, we will give her midodrine mixed with applesauce to improve her blood pressure prior to dialysis and we will plan for dialysis with 1 to 2 L as discussed above. We will c autiously monitor her closely. The patient is getting D5 normal saline at 30 mL an hour. We will di scontinue that to prevent further volume overload at this time. If she does need nutrition, the lupe ent can be started on Clinimix and swallow evaluation can be done at a later date when she is feeling more with it. We will follow up closely. GOKUL/SARINA Voice ID: [id number] Report ID: [id number]
[2019-09-07] MEDS: CLINDAMYCIN INJ 600 MG in NA CHLORIDE 0.9% 50 ML IV SCH ×2 (01:02→09:38)
[2019-09-07] MEDS: NA CHLORIDE 0.9% 1,000 ML IV SCH (02:00)
[2019-09-07 05:08] LABS: Absolute Lymphocytes (CBC) 0.2 K/uL (0.7-4.9); Basophils % 0.1 % (0-1.3); Hematocrit 37.7 % (36.0-45.0); MPV 9.6 fL (7.6-11.3); RBC Red Blood Cell Count 3.12 M/uL (3.86-4.86)
[2019-09-07 05:19] LABS: Albumin 2.7 g/dL (3.4-5.0); Magnesium 2.1 mg/dL (1.8-2.4); Phosphorus 3.1 mg/dL (2.5-4.9); Potassium 3.8 mmol/L (3.5-5.1); Protein, Total 5.4 g/dL (6.4-8.2)
[2019-09-07] MEDS: LIOTHYRONINE SOD 5 MCG TAB PO SCH (06:08)
[2019-09-07] MEDS: LEVOTHYROXINE SOD 0.05 MG TABLET PO SCH (06:08)
--- NOTE | 2019-09-07 08:19 | RAD REPORT ---
EXAM DESCRIPTION: RAD - Chest Single View - 09/07/2019 6:32 am CLINICAL HISTORY: Follow up shortness of breath Chest pain. COMPARISON: Chest Single View dated 09/06/2019; Chest Single View dated 08/22/2019; Chest Single View dated 01/26/2019; Chest Pa And Lat (2 Views) dated 01/21/2019 FINDINGS: Portable technique limits examination quality. Since 09/06/2019, little overall change is seen in the bilateral pulmonary opacities and pleural flui d. The heart is significantly enlarged in size with right-sided venous catheter in place. Sternotomy wires present. IMPRESSION: Stable chest since 09/06/2019.
[2019-09-07] MEDS ORDERED: LEVOTHYROXINE SODIUM 50 MCG PO SCH (09:00)
[2019-09-07] MEDS: MIDODRINE HCL 5 MG TABLET PO SCH (09:00)
[2019-09-07] MEDS: ENOXAPARIN 30 MG/0.3 ML SQ SCH (09:00)
[2019-09-07] MEDS ORDERED: PANTOPRAZOLE 40 MG INJ IVP SCH (09:00)
[2019-09-07] MEDS: NYSTATIN PWDR 100000 UNIT/GM TOP SCH (09:39)
[2019-09-07] MEDS ORDERED: GLUCAGON 1 MG/VIAL IM PRN (12:16)
[2019-09-07] MEDS: INSULIN -REGULAR HUMAN 50 UNIT/0.5 ML ML SQ SCH ×2 (12:30→17:56)
--- NOTE | 2019-09-07 13:07 | P.CNS ---
Date of Consult: 09/07/19 Primary Care Provider: Care Home Provider Chief Complaint: Respiratory Distress History of Present Illness: Patient is 84 years of age evaluated by me for respiratory distress right-sided pleural effusion she is currently on a non-rebreather patient was recently discharged with the right lower extremity cellulitis went [place] [facility] [place] facility became worse was admitted with the right lower lobe pneumonia and pleural effusion she also has pulmonary hypertension felt that patient was not a surgical candidate patient is on dialysis nonverbal at the time of my evaluation was on a non-rebreather Allergies aspirin Allergy (Severe, Verified 01/09/19 22:04) Severe Bleeding codeine Allergy (Severe, Verified 01/27/19 03:09) Nausea/Vomiting Penicillins Allergy (Severe, Verified 01/27/19 03:09) Hives/Rash Sulfa (Sulfonamide Antibiotics) Allergy (Severe, Verified 01/27/19 03:09) Hives/Rash adhesive tape Adverse Reaction (Severe, Verified 01/27/19 03:09) skin irritation rivaroxaban [From Xarelto] Adverse Reaction (Severe, Verified 01/27/19 03:09) Bleeding Home Medications: Amiodarone HCl [Cordarone*] 200 mg PO DAILY 09/06/19 Docusate Sodium 100 mg PO Q12HP PRN 09/06/19 Doxycycline Hyclate 100 mg PO BID 09/06/19 Levothyroxine Sodium [Tirosint] 50 mcg PO DAILY 09/06/19 Liothyronine Sodium [Cytomel] 5 mcg PO DAILY 09/06/19 Midodrine HCl 5 mg PO DAILY 09/06/19 Mirtazapine [Remeron*] 15 mg PO BEDTIME 09/06/19 Nystatin Powder [Mycostatin (Powder)*] 1 mame TOP DAILY 09/06/19 Omeprazole [Prilosec] 40 mg PO DAILY 09/06/19 Polyethylene Glycol 3350 [Miralax] 1 g PO DAILYPRN PRN 09/06/19 traMADol HCL [Ultram*] 50 mg PO Q8HP 09/06/19 - Past Medical/Surgical History Diabetic: No -: Cervical cancer - radiation treatment -: HTN -: Aortic valve replacement-bovine -: Mitral valve Clip -: Hypothyroidism -: cervic Cancer in 1989 (Hx of Chemo/Radiation Tx) -: 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 -: Iron def Anemia -: Chronic renal disease, stage IV -: Chronic diastolic CHF -: Cholecystectomy -: Appendectomy Psychosocial/ Personal History: She is . Children-5. - Family History Mother Medical History: Hypertension, Diabetes - Social History Smoking Status: Never smoker Alcohol use: No CD- Drugs: No Caffeine use: No Place of Residence: Home Review of Systems is unable to be obtained Physical Examination Temp Pulse Resp BP Pulse Ox 97.6 F 84 17 92/61 94 09/07/19 08:00 09/07/19 10:00 09/07/19 10:00 09/07/19 10:00 09/07/19 10:00 General: Moderate distress Neck: Supple Respiratory: Diminished (Diminished air entry on the right side left lung is clear) Cardiovascular: No edema, Irregular heart rate/rhythm Gastrointestinal: Normal bowel sounds, Soft and benign - Problems (1) Respiratory failure Current Visit: Yes Status: Acute Plan: Patient is 84 years of age admitted with respiratory distress she has a right lower lobe consolidation with right-sided pleural effusion, chronic renal failure evidence of sepsis elevated white count pro calcitonin blood cultures are negative I recommendation change to meropenem as broad-spectrum coverage including anaerobic coverage Dc levofloxacin clindamycin consider nasogastric tube feeds CT of the chest patient is currently in stable due to being on non- rebreather possible chest tube a thoracentesis were patient is a DNR did not tolerate BiPAP Qualifiers: Chronicity: acute on chronic
[2019-09-07] MEDS ORDERED: Pharmacy Consult 1 EA XX PRN (13:09)
[2019-09-07] MEDS ORDERED: VANCOMYCIN 500 MG in NA CHLORIDE 0.9% 100 ML IVPB SCH (13:30)
[2019-09-07] MEDS ORDERED: VANCOMYCIN 1.25 GM in NA CHLORIDE 0.9% 250 ML IVPB ONE (13:30)
[2019-09-07] MEDS ORDERED: VANCOMYCIN 1.5 GM in NA CHLORIDE 0.9% 500 ML IVPB ONE (13:30)
--- NOTE | 2019-09-07 13:32 | P.PN ---
Subjective Date of Service: 09/07/19 Primary Care Provider: Longterm Provider Chief Complaint: Respiratory Distress Subjective: Other (Patient remains in ICU. Patient on non-rebreather. Blood pressure stable this time. TPN was initiated yesterday by nephrology. Patient currently NPO.) Physical Examination - Vital Signs Temperature: 98.2 F Blood Pressure: 100/68 Pulse: 84 Respirations: 15 Pulse Ox (%): 100 - Physical Exam General: Alert, Cooperative, Cachectic HEENT: Atraumatic Neck: Supple Respiratory: Crackles/rales (Crackles to the bases) Cardiovascular: Irregular heart rate/rhythm (AFib rate controlled) Gastrointestinal: Normal bowel sounds, No tenderness, No masses, No rebound, No guarding Musculoskeletal: No erythema, No tenderness, No warmth Integumentary: Other (Patient with prior cellulitis to the lower extremity. No indication of cellulitis at this time.) Neurological: Normal speech, Normal strength at 5/5 x4 extr, Normal affect - Studies Medications List Reviewed: Yes Assessment & Plan Discharge Plan: Other (intermediate facility) Plan to discharge in: Greater than 2 days Physician Review Additional Text: Impression: Acute on chronic respiratory failure secondary to acute on chronic diastolic CHF with right pleural effusion and pneumonia Suspect UTI Atrial fibrillation not on chronic anti coagulation therapy End-stage renal disease on dialysis Diabetes mellitus type 2 with hyperglycemia Hypothyroidism Anemia of chronic disease Moderate malnutrition Plan: Acute on chronic respiratory failure secondary to acute on chronic diastolic CHF with right pleural effusion and pneumonia: Case discussed with pulmonology. Pulmonology suspects right pleural effusion with pneumonia. IV antibiotic therapy adjusted for better coverage. If worsening right pleural effusion patient may require thoracentesis but will need to obtain CT chest once more medically stable. Patient currently NPO at this time. Patient on TPN. Patient to have modified barium swallow with speech to further evaluate her dysphagia. Will add Accu-Cheks and sliding scale due to hyperglycemia related to TPN. Case discussed at length with nephrology. Nephrology plans to continue with dialysis. Case discussed at length with family yesterday. Will rediscuss plan of care with family today. Advanced directives have been addressed in detail. Patient is do not resuscitate and [id number]. Await modified barium swallow and recommendations by speech. If significantly abnormal for aspiration will need to discuss the possibility of PEG tube placement. Continue to monitor the patient closely. I will turn over the service to the hospitalist covering tomorrow as I will not be here. Atrial fibrillation not on chronic anti coagulation therapy: Will discuss with cardiology about the possibility of restarting medication. Possible UTI: IV antibiotic therapy adjusted. Await culture results. End-stage renal disease on dialysis: Case discussed with nephrology. Will continue with dialysis. Hypothyroidism: Continue medication. If still and he will Will continue with possible IV medication. Anemia of chronic disease: Will monitor closely. Moderate malnutrition: Continue as above. Diabetes mellitus type 2 with hyperglycemia: Hyperglycemia noted. Will continue with Accu-Cheks and sliding scale. Hyperglycemia likely related to TPN. Time Spent Managing Pts Care (In Minutes): 55
[2019-09-07] MEDS: Meropenem 500 MG in NA CHLORIDE 0.9% 100 ML IV SCH ×2 (14:45→20:05)
[2019-09-07] MEDS ORDERED: Meropenem 500 MG VIAL IV SCH (17:00)
[2019-09-07] MEDS ORDERED: DEXTROSE 10%-WATER 500 ML IV SCH (17:00)
[2019-09-07] MEDS: AA 4.25%/D10W/ELECTROLYTES 2,000 ML, Lipids 20% 250 ML with MULTIVITAMINS INJ 10 ML IV SCH ×3 (17:57)
--- NOTE | 2019-09-07 21:18 | PN ---
Date of Progress Note: 09/07/2019 Subjective: Patient was seen and examined. Interval History: Patient had dialysis and about 2 to 3 L was taken off. She was more alert and fareed ke this morning, but currently at this time her respiratory distress is worsening and also she is hav ing increased work of breathing. She has been more lethargic and her sugars have been running high. Physical Examination: Vital Signs: Showing temperature of 98.2, pulse rate of 81, respiratory rate of 14, and blood pressu re 113/86. General: She appears lethargic and weak and with increased work of breathing. HEENT: Atraumatic head. Lungs: Auscultation of lungs revealed bilateral equal air entry with diminished breath sounds at garcia ateral bases. Heart: Auscultation of heart revealed regular rate and rhythm. Extremities: Showed no evidence of edema. The patient has a femoral central line in. Current Medications: Have been reviewed in detail. Laboratory Data: Has also been reviewed in detail. A chest x-ray findings have been reviewed today to looks about the same. She does have some leukocytosis with a white cell count of 17.5. Impression: 1.End-stage renal disease, on dialysis. 2.Advanced congestive heart failure, combined diastolic and systolic heart failure. 3.Pneumonia, possibly secondary to aspiration, leading to worsening respiratory status and respirato ry distress. 4.Anemia secondary to chronic disease. 5.Severe debility and weakness. 6.Hyperglycemia. Plan: Overall patient's condition is significantly worse and is very concerning with increased respi ratory distress with ongoing pneumonia. Her antibiotics have been adjusted. She is currently gettin g vancomycin and meropenem. She also is noted to have a urinary tract infection which hopefully shou ld be covered with this current antibiotics. I have discussed with the family regarding the feeding. At this time, they would not want any NG tube placed because of the concern for increasing respirat ory distress and concern for aspiration and would like to continue TPN. I discussed with the Pharmac y about changing the TPN to solution with dextrose and we will reduce the rate to 30 cc an hour to pr event further volume issues at this time. We will plan for dialysis tomorrow per her regular schedul e and try to ultrafilter about 2 to 3 L with albumin support as well. Discussed with the family amalia rodriguez goals of care. They do not want her to get any PEG tube. They are agreeable for DNR/DNI and w e will watch her for the next couple of days and if she does not improve, they are agreeable at this time to consider hospice at that point, but for now we will continue with IV antibiotics, TPN and cau tious dialysis with ultrafiltration. Her condition remains very fragile, discussed with the family. Time spent about 1 hour. VV/MODL Voice ID: [id number] Report ID: [id number]
[2019-09-07] MEDS ORDERED: FENTANYL CITR 100 MCG/2 ML IV ONE (23:15)
[2019-09-07] MEDS: D50W 25 GM/50 ML SYRINGE IV PRN (23:49)
[2019-09-08] MEDS: D50W 25 GM/50 ML SYRINGE IV PRN ×2 (00:10→06:20)
--- NOTE | 2019-09-08 02:39 | PN ---
Date of Progress Note: 09/07/2019 She was admitted yesterday with congestive heart failure, pneumonia. She has atrial fibrillation. S he has a history of aortic stenosis, mitral stenosis, severe mitral regurgitation, end-stage renal di sease. Yesterday, she underwent hemodialysis. Her white count today is 17.5. She is interestingly enough in sinus rhythm. She has improved from a pulmonary standpoint. I would continue having her o ff amiodarone for now. Continue metoprolol. Her amiodarone may be causing her pulmonary toxicity. The case was discussed with Dr. Childers. No change in therapy at this point. BINU/SARINA Voice ID: [id number] Report ID: [id number]
[2019-09-08 05:09] LABS: Albumin 2.4 g/dL (3.4-5.0); Bilirubin Total 0.8 mg/dL (0.2-1.0); Magnesium 2.1 mg/dL (1.8-2.4); Phosphorus 2.8 mg/dL (2.5-4.9); Potassium 3.7 mmol/L (3.5-5.1); Protein, Total 5.2 g/dL (6.4-8.2)
[2019-09-08] MEDS: INSULIN -REGULAR HUMAN 50 UNIT/0.5 ML ML SQ SCH ×2 (06:00)
[2019-09-08] MEDS ORDERED: FENTANYL CITR 100 MCG/2 ML IV ONE (06:25)
[2019-09-08] MEDS: LIOTHYRONINE SOD 5 MCG TAB PO SCH (06:30)
[2019-09-08] MEDS: LEVOTHYROXINE SOD 0.05 MG TABLET PO SCH (06:30)
[2019-09-08] MEDS: MIDODRINE HCL 5 MG TABLET PO SCH (07:58)
[2019-09-08] MEDS: ENOXAPARIN 30 MG/0.3 ML SQ SCH (08:00)
[2019-09-08] MEDS ORDERED: Levofloxacin 250mg IV 250 MG/50 ML BAG IV SCH (09:00)
[2019-09-08] MEDS: NYSTATIN PWDR 100000 UNIT/GM TOP SCH (09:00)
[2019-09-08] MEDS: ALBUMIN HUMAN 25% 50 ML IV SCH (09:12)
[2019-09-08] MEDS ORDERED: HALOPERIDOL LACT 5 MG/ML INJ IV PRN (09:57)
--- NOTE | 2019-09-08 09:57 | P.PN ---
Subjective Date of Service: 09/10/19 (Hospitalist) Primary Care Provider: Shelter Provider Chief Complaint: Respiratory Distress Patient's condition is stable she is still agitated on BiPAP 100% saturation on TPN undergoing dialysis Review of Systems is unable to be obtained Physical Examination - Vital Signs Temperature: 97.8 F Blood Pressure: 98/58 Pulse: 99 Respirations: 29 Pulse Ox (%): 96 - Physical Exam General: Moderate distress Respiratory: Crackles/rales (Crackles and diminished air entry on the right side ) Cardiovascular: No edema, Normal S1 S2 - Studies Medications List Reviewed: Yes Assessment & Plan - Problems (Diagnosis) (1) Respiratory failure Status: Acute Plan: Patient admitted with respiratory failure presumed secondary to right-sided pneumonia with a pleural effusion patient not stable to have a CT scan done of order an ultrasound of the right chest possible thoracentesis discussed with daughter CBC ordered urine cultures positive for E. coli patient is on vancomycin and meropenem she is an 80% oxygen with 100% saturation on dialysis Qualifiers: Chronicity: acute on chronic
[2019-09-08] MEDS ORDERED: FENTANYL CITR 100 MCG/2 ML IV PRN (10:12)
[2019-09-08 10:34] LABS: Hematocrit 40.5 % (36.0-45.0); MPV 10.6 fL (7.6-11.3); RBC Red Blood Cell Count 3.53 M/uL (3.86-4.86)
[2019-09-08 10:41] LABS: Arterial Blood Carboxyhemoglob 1.6 % (0-1.5); Blood Gas Oxyhemoglobin 94.6 % (94-97); Blood O2 Saturation 97.1 % (92-98.5)
[2019-09-08] MEDS: Meropenem 500 MG in NA CHLORIDE 0.9% 100 ML IV SCH ×2 (13:03→22:14)
--- NOTE | 2019-09-08 14:55 | P.PN ---
Subjective Date of Service: 09/08/19 Primary Care Provider: Intermediate Provider Chief Complaint: Respiratory Distress patient seen/examined. spoke in detail in family meeting with 4 daughters/son and patient's RN (Coby). patient looks very ill. dependent on oxygen with face mask/high flow, with dropping her o2 sats even with seconds off oxygen. bp running on lower side. patient is in resp distress on visual exam. and seems to be using neck muscles. family has agreed to dnr status. bp is on lower side ( 90s systolic) and she has elevated wbc counts despite on merepenom and vancomycin. vs: in resp distress/low bp lungs: decreased bs abd soft ext trace edema cvs: tachycardia 90-110 a/p: esrd: s/p hd. patient with progressively worsening condition. resp distress, lower bp, ? worsening infection. currently dnr. discussed with family. they are considering hospice and level of care they want and understand that patient seems to be close to dying. several questions regarding paliative care and dying process reviewed and discussed. spent over 30 minutes just with meeting family members and reviewing plan. family, as of now, does want to consider pressors if they can be used and needed, in physician's opinion. however, they understand that mom's condition is likely critical and she is close to transitioning/dying and they are in agreement with DNR. Physical Examination - Vital Signs Temperature: 98.7 F Blood Pressure: 92/54 Pulse: 105 Respirations: 35 Pulse Ox (%): 99 - Studies Medications List Reviewed: Yes Assessment And Plan Physician Review Additional Text: Impression: Acute on chronic respiratory failure secondary to acute on chronic diastolic CHF with right pleural effusion and pneumonia Suspect UTI Atrial fibrillation not on chronic anti coagulation therapy End-stage renal disease on dialysis Diabetes mellitus type 2 with hyperglycemia Hypothyroidism Anemia of chronic disease Moderate malnutrition Plan: Acute on chronic respiratory failure secondary to acute on chronic diastolic CHF with right pleural effusion and pneumonia: Case discussed with pulmonology. Pulmonology suspects right pleural effusion with pneumonia. IV antibiotic therapy adjusted for better coverage. If worsening right pleural effusion patient may require thoracentesis but will need to obtain CT chest once more medically stable. Patient currently NPO at this time. Patient on TPN. Patient to have modified barium swallow with speech to further evaluate her dysphagia. Will add Accu-Cheks and sliding scale due to hyperglycemia related to TPN. Case discussed at length with nephrology. Nephrology plans to continue with dialysis. Case discussed at length with family yesterday. Will rediscuss plan of care with family today. Advanced directives have been addressed in detail. Patient is do not resuscitate and [id number]. Await modified barium swallow and recommendations by speech. If significantly abnormal for aspiration will need to discuss the possibility of PEG tube placement. Continue to monitor the patient closely. I will turn over the service to the hospitalist covering tomorrow as I will not be here. Atrial fibrillation not on chronic anti coagulation therapy: Will discuss with cardiology about the possibility of restarting medication. Possible UTI: IV antibiotic therapy adjusted. Await culture results. End-stage renal disease on dialysis: Case discussed with nephrology. Will continue with dialysis. Hypothyroidism: Continue medication. If still and he will Will continue with possible IV medication. Anemia of chronic disease: Will monitor closely. Moderate malnutrition: Continue as above. Diabetes mellitus type 2 with hyperglycemia: Hyperglycemia noted. Will continue with Accu-Cheks and sliding scale. Hyperglycemia likely related to TPN.
--- NOTE | 2019-09-08 15:28 | RAD REPORT ---
EXAM DESCRIPTION: Dina Single View09/08/2019 2:29 pm CLINICAL HISTORY: Shortness of breath COMPARISON: September 07 FINDINGS: Small to moderate right and small left pleural effusion suspected Mild worsening in left and no significant change in right pulmonary opacities The heart remains enlarged. Central venous catheter in place. Post surgical changes involve chest IMPRESSION: Moderate bilateral pulmonary opacities probably pulmonary edema or pneumonia Small to moderate right and small left pleural effusions
[2019-09-08] MEDS: AA 4.25%/D10W/ELECTROLYTES 2,000 ML, Lipids 20% 250 ML with MULTIVITAMINS INJ 10 ML IV SCH ×3 (17:00)
[2019-09-08] MEDS ORDERED: MORPHINE 4 MG/ML SYR IV ONE (19:31)
[2019-09-08] MEDS ORDERED: LORazepam 2 MG/ML VIAL IV ONE (19:32)
[2019-09-09] MEDS ORDERED: MORPHINE 4 MG/ML SYR IV PRN (00:14)
[2019-09-09] MEDS ORDERED: LORazepam 2 MG/ML VIAL IV PRN (00:15)
[2019-09-09 05:22] LABS: Absolute Lymphocytes (CBC) 0.2 K/uL (0.7-4.9); Basophils % 0.4 % (0-1.3); Hematocrit 35.7 % (36.0-45.0); Lymphocytes % 1.4 % (15.3-44.8); RBC Red Blood Cell Count 3.04 M/uL (3.86-4.86)
[2019-09-09 05:33] VITALS: BMI 24.0
[2019-09-09 05:39] LABS: Albumin 2.5 g/dL (3.4-5.0); Bilirubin Total 1.1 mg/dL (0.2-1.0); Magnesium 2.1 mg/dL (1.8-2.4); Phosphorus 3.8 mg/dL (2.5-4.9); Potassium 4.3 mmol/L (3.5-5.1); Protein, Total 5.1 g/dL (6.4-8.2)
[2019-09-09] MEDS: LIOTHYRONINE SOD 5 MCG TAB PO SCH (05:57)
[2019-09-09] MEDS: LEVOTHYROXINE SOD 0.05 MG TABLET PO SCH (05:57)
[2019-09-09] MEDS ORDERED: VANCOMYCIN/NS 1 gm 1 GM/250 ML BAG IV SCH (06:00)
[2019-09-09] MEDS: ENOXAPARIN 30 MG/0.3 ML SQ SCH (08:12)
[2019-09-09] MEDS: MIDODRINE HCL 5 MG TABLET PO SCH (08:12)
--- NOTE | 2019-09-09 08:48 | P.PN ---
Date of Service: 09/08/19 Spoke with family and they want a withdraw care. An they spoke with patient who was able to interact with them. Patient states that she no longer wants oxygen therapy. Family wanted to withdraw care. We will continue fentanyl and Ativan.
[2019-09-09] MEDS: Meropenem 500 MG in NA CHLORIDE 0.9% 100 ML IV SCH (09:00)
[2019-09-09] MEDS: NYSTATIN PWDR 100000 UNIT/GM TOP SCH (09:00)
--- NOTE | 2019-09-09 11:13 | P.PN ---
Subjective Date of Service: 09/09/19 Primary Care Provider: [facility] Provider Chief Complaint: Respiratory Distress hypotensive shock Patient is condition has deteriorated and the [facility] 1 withdrawal of care and comfort measures only patient is septic white count elevated is now hypertensive septic shock Review of Systems is unable to be obtained Physical Examination - Vital Signs Temperature: 98.7 F Blood Pressure: 56/40 Pulse: 84 Respirations: 17 Pulse Ox (%): 89 - Physical Exam General: Unresponsive Respiratory: Diminished, Crackles/rales Cardiovascular: No edema - Studies Medications List Reviewed: Yes Assessment & Plan - Problems (Diagnosis) (1) Respiratory failure Current Visit: Yes Status: Acute Plan: Patient admitted with respiratory failure secondary to pneumonia is currently in septic shock elevated white count for cancer family members decided to withdraw care comfort measures only also stopped her antibiotics patient is currently unresponsive agonal breathing urine culture positive for E. coli continue monitoring in the ICU as per family members request Qualifiers: Chronicity: acute on chronic Physician Review Additional Text: Impression: Acute on chronic respiratory failure secondary to acute on chronic diastolic CHF with right pleural effusion and pneumonia Suspect UTI Atrial fibrillation not on chronic anti coagulation therapy End-stage renal disease on dialysis Diabetes mellitus type 2 with hyperglycemia Hypothyroidism Anemia of chronic disease Moderate malnutrition Plan: Acute on chronic respiratory failure secondary to acute on chronic diastolic CHF with right pleural effusion and pneumonia: Case discussed with pulmonology. Pulmonology suspects right pleural effusion with pneumonia. IV antibiotic therapy adjusted for better coverage. If worsening right pleural effusion patient may require thoracentesis but will need to obtain CT chest once more medically stable. Patient currently NPO at this time. Patient on TPN. Patient to have modified barium swallow with speech to further evaluate her dysphagia. Will add Accu-Cheks and sliding scale due to hyperglycemia related to TPN. Case discussed at length with nephrology. Nephrology plans to continue with dialysis. Case discussed at length with family yesterday. Will rediscuss plan of care with family today. Advanced directives have been addressed in detail. Patient is do not resuscitate and [id number]. Await modified barium swallow and recommendations by speech. If significantly abnormal for aspiration will need to discuss the possibility of PEG tube placement. Continue to monitor the patient closely. I will turn over the service to the hospitalist covering tomorrow as I will not be here. Atrial fibrillation not on chronic anti coagulation therapy: Will discuss with cardiology about the possibility of restarting medication. Possible UTI: IV antibiotic therapy adjusted. Await culture results. End-stage renal disease on dialysis: Case discussed with nephrology. Will continue with dialysis. Hypothyroidism: Continue medication. If still and he will Will continue with possible IV medication. Anemia of chronic disease: Will monitor closely. Moderate malnutrition: Continue as above. Diabetes mellitus type 2 with hyperglycemia: Hyperglycemia noted. Will continue with Accu-Cheks and sliding scale. Hyperglycemia likely related to TPN.
[2019-09-09 12:06] VITALS: O2SAT 100
--- NOTE | 2019-09-09 22:29 | PN ---
Date of Progress Note: 09/08/2019 Mrs. Gaitan has been followed for congestive heart failure. She has been also followed for what ap pear to be a pneumonia, atrial fibrillation. She has dyslipidemia, anemia, and diabetes as well as r enal insufficiency. She is a do not resuscitate. She has severe pulmonary hypertension and severe v alvular heart disease. Ms. Eugene blood pressure continues to plummet. Her last blood pressure w hen I saw her this morning was 56/40. Remained in atrial fibrillation at a rate of 84. She has a 99 % saturation on CPAP, BiPAP. Her last creatinine is 2.53, which is improved. Her white count was 26 ,000, today is 15,000. She is on vancomycin. She is on midodrine. She is on insulin. She is recei ving inhalers and fluid. I agree with her present regimen. No changes in plans for now. There is c onsideration for PEG tube placement and may be a thoracentesis. Nephrology is following as well. BINU/SARINA Voice ID: [id number] Report ID: [id number]
--- NOTE | 2019-09-10 01:09 | PN ---
Date of Progress Note: 09/09/2019 Mrs. Gaitan was admitted with pneumonia, congestive heart failure, COPD exacerbation, renal failure . She has been very hypotensive. Apparently, there is plan for care withdrawal and comfort measures only. It is assumed that her hypotension is secondary to septic shock considering her elevated whit e count. Her urine culture was positive for E coli. Family members wanted to continue ICU monitorin g, but decided on care withdrawal. The case has been discussed with Dr. Ponce and the family. I will sign off her case for now. NB/MODL Voice ID: [id number] Report ID: [id number]
--- NOTE | 2019-09-10 08:02 | P.DS ---
Discharge Date: 09/10/19 Primary Care Provider: Correction Provider Disposition: Discharge Condition: Reason for Admission: Respiratory Distress hypotensive shock Consultations: Pulmonary, nephrology, cardiology - Problems (1) Right lower lobe pneumonia Status: Acute Qualifiers: Pneumonia type: aspiration pneumonia (2) Pleural effusion Status: Acute (3) ESRD (end stage renal disease) Status: Acute (4) Pulmonary hypertension Status: Acute (5) Severe tricuspid regurgitation Status: Acute (6) Severe mitral regurgitation Status: Acute (7) Diabetes mellitus type 2 with complications Status: Chronic (8) CHF (congestive heart failure) Status: Chronic Qualifiers: (9) Chronic atrial fibrillation Onset Date: 03/04/17 Status: Chronic (10) S/P mitral valve clip implantation Status: Chronic Brief History of Present Illness: Patient is an 84-year-old female who was recently in the hospital a week ago with right lower extremity cellulitis. Patient has cellulitis had improved; however, she had been having difficulty with her swallowing. A swallow study revealed that she had significant dysphagia. Honey thick liquids and pureed diet was recommended. According to the family, patient was not eating well during her hospital stay. According to the family members, she has started declining from a nutritional standpoint. They were sent to a [facility] facility to strengthen her. Over the last week she has had only a bite of footing when they come to give her her her medications. She has continued to decline so they brought her into the emergency room. In the emergency room she was found to have a large right lower lobe and pneumonia. This could also be a pleural effusion. She has significant coronary artery disease and valvular heart disease. She has severe mitral regurgitation and severe tricuspid regurgitation which has resulted in severe pulmonary hypertension. 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 She is also end-stage renal disease. I met with the family for over an hour and after talking to the numerous family members the medical power of employment law attorney has decided to the make her a do not attempt resuscitation. We will still be able to manage her in the ICU. I did get to speak with Dr. Razo Nephrology and hopefully will be able to dialyze her as necessary at our facility. She will be admitted to the ICU. Hospital Course: Patient continued to decline throughout her hospitalization. Family decided that they wanted to withdraw care. Patient was alert and told him that she was tired and she was ready to . Family decided to take her off the BiPAP in use O2 per nasal cannula only. Patient declined over the next 36 hr and she on the morning of September 10, 2019 at 0014. Her family was at bedside with her. Home Medications: Amiodarone HCl [Cordarone*] 200 mg PO DAILY 09/06/19 Docusate Sodium 100 mg PO Q12HP PRN 09/06/19 Doxycycline Hyclate 100 mg PO BID 09/06/19 Levothyroxine Sodium [Tirosint] 50 mcg PO DAILY 09/06/19 Liothyronine Sodium [Cytomel] 5 mcg PO DAILY 09/06/19 Midodrine HCl 5 mg PO DAILY 09/06/19 Mirtazapine [Remeron*] 15 mg PO BEDTIME 09/06/19 Nystatin Powder [Mycostatin (Powder)*] 1 mame TOP DAILY 09/06/19 Omeprazole [Prilosec] 40 mg PO DAILY 09/06/19 Polyethylene Glycol 3350 [Miralax] 1 g PO DAILYPRN PRN 09/06/19 traMADol HCL [Ultram*] 50 mg PO Q8HP 09/06/19 Patient Discharge Instructions: Patient and her body was released to the home Time spent managing pt's care (in minutes): 10
[2019-09-10 08:19] VITALS: BP 98/58; TEMP 97.8
--- OUTSIDE RECORDS SUMMARY | 2019-09-23 09:06 | XMS REPORT ---
:1935 [facility] Address [address] [place] [address] Dr. Yost [address] [place] [id number] Care Team Providers Name Role Phone Unavailable Unavailable Unavailable Problems This patient has no known problems. Allergies, Adverse Reactions, Alerts This patient has no known allergies or adverse reactions. Medications This patient has no known medications.
== END 2019-09-10 00:14 | disposition expired | DRG 871 ==
LOC: ER 03:57 → ERHOLD 05:49 → 4TH 07:55 → ERHOLD 07:55 → 3RD-ICU 08:54 → 4TH 09-08 17:15 → 3RD-ICU 09-08 17:48
PROVIDERS: ADMIT Hospitalist; ATTEND Hospitalist
PROC: 06HY33Z Insertion of Infusion Device into Lower Vein, Percutaneous Approach (ICD-10-PCS; principal; 2019-09-06)
PROC: 5A09357 Assistance with Respiratory Ventilation, Less than 24 Consecutive Hours, Continuous Positive Airway Pressure (ICD-10-PCS; 2019-09-06)
DX: A41.9 Sepsis, unspecified organism (principal); J69.0 Pneumonitis due to inhalation of food and vomit; J96.20 Acute and chronic respiratory failure, unspecified whether with hypoxia or hypercapnia; I50.33 Acute on chronic diastolic (congestive) heart failure; N18.6 End stage renal disease; R65.21 Severe sepsis with septic shock; I13.2 Hypertensive heart and chronic kidney disease with heart failure and with stage 5 chronic kidney disease, or end stage renal disease; N39.0 Urinary tract infection, site not specified; E46 Unspecified protein-calorie malnutrition; I48.20 Chronic atrial fibrillation, unspecified; E11.22 Type 2 diabetes mellitus with diabetic chronic kidney disease; Z99.2 Dependence on renal dialysis; B96.20 Unspecified Escherichia coli [E. coli] as the cause of diseases classified elsewhere; E11.65 Type 2 diabetes mellitus with hyperglycemia; E03.9 Hypothyroidism, unspecified; Z68.24 Body mass index [BMI] 24.0-24.9, adult; D64.9 Anemia, unspecified; E78.5 Hyperlipidemia, unspecified; I07.1 Rheumatic tricuspid insufficiency; I34.0 Nonrheumatic mitral (valve) insufficiency; I25.10 Atherosclerotic heart disease of native coronary artery without angina pectoris; I27.20 Pulmonary hypertension, unspecified; Z88.6 Allergy status to analgesic agent; Z88.0 Allergy status to penicillin; Z88.2 Allergy status to sulfonamides; Z85.41 Personal history of malignant neoplasm of cervix uteri; Z95.2 Presence of prosthetic heart valve; Z66 Do not resuscitate
CPT/HCPCS: 36415; 71045; 80048; 80053; 80061; 80076; 80202; 81001; 82550; 82805; 82947; 83605; 83690; 83735; 84100; 84145; 84484; 85025; 85027; 85610; 87040; 87077; 87086; 87088; 87186; 90935; 92610; 93005; 94640; 94660; 94760; 96365; 99291; 99292; C9113; J0456; J0692; J0696; J1644; J1650; J3010; J7030; J7040; P9047